=== PATIENT | female | born 1975 | race Caucasian/White ===

== ENCOUNTER 2020-02-18 08:11 | Outpatient (CLI) | payer BC, SELFPAY ==
--- NOTE | ~2020-02-18 | MM_ITS ---
EXAMINATION: MM screening anuja BI w everett HISTORY: Screening mammogram TECHNIQUE: Craniocaudal and mediolateral oblique 3-D tomosynthesis images were obtained and synthetic 2-D images were generated. CAD analysis was submitted and interpreted. COMPARISON: No prior mammogram is available for comparison at this institution. BREAST PARENCHYMAL COMPOSITION: The breasts are almost entirely fatty. FINDINGS: There is no evidence of suspicious mass, calcification, or architectural distortion to sugg est malignancy in either breast. There has been no suspicious interval change. IMPRESSION: 1. No mammographic evidence of malignancy. 2. Recommend routine screening mammography in one year. BI-RADS Category 1: Negative Reviewed, dictated and finalized at location A. [employer] TE[employer]ACH
== END 2020-02-18 08:12 | disposition home or self-care (01) ==
LOC: ANHIMG 08:24
PROVIDERS: PCP Physician Assistant; Visit Provider Physician Assistant
DX: Z12.31 Encounter for screening mammogram for malignant neoplasm of breast (principal)
CPT/HCPCS: 77063; 77067

== ENCOUNTER 2021-10-04 12:33 | Inpatient (IN) | payer BC, SELFPAY ==
[2021-10-04] VITALS (12 sets, daily range): BP systolic 113–137; BP diastolic 50–70; PULSE 81–108; RESP 13–20; TEMP 36.6–37.3; O2SAT 96–100; BMI 39.6
--- NOTE | ~2021-10-04 | XR_ITS ---
XR foot RT min 3V DATE: 10/04/2021 13:18 INDICATION: Diabetic ulcer on plantar aspect of fifth metatarsal bone TECHNIQUE: 4 views COMPARISON: 12/03/2017 right foot FINDINGS: Status post surgical resection of the fifth ray at the mid shaft of the fifth metatarsal aaron ne. There is soft tissue swelling of the forefoot. No periosteal reaction or bone destruction is noted. Prominent plantar and mild posterior calcaneal enthesopathy. No fracture or dislocation. IMPRESSION: Forefoot soft tissue swelling Status post amputation of fifth metatarsal at the midshaft No radiographic evidence of osteomyelitis is detected Calcaneal enthesopathy Reviewed, dictated and finalized at location A.
[2021-10-04 12:48] LABS: Glucose Point of Care 357 mg/dl (65-105)
[2021-10-04 13:01] LABS: Basophils Percent Auto 0.4 % (0.2-1.2); Eosinophils Absolute Auto 0.1 K/mm3 (0-0.3); Hematocrit 40.5 % (37.0-47.0); Immature Granulocyte Absolute 0.03 K/mm3 (0.00-0.031); Immature Granulocyte Percent A 0.3 % (0-0.5); Lymphocytes Percent Auto 18.8 % (18.3-44.2); Mean Corpuscular HGB Conc 34.6 g/dl (32-36); Mean Corpuscular Hemoglobin 28.4 pg (26-34); Mean Corpuscular Volume 82.2 fl (80-100); Mean Platelet Volume 10.2 fl (7.4-10.4); Monocytes Absolute Auto 0.7 K/mm3 (0.1-0.6); Monocytes Percent Auto 7.6 % (2.6-8.5); Neutrophils Absolute Auto 6.9 K/mm3 (1.3-6.7); Neutrophils Percent Auto 71.9 % (45.5-73.1); Platelet Count Result 231 k/mm3 (150-375); Red Blood Count 4.93 M/mm3 (4.2-5.4); Red Cell Distribution Width 12.6 % (11.5-14.5); White Blood Count 9.6 K/mm3 (4.5-10.0)
--- NOTE | 2021-10-04 13:05 | ED.GENADULT ---
HPI - General Adult General Chief complaint: Extremity Problem,Nontraumatic Stated complaint: RIGHT FOOT ULCER Time Seen by Provider: 10/04/21 12:54 Source: RN notes reviewed History of Present Illness HPI narrative: Patient presents emergency department from home for right foot pain. Patient states she noted an ulcer on her right foot yesterday. She states that the area has been painful and she has had associated nausea and vomiting. She states that she is a diabetic but stopped taking her medications approximately a year ago because they are making her sick. She denies any shortness of breath chest pain or abdominal pain. States she did have a low-grade fever yesterday Related Data Home Medications Medication Instructions Recorded Confirmed gabapentin 300 mg capsule 1 cap PO TID 10/04/21 10/04/21 glimepiride 2 mg tablet 2.5 mg PO DAILY 10/04/21 10/04/21 liraglutide 0.6 mg/0.1 mL (18 mg/3 3.5 mg subcut DAILY 10/04/21 10/04/21 mL) subcutaneous pen injector (SongFlame 2-Edgardo) metformin 1,000 mg tablet 1 tablet PO BID 10/04/21 10/04/21 omeprazole magnesium 20 mg 20 mg PO DAILY PRN Acid Reflux 10/04/21 10/04/21 tablet,delayed release (Prilosec OTC) Allergies Allergy/AdvReac Type Severity Reaction Status Date / Time aspirin Allergy Unknown Urticaria Verified 11/24/17 11:19 Review of Systems Review of Systems: Gen.: Denies fevers or chills ENT: Denies congestion Respiratory: Denies shortness of breath or cough CV: Denies chest pain or palpitations GI: Denies abdominal pain or diarrhea. 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 Perez Diabetes mellitus due to underlying condition with foot ulcer, without long-term current use of insulin (12/26/17) Diabetic ulcer of toe of right foot associated with type 2 diabetes mellitus Osteomyelitis of toe of right foot Family History Family History Other Diabetes mellitus Social History Social History Smoking packs per day: 2 Smoking cigarettes per day: 40.0 Years smoked: 37 Smoking pack-years: 74.00 Smoking status: Heavy tobacco smoker Tobacco type: cigarettes Second hand tobacco smoke exposure: Yes Alcohol intake: never Substance use: never Gender identity (if verbalized by the patient): Female Sexual Orientation (if Verbalized by the Patient): Straight or Heterosexual Spiritual care concerns: No Agree to blood products: No Exam Narrative: APPEARANCE: No acute distress, nontoxic, resting in bed EYES: EOMI HEENT: Normocephalic, atraumatic, OMM RESPIRATORY: No respiratory distress Clear to auscultation bilaterally with no rhonchi wheezing or rales. CARDIOVASCULAR: Regular rate and rhythm without murmurs rubs or gallops. ABDOMINAL: Soft, nontender, nondistended, no rebound or guarding MUSCULOSKELETAl: Moves all extremities. No clubbing, cyanosis the right foot has swelling and erythema over the lateral distal aspect at the base of the fifth metatarsal with mild fluctuance no drainage erythema extends up to the foot but does not seem to the ankle dorsalis pedis pulse 2+ neurovascular intact NEURO: Awake and alert. Following commands, speech normal, no focal deficits SKIN:: Warm, dry. No rashes lesions or abrasions PSYCHIATRIC: Normal affect/mood, Course Course Emergency Course: Discussed with Dr. Perez presentation work-up agrees with consult Discussed with TITO Lambert for Dr. Brower agrees with admission Discussed with patient and family results of workup and diagnosis. Discussed
[2021-10-04] MEDS: SODIUM CHLORIDE 0.9% IV 1,000 ML 999 ML IV CONT ×2 (13:13→13:56)
[2021-10-04] MEDS: ONDANSETRON INJ 4 MG/2 ML VIAL IV PUSH (13:13)
[2021-10-04 13:15] LABS: Anion Gap 7 mmol/L (8-16); Blood Urea Nitrogen 7 mg/dL (7-17); Calcium 8.7 mg/dL (8.4-10.2); Carbon Dioxide 26 mmol/L (22-30); Chloride 100 mmol/L (98-107); Estimated CRCL calculation 129 ml/min; Estimated Glomerular Filt Rate > 60; Glucose 354 mg/dL (65-110); Potassium 3.9 mmol/L (3.4-5.0); Sodium 133 mmol/L (137-145)
[2021-10-04 13:26] LABS: Prothrombin Time 12.7 Seconds (11.1-14.7)
[2021-10-04 13:29] LABS: Lactic Acid Reflex 2.6 mmol/L (0.7-2.0)
--- NOTE | 2021-10-04 14:05 | PM.IMHP ---
H&P: HPI History of Present Illness Date/Time: 10/04/21 14:05 Chief Complaint: R foot pain Narrative: 46 F with PMH of DM who presented to ED with c/o R foot pain that started yesterday. pain is 9/10 in severity. she also noticed redness and swelling. also reported fever 102 F yesterday. She is T2DM and quit taking her meds a year back. she previously had R 5th toe amputation by Ortho a few years back. no other complaints. Review of Systems Review of Systems: negative other than HPI [facility] Family History Family History (Updated 11/24/17 @ 11:21 by DOCTOR UNKNOWN) Other Diabetes mellitus Social History Social History Smoking status: Heavy tobacco smoker Alcohol intake: never Meds Home Medications and Allergies Allergies Allergy/AdvReac Type Severity Reaction Status Date / Time aspirin Allergy Unknown Urticaria Verified 11/24/17 11:19 Vital Signs Vital Signs - 24 hr 10/04/21 12:37 10/04/21 12:48 10/04/21 13:00 Temperature 97.9 F Pulse Rate 108 H 105 H 99 Respiratory Rate 20 13 18 Blood Pressure Pulse Oximetry 100 100 97 Oxygen Delivery Room Air 10/04/21 13:02 10/04/21 13:20 10/04/21 13:30 Temperature Pulse Rate 95 92 103 H Respiratory Rate 14 18 17 Blood Pressure Pulse Oximetry 97 96 100 Oxygen Delivery 10/04/21 13:32 10/04/21 13:45 Temperature Pulse Rate 99 96 Respiratory Rate 17 15 Blood Pressure 137/56 L Pulse Oximetry 99 100 Oxygen Delivery Exam Const: General: cooperative and comfortable Orientation/consciousness: patient oriented x3 HENMT: Head: normal to inspection Mouth: Yes Normal oral and palatal mucosa present Eyes: General: appearance normal, both eyes and all related structures Resp: Effort & Inspection: normal respiratory effort Auscultation: clear to auscultation bilaterally Cardio: Rate: regular rate Rhythm: regular rhythm Heart sounds: S1 normal heart sound present and S2 normal heart sound present GI: GI Palp: Yes Soft to palpation Auscultation: normal bowel sounds Skin: General skin exam: normal color and no rashes or lesions noted Neuro: General: patient oriented x3, no focal motor deficits and CN's II-XI intact bilaterally Speech: normal speech Extrem: General: full ROM Other: R 5th toe amputation. swelling, erythema lateral part of right foot. chronic ulcer R sole Psych: Appearance: grossly normal H&P: Results Labs Labs: Short CBC 10/04/21 Range/Units 12:54 WBC 9.6 (4.5-10.0) K/mm3 Hgb 14.0 (12.0-15.0) g/dL Hct 40.5 (37.0-47.0) % Plt Count 231 (150-375) k/mm3 [facility] 10/04/21 12:54 Sodium 133 L Potassium 3.9 Chloride 100 Carbon Dioxide 26 BUN 7 Creatinine 0.50 L Glucose 354 H Calcium 8.7 Assessment and Plan Assessment and plan (1) Non-pressure chronic ulcer of other part of right foot limited to breakdown of skin: Code(s): L97.511 - Non-pressure chronic ulcer of other part of right foot limited to breakdown of skin Status: Acute Assessment and Plan: Ortho has been consulted. XRAY doesnt show any OM. defer further imaging to Ortho. will keep NPO after midnight for possible surgery tomorrow. patient received vanco and imipenem in ED. will continue the same. blood cultures obtained. (2) DM type 2 (diabetes mellitus, type 2): Code(s): E11.9 - Type 2 diabetes mellitus without complications Status: Acute Assessment and Plan: non complaint. stopped taking her meds a year back. will start on lantus along with ISS and accuchecks AC&HS. A1c ordered. (3) Smoker unmotivated to quit: Code(s): F17.200 - Nicotine dependence, unspecified, uncomplicated Status: Acute Assessment and Plan: patient counseled on smoking cessation. no intent to quit.
[2021-10-04 14:17] LABS: SARS-CoV-2 RNA PCR Negative
[2021-10-04] MEDS: INSULIN ASPART (*BKC) 100 UNITS/ML SUB-Q ×2 (15:18→17:17)
--- NOTE | 2021-10-04 15:32 | ADMGEN ---
This patient, Danyell Perkins, was admitted to Medical Room 341-01. Patient/family oriented to hospital policies and general routines including ID bracelet, bed and alarms, visiting hours, pain management, procedures, bathroom and other care routines, personal items, smoking policy, room service/diet, and visiting hours. Information on how to activate the Rapid Response Team has been discussed. Patient/Family are encouraged to report perceived risks to care and to ask questions if they do not understand what they are told or what they should do.
[2021-10-04 15:55] LABS: Glucose Point of Care 305 mg/dl (65-105)
--- NOTE | 2021-10-04 16:06 | PM.CNOR ---
Assessment and Plan Assessment and plan (1) Non-pressure chronic ulcer of other part of right foot limited to breakdown of skin: Code(s): L97.511 - Non-pressure chronic ulcer of other part of right foot limited to breakdown of skin <Ninfa Nikunj Schafermark [employer] - Last Filed: 10/04/21 17:16> Status: Acute <Ninfa Graeme. [place]ark, [facility] - Last Filed: 10/04/21 17:16> Assessment and Plan: History, exam radiographs reviewed with the patient. Radiographs of the right foot reveal interval amputation of the 5th metatarsal at the midshaft as well as a forefoot soft tissue swelling. No obvious evidence of osteomyelitis noted. Large blister on the lateral aspect of the foot at what is the amputated 5th metatarsal midshaft noted. Two calluses noted on the plantar aspect of the 4th metatarsal. Recommended I&D of the right foot at the bedside. See procedure note for details. Concern for unhealthy tissue underlying blister. Culture obtained. Continue IV antibiotics at this time. We will await culture results. Wound painted with Betadine and covered dry. Recommend postop shoe. Elevate. Close blood glucose control. Diabetic diet. Weightbearing on the heel. Patient understands potential need to return to the operating room for further debridement. Wound consulted, will re-evaluate wound with wound nurses tomorrow to determine further conservative versus operative treatment needs. <Ninfa GraemeCitlali Ramon, [facility] - Last Filed: 10/04/21 17:16> (2) DM type 2 (diabetes mellitus, type 2): Code(s): E11.9 - Type 2 diabetes mellitus without complications <Ninfa GraemeCitlali Ramon, [facility] - Last Filed: 10/04/21 17:16> Status: Acute <Ninfa Nikunj Schaf[place]ark, [facility] - Last Filed: 10/04/21 17:16> Assessment and Plan: Patient will require close diabetic control. <Ninfa GraemeCitlali Ramon, [employer] - Last Filed: 10/04/21 17:16> (3) Smoker unmotivated to quit: Code(s): F17.200 - Nicotine dependence, unspecified, uncomplicated <Ninfa GraemeCitlali Ramon, [facility] - Last Filed: 10/04/21 17:16> Status: Acute <Ninfa M. Ruwe, [employer] - Last Filed: 10/04/21 17:16> Assessment and Plan: Reviewed radiographs, assessment and decision for bedside debridement with attending physician and consulted surgeon, Dr. Perez. Agrees with current plan of care. No further recommendations. <EMI Salomon - Last Filed: 10/04/21 17:16> Additional Plan 46yo woman known previously for rt 5th met osteo presents with rt foot abscess/ DFU. Cultures taken, IV abx started. Wound care. May need formal debridement <Codey Perez MD - Last Filed: 10/05/21 06:56> History of Present Illness HPI Consult date: 10/04/21 <EMI Salomon - Last Filed: 10/04/21 17:16> 10/05/21 <Codey Perez MD - Last Filed: 10/05/21 06:56> Chief complaint: Right foot cellulitis/diabetes mellitus/right foot <EMI Salomon - Last Filed: 10/04/21 17:16> Narrative: 46-year-old female known to the Orthopedic Service for a previous 5th ray amputation of the right foot [place] [address] Perez. Patient presented to the emergency room today with complaints of increased right foot swelling and erythema which began yesterday while on vacation. She also notes that she had calluses on the plantar aspect of the right foot for the last 2 months. She does not wear custom orthotics for depth shoes. She was barefoot while on vacation as well walking on hot concrete. She was admitted in the setting of cellulitis and for concerns of diabetic foot ulcer infection. <EMI Salomon - Last Filed: 10/04/21 17:16> Review of Systems Constitutional: Constitutional: Reports no additional constitutional complaints, Denies chills, Denies fatigue, Denies fever(s), Denies headache(s) and Denies weakness <EMI Salomon - Last Filed: 10/04/21 17:16> Eyes: Eyes: Denies change in vision <EMI Salomon - Last Filed: 07/11/22 17:16> ENT: Reports Normal hearing present and Den
[2021-10-04 16:14] LABS: Reflex Lactic Acid Yes or No Add Lactic
[2021-10-04 16:54] LABS: Hemoglobin A1C 11.3 % (<5.7)
[2021-10-04 16:56] LABS: Glucose Point of Care 375 mg/dl (65-105)
--- NOTE | 2021-10-04 17:16 | PM.OP ---
Procedure Note - Brief Procedure Note - Brief Date of procedure: 10/04/21 Pre-op diagnosis: Right foot cellulitis/diabetes mellitus/right foot Right diabetic foot ulcer Post-op diagnosis: Same Procedure performed: I&D right diabetic foot ulcer at the bedside Description of procedure: Consent obtained. Debridement of the skin, subcutaneous tissue debrided under sterile conditions with #15 blade knife. All devitalized tissue muscle removed. Procedure tolerated well. Moderate amount of serosanguineous fluid drained from the right lateral forefoot. No purulence. No malodor. Anesthesia: none Surgeon: EMI Salomon Truck Headlight Assembler: n/a Estimated blood loss (mL): 0 Tourniquet time (min): 0 IV fluids (mL): 0 Urine output (mL): 0 Drains: No Packing: No Pathology: Yes ( stat Gram stain, aerobic and anaerobic cultures.) Complications: No immediate complications Condition: Stable Disposition: Floor Findings: Underlying diabetic foot ulcer. No probing to bone. Questionable communication with plantar foot calluses At the base of the 4th metatarsal.
[2021-10-04] MEDS: NICOTINE (*PBKC) 14 MG PATCH 1 PATCH TRANSDERM (17:28)
[2021-10-04 17:40] LABS: Lactic Acid 2.6 mmol/L (0.7-2.0)
[2021-10-04 20:24] LABS: Glucose Point of Care 285 mg/dl (65-105)
[2021-10-04] MEDS: INSULIN GLARGINE (*BKC) 100 UNITS/ML 22 UNITS SUB-Q (20:53)
[2021-10-04] MEDS: HEPARIN SODIUM 5,000 UNITS/ML VIAL 5000 UNITS SUB-Q (20:56)
[2021-10-05 05:41] LABS: Basophils Percent Auto 0.5 % (0.2-1.2); Eosinophils Absolute Auto 0.1 K/mm3 (0-0.3); Eosinophils Percent Auto 1.5 % (0-4.4); Hematocrit 36.1 % (37.0-47.0); Hemoglobin 12.4 g/dL (12.0-15.0); Immature Granulocyte Absolute 0.02 K/mm3 (0.00-0.031); Immature Granulocyte Percent A 0.3 % (0-0.5); Lymphocytes Absolute Auto 1.76 K/mm3 (0.9-3.2); Lymphocytes Percent Auto 28.8 % (18.3-44.2); Mean Corpuscular HGB Conc 34.3 g/dl (32-36); Mean Corpuscular Hemoglobin 28.5 pg (26-34); Mean Platelet Volume 10.1 fl (7.4-10.4); Monocytes Absolute Auto 0.5 K/mm3 (0.1-0.6); Monocytes Percent Auto 8.3 % (2.6-8.5); Neutrophils Absolute Auto 3.7 K/mm3 (1.3-6.7); Neutrophils Percent Auto 60.6 % (45.5-73.1); Platelet Count Result 189 k/mm3 (150-375); Red Blood Count 4.35 M/mm3 (4.2-5.4); Red Cell Distribution Width 12.3 % (11.5-14.5); White Blood Count 6.1 K/mm3 (4.5-10.0)
[2021-10-05 05:47] LABS: Anion Gap 5 mmol/L (8-16); Blood Urea Nitrogen 7 mg/dL (7-17); Calcium 7.6 mg/dL (8.4-10.2); Carbon Dioxide 26 mmol/L (22-30); Chloride 104 mmol/L (98-107); Estimated CRCL calculation 100 ml/min; Estimated Glomerular Filt Rate > 60; Glucose 281 mg/dL (65-110); Potassium 3.9 mmol/L (3.4-5.0); Sodium 135 mmol/L (137-145)
[2021-10-05 05:53] VITALS: BP 118/58; PULSE 88; RESP 18; TEMP 37.1; O2SAT 95
[2021-10-05 07:44] LABS: Glucose Point of Care 265 mg/dl (65-105)
[2021-10-05] MEDS: GABAPENTIN 300 MG CAPSULE PO ×3 (08:29→17:00)
[2021-10-05] MEDS: INSULIN ASPART (*BKC) 100 UNITS/ML 10 UNITS SUB-Q ×3 (08:29→17:00)
[2021-10-05] MEDS: NICOTINE (*PBKC) 14 MG PATCH 1 PATCH TRANSDERM (08:29)
[2021-10-05] MEDS: HEPARIN SODIUM 5,000 UNITS/ML VIAL 5000 UNITS SUB-Q ×2 (08:29→20:55)
[2021-10-05] MEDS: ACETAMINOPHEN 325 MG TABLET 650 MG PO (08:38)
--- NOTE | 2021-10-05 08:56 | PM.PNORT ---
Progress Note: A&P Assessment and Plan (1) Non-pressure chronic ulcer of other part of right foot limited to breakdown of skin: Code(s): L97.511 - Non-pressure chronic ulcer of other part of right foot limited to breakdown of skin Status: Acute Assessment and Plan: Reevaluation of right foot today s/p bedside debridement. Ulcer underlying previous blister now reveals necrotic tissue, measuring 1.6x1.5x2.2cm with tunneling to the two calluses on the the plantar aspect of the midshaft of the 5th metatarsal. Cultures from yesterday unable to be utilized due to wrong tube per laboratory. New cultures obtained today. Purulent drainage noted. Recommend transition to Santyl daily, cover dry. Will await culture results. Continue IV antibiotics. PWB. WB on heel. Post op shoe. Change dressing daily. Will likely require return to OR for surgical debridement by Dr. Perez. Plan for surgical intervention on 10/07. (2) DM type 2 (diabetes mellitus, type 2): Code(s): E11.9 - Type 2 diabetes mellitus without complications Status: Acute Assessment and Plan: Close diabetic control. (3) Smoker unmotivated to quit: Code(s): F17.200 - Nicotine dependence, unspecified, uncomplicated Status: Acute Additional Plan Reviewed new assessment, dressing change recommendations and potential return to OR with attending MD, Dr. Perez. Agrees with current plan of care. No further recommendations. Subjective Subjective Date/Time Seen: 10/05/21 08:56 Post Op day: 1 Interval history: 1 day s/p bedside debridement. Patient reports improvement in pain of the foot s/p debridement. Complaints of being hungry. Otherwise, no new concerns. Review of Systems Review of Systems: All systems reviewed & are unremarkable except as noted in HPI and below Exam Const: General: comfortable and no acute distress HENMT: Mouth: Yes moist mucous membranes Eyes: General: appearance normal, both eyes and all related structures Neck: Neck: supple and no JVD Resp: Effort & Inspection: normal respiratory effort Cardio: Rate: regular rate Rhythm: regular rhythm GI: Inspection: non-distended GI Palp: Yes Soft to palpation and No Tenderness to palpation present (GI) Neuro: General: gait normal Cranial nerves: Yes Normal hearing present Cognition (Neuro): normal cognition Speech: normal speech Extrem: Right lower extremity: ankle ( positive ankle dorsiflexion/ plantar flexion, no erythema noted.) and foot ( Fifth ray amputation, neuropathy at baseline) Details: toes with normal ROM, warmth ( dorsum and lateral foot), edema ( entire foot), ecchymosis ( lateral foot) and motor-sensory exam Details: two point discrimination abnormal and light-touch abnormal Other: Underlying ulcer from previous blister now with necrotic cap covering. Measures 1.6x1.5x2.2cm. Callus on the plantar aspect of the right foot at the midshaft of the 5th metatarsal now with communication to the lateral foot. Purulent drainage cultured today. No malodor. Continued cellulitis. Psych: Mental Status: mental status grossly normal Affect: normal affect Objective Data Vital Signs Vital Signs: Vital Signs - 24 hr 10/04/21 12:37 10/04/21 12:48 10/04/21 13:00 Temperature 36.6 C Pulse Rate 108 H 105 H 99 Respiratory Rate 20 13 18 Blood Pressure Pulse Oximetry 100 100 97 Oxygen Delivery Room Air 10/04/21 13:02 10/04/21 13:20 10/04/21 13:30 Temperature Pulse Rate 95 92 103 H Respiratory Rate 14 18 17 Blood Pressure Pulse Oximetry 97 96 100 Oxygen Delivery 10/04/21 13:32 10/04/21 13:45 10/04/21 14:50 Temperature Pulse Rate 99 96 85 Respiratory Rate 17 15 20 Blood Pressure 137/56 L 130/70 Pulse Oximetry 99 100 97 Oxygen Delivery 10/04/21 16:11 10/04/21 14:49 10/04/21 20:00 Temperature 36.6 C Pulse Rate 81 Respiratory Rate 18 Blood Pressure 126/70 Pulse Oximetry 100 100 Oxygen Delivery Au
--- NOTE | 2021-10-05 10:25 | PM.IMPN ---
Progress Note: A&P Assessment and Plan (1) Non-pressure chronic ulcer of other part of right foot limited to breakdown of skin: Code(s): L97.511 - Non-pressure chronic ulcer of other part of right foot limited to breakdown of skin Status: Acute Assessment and Plan: Ortho has been consulted. XRAY doesnt show any OM. Patient underwent bedside I and D by Orthopedic surgery. Plan for surgical debridement in OR on 10/07. Continue IV vanco and imipenem. blood cultures obtained. Wound cultures pending (2) DM type 2 (diabetes mellitus, type 2): Code(s): E11.9 - Type 2 diabetes mellitus without complications Status: Acute Assessment and Plan: non compliant. stopped taking her meds a year back. A1c 11. Patient counseled on medication compliance. Blood sugar still high. Will increase Lantus to 30 units HS and add 10 units scheduled Humalog with meals. Continue ISS and accuchecks AC&HS. (3) Smoker unmotivated to quit: Code(s): F17.200 - Nicotine dependence, unspecified, uncomplicated Status: Acute Assessment and Plan: patient counseled on smoking cessation. no intent to quit. Subjective Date/time seen: 10/05/21 10:25 Interval history: 1 day s/p bedside debridement. Exam Const: General: cooperative and comfortable Orientation/consciousness: patient oriented x3 HENMT: Head: normal to inspection Mouth: Yes Normal oral and palatal mucosa present Eyes: General: appearance normal, both eyes and all related structures Resp: Effort & Inspection: normal respiratory effort Auscultation: clear to auscultation bilaterally Cardio: Rate: regular rate Rhythm: regular rhythm Heart sounds: S1 normal heart sound present and S2 normal heart sound present GI: Auscultation: normal bowel sounds Skin: General skin exam: normal color and no rashes or lesions noted Neuro: General: patient oriented x3, no focal motor deficits and CN's II-XI intact bilaterally Speech: normal speech Extrem: General: full ROM Other: R 5th toe amputation. swelling, erythema lateral part of right foot. chronic ulcer R sole Psych: Appearance: grossly normal Objective Data Vital Signs Vital Signs: Vital Signs - 24 hr 10/04/21 12:37 10/04/21 12:48 10/04/21 13:00 Temperature 97.9 F Pulse Rate 108 H 105 H 99 Respiratory Rate 20 13 18 Blood Pressure Pulse Oximetry 100 100 97 Oxygen Delivery Room Air 10/04/21 13:02 10/04/21 13:20 10/04/21 13:30 Temperature Pulse Rate 95 92 103 H Respiratory Rate 14 18 17 Blood Pressure Pulse Oximetry 97 96 100 Oxygen Delivery 10/04/21 13:32 10/04/21 13:45 10/04/21 14:50 Temperature Pulse Rate 99 96 85 Respiratory Rate 17 15 20 Blood Pressure 137/56 L 130/70 Pulse Oximetry 99 100 97 Oxygen Delivery 10/04/21 16:11 10/04/21 14:49 10/04/21 20:00 Temperature 98 F Pulse Rate 81 Respiratory Rate 18 Blood Pressure 126/70 Pulse Oximetry 100 100 Oxygen Delivery Autopap Room Air 10/04/21 22:00 10/05/21 05:53 Temperature 99.1 F 98.7 F Pulse Rate 88 88 Respiratory Rate 16 18 Blood Pressure 113/50 L 118/58 L Pulse Oximetry 98 95 Oxygen Delivery Intake/Output Intake/Output: Intake & Output 10/02/21 10/03/21 10/04/21 10/05/21 23:59 23:59 23:59 23:59 Intake Total 940 1180 Output Total 0 Balance 940 1180 Meds/Results Medications: Active Medications Generic Name Dose Route Start Last Admin Trade Name Narinder PRN Reason Stop Dose Admin Acetaminophen 650 mg 10/04/21 13:52 10/05/21 08:38 Acetaminophen 325 Mg Tablet PO 650 mg Q4H PRN Administration Mild Pain (1-3) or Fever Hydrocodone Bitart/Acetaminophen 1 tab 10/04/21 14:02 Hydrocodone/Acetaminophen (*Crx) 7.5-325 Mg Tablet PO Q6H PRN Pain Rated 7-10 Bisacodyl 5 mg 10/04/21 13:52 Bisacodyl 5 Mg Tablet Ec PO DAILY PRN Constipation Collagenase 1 applic 10/05/21 09:00 Collagenase Oi
--- NOTE | 2021-10-05 12:23 | PCNSR ---
On 10/05/21, the student, Rani Shirley, provided care and completed [facility] documentation on this patient. I have reviewed the student's documentation and agree with the findings.
[2021-10-05 12:38] LABS: Glucose Point of Care 329 mg/dl (65-105)
[2021-10-05] MEDS: COLLAGENASE OINT 30 GM TUBE 1 APPLIC TOPICAL (12:58)
[2021-10-05 14:00] VITALS: BP 116/59; PULSE 77; RESP 18; TEMP 36.7; O2SAT 97
[2021-10-05 15:23] VITALS: O2SAT 97
[2021-10-05 16:47] LABS: Glucose Point of Care 216 mg/dl (65-105)
[2021-10-05 19:37] VITALS: BP 139/63; PULSE 84; RESP 18; TEMP 36.8; O2SAT 96
[2021-10-05] MEDS: INSULIN GLARGINE (*BKC) 100 UNITS/ML 30 UNITS SUB-Q (20:55)
[2021-10-05 21:08] LABS: Glucose Point of Care 230 mg/dl (65-105)
[2021-10-06 01:53] LABS: Estimated CRCL calculation 117 ml/min; Estimated Glomerular Filt Rate > 60
[2021-10-06 01:59] LABS: Vancomycin Trough 13.2 ug/mL (10.0-20.0)
[2021-10-06 05:47] VITALS: BP 125/60; PULSE 77; RESP 18; TEMP 36.8; O2SAT 97
[2021-10-06 07:31] LABS: Glucose Point of Care 249 mg/dl (65-105)
--- NOTE | 2021-10-06 08:06 | PM.PNORT ---
Progress Note: A&P Assessment and Plan (1) Non-pressure chronic ulcer of other part of right foot limited to breakdown of skin: Code(s): L97.511 - Non-pressure chronic ulcer of other part of right foot limited to breakdown of skin Status: Acute Assessment and Plan: Ulcer underlying previous blister now reveals necrotic tissue, measuring 1.6x1.5x2.2cm with tunneling to the two calluses on the the plantar aspect of the midshaft of the 5th metatarsal. Purulent drainage noted. Awaiting culture results. Continue IV antibiotics. PWB. WB on heel. Post op shoe. Change dressing daily. Will require return to OR for surgical debridement. Plan for surgical intervention on 10/07. (2) DM type 2 (diabetes mellitus, type 2): Code(s): E11.9 - Type 2 diabetes mellitus without complications Status: Acute Assessment and Plan: Close diabetic control. (3) Smoker unmotivated to quit: Code(s): F17.200 - Nicotine dependence, unspecified, uncomplicated Status: Acute Additional Plan Discussed nonoperative and operative treatment options with the patient. Risks and benefits of each as well as alternatives were reviewed. All of the patient's questions were answered. The risks of surgery reviewed including but not limited to: Neurovascular damage, wound complication, infection, blood clot, pulmonary embolus, stroke, myocardial infarction, and anesthetic risks up to and including . Continued pain and possible dysfunction were explained. Specific risks of the procedure including later recurrence of deformity. No guarantees were offered. the patient understands the need for possible further treatment, possible further surgery. Patient verbalizes understanding and wishes to proceed. PLAN: excisional debridement right diabetic foot ulcer Subjective Subjective Date/Time Seen: 10/06/21 08:06 Interval history: 2 days s/p bedside debridement. Patient reports improvement in pain of the foot s/p debridement. no new concerns. Review of Systems Review of Systems: All systems reviewed & are unremarkable except as noted in HPI and below Constitutional: Constitutional: Reports no additional constitutional complaints, Denies chills, Denies fatigue, Denies fever(s), Denies headache(s) and Denies weakness Eyes: Eyes: Denies change in vision ENT: Reports Normal hearing present and Denies headache(s) Cardiovascular: Cardiovascular: Denies chest pain and Denies dyspnea Respiratory: Respiratory: Denies cough, Denies dyspnea and Denies wheezing Gastrointestinal: Gastrointestinal: Denies constipation, Denies diarrhea, Denies nausea and Denies vomiting Genitourinary: Genitourinary: Denies hematuria, Denies dysuria and Denies urinary urgency Musculoskeletal: Musculoskeletal: Reports as per HPI, Denies numbness and Denies tingling Integumentary/Breasts: Skin/Breast: Reports as per HPI Neurologic: Reports as per HPI, Reports Normal hearing present, Denies headache(s), Denies numbness, Denies tingling and Denies weakness Psychiatric: Psychiatric: Reports no additional psychiatric complaints Endocrine: Endocrine: Reports no additional endocrine complaints and Denies fatigue Hematologic/Lymphatic: Hematologic/Lymphatic: Reports no additional hematologic/lymphatic complaints Allergic/Immunologic: Allergic/Immunologic: Reports no additional allergic/immunologic complaints and Denies wheezing Exam Const: General: comfortable and no acute distress HENMT: Mouth: Yes moist mucous membranes Eyes: General: appearance normal, both eyes and all related structures Neck: Neck: supple Resp: Effort & Inspection: normal respiratory effort Cardio: Rate: regular rate Rhythm: regular rhythm GI: Inspection: non-distended Neuro: Cranial nerves: Yes Normal hearing present Cognition (Neuro): normal cognition Speech: normal speech Extrem: Right lower extremity: ankle ( positive ankle dorsiflexion/ plantar flexion
[2021-10-06] MEDS: HEPARIN SODIUM 5,000 UNITS/ML VIAL 5000 UNITS SUB-Q (08:33)
[2021-10-06] MEDS: COLLAGENASE OINT 30 GM TUBE 1 APPLIC TOPICAL (08:33)
[2021-10-06] MEDS: NICOTINE (*PBKC) 14 MG PATCH 1 PATCH TRANSDERM (08:33)
[2021-10-06] MEDS: INSULIN ASPART (*BKC) 100 UNITS/ML 10 UNITS SUB-Q (08:33)
[2021-10-06] MEDS: GABAPENTIN 300 MG CAPSULE PO ×3 (08:33→16:44)
[2021-10-06 11:36] LABS: Glucose Point of Care 231 mg/dl (65-105)
--- NOTE | 2021-10-06 11:42 | PM.IMPN ---
Progress Note: A&P Assessment and Plan (1) Non-pressure chronic ulcer of other part of right foot limited to breakdown of skin: Code(s): L97.511 - Non-pressure chronic ulcer of other part of right foot limited to breakdown of skin Status: Acute Assessment and Plan: Ortho has been consulted. XRAY doesnt show any OM. Continue IV vanc and imipenem. The OR tomorrow. (2) DM type 2 (diabetes mellitus, type 2): Code(s): E11.9 - Type 2 diabetes mellitus without complications Status: Acute Assessment and Plan: Monitor blood sugars. Noncompliant (3) Smoker unmotivated to quit: Code(s): F17.200 - Nicotine dependence, unspecified, uncomplicated Status: Acute Assessment and Plan: patient counseled on smoking cessation. no intent to quit. Subjective Date/time seen: 10/06/21 11:42 No complaints Exam Const: General: cooperative and comfortable Orientation/consciousness: patient oriented x3 HENMT: Head: normal to inspection Mouth: Yes Normal oral and palatal mucosa present Eyes: General: appearance normal, both eyes and all related structures Resp: Effort & Inspection: normal respiratory effort Auscultation: clear to auscultation bilaterally Cardio: Rate: regular rate Rhythm: regular rhythm Heart sounds: S1 normal heart sound present and S2 normal heart sound present GI: Auscultation: normal bowel sounds Skin: General skin exam: normal color and no rashes or lesions noted Neuro: General: patient oriented x3, no focal motor deficits and CN's II-XI intact bilaterally Speech: normal speech Extrem: General: full ROM Other: R 5th toe amputation. swelling, erythema lateral part of right foot. chronic ulcer R sole Psych: Appearance: grossly normal Objective Data Vital Signs Vital Signs: Vital Signs - 24 hr 10/05/21 14:00 10/05/21 15:23 10/05/21 19:37 Temperature 98.1 F 98.3 F Pulse Rate 77 84 Respiratory Rate 18 18 Blood Pressure 116/59 L 139/63 Pulse Oximetry 97 97 96 Oxygen Delivery Room Air 10/06/21 05:47 10/06/21 08:15 Temperature 98.2 F Pulse Rate 77 Respiratory Rate 18 Blood Pressure 125/60 Pulse Oximetry 97 Oxygen Delivery Room Air Intake/Output Intake/Output: Intake & Output 10/03/21 10/04/21 10/05/21 10/06/21 23:59 23:59 23:59 23:59 Intake Total 940 2480 940 Output Total 0 Balance 940 2480 940 Meds/Results Medications: Active Medications Generic Name Dose Route Start Last Admin Trade Name Freq PRN Reason Stop Dose Admin Acetaminophen 650 mg 10/04/21 13:52 10/05/21 08:38 Acetaminophen 325 Mg Tablet PO 650 mg Q4H PRN Administration Mild Pain (1-3) or Fever Hydrocodone Bitart/Acetaminophen 1 tab 10/04/21 14:02 Hydrocodone/Acetaminophen (*Crx) 7.5-325 Mg Tablet PO Q6H PRN Pain Rated 7-10 Bisacodyl 5 mg 10/04/21 13:52 Bisacodyl 5 Mg Tablet Ec PO DAILY PRN Constipation Collagenase 1 applic 10/05/21 09:00 10/06/21 08:33 Collagenase Oint 30 Gm Tube TOPICAL 1 applic QAM CHRISTOPHER Administration Dextrose 12.5 gm 10/04/21 13:52 Dextrose 50% 25 Gm/50 Ml Syringe IV PUSH PRN PRN Hypoglycemia Protocol Gabapentin 300 mg 10/05/21 09:00 10/06/21 08:33 Gabapentin 300 Mg Capsule PO 300 mg TID CHRISTOPHER Administration Glucagon 1 mg 10/04/21 13:52 Glucagon For Inj 1 Mg Vial IM PRN PRN Hypoglycemia Protocol Glucose 15 gm 10/04/21 13:52 Glucose Oral Gel 15 Gm Of Glucse In 37.5 Gm Tube PO PRN PRN Hypoglycemia Protocol Heparin Sodium (Porcine) 5,000 units 10/04/21 21:00 10/06/21 08:33 Heparin Sodium 5,000 Units/Ml Vial SUB-Q 5,000 units Q12HR CHRISTOPHER Administration Imipenem/Cilastatin Sodium 500 mg in 100 mls @ 300 mls/hr 10/04/21 19:00 10/06/21 05:50 Primaxin 500 Mg/Ns 100 Ml IVPB Infused Q6HR CHRISTOPHER Infusion Dextrose 1,000 mls @ 100 mls/hr 10/04/21 13:52 Dextrose 5% 1,000 Ml
[2021-10-06] MEDS: INSULIN ASPART (*BKC) 100 UNITS/ML 12 UNITS SUB-Q ×2 (12:11→16:44)
[2021-10-06 13:56] VITALS: BP 115/58; PULSE 68; RESP 16; TEMP 36.6; O2SAT 97
[2021-10-06 16:28] LABS: Glucose Point of Care 245 mg/dl (65-105)
[2021-10-06] MEDS: ACETAMINOPHEN 325 MG TABLET 650 MG PO (17:08)
[2021-10-06 19:25] VITALS: BP 139/64; PULSE 81; RESP 18; TEMP 36.6; O2SAT 98
[2021-10-06 20:00] VITALS: PULSE 81; RESP 18; O2SAT 98
[2021-10-06] MEDS: INSULIN GLARGINE (*BKC) 100 UNITS/ML 35 UNITS SUB-Q (20:38)
[2021-10-06 20:48] LABS: Glucose Point of Care 268 mg/dl (65-105)
[2021-10-07] VITALS (15 sets, daily range): BP systolic 96–146; BP diastolic 51–66; PULSE 64–87; RESP 14–20; TEMP 35.7–37.2; O2SAT 90–99
[2021-10-07 05:53] LABS: Basophils Percent Auto 0.4 % (0.2-1.2); Eosinophils Absolute Auto 0.1 K/mm3 (0-0.3); Eosinophils Percent Auto 1.8 % (0-4.4); Hematocrit 35.2 % (37.0-47.0); Hemoglobin 12.1 g/dL (12.0-15.0); Immature Granulocyte Absolute 0.03 K/mm3 (0.00-0.031); Immature Granulocyte Percent A 0.5 % (0-0.5); Lymphocytes Absolute Auto 1.66 K/mm3 (0.9-3.2); Lymphocytes Percent Auto 29.9 % (18.3-44.2); Mean Corpuscular HGB Conc 34.4 g/dl (32-36); Mean Corpuscular Hemoglobin 28.4 pg (26-34); Mean Corpuscular Volume 82.6 fl (80-100); Mean Platelet Volume 10.2 fl (7.4-10.4); Monocytes Absolute Auto 0.5 K/mm3 (0.1-0.6); Monocytes Percent Auto 8.1 % (2.6-8.5); Neutrophils Absolute Auto 3.3 K/mm3 (1.3-6.7); Neutrophils Percent Auto 59.3 % (45.5-73.1); Platelet Count Result 198 k/mm3 (150-375); Red Blood Count 4.26 M/mm3 (4.2-5.4); Red Cell Distribution Width 12.5 % (11.5-14.5); White Blood Count 5.6 K/mm3 (4.5-10.0)
[2021-10-07 06:02] LABS: Anion Gap 6 mmol/L (8-16); Blood Urea Nitrogen 9 mg/dL (7-17); Calcium 8.1 mg/dL (8.4-10.2); Carbon Dioxide 26 mmol/L (22-30); Chloride 103 mmol/L (98-107); Estimated CRCL calculation 117 ml/min; Estimated Glomerular Filt Rate > 60; Glucose 339 mg/dL (65-110); Potassium 3.6 mmol/L (3.4-5.0); Sodium 135 mmol/L (137-145)
--- NOTE | 2021-10-07 07:08 | WPDHPUPDATE1 ---
History and Physical Update Update Date/Time: 10/07/21 07:08 History and Physical has been reviewed, including an updated exam of the patient. There are NO changes in the patient's condition. Risks, benefits, and alternatives have been discussed and questions answered. Patient agrees to proceed with procedure.
[2021-10-07 07:46] LABS: Glucose Point of Care 301 mg/dl (65-105)
--- NOTE | 2021-10-07 10:06 | WPDANESEPPF ---
Anes - Initial Pre Proc Eval Procedure: Operation Date: 10/07/21 10:30 Proposed Procedures p Debridement of Right Diabetic Foot Ulcer to Bone - Codey Perez MD Date/Time: 10/07/21 10:06 Surgeon: Scott Browne MD Pre Op Diagnosis: Right foot cellulitis/diabetes mellitus/right foot Patient Data Age: 46 Gender: F Height: 1.52 m Weight: 92 kg Last Vital Signs Temp 36.8 C 10/07/21 05:08 Pulse 76 10/07/21 05:08 Resp 18 10/07/21 05:08 BP 126/56 L 10/07/21 05:08 Pulse Ox 98 10/07/21 05:08 O2 Del Method Room Air 10/07/21 08:17 Allergies Allergy/AdvReac Type Severity Reaction Status Date / Time aspirin Allergy Unknown Urticaria Verified 11/24/17 11:19 Home Medications Medication Instructions Recorded Confirmed Type gabapentin 300 mg capsule 1 cap PO TID 10/04/21 10/04/21 History glimepiride 2 mg tablet 2.5 mg PO DAILY 10/04/21 10/04/21 History liraglutide 0.6 mg/0.1 mL (18 mg/3 3.5 mg subcut DAILY 10/04/21 10/04/21 History mL) subcutaneous pen injector (Victoza 2-Edgardo) metformin 1,000 mg tablet 1 tablet PO BID 10/04/21 10/04/21 History omeprazole magnesium 20 mg 20 mg PO DAILY PRN Acid Reflux 10/04/21 10/04/21 History tablet,delayed release (Prilosec OTC) Laboratory Tests 10/06/21 10/06/21 10/06/21 11:33 16:25 20:35 WBC RBC Hgb Hct MCV MCH MCHC RDW Plt Count MPV Immature Gran % (Auto) Neut % (Auto) Lymph % (Auto) [place] % (Auto) Eos % (Auto) Baso % (Auto) Lymph # (Auto) [place] # (Auto) Eos # (Auto) Baso # (Auto) Abs Immat Gran (auto) Absolute Neuts (auto) Absolute Nucleated RBC Nucleated RBC % Sodium Potassium Chloride Carbon Dioxide Anion Gap BUN Creatinine Estim Creat Clear Calc Estimated GFR Glucose POC Capillary Glucose 231 mg/dl H mg/dl 245 mg/dl H mg/dl 268 mg/dl H mg/dl (65-105) (65-105) (65-105) Calcium 10/07/21 10/07/21 10/07/21 05:14 05:14 07:39 WBC 5.6 K/mm3 K/mm3 (4.5-10.0) RBC 4.26 M/mm3 M/mm3 (4.2-5.4) Hgb 12.1 g/dL g/dL (12.0-15.0) Hct 35.2 % L % (37.0-47.0) MCV 82.6 fl fl (80-100) MCH 28.4 pg pg (26-34) MCHC 34.4 g/dl g/dl (32-36) RDW 12.5 % % (11.5-14.5) Plt Count 198 k/mm3 k/mm3 (150-375) MPV 10.2 fl fl (7.4-10.4) Immature Gran % (Auto) 0.5 % % (0-0.5) Neut % (Auto) 59.3 % % (45.5-73.1) Lymph % (Auto) 29.9 % % (18.3-44.2) [place] % (Auto) 8.1 % % (2.6-8.5) Eos % (Auto) 1.8 % % (0-4.4) Baso % (Auto) 0.4 % % (0.2-1.2) Lymph # (Auto) 1.66 K/mm3 K/mm3 (0.9-3.2) [place] # (Auto) 0.5 K/mm3 K/mm3 (0.1-0.6) Eos # (Auto) 0.1 K/mm3 K/mm3 (0-0.3) Baso # (Auto) 0.0 K/mm3 K/mm3 (0.0-0.1) Abs Immat Gran (auto) 0.03 K/mm3 K/mm3 (0.00-0.031) Absolute Neuts (auto) 3.3 K/mm3 K/mm3 (1.3-6.7) Absolute Nucleated RBC 0.0 K/mm3 K/mm3 (0.0-0.012) Nucleated RBC % 0.0 % % (0.0-0.2) Sodium 135 mmol/L L mmol/L (137-145) Potassium 3.6 mmol/L mmol/L (3.4-5.0) Chloride 103 mmol/L mmol/L (98-107) Carbon Dioxide 26 mmol/L mmol/L (22-30) Anion Gap 6 mmol/L L mmol/L (8-16) BUN 9 mg/dL mg/dL (7-17) Creatinine 0.50 mg/dL L mg/dL (0.7-1.0) Estim Creat Clear Calc 117 ml/min ml/min Estimated GFR > 60 (59 - ) Glucose 339 mg/dL H mg/dL (65-110) P
[2021-10-07 10:10] LABS: Glucose Point of Care 289 mg/dl (65-105)
[2021-10-07] MEDS: LACTATED RINGERS 1,000 ML 30 ML IV CONT (10:41)
--- NOTE | 2021-10-07 11:09 | P.OP_ITS ---
Procedure Note - Detailed Date of Procedure 10/07/21 Pre-op Diagnosis Right foot cellulitis/diabetes mellitus/right foot Post-op Diagnosis Same Procedure Performed Excisional debridement right diabetic foot ulcer including bone Surgeon Codey Perez MD Repair Technician 1st phlebotomist lab assistant Anesthesia General Indications 46-year-old woman poorly controlled diabetes and peripheral neuropathy admitted for right diabetic foot ulcer with infection. Bedside debridement with purulent drainage noted. Communication with the 5th metatarsal bone noted. Presents now for operative treatment. Findings Plantar callus with central ulcer 8 mm which communicates with the lateral foot ulcer and 5th metatarsal bone. Description of Procedure Patient identified in the preoperative holding. Informed consent given. Operative extremity marked. Patient received intravenous antibiotics. Patient brought to the operating room where underwent general anesthetic by anesthesia team. Positioned supine on operating room table. Time-out performed confirming the patient, site of the surgery and the plan. Right foot prepped and draped usual sterile surgical fashion using a Betadine prep solution. Esmarch bandage used to exsanguinate the foot which was then secured at the ankle as a tourniquet. Fifteen blade knife used to debride the bottom callus on the plantar lateral aspect of the right foot. After unroofing the callus there was noted to be a central ulcer 8 mm in length which communicated with the lateral ulcer and 5th metatarsal bone. This was debrided with 15 blade knife and rongeur. The lateral foot ulcer which was quarter-sized was then sharply excised with a 15 blade knife including skin, subcutaneous tissue and underlying muscle. The fascia over the 5th metatarsal was then incised on the lateral aspect and communication with metatarsal to the plantar ulcer was noted. There was a plantar exostosis at the level of the ulceration. Osteotome used to resect the prominent portion of the 5th metatarsal. This was smoothed with rongeur. Wound then thoroughly irrigated with solution. The deep fascia was closed with 3-0 Monocryl interrupted suture. Skin approximated loosely with 0 Prolene interrupted suture. Sterile dressing applied. The patient was then woken from anesthesia, extubated and taken to the recovery room in stable condition. All sponge, needle, instrument counts were correct at the end of the case. Estimated Blood Loss -5.0 Tourniquet Time 30 Urine Output 275 Drains No Packing No Pathology None sent Complications None Condition Stable Disposition PACU
--- NOTE | 2021-10-07 11:26 | PM.IMPN ---
Progress Note: A&P Assessment and Plan (1) Non-pressure chronic ulcer of other part of right foot limited to breakdown of skin: Code(s): L97.511 - Non-pressure chronic ulcer of other part of right foot limited to breakdown of skin Status: Acute Assessment and Plan: Ortho has been consulted. XRAY doesnt show any OM. Continue IV vanc and imipenem. to OR today (2) DM type 2 (diabetes mellitus, type 2): Code(s): E11.9 - Type 2 diabetes mellitus without complications Status: Acute Assessment and Plan: Monitor blood sugars. Noncompliant (3) Smoker unmotivated to quit: Code(s): F17.200 - Nicotine dependence, unspecified, uncomplicated Status: Acute Assessment and Plan: patient counseled on smoking cessation. no intent to quit. Subjective Date/time seen: 10/07/21 11:26 No complaints Exam Const: General: cooperative and comfortable Orientation/consciousness: patient oriented x3 HENMT: Head: normal to inspection Mouth: Yes Normal oral and palatal mucosa present Eyes: General: appearance normal, both eyes and all related structures Resp: Effort & Inspection: normal respiratory effort Auscultation: clear to auscultation bilaterally Cardio: Rate: regular rate Rhythm: regular rhythm Heart sounds: S1 normal heart sound present and S2 normal heart sound present GI: Auscultation: normal bowel sounds Skin: General skin exam: normal color and no rashes or lesions noted Neuro: General: patient oriented x3, no focal motor deficits and CN's II-XI intact bilaterally Speech: normal speech Extrem: General: full ROM Other: R 5th toe amputation. swelling, erythema lateral part of right foot. chronic ulcer R sole Psych: Appearance: grossly normal Objective Data Vital Signs Vital Signs: Vital Signs - 24 hr 10/06/21 13:56 10/06/21 19:25 10/06/21 20:00 Temperature 97.8 F 97.9 F Pulse Rate 68 81 81 Respiratory Rate 16 18 18 Blood Pressure 115/58 L 139/64 Pulse Oximetry 97 98 98 Oxygen Delivery Room Air Oxygen Flow Rate 10/07/21 05:08 10/07/21 08:17 10/07/21 10:34 Temperature 98.2 F 97.8 F Pulse Rate 76 72 Respiratory Rate 18 14 Blood Pressure 126/56 L 121/64 Pulse Oximetry 98 99 Oxygen Delivery Room Air Room Air Oxygen Flow Rate 10/07/21 11:04 10/07/21 11:15 Temperature 98.9 F Pulse Rate 78 78 Respiratory Rate 16 18 Blood Pressure 97/57 L 96/60 L Pulse Oximetry 96 99 Oxygen Delivery Simple Face Mask Simple Face Mask Oxygen Flow Rate 8 8 Intake/Output Intake/Output: Intake & Output 10/04/21 10/05/21 10/06/21 10/07/21 23:59 23:59 23:59 23:59 Intake Total 940 2480 4600 200 Output Total 0 550 Balance 940 2480 4600 -350 Meds/Results Medications: Active Medications Generic Name Dose Route Start Last Admin Trade Name Freq PRN Reason Stop Dose Admin Acetaminophen 650 mg 10/04/21 13:52 10/06/21 17:08 Acetaminophen 325 Mg Tablet PO 650 mg Q4H PRN Administration Mild Pain (1-3) or Fever Hydrocodone Bitart/Acetaminophen 1 tab 10/04/21 14:02 Hydrocodone/Acetaminophen (*Crx) 7.5-325 Mg Tablet PO Q6H PRN Pain Rated 7-10 Bisacodyl 5 mg 10/04/21 13:52 Bisacodyl 5 Mg Tablet Ec PO DAILY PRN Constipation Collagenase 1 applic 10/05/21 09:00 10/06/21 08:33 Collagenase Oint 30 Gm Tube TOPICAL 1 applic QAM CHRISTOPHER Administration Dextrose 12.5 gm 10/04/21 13:52 Dextrose 50% 25 Gm/50 Ml Syringe IV PUSH PRN PRN Hypoglycemia Protocol Fentanyl Citrate 25 mcg 10/07/21 10:05 Fentanyl Citrate Inj (*Crx) 100 Mcg/2 Ml Vial IV PUSH Q2M PRN Pain Gabapentin 300 mg 10/05/21 09:00 10/06/21 16:44 Gabapentin 300 Mg Capsule PO 300 mg TID CHRISTOPHER Administration Glucagon 1 mg 10/04/21 13:52 Glucagon For Inj 1 Mg Vial IM PRN PRN Hypoglycemia Protocol Glucose 15 gm 10/04/21 13:52 Glucose Oral Gel 15 Gm Of Glucse In 3
[2021-10-07 11:39] LABS: Glucose Point of Care 250 mg/dl (65-105)
[2021-10-07] MEDS: GABAPENTIN 300 MG CAPSULE PO ×2 (13:50→18:22)
[2021-10-07] MEDS: PANTOPRAZOLE 40 MG TABLET PO (13:50)
[2021-10-07] MEDS: INSULIN ASPART (*BKC) 100 UNITS/ML 12 UNITS SUB-Q ×2 (13:50→18:22)
[2021-10-07] MEDS: NICOTINE (*PBKC) 14 MG PATCH 1 PATCH TRANSDERM (13:51)
[2021-10-07 14:06] LABS: Glucose Point of Care 242 mg/dl (65-105)
[2021-10-07 15:13] LABS: Vancomycin Trough 14.8 ug/mL (10.0-20.0)
--- NOTE | 2021-10-07 15:41 | PCCCNOTE ---
On 10/07/21, the student, Kezia Herrera, provided care and completed [facility] documentation on this patient. I have reviewed the student's documentation and agree with the findings.
[2021-10-07 16:34] LABS: Glucose Point of Care 268 mg/dl (65-105)
[2021-10-07] MEDS: INSULIN GLARGINE (*BKC) 100 UNITS/ML 35 UNITS SUB-Q (20:57)
[2021-10-07] MEDS: HEPARIN SODIUM 5,000 UNITS/ML VIAL 5000 UNITS SUB-Q (20:57)
[2021-10-07 21:26] LABS: Glucose Point of Care 210 mg/dl (65-105)
[2021-10-08 06:00] VITALS: BP 103/64; PULSE 106; RESP 18; TEMP 36.3; O2SAT 96
[2021-10-08 06:13] LABS: Estimated CRCL calculation 117 ml/min; Estimated Glomerular Filt Rate > 60
[2021-10-08 08:07] LABS: Glucose Point of Care 156 mg/dl (65-105)
[2021-10-08] MEDS: INSULIN ASPART (*BKC) 100 UNITS/ML 12 UNITS SUB-Q ×2 (08:36→12:24)
[2021-10-08] MEDS: GABAPENTIN 300 MG CAPSULE PO ×2 (08:37→12:30)
[2021-10-08] MEDS: HEPARIN SODIUM 5,000 UNITS/ML VIAL 5000 UNITS SUB-Q (08:37)
[2021-10-08] MEDS: NICOTINE (*PBKC) 14 MG PATCH 1 PATCH TRANSDERM (08:37)
[2021-10-08] MEDS: ACETAMINOPHEN 325 MG TABLET 650 MG PO (08:57)
--- NOTE | 2021-10-08 09:07 | PM.PNORT ---
Progress Note: A&P Assessment and Plan (1) Diabetic ulcer of toe of right foot associated with type 2 diabetes mellitus: Code(s): E11.621 - Type 2 diabetes mellitus with foot ulcer; L97.519 - Non-pressure chronic ulcer of other part of right foot with unspecified severity Status: Acute Assessment and Plan: POD #1 Continue daily dressing changes. Patient educated on dressing change needs at home. Cultures with GBS. Plan for transition to dual oral antibiotics x3 weeks. Post op shoe or Fracture boot needed prior to discharge. Nursing notified. Protected weight bearing on heel to prevent wound dehiscence. Patient will follow up in the outpatient orthopedic clinic. Appointment arranged. Plan: Home today when cleared by medicine team. (2) Cellulitis of foot, right: Code(s): L03.115 - Cellulitis of right lower limb Status: Acute Assessment and Plan: Significant improvement in erythema/cellulitis of dorsal midfoot s/p surgical debridement. (3) Smoker unmotivated to quit: Code(s): F17.200 - Nicotine dependence, unspecified, uncomplicated Status: Acute Assessment and Plan: Discussed importance of smoking cessastion at home in order to prevent wound complications. Patient verbalized understanding. Additional Plan Reviewed discharge plan and antibiotic coverage with attending MD and patient's surgeon, Dr. Perez. Agrees with current plan of care. Will follow as an outpatient. Subjective Subjective Date/Time Seen: 10/08/21 09:07 Post Op day: 1 (Excisional debridement right diabetic foot ulcer including bone) Interval history: POD #1:Excisional debridement right diabetic foot ulcer including bone Patient doing well. Pain well controlled. Eager for discharge home today. Review of Systems Review of Systems: All systems reviewed & are unremarkable except as noted in HPI and below Exam Const: General: comfortable and no acute distress Resp: Effort & Inspection: normal respiratory effort Cardio: Rate: regular rate Rhythm: regular rhythm GI: Inspection: non-distended GI Palp: Yes Soft to palpation, No Tenderness to palpation present (GI) and No Guarding due to palpation present (GI) Skin: Wounds: wounds noted (Right lateral foot ) Other: Incision right lateral foot loosely closed with sutures. Sutures intact. Scant sanguinous drainage. Surrounding tissue with marked improvement in cellulitis/erythema. No new ulcers. No necrosis. No purulence. No malodor. Neuro: General: gait normal Speech: normal speech Objective Data Vital Signs Vital Signs: Vital Signs - 24 hr 10/07/21 10:34 10/07/21 11:04 10/07/21 11:15 Temperature 36.6 C 37.2 C Pulse Rate 72 78 78 Respiratory Rate 14 16 18 Blood Pressure 121/64 97/57 L 96/60 L Pulse Oximetry 99 96 99 Oxygen Delivery Room Air Simple Face Mask Simple Face Mask Oxygen Flow Rate 8 8 10/07/21 11:30 10/07/21 11:45 10/07/21 11:55 Temperature Pulse Rate 68 67 67 Respiratory Rate 20 16 14 Blood Pressure 102/63 105/66 109/66 Pulse Oximetry 94 93 95 Oxygen Delivery Room Air Room Air Room Air Oxygen Flow Rate 10/07/21 12:30 10/07/21 12:45 10/07/21 14:15 Temperature 36.0 C L 35.7 C L 36.4 C Pulse Rate 64 80 74 Respiratory Rate 16 16 16 Blood Pressure 110/51 L 117/60 114/55 L Pulse Oximetry 90 95 96 Oxygen Delivery Oxygen Flow Rate 10/07/21 13:15 10/07/21 12:02 10/07/21 21:31 Temperature 36.2 C L 36.8 C Pulse Rate 73 87 Respiratory Rate 18 18 Blood Pressure 125/65 146/63 H Pulse Oximetry 99 99 96 Oxygen Delivery Room Air Oxygen Flow Rate 10/07/21 20:00 10/07/21 22:05 10/08/21 06:00 Temperature 36.3 C L Pulse Rate 87 106 H Respiratory Rate 18 18 Blood Pressure 103/64 Pulse Oximetry 96 96 96 Oxygen Delivery Room Air Room Air Oxygen Flow Rate Intake/Output Intake/Output: Intake & Output 10/05/21 10/06/21 10/07/21 10/08/21 23:59 23:59 23:59 23:59 I
[2021-10-08 11:32] LABS: Glucose Point of Care 195 mg/dl (65-105)
--- NOTE | 2021-10-08 11:59 | PM.DS ---
DS: Admitting Diagnosis Discharge Date October 08, 2021 Admitting Diagnosis Cellulitis DS: Discharge Diagnosis Discharge Diagnosis (1) Non-pressure chronic ulcer of other part of right foot limited to breakdown of skin: Code(s): L97.511 - Non-pressure chronic ulcer of other part of right foot limited to breakdown of skin Status: Acute Assessment and Plan: Follow-up with Orthopedics in 2 weeks Oral antibiotics on discharge Status post debridement (2) DM type 2 (diabetes mellitus, type 2): Code(s): E11.9 - Type 2 diabetes mellitus without complications Status: Acute Assessment and Plan: Monitor blood sugars. Noncompliant (3) Smoker unmotivated to quit: Code(s): F17.200 - Nicotine dependence, unspecified, uncomplicated Status: Acute Assessment and Plan: patient counseled on smoking cessation. no intent to quit. DS: Summary Hospital Course Hospital Course: See discharge plan diagnoses Time Spent with Patient Time attestation: Total time spent providing and/or coordinating discharge services: Exam Const: General: cooperative and comfortable Orientation/consciousness: patient oriented x3 HENMT: Head: normal to inspection Mouth: Yes Normal oral and palatal mucosa present Eyes: General: appearance normal, both eyes and all related structures Resp: Effort & Inspection: normal respiratory effort Auscultation: clear to auscultation bilaterally Cardio: Rate: regular rate Rhythm: regular rhythm Heart sounds: S1 normal heart sound present and S2 normal heart sound present GI: Auscultation: normal bowel sounds Skin: General skin exam: normal color and no rashes or lesions noted Neuro: General: patient oriented x3, no focal motor deficits and CN's II-XI intact bilaterally Speech: normal speech Extrem: General: full ROM Other: R 5th toe amputation. swelling, erythema lateral part of right foot. chronic ulcer R sole Psych: Appearance: grossly normal DS: Data Data Completed and Pending Labs on day of discharge: Labs from last 24 hours 10/08/21 10/08/21 10/08/21 11:30 08:00 05:42 Creatinine 0.50 L Estim Creat Clear Calc 117 Estimated GFR > 60 POC Capillary Glucose 195 H 156 H Vancomycin Trough 10/07/21 10/07/21 10/07/21 20:15 16:30 13:59 Creatinine Estim Creat Clear Calc Estimated GFR POC Capillary Glucose 210 H 268 H Vancomycin Trough 14.8 10/07/21 13:47 Creatinine Estim Creat Clear Calc Estimated GFR POC Capillary Glucose 242 H Vancomycin Trough Preliminary micro results at discharge 10/05/21 08:54 Anaerobic Culture - Preliminary Foot Right 10/04/21 13:11 Blood Culture - Preliminary Blood 10/04/21 13:10 Blood Culture - Preliminary Blood Discharge Plan Discharge Attending physician on discharge: Michael Brower Consulting providers: Codey ePrez Discharging Clinician: Michael Brower Patient Disposition: Home, Self-Care Activity: no shower and no driving Diet: diabetic Wound Care Instructions: follow printed instructions Discharge Instructions: Orthopedic Recommendations Dr. Codey Perez/Ninfa Ramon NP [facility] Wound Nurses [phone] Change dressing daily. Apply thin layer of silver gel to wound bed/incision. Cover with adaptic dressing (nursing to send home remaining with you) and cover with gauze. Wrap with Kerlex. Minimal weight bearing. Fracture boot or post op shoe for weight bearing on the HEEL only. Quit or limit smoking as much as possible due to potential failure of wound healing. Contact our office with questions/concerns. Take antibiotics to completion. Call if any complications with antibiotics. Follow up in the outpatient orthopedic clinic scheduled below for suture removal. Call if any concerns/difficulties in the interim for sooner appointment. Patient Instructions: Antibiotic Form, How to Stop Smoking (DC)
[2021-10-08 13:58] VITALS: BP 126/57; PULSE 82; RESP 18; TEMP 36.7; O2SAT 98
[2021-10-08 15:27] LABS: Vancomycin Trough 21.3 ug/mL (10.0-20.0)
== END 2021-10-08 17:45 | disposition home or self-care (01) | DRG 364 ==
LOC: ANHED 12:54 → ANH3MED 14:33
PROVIDERS: Hospitalist; Orthopaedic Surgery; Admitting Provider Chiropractor; Emergency Provider Emergency Medicine; Visit Provider Chiropractor
PROC: 0QBN0ZZ Excision of Right Metatarsal, Open Approach (ICD-10-PCS; principal; 2021-10-07 10:30)
DX: E11.621 Type 2 diabetes mellitus with foot ulcer (principal); L97.519 Non-pressure chronic ulcer of other part of right foot with unspecified severity; L03.115 Cellulitis of right lower limb; E11.42 Type 2 diabetes mellitus with diabetic polyneuropathy; F17.210 Nicotine dependence, cigarettes, uncomplicated; E66.9 Obesity, unspecified; Z68.39 Body mass index [BMI] 39.0-39.9, adult; Z91.19 Patient's noncompliance with other medical treatment and regimen
CPT/HCPCS: 36415; 73630; 80048; 80202; 82565; 82948; 83036; 83605; 85025; 85610; 87040; 87070; 87075; 87077; 87205; 96365; 96366; 96367; 96375; 99285; A9270; C9803; G0378; G0379; J0743; J1644; J1815; J2250; J2405; J3010; J3370; J7030; J7120; U0003; U0005

== ENCOUNTER 2022-07-15 11:10 | Emergency (ER) | payer BC, SELFPAY ==
--- NOTE | ~2022-07-15 | CT_ITS ---
EXAMINATION: CT abdomen pelvis w con DATE: 07/15/2022 15:18 INDICATION: Epigastric abdominal pain radiating to the back. Hemoptysis. TECHNIQUE: Computed tomography (CT) of the abdomen and pelvis was performed with 100 CC Omnipaque 350 intravenous contrast. Automated exposure control and iterative reconstruction technique were employe d. Exam dose: 1011.61 mGy-cm total exam DLP. COMPARISON: 11/13/2017 CT abdomen pelvis FINDINGS: Small right dependent pleural effusion with associated mild compressive dependent right low er lobe atelectasis. Minimal dependent left basilar lower lobe atelectasis. There is cardiomegaly. Trace pericardial effusion. No pleural effusion. There is diffuse hepatic steatosis. No hepatic space-occupying mass lesion or bile duct or pancreatic duct dilatation. No pancreatic mass lesion or calcification. Normal splenic size. There is edema of the gallbladder wall and/or pericholecystic fluid, raising concern for possible acu te cholecystitis. Gallbladder ultrasound examination is recommended. There is a small amount of fluid along the right anterior pararenal fascia and the pancreatic head. P ancreatitis is not excluded. There is small amount of fluid along the right paracolic gutter and minimal fluid in the posterior cu l-de-sac. Normal morphology of the adrenal glands. No renal mass lesion or urinary tract calculus or hydrourete ronephrosis. The uterus, adnexal areas and urinary bladder are unremarkable. No bowel obstruction, bowel wall thickening, pneumatosis or intraperitoneal free air is detected. There is atherosclerotic calcification but normal caliber of the abdominal aorta and iliac arteries a nd femoral arteries. No intraperitoneal or retroperitoneal or pelvic mass lesion or adenopathy. Degenerative changes apophyseal joints with associated minimal grade 1 anterolisthesis at L4-5. Mild spondylosis of the thoracic and lumbar spine. IMPRESSION: Pericholecystic fluid and/or gallbladder wall edema, suggesting acute cholecystitis; con marketing administrator gallbladder ultrasound correlation Mild fluid adjacent to the pancreatic head and along the anterior pararenal fascia; uncomplicated schultz creatitis is not excluded Small amount of fluid in the right paracolic gutter and posterior cul-de-sac. Hepatic steatosis Cardiomegaly, trace pericardial effusion Reviewed, dictated and finalized at [facility]. Reviewed, dictated and finalized at location [facility]. IMPRESSION: Pericholecystic fluid and/or gallbladder wall edema, suggesting ac ellei cholecystitis; consider gallbladder ultrasound correlation Mild fluid adjacent to the pancreatic head and along the anterior pararenal fas jordon; uncomplicated pancreatitis is not excluded Small amount of fluid in the right paracolic gutter and posterior cul-de-sac. Hepatic steatosis Cardiomegaly, trace pericardial effusion
--- NOTE | ~2022-07-15 | XR_ITS ---
XR chest 2V 07/15/2022 12:57 Indication: Chest pain and shortness of breath Procedure: PA and lateral views of the chest Comparison: 12/03/2017 Findings: Cardiomegaly. No pleural effusion or pneumothorax. There is right basilar atelectasis. No a cute osseous abnormality. Impression: 1: Right basilar atelectasis. 2: Cardiomegaly. Reviewed, dictated and finalized at location [facility]. Impression: 1: Right basilar atelectasis. 2: Cardiomegaly.
--- NOTE | ~2022-07-15 | US_ITS ---
Limited Abdominal Sonogram: Real-time sonographic imaging of the right upper quadrant was performed. Clinical History: Acute cholecystitis Findings: The liver appears echogenic, with no evidence of mass lesion or bile duct dilatation. Main portal vein demonstrates normal direction of flow. The gallbladder is well distended, and appears no rmal with no evidence of gallstone or wall thickening. The common bile duct measures 4 mm. The visua lized pancreas, aorta, and IVC are unremarkable. Impression: Diffuse fatty infiltration of the liver. Unremarkable gallbladder. Reviewed, dictated and finalized at location [facility]. Impression: Diffuse fatty infiltration of the liver. Unremarkable gallbladder.
--- NOTE | 2022-07-15 11:14 | ECG_ITS ---
Measurements Intervals [place] Rate: 99 P: 49 OH: 180 QRS: 1 QRSD: 90 T: -3 QT: 351 QTc: 451 Interpretive Statements SINUS RHYTHM POSSIBLE LEFT ATRIAL ENLARGEMENT [-0.1mV P WAVE IN V1/V2] PREVIOUS ANTERIOR INFARCTION ABNORMAL ECG NO PREVIOUS ECG AVAILABLE FOR COMPARISON Electronically Signed On 07-15-2022 15:38:38 CDT by Michael Rodríguez M.D.
[2022-07-15 11:29] VITALS: BP 117/74; PULSE 100; RESP 20; TEMP 36.1; O2SAT 100
[2022-07-15 12:02] LABS: Basophils Percent Auto 0.6 % (0.2-1.2); Eosinophils Absolute Auto 0.1 K/mm3 (0-0.3); Hematocrit 41.5 % (37.0-47.0); Hemoglobin 13.1 g/dL (12.0-15.0); Immature Granulocyte Absolute 0.02 K/mm3 (0.00-0.031); Immature Granulocyte Percent A 0.3 % (0-0.5); Lymphocytes Absolute Auto 1.77 K/mm3 (0.9-3.2); Lymphocytes Percent Auto 24.6 % (18.3-44.2); Mean Corpuscular HGB Conc 31.6 g/dl (32-36); Mean Corpuscular Hemoglobin 26.4 pg (26-34); Mean Corpuscular Volume 83.5 fl (80-100); Mean Platelet Volume 10.7 fl (7.4-10.4); Monocytes Absolute Auto 0.5 K/mm3 (0.1-0.6); Monocytes Percent Auto 6.5 % (2.6-8.5); Neutrophils Absolute Auto 4.8 K/mm3 (1.3-6.7); Platelet Count Result 202 k/mm3 (150-375); Red Blood Count 4.97 M/mm3 (4.2-5.4); Red Cell Distribution Width 13.2 % (11.5-14.5); White Blood Count 7.2 K/mm3 (4.5-10.0)
[2022-07-15 12:04] LABS: Alanine Aminotransferase 44 U/L (6-35); Alkaline Phosphatase 165 U/L (38-126); Anion Gap 7 mmol/L (8-16); Aspartate Amino Transferase 34 U/L (14-36); Bilirubin,Total 0.5 mg/dL (0.2-1.3); Blood Urea Nitrogen 14 mg/dL (7-17); Calcium 8.9 mg/dL (8.4-10.2); Carbon Dioxide 27 mmol/L (22-30); Chloride 98 mmol/L (98-107); Estimated CRCL calculation 92 ml/min; Estimated Glomerular Filt Rate > 60; Glucose 429 mg/dL (65-110); Lipase 139 U/L (23-300); Potassium 4.3 mmol/L (3.4-5.0); Sodium 132 mmol/L (137-145)
[2022-07-15 12:06] LABS: INR 1.1; Prothrombin Time 13.8 Seconds (11.1-14.7)
[2022-07-15 12:07] LABS: Partial Thromboplastin Time 25.8 SECONDS (22.3-36.8)
[2022-07-15 12:17] LABS: Troponin I 0.012 ng/mL (0.000-0.034)
--- NOTE | 2022-07-15 13:47 | ED.CHESTPAIN ---
HPI - Chest Pain General Chief Complaint: Chest Pain Stated Complaint: cp, sob Time Seen by Provider: 07/15/22 13:00 History of Present Illness HPI narrative: 47-year-old female presented to the emergency department for evaluation of epigastric pain. Patient states she did have some blood-tinged emesis this morning. Patient states she has been having worsening epigastric pain. Patient states that due to the nausea vomiting she has had decreased p.o. intake. Patient states he has been having intermittent pain for which she has been taking large amounts of Advil 3 times daily. Related Data Home Medications Medication Instructions Recorded Confirmed gabapentin 300 mg capsule 1 cap PO TID 10/04/21 10/04/21 glimepiride 2 mg tablet 2.5 mg PO DAILY 10/04/21 10/04/21 liraglutide 0.6 mg/0.1 mL (18 mg/3 3.5 mg subcut DAILY 10/04/21 10/04/21 mL) subcutaneous pen injector (Victoza 2-Edgardo) metformin 1,000 mg tablet 1 tablet PO BID 10/04/21 10/04/21 omeprazole magnesium 20 mg 20 mg PO DAILY PRN Acid Reflux 10/04/21 10/04/21 tablet,delayed release (Prilosec OTC) Allergies Allergy/AdvReac Type Severity Reaction Status Date / Time aspirin Allergy Unknown Urticaria Verified 10/26/21 10:14 Review of Systems Review of Systems: All systems reviewed & are unremarkable except as noted in HPI and below PMFSH Past Medical History Medical History (Updated 07/15/22 @ 17:21 by Norbert Carias MD) Aftercare following surgery Amputated toe of right foot Amputation toe s/p 5th ray amputation right [place] [address] Perez Blindness Body mass index (BMI) of 34.0-34.9 in adult (12/01/17) Claustrophobia Diabetes mellitus due to underlying condition with foot ulcer, without long-term current use of insulin (12/26/17) Diabetic ulcer of toe of right foot associated with type 2 diabetes mellitus Excessive hunger Osteomyelitis of toe of right foot Skin ulcer Ulcer of right foot due to type 2 diabetes mellitus Surgical History Surgical History (Updated 10/26/21 @ 11:19 by Keya Ruiz) History of section History of dental surgery Teeth removal 2013 History of incision and drainage Rt foot- Dr. Perez 10/07/2021 Family History Family History (Updated 10/26/21 @ 11:19 by Keya Ruiz) Other Diabetes mellitus Neuropathy Social History Social History Smoking packs per day: 2 Smoking cigarettes per day: 40.0 Years smoked: 37 Smoking pack-years: 74.00 Smoking status: Heavy tobacco smoker Tobacco type: cigarettes Second hand tobacco smoke exposure: Yes Alcohol intake: never Substance use: never Gender identity (if verbalized by the patient): Female Sexual Orientation (if Verbalized by the Patient): Straight or Heterosexual Spiritual care concerns: No Agree to blood products: No Exam Narrative: APPEARANCE: Well appearing, no pain, no distress, well-nourished. HEAD: normocephalic, atraumatic. EYES: PERRLA/EOMI, conjunctivae clear. NOSE: Normal no drainage NECK: Supple. No adenopathy, no masses. RESPIRATORY: Airway patent, respirations nonlabored. Clear to auscultation bilaterally, no rales, rhonchi, wheezing. CARDIOVASCULAR: Regular rate and rhythm without murmurs rubs or gallops. ABDOMINAL: Soft, epigastric tenderness greater than right upper quadrant tenderness. Rectal: Hemoccult negative MUSCULOSKELETAL: Moves all extremities. Strength/ROM intact, No edema, No calf tenderness. NEURO: Alert. Cranial nerves II through XII intact. Grossly intact SKIN: Warm, dry. Normal Color Course Course Emergency Course: 39-year-old female presented to the emergency department for evaluation of nausea vomiting epigastric pain. CT was concerning for acute cholecystitis. Ultrasound was ordered and showed a normal gallbladder. Patient is afebrile with no leukocytosis. Patient's lipase is not elevated. Patient's bilirubin is
[2022-07-15 14:00] VITALS: BP 112/80; PULSE 94; RESP 24; O2SAT 100
[2022-07-15] MEDS: PANTOPRAZOLE SODIUM IV 40 MG VIAL IV PUSH (14:04)
[2022-07-15 15:01] VITALS: BP 128/82; PULSE 97; RESP 18; O2SAT 99
[2022-07-15 16:13] VITALS: BP 106/63; PULSE 97; RESP 19; O2SAT 100
[2022-07-15 16:15] VITALS: BP 111/70; PULSE 96; RESP 19; O2SAT 98
[2022-07-15 16:21] LABS: Troponin I 0.015 ng/mL (0.000-0.034)
[2022-07-15] MEDS: SODIUM CHLORIDE 0.9% IV 1,000 ML 999 ML IV CONT (17:01)
[2022-07-15] MEDS: HYDROcodone/acetaminophen (*CRX) 5-325 MG TABLET 1 TAB PO (17:32)
[2022-07-15 17:33] VITALS: BP 109/71; PULSE 92; RESP 16; O2SAT 100
== END 2022-07-15 17:35 | disposition home or self-care (01) ==
PROVIDERS: Emergency Medicine; Emergency Provider Emergency Medicine
DX: K29.70 Gastritis, unspecified, without bleeding (principal); R10.13 Epigastric pain; R10.11 Right upper quadrant pain; R07.9 Chest pain, unspecified; E11.9 Type 2 diabetes mellitus without complications; F17.210 Nicotine dependence, cigarettes, uncomplicated; Z79.84 Long term (current) use of oral hypoglycemic drugs
CPT/HCPCS: 36415; 71046; 74177; 76705; 80053; 83690; 84484; 85025; 85610; 85730; 93005; 96361; 96374; 99284; A9270; C9113; J7030; Q9967

== ENCOUNTER 2023-04-16 20:18 | Inpatient (IN) | payer BC, SELFPAY ==
--- NOTE | ~2023-04-16 | MR_ITS ---
EXAMINATION: MR foot LT wo/w con DATE: 04/20/2023 16:49 INDICATION: Change of appearance of a left foot diabetic ulcer TECHNIQUE: Magnetic resonance imaging (MRI) of the left fore/mid foot was performed without and with 16 mL Multihance intravenous contrast. Sequences included axial, sagittal and coronal T1-weighted FSE , axial and coronal T2-weighted FS FSE, sagittal fluid sensitive FSE STIR, axial T1-weighted FS FSE a nd postcontrast axial, sagittal and coronal T1-weighted FS FSE. COMPARISON: Left foot CT dated 04/16/2023 FINDINGS: Bone alignment is normal. No fracture. There is prominent soft tissue swelling with increased T2 sign al interspersed with the T1 hyperintense fat and decreased enhancement involving the plantar fat pad at the plantar/lateral aspect of the distal phalanx of the great toe. There is marrow edema and enhan cement throughout the underlying distal phalanx as well as at the head of the proximal phalanx but wi thout geographic loss of T1 marrow fat signal. No discrete region of the cortical loss other on the c urrent study or the more sensitive prior CT. Bone marrow signal is otherwise normal throughout. Mild polyarticular osteoarthritis at multiple tarsal metatarsal, metatarsophalangeal and interphalangeal j oints. There are small joint effusions at the first and second metatarsophalangeal joints. There is e nhancement surrounding a somewhat heterogeneous T2 hyperintense nonenhancing fluid in the flexor gould ucis longus tendon sheath surrounding the normal-appearing tendon consistent with tenosynovitis. This extends proximally to the level of the base of the metatarsal. There appears to be a nonenhancing po tential draining sinus tract at the level of the first interphalangeal joint which extends from the s kin surface to the flexor hallucis longus tendon sheath. There is also a region of heterogeneous T2 s ignal without enhancement in the fat pad plantar to the flexor tendon and sesamoids plantar at the le roverto of the head of the first metatarsal. IMPRESSION: 1. Region of focal soft tissue swelling and likely phlegmonous change at the plantar fat pad at the d istal phalanx of the left great toe with marrow signal changes in the underlying distal phalanx and h ead of the proximal phalanx most likely related to reactive edema although differential would include early osteomyelitis. There is however no evident definitive loss of T1 marrow fat signal or osteolys is on the prior CT to more specifically suggest osteomyelitis. 2. Flexor hallucis longus tenosynovitis with enhancement surrounding a small amount of fluid extendin g proximally along the tendon sheath. There is suggestion of a sinus tract extending between the ulce ration great toe in the underlying flexor tendon sheath which raises the possibility of a septic teno synovitis. 3. Nonspecific small joint effusions at the first and second metatarsophalangeal joints. Reviewed, dictated and finalized at location [facility]. BENCH OPERATOR IMPRESSION: 1. Region of focal soft tissue swelling and likely phlegmonous change at the pl massiel fat pad at the distal phalanx of the left great toe with marrow signal ch anges in the underlying distal phalanx and head of the proximal phalanx most li karla related to reactive edema although differential would include early osteom yelitis. There is however no evident definitive loss of T1 marrow fat signal or osteolysis on the prior CT to more specifically suggest osteomyelitis. 2. Flexor hallucis longus tenosynovitis with enhancement surrounding a small am ount of fluid extending proximally along the tendon sheath. There is suggestion of a sinus tract extending between the ulceration great toe in the underlying flexor tendon sheath which raises the possibility of a septic tenosynovitis. 3. Nonspecific small joint ef
--- NOTE | ~2023-04-16 | CT_ITS ---
CT scan of the left foot CLINICAL HISTORY: Ulcer TECHNIQUE: Following intravenous administration of 100 cc of Omnipaque 350 contrast material, axial i maging of the left foot was performed. Sagittal and coronal reformatted images were constructed. Dose reduction technique was used on this scan by utilizing automated exposure control and iterative tiffani nstruction technique. The dose-length product (DLP) was 593.65 mGy-cm. Findings: There is no fracture or dislocation. Osseous alignment is anatomic. No CT evidence for oste omyelitis. Joint spaces are intact. There is probable mild soft tissue swelling/subcutaneous soft tissue edema along the plantar aspect o f the foot. Probable soft tissue ulcer at the great toe. No abscess identified. Intrinsic musculature is grossly unremarkable. IMPRESSION: No CT evidence for osteomyelitis or abscess. Probable soft tissue ulcer at the great toe. Correlate with physical exam. Reviewed, dictated and finalized at [facility]. D EXAMINER
--- NOTE | ~2023-04-16 | XR_ITS ---
EXAMINATION: XR chest 1V portable Exam Date/Time: 04/16/2023 20:40 HOSE OPERATOR HISTORY: cough Comparison: 07/15/2022. RESULT: Lines, tubes, and devices: Intact sternotomy wires. Mediastinal surgical clips. Lungs and pleura: Clear. Cardiomediastinal silhouette: Stable. Other: No acute osseous or upper abdominal finding. IMPRESSION: No acute cardiopulmonary process. Reviewed, dictated and finalized at location [facility]. OPERATOR
--- NOTE | ~2023-04-16 | XR_ITS ---
EXAM: XR foot LT min 3V DATE: 04/16/2023 20:54 HISTORY: foot ulcer . COMPARISON: None available. FINDINGS: Normal mineralization. No fracture or dislocation. No lytic or blastic lesion. Mild degene rative change at the first MTP and tibiotalar joints. Mild Achilles and moderate plantar enthesopathy . No erosion or periosteal change. Soft tissue defect on the plantar surface of the great toe. Vascul ar calcification. IMPRESSION: No acute osseous finding in the left foot. Reviewed, dictated and finalized at location [facility]. IER GENERAL
--- NOTE | ~2023-04-16 | US_ITS ---
EXAMINATION: US arterial ankle brachial ind DATE: 04/20/2023 17:18 INDICATION: Left great toe ulcer. TECHNIQUE: Segmental pressures and plethysmographic and Doppler waveforms of the brachial and lower e xtremity arteries were obtained. COMPARISON: None. FINDINGS: Right and left brachial artery pressures of 112 mm Hg and 121 mm Hg, respectively, are concordant (no rmal difference <= 30 mmHg). The right ankle-brachial index (SUZY) is 1.17 (normal >= 0.9-1.0). The right great toe-brachial index (TBI) is 0.76 (normal >= 0.65). Arterial Doppler waveforms are biphasic with brisk systolic upstrokes at both right posterior tibial and dorsalis pedis arteries. The left SUZY is 1.26. The left TBI is 0.99. Arterial Doppler waveforms are biphasic with brisk systol ic upstrokes at the left posterior tibial artery. Arterial waveform at the left dorsalis pedis artery is irregular and a clear repetitive systolic peak is unable be identified. IMPRESSION: 1. No significant arterial occlusive disease to either lower limb with normal bilateral ABIs and TBIs Reviewed, dictated and finalized at location A. RCYCLE DELIVERY DRIVER IMPRESSION: 1. No significant arterial occlusive disease to either lower limb with normal b ilateral ABIs and TBIs
[2023-04-16 20:20] VITALS: BP 108/69; PULSE 115; RESP 20; TEMP 37.2; O2SAT 100
--- NOTE | 2023-04-16 20:24 | ED.GENADULT ---
HPI - General Adult General Chief complaint: Unspecified Stated complaint: I think I'm going into septic shock, diabetic ulce Time Seen by Provider: 04/16/23 20:25 History of Present Illness HPI narrative: Patient is a 47-year-old female who presents emergency department with chief complaint of ulcer to left great toe. Patient reports that she has history of diabetes and has had amputations on her right foot done by Dr. Perez. Patient reports for several weeks she has had ulceration her left great toe that has been draining purulent material. The patient states she is concerned that she may have a in significant infection this developed her left foot. Related Data Home Medications Medication Instructions Recorded Confirmed gabapentin 300 mg capsule 1 cap PO TID 10/04/21 10/04/21 glimepiride 2 mg tablet 2.5 mg PO DAILY 10/04/21 10/04/21 liraglutide 0.6 mg/0.1 mL (18 mg/3 3.5 mg subcut DAILY 10/04/21 10/04/21 mL) subcutaneous pen injector (Victoza 2-Edgardo) metformin 1,000 mg tablet 1 tablet PO BID 10/04/21 10/04/21 omeprazole magnesium 20 mg 20 mg PO DAILY PRN Acid Reflux 10/04/21 10/04/21 tablet,delayed release (Prilosec OTC) Allergies Allergy/AdvReac Type Severity Reaction Status Date / Time aspirin Allergy Unknown Urticaria Verified 04/16/23 20:30 Review of Systems Review of Systems: A 10 system review of systems was completed on the patient and is negative except for what is stated in the HPI. Nursing and ancillary documentation was reviewed. [facility] Past Medical History Medical History Aftercare following surgery Amputated toe of right foot Amputation toe s/p 5th ray amputation right [place] [address] Perez Blindness Body mass index (BMI) of 34.0-34.9 in adult (12/01/17) Claustrophobia Diabetes mellitus due to underlying condition with foot ulcer, without long-term current use of insulin (12/26/17) Diabetic ulcer of toe of right foot associated with type 2 diabetes mellitus Excessive hunger Osteomyelitis of toe of right foot Skin ulcer Ulcer of right foot due to type 2 diabetes mellitus Surgical History Surgical History History of section History of dental surgery Teeth removal 2013 History of incision and drainage Rt foot- Dr. Perez 10/07/2021 Family History Family History Other Diabetes mellitus Neuropathy Social History Social History Smoking packs per day: 2 Smoking cigarettes per day: 40.0 Years smoked: 37 Smoking pack-years: 74.00 Smoking status: Heavy tobacco smoker Tobacco type: cigarettes Second hand tobacco smoke exposure: Yes Alcohol intake: never Substance use: never Gender identity (if verbalized by the patient): Female Sexual Orientation (if Verbalized by the Patient): Straight or Heterosexual Spiritual care concerns: No Agree to blood products: No Exam Narrative: GENERAL: Well-appearing, well-nourished, and in no acute distress. HEAD: Normocephalic, atraumatic. EYES: PERRLA and EOMI. ENT: Nares clear, no rhinorrhea or epistaxis. Mucous membranes moist. NECK: Supple. CHEST: Clear to auscultation. No respiratory distress. HEART: Regular rate and rhythm. No murmur heard. Normal peripheral pulses. ABDOMEN: Soft, nontender, nondistended, normal active bowel sounds. EXTREMITIES: Normal range of motion. No edema. SKIN: Warm, dry, no rash. There is a dime-sized ulceration on the left great toe with malodorous smell there is erythema of the left great toe NEURO: No focal deficits. Alert and oriented x3. PSYCH: Normal mood and affect. Course Vital Signs Vital signs: Vital Signs Temperature 37.2 C 04/16/23 20:20 Pulse Rate 115 H 04/16/23 20:20 Respiratory Rate
[2023-04-16] MEDS: SODIUM CHLORIDE 0.9% IV 1,000 ML 999 ML IV CONT (20:55)
[2023-04-16] MEDS: HYDROmorphone HCL INJ (*CRX) 1 MG/ML SYR 0.5 MG IV PUSH (21:00)
[2023-04-16 21:01] VITALS: BP 103/59; PULSE 90; RESP 19; O2SAT 98
[2023-04-16] MEDS: metroNIDAZOLE 500 MG/ISO 100ML 500 MG/100 ML BAG 100 MG IVPB (21:05)
[2023-04-16] MEDS: CEFEPIME 2 GM/NS 50 ML 2 GM/50 ML BAG IVPB (21:05)
[2023-04-16 21:14] LABS: Basophils Percent Auto 0.3 % (0.2-1.2); Eosinophils Percent Auto 0.1 % (0-4.4); Hematocrit 35.1 % (37.0-47.0); Hemoglobin 11.6 g/dL (12.0-15.0); Immature Granulocyte Absolute 0.06 K/mm3 (0.00-0.031); Immature Granulocyte Percent A 0.4 % (0-0.5); Lymphocytes Absolute Auto 1.15 K/mm3 (0.9-3.2); Lymphocytes Percent Auto 7.9 % (18.3-44.2); Mean Corpuscular Hemoglobin 27.8 pg (26-34); Mean Platelet Volume 10.5 fl (7.4-10.4); Monocytes Absolute Auto 1.2 K/mm3 (0.1-0.6); Monocytes Percent Auto 8.3 % (2.6-8.5); Neutrophils Absolute Auto 12.1 K/mm3 (1.3-6.7); Platelet Count Result 223 k/mm3 (150-375); Red Blood Count 4.18 M/mm3 (4.2-5.4); Red Cell Distribution Width 13.8 % (11.5-14.5); White Blood Count 14.5 K/mm3 (4.5-10.0)
[2023-04-16 21:28] LABS: INR 1.3; Prothrombin Time 17.3 Seconds (11.1-14.7)
[2023-04-16 21:29] LABS: Lactic Acid Reflex 2.8 mmol/L (0.7-2.0); Partial Thromboplastin Time 43.1 SECONDS (22.3-36.8)
[2023-04-16 21:31] VITALS: BP 102/62; PULSE 98; RESP 18; O2SAT 98
[2023-04-16 21:50] LABS: Influenza A QL RT-PCR Negative (Negative); Influenza B QL RT-PCR Negative (Negative); RSV RNA, RT-PCR Negative (Negative); SARS-CoV-2 RNA PCR Negative (Negative)
[2023-04-16 21:56] LABS: Alanine Aminotransferase 16 U/L (6-35); Alkaline Phosphatase 109 U/L (38-126); Anion Gap 10 mmol/L (8-16); Aspartate Amino Transferase 16 U/L (14-36); Bilirubin,Total 0.9 mg/dL (0.2-1.3); Blood Urea Nitrogen 20 mg/dL (7-17); Calcium 8.7 mg/dL (8.4-10.2); Carbon Dioxide 25 mmol/L (22-30); Chloride 94 mmol/L (98-107); Estimated CRCL calculation 65 ml/min; Estimated Glomerular Filt Rate > 60; Glucose 444 mg/dL (65-110); Magnesium 1.9 mg/dL (1.6-2.3); Potassium 4.3 mmol/L (3.4-5.0); Sodium 129 mmol/L (137-145)
[2023-04-16 21:57] VITALS: BP 116/72; PULSE 99; RESP 15; O2SAT 100
[2023-04-16 22:01] VITALS: BP 111/63; PULSE 94; RESP 19; O2SAT 97
[2023-04-16 22:09] LABS: Appearance Urine Clear (Clear); Bacteria Urine None Seen /hpf; Bilirubin Urine Negative (Negative); Blood Urine Trace (Negative); Color Urine Yellow (Yellow); Glucose Urine UA 3+ mg/dL (Negative); Ketones Urine Negative (Negative); Leukocyte Esterase Ur Negative LEU/UL (Negative); Nitrate Urine Negative (Negative); Protein Urine Trace mg/dL (Negative); RBC Urine 0-2 /hpf (0-2); Specific Grav Ur 1.023 (1.001-1.035); Squamous Epithelial Cell Urine None seen /hpf (Few); Urobilinogen Urine 0.2 mg/dL (<2.0); WBC Urine 0-5 /hpf; pH Urine 5.5 (5.0-9.0)
[2023-04-16 22:12] LABS: Add Urine Microscopic? YES
--- NOTE | 2023-04-16 22:12 | PC.NURSE ---
Pt to CT at this time.
[2023-04-16 22:18] LABS: Erythrocyte Sedimentation Rate 126 mm/hr (0-20)
[2023-04-16] MEDS: VANCOMYCIN 2,000 MG/NS 500 ML 2,000 MG/500 ML BAG 250 MG IVPB (22:28)
[2023-04-16 23:07] LABS: Procalcitonin 0.5 ng/mL
[2023-04-17] VITALS (11 sets, daily range): BP systolic 101–120; BP diastolic 50–64; PULSE 87–107; RESP 16–20; TEMP 36.5–37.8; O2SAT 94–100
[2023-04-17 00:12] LABS: Reflex Lactic Acid Yes or No Add Lactic
[2023-04-17 01:04] LABS: Lactic Acid 1.2 mmol/L (0.7-2.0)
[2023-04-17] MEDS: SODIUM CHLORIDE 0.9% IV 1,000 ML 125 ML IV CONT (02:01)
[2023-04-17] MEDS: HYDROmorphone HCL INJ (*CRX) 1 MG/ML SYR 0.5 MG IV PUSH ×3 (02:02→19:53)
[2023-04-17 02:48] LABS: Glucose Point of Care 304 mg/dl (65-105)
[2023-04-17] MEDS: INSULIN GLARGINE (*BKC) 100 UNITS/ML 20 UNITS SUB-Q (02:58)
[2023-04-17] MEDS: metroNIDAZOLE 500 MG/ISO 100ML 500 MG/100 ML BAG 100 MG IVPB ×3 (05:30→21:28)
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
[2023-04-17 07:29] LABS: Basophils Percent Auto 0.3 % (0.2-1.2); Eosinophils Percent Auto 0.2 % (0-4.4); Hemoglobin 10.5 g/dL (12.0-15.0); Immature Granulocyte Absolute 0.07 K/mm3 (0.00-0.031); Immature Granulocyte Percent A 0.6 % (0-0.5); Lymphocytes Absolute Auto 1.55 K/mm3 (0.9-3.2); Lymphocytes Percent Auto 12.3 % (18.3-44.2); Mean Corpuscular HGB Conc 32.8 g/dl (32-36); Mean Corpuscular Hemoglobin 28.2 pg (26-34); Mean Corpuscular Volume 85.8 fl (80-100); Mean Platelet Volume 10.3 fl (7.4-10.4); Monocytes Absolute Auto 1.2 K/mm3 (0.1-0.6); Monocytes Percent Auto 9.4 % (2.6-8.5); Neutrophils Absolute Auto 9.7 K/mm3 (1.3-6.7); Neutrophils Percent Auto 77.2 % (45.5-73.1); Platelet Count Result 192 k/mm3 (150-375); Red Blood Count 3.73 M/mm3 (4.2-5.4); Red Cell Distribution Width 13.7 % (11.5-14.5); White Blood Count 12.6 K/mm3 (4.5-10.0)
[2023-04-17 07:42] LABS: Anion Gap 7 mmol/L (8-16); Blood Urea Nitrogen 15 mg/dL (7-17); Calcium 8.1 mg/dL (8.4-10.2); Carbon Dioxide 24 mmol/L (22-30); Chloride 101 mmol/L (98-107); Estimated CRCL calculation 82 ml/min; Estimated Glomerular Filt Rate > 60; Glucose 236 mg/dL (65-110); Potassium 3.7 mmol/L (3.4-5.0); Sodium 132 mmol/L (137-145)
[2023-04-17 07:49] LABS: Hemoglobin A1C 11.5 % (<5.7)
[2023-04-17 07:59] LABS: Glucose Point of Care 221 mg/dl (65-105)
[2023-04-17] MEDS: CLOPIDOGREL BISULFATE 75 MG TABLET PO (08:19)
[2023-04-17] MEDS: INSULIN ASPART (*BKC) 100 UNITS/ML SUB-Q ×5 (08:19→21:27)
[2023-04-17] MEDS: APIXABAN 5 MG TABLET PO ×2 (08:19→19:54)
[2023-04-17] MEDS: SPIRONOLACTONE 50 MG TABLET PO (08:19)
[2023-04-17] MEDS: carvediloL 3.125 MG TABLET PO ×2 (08:20→19:54)
[2023-04-17] MEDS: CEFEPIME 2 GM/NS 50 ML 2 GM/50 ML BAG IVPB ×2 (08:21→19:54)
[2023-04-17] MEDS: TORSEMIDE 20 MG TABLET 40 MG PO (08:22)
[2023-04-17 11:28] LABS: Glucose Point of Care 285 mg/dl (65-105)
[2023-04-17] MEDS: COLLAGENASE OINT 30 GM TUBE 1 APPLIC TOPICAL (11:53)
--- NOTE | 2023-04-17 13:25 | PM.IMPN ---
Progress Note: A&P Assessment and Plan (1) Ulcer of left foot due to type 2 diabetes mellitus: Code(s): E11.621 - Type 2 diabetes mellitus with foot ulcer; L97.529 - Non-pressure chronic ulcer of other part of left foot with unspecified severity Status: Acute Assessment and Plan: Patient has diabetic foot ulcer to the left great toe that is acutely infected with associated sepsis (criteria including tachycardia, leukocytosis, lactic acidosis). XRay negativ eof acute changes. CT foot showing no evidence for osteomyelitis or abscess. Blood cultures are pending. ESR 126. WBC 14K. Wound Care consult has been placed. Started on Flagyl and cefepime and vancomycin per antibiotic stewardship guidelines. (2) Cellulitis of foot, left: Code(s): L03.116 - Cellulitis of left lower limb Status: Acute Assessment and Plan: As above (3) Type 2 diabetes mellitus with hyperglycemia, with long-term current use of insulin: Code(s): E11.65 - Type 2 diabetes mellitus with hyperglycemia; Z79.4 - assisted (current) use of insulin Status: Acute Assessment and Plan: A1c 11.5%. The patient's blood glucose was reviewed on 04/17 No insulin at home recently because 'to sick to be out of bed' Glucose remains poorly controlled but did not get her Lantus last night. Continue Lantus and add meal time insulin. Continue AccuCheks covering with sliding scale. Hypoglycemia protocol available as needed. Continue to monitor (4) CAD (coronary artery disease): Code(s): I25.10 - Atherosclerotic heart disease of [place] coronary artery without angina pectoris Status: Acute Assessment and Plan: Patient has a history of coronary disease status post CABG x5 vessel in 2022. Continue Coreg, Plavix and Eliquis. Also on diuretics the form of spironolactone and torsemide. These have been continued as well. Continue to monitor. (5) Schizophrenia: Code(s): F20.9 - Schizophrenia, unspecified Status: Acute Assessment and Plan: Mood stable. Not on treatment for schizophrenia. Monitor (6) Smoker unmotivated to quit: Code(s): F17.200 - Nicotine dependence, unspecified, uncomplicated Status: Acute Assessment and Plan: Patient was educated about the benefits of smoking cessation. Plan DVT prophylaxis -Eliquis Code status -full Subjective Date/time seen: 04/17/23 13:25 Interval history: 47yo female with CAD, DM, cirrhosis and schizophrenia here for left great toe ulcer and left foot edema. Left toe ulcer since July of 2022. She was working with wound care at [facility] in [place]. Wound would flare off and on. Left toe worsened past few days. No fevers. CAD with CABG x5v in August. Had COVID about 23 weeks ago. Exam Narrative: AF 98.6 103/50 103 20 94% ra Gen - NARD Chest - CTA bilaterally, nml RR CV - RRR S1/S2. well healed lateral midline chest wall scar Abd - Soft, NT/ND, Positive BS Ext - No pedal edema Psych - Nml mood and affect Skin - erythema to the dorsum of the left foot. dried black eschar planter surfact of left great toe. Objective Data Vital Signs Vital Signs: Vital Signs - 24 hr 04/16/23 20:20 04/16/23 21:01 04/16/23 21:31 Temperature 99 F Pulse Rate 115 H 90 98 Respiratory Rate 20 19 18 Blood Pressure 108/69 103/59 L 102/62 Pulse Oximetry 100 98 98 Oxygen Delivery Room Air 04/16/23 21:57 04/16/23 22:01 04/17/23 00:30 Temperature 99.5 F Pulse Rate 99 94 94 Respiratory Rate 15 19 16 Blood Pressure 116/72 111/63 103/64 Pulse Oximetry 100 97 99 Oxygen Delivery 04/17/23 02:45 04/17/23 00:32 04/17/23 06:00 Temperature 99.6 F 98.6 F Pulse Rate 99 Respiratory Rate 16 Blood Pressure 101/63 Pulse Oximetry 99 97 Oxygen Delivery Room Air 04/17/23 08:20 04/17/23 08:35 04/17/23 08:00 Temperature Pulse Rate 107 H 103 H Respiratory Rate 20 Blood Pressure 1
[2023-04-17 16:11] LABS: Glucose Point of Care 294 mg/dl (65-105)
[2023-04-17] MEDS: VANCOMYCIN 1,500 MG/NS 500 ML 1,500 MG/500 ML BAG 250 MG IVPB (17:04)
[2023-04-17] MEDS: METOCLOPRAMIDE HCL INJ 10 MG/2 ML VIAL IV PUSH (20:27)
[2023-04-17 20:47] LABS: Glucose Point of Care 209 mg/dl (65-105)
[2023-04-17] MEDS: INSULIN GLARGINE (*BKC) 100 UNITS/ML 18 UNITS SUB-Q (21:27)
[2023-04-18 06:00] VITALS: BP 104/61; PULSE 93; RESP 18; TEMP 38.1; O2SAT 98
[2023-04-18 06:03] LABS: Basophils Percent Auto 0.2 % (0.2-1.2); Eosinophils Absolute Auto 0.1 K/mm3 (0-0.3); Eosinophils Percent Auto 0.4 % (0-4.4); Hematocrit 30.8 % (37.0-47.0); Hemoglobin 10.4 g/dL (12.0-15.0); Immature Granulocyte Absolute 0.09 K/mm3 (0.00-0.031); Immature Granulocyte Percent A 0.7 % (0-0.5); Lymphocytes Absolute Auto 1.27 K/mm3 (0.9-3.2); Lymphocytes Percent Auto 10.2 % (18.3-44.2); Mean Corpuscular HGB Conc 33.8 g/dl (32-36); Mean Corpuscular Hemoglobin 28.1 pg (26-34); Mean Corpuscular Volume 83.2 fl (80-100); Monocytes Absolute Auto 0.9 K/mm3 (0.1-0.6); Monocytes Percent Auto 7.4 % (2.6-8.5); Neutrophils Absolute Auto 10.1 K/mm3 (1.3-6.7); Neutrophils Percent Auto 81.1 % (45.5-73.1); Platelet Count Result 196 k/mm3 (150-375); Red Cell Distribution Width 13.3 % (11.5-14.5); White Blood Count 12.5 K/mm3 (4.5-10.0)
[2023-04-18] MEDS: metroNIDAZOLE 500 MG/ISO 100ML 500 MG/100 ML BAG 100 MG IVPB ×3 (06:37→21:39)
[2023-04-18 06:48] LABS: Anion Gap 11 mmol/L (8-16); Blood Urea Nitrogen 14 mg/dL (7-17); CRP 25.3 mg/dL (<1.0); Calcium 8.4 mg/dL (8.4-10.2); Carbon Dioxide 22 mmol/L (22-30); Chloride 99 mmol/L (98-107); Estimated CRCL calculation 82 ml/min; Estimated Glomerular Filt Rate > 60; Glucose 186 mg/dL (65-110); Potassium 3.5 mmol/L (3.4-5.0); Sodium 132 mmol/L (137-145)
[2023-04-18 07:21] LABS: Glucose Point of Care 181 mg/dl (65-105)
[2023-04-18] MEDS: INSULIN ASPART (*BKC) 100 UNITS/ML SUB-Q ×5 (09:32→20:35)
[2023-04-18 09:33] VITALS: PULSE 93
[2023-04-18] MEDS: CLOPIDOGREL BISULFATE 75 MG TABLET PO (09:33)
[2023-04-18] MEDS: carvediloL 3.125 MG TABLET PO ×2 (09:33→20:31)
[2023-04-18] MEDS: SPIRONOLACTONE 50 MG TABLET PO (09:34)
[2023-04-18] MEDS: CEFEPIME 2 GM/NS 50 ML 2 GM/50 ML BAG IVPB ×2 (09:34→20:34)
[2023-04-18] MEDS: APIXABAN 5 MG TABLET PO ×2 (09:34→20:31)
[2023-04-18] MEDS: COLLAGENASE OINT 30 GM TUBE 1 APPLIC TOPICAL (09:34)
[2023-04-18] MEDS: TORSEMIDE 20 MG TABLET 40 MG PO (09:34)
[2023-04-18 10:25] VITALS: BP 103/56; PULSE 95; RESP 16; TEMP 36.8; O2SAT 100
[2023-04-18 11:24] LABS: Glucose Point of Care 211 mg/dl (65-105)
--- NOTE | 2023-04-18 11:36 | PM.IMPN ---
Progress Note: A&P Assessment and Plan (1) Ulcer of left foot due to type 2 diabetes mellitus: Code(s): E11.621 - Type 2 diabetes mellitus with foot ulcer; L97.529 - Non-pressure chronic ulcer of other part of left foot with unspecified severity Status: Acute Assessment and Plan: Patient has diabetic foot ulcer to the left great toe that is acutely infected with associated sepsis (criteria including tachycardia, leukocytosis, lactic acidosis). Left Foot XRay showing no acute changes. Left CT foot showing no evidence for osteomyelitis or abscess. Blood cultures are NGTD ESR 126. CRP 22. WBC 14K. Wound Care consult noted and appreciated. Started on Flagyl and cefepime and vancomycin per antibiotic stewardship guidelines. CRP 25 but WBC 12. Clinically feels better with less pain and improved ROM. (2) Cellulitis of foot, left: Code(s): L03.116 - Cellulitis of left lower limb Status: Acute Assessment and Plan: As above (3) Type 2 diabetes mellitus with hyperglycemia, with long-term current use of insulin: Code(s): E11.65 - Type 2 diabetes mellitus with hyperglycemia; Z79.4 - assisted (current) use of insulin Status: Acute Assessment and Plan: A1c 11.5%. The patient's blood glucose was reviewed on 04/18 No insulin at home recently because 'to sick to be out of bed' Glucose better but not at goal of <180 Continue Lantus and meal time insulin. Advance Lantus Continue AccuCheks covering with sliding scale. Hypoglycemia protocol available as needed. Continue to monitor (4) CAD (coronary artery disease): Code(s): I25.10 - Atherosclerotic heart disease of [place] coronary artery without angina pectoris Status: Acute Assessment and Plan: Patient has a history of coronary disease status post CABG x5 vessel in 2022. Continue Coreg, Plavix and Eliquis. Also on diuretics the form of spironolactone and torsemide. These have been continued as well. Add Lipitor Continue to monitor. (5) Schizophrenia: Code(s): F20.9 - Schizophrenia, unspecified Status: Acute Assessment and Plan: Mood stable. Not on treatment for schizophrenia. Monitor (6) Smoker unmotivated to quit: Code(s): F17.200 - Nicotine dependence, unspecified, uncomplicated Status: Acute Assessment and Plan: Patient was educated about the benefits of smoking cessation. Plan DVT prophylaxis -Eliquis Code status -full Subjective Date/time seen: 04/18/23 11:36 Interval history: 47yo female with CAD, DM, cirrhosis and schizophrenia here for left great toe ulcer and left foot edema. Patient with low-grade fever overnight and this morning. Patient states that great toe range of motion is much better. She did have nausea and vomiting last night but is unclear if it is associated with the fever (RN felt n/v related to narcotics). He also had headache last evening. No chest pain or shortness of breath. She able to walk to the bathroom with minimal pain the foot. She stated that the dorsal skin changes to the left foot are chronic and without change Exam Narrative: Tm 100.6 98.3 103/56 95 16 100% ra Gen - NARD Chest - CTA bilaterally, nml RR CV - RRR S1/S2 Abd - Soft, NT/ND, Positive BS Ext - No pedal edema Psych - Nml mood and affect Skin - erythema to the dorsum of the left foot (chronic per patient). Mild erythema along the left arch that is new. Left great toe dressing clean and dry Objective Data Vital Signs Vital Signs: Vital Signs - 24 hr 04/17/23 14:00 04/17/23 19:54 04/17/23 21:32 Temperature 97.7 F 100.0 F H Pulse Rate 94 87 96 Respiratory Rate 20 18 Blood Pressure 120/55 L 102/58 L Pulse Oximetry 98 100 Oxygen Delivery 04/17/23 20:00 04/17/23 22:20 04/18/23 06:00 Temperature 100.6 F H Pulse Rate 96 93 Respiratory Rate 18 18 Blood Pressure 104/61 Pulse Oximetry 100 98 98 Oxygen De
[2023-04-18] MEDS: ATORVASTATIN 40 MG TABLET PO (13:14)
[2023-04-18] MEDS: DOCUSATE SODIUM 100 MG CAPSULE PO ×2 (13:14→20:31)
[2023-04-18] MEDS: ACETAMINOPHEN 325 MG TABLET 650 MG PO ×2 (13:16→20:36)
[2023-04-18 13:36] LABS: Vancomycin Trough 7.5 ug/mL (10.0-20.0)
[2023-04-18 13:55] VITALS: BP 109/61; PULSE 102; RESP 18; TEMP 37.1; O2SAT 99
--- NOTE | 2023-04-18 14:08 | PC.NURSE ---
patient arrival at 1400, stable, at bedside.
[2023-04-18] MEDS: VANCOMYCIN 1,500 MG/NS 500 ML 1,500 MG/500 ML BAG 250 MG IVPB (15:44)
[2023-04-18 16:55] LABS: Glucose Point of Care 200 mg/dl (65-105)
[2023-04-18 20:11] LABS: Glucose Point of Care 266 mg/dl (65-105)
[2023-04-18 20:31] VITALS: PULSE 98
[2023-04-18] MEDS: INSULIN GLARGINE (*BKC) 100 UNITS/ML 22 UNITS SUB-Q (20:36)
[2023-04-18 21:08] VITALS: BP 98/50; PULSE 90; RESP 13; TEMP 36.7; O2SAT 98
[2023-04-19] MEDS: VANCOMYCIN 1,500 MG/NS 500 ML 1,500 MG/500 ML BAG 250 MG IVPB (03:29)
[2023-04-19 05:32] VITALS: BP 92/53; PULSE 68; RESP 12; TEMP 36.1; O2SAT 99
[2023-04-19] MEDS: metroNIDAZOLE 500 MG/ISO 100ML 500 MG/100 ML BAG 100 MG IVPB (06:04)
[2023-04-19 06:40] LABS: Anion Gap 5 mmol/L (8-16); Blood Urea Nitrogen 14 mg/dL (7-17); Carbon Dioxide 27 mmol/L (22-30); Chloride 102 mmol/L (98-107); Estimated CRCL calculation 82 ml/min; Estimated Glomerular Filt Rate > 60; Glucose 145 mg/dL (65-110); Potassium 2.9 mmol/L (3.4-5.0); Sodium 134 mmol/L (137-145)
[2023-04-19 06:55] LABS: Basophils Percent Auto 0.4 % (0.2-1.2); Eosinophils Absolute Auto 0.1 K/mm3 (0-0.3); Eosinophils Percent Auto 1.1 % (0-4.4); Hematocrit 30.7 % (37.0-47.0); Hemoglobin 10.3 g/dL (12.0-15.0); Immature Granulocyte Absolute 0.06 K/mm3 (0.00-0.031); Immature Granulocyte Percent A 0.7 % (0-0.5); Lymphocytes Percent Auto 15.3 % (18.3-44.2); Mean Corpuscular HGB Conc 33.6 g/dl (32-36); Mean Corpuscular Hemoglobin 28.1 pg (26-34); Mean Corpuscular Volume 83.9 fl (80-100); Monocytes Absolute Auto 0.9 K/mm3 (0.1-0.6); Neutrophils Absolute Auto 6.6 K/mm3 (1.3-6.7); Neutrophils Percent Auto 72.5 % (45.5-73.1); Platelet Count Result 210 k/mm3 (150-375); Red Blood Count 3.66 M/mm3 (4.2-5.4); Red Cell Distribution Width 13.2 % (11.5-14.5); White Blood Count 9.1 K/mm3 (4.5-10.0)
[2023-04-19 07:26] LABS: Glucose Point of Care 143 mg/dl (65-105)
[2023-04-19 08:10] VITALS: BP 98/54; PULSE 93; O2SAT 99
[2023-04-19] MEDS: INSULIN ASPART (*BKC) 100 UNITS/ML SUB-Q ×6 (08:10→20:56)
[2023-04-19] MEDS: CLOPIDOGREL BISULFATE 75 MG TABLET PO (08:11)
[2023-04-19] MEDS: SPIRONOLACTONE 50 MG TABLET PO (08:11)
[2023-04-19] MEDS: TORSEMIDE 20 MG TABLET 40 MG PO (08:11)
[2023-04-19] MEDS: ATORVASTATIN 40 MG TABLET PO (08:11)
[2023-04-19] MEDS: APIXABAN 5 MG TABLET PO ×2 (08:11→20:56)
[2023-04-19] MEDS: DOCUSATE SODIUM 100 MG CAPSULE PO ×2 (08:11→20:56)
[2023-04-19] MEDS: CEFEPIME 2 GM/NS 50 ML 2 GM/50 ML BAG IVPB (08:12)
[2023-04-19] MEDS: COLLAGENASE OINT 30 GM TUBE 1 APPLIC TOPICAL (08:14)
--- NOTE | 2023-04-19 08:43 | PM.IMPN ---
Progress Note: A&P Assessment and Plan (1) Ulcer of left foot due to type 2 diabetes mellitus: Code(s): E11.621 - Type 2 diabetes mellitus with foot ulcer; L97.529 - Non-pressure chronic ulcer of other part of left foot with unspecified severity Status: Acute Assessment and Plan: Patient has diabetic foot ulcer to the left great toe that is acutely infected with associated sepsis (criteria including tachycardia, leukocytosis, lactic acidosis). Left Foot xray showing no acute changes. Left CT foot showing no evidence for osteomyelitis or abscess. Blood cultures are NGTD CRP trending up, repeat ordered for 04/20 Wound Care consult noted and appreciated. Started on Flagyl and cefepime and vancomycin per antibiotic stewardship guidelines 04/17 04/19: Clinically feels better with less pain and improved ROM, recheck CRP tomorrow, if this is trending down, would d/c on oral abx to complete a 14 day course, will transition to oral flagyl + augmentin today, if symptoms/labs do not worsen tomorrow, would d/c on those (2) Cellulitis of foot, left: Code(s): L03.116 - Cellulitis of left lower limb Status: Acute Assessment and Plan: See above (3) Type 2 diabetes mellitus with hyperglycemia, with long-term current use of insulin: Code(s): E11.65 - Type 2 diabetes mellitus with hyperglycemia; Z79.4 - manager terminal (current) use of insulin Status: Acute Assessment and Plan: A1c 11.5%. The patient's blood glucose was reviewed on 04/19 No insulin at home recently because 'to sick to be out of bed' Glucose better but not at goal of <180 Continue Lantus and meal time insulin. Advance Lantus Continue AccuCheks covering with sliding scale. Hypoglycemia protocol available as needed. Continue to monitor (4) CAD (coronary artery disease): Code(s): I25.10 - Atherosclerotic heart disease of [place] coronary artery without angina pectoris Status: Acute Assessment and Plan: Patient has a history of coronary disease status post CABG x5 vessel in 2022. Continue Coreg, Plavix and Eliquis. Also on diuretics the form of spironolactone and torsemide. These have been continued as well. Add Lipitor Blood pressures reviewed 04/19, on the low side, monitor, Coreg held this morning (5) Schizophrenia: Code(s): F20.9 - Schizophrenia, unspecified Status: Acute Assessment and Plan: Mood stable. Not on treatment for schizophrenia. Monitor (6) Smoker unmotivated to quit: Code(s): F17.200 - Nicotine dependence, unspecified, uncomplicated Status: Acute Assessment and Plan: Patient was educated about the benefits of smoking cessation. Plan DVT prophylaxis -Leonor Code status -full Subjective Date/time seen: 04/19/23 08:43 Interval history: 47yo female with CAD, DM, cirrhosis and schizophrenia here for left great toe ulcer and left foot edema. 04/18: Patient with low-grade fever overnight and this morning. Patient states that great toe range of motion is much better. She did have nausea and vomiting last night but is unclear if it is associated with the fever (RN felt n/v related to narcotics). He also had headache last evening. No chest pain or shortness of breath. She able to walk to the bathroom with minimal pain the foot. She stated that the dorsal skin changes to the left foot are chronic and without change 04/19: No overnight events noted. No chest pain or shortness of breath. No nausea, vomiting or diarrhea. No fevers or chills. Eager to go home. Review of Systems Review of Systems: 12 point review of systems was assessed and was negative except as noted in the HPI Exam Narrative: General: No acute distress, alert and oriented per baseline HEENT: Atraumatic, normocephalic, mucous membranes moist CV: Regular rate and rhythm, S1, S2 Lungs: Clear to auscultation bilaterally, no rales or crackles noted, no
[2023-04-19] MEDS: ACETAMINOPHEN 325 MG TABLET 650 MG PO ×2 (09:35→20:58)
[2023-04-19] MEDS: POTASSIUM CHLORIDE 20 MEQ ER TABLET 40 MEQ PO (11:23)
[2023-04-19 11:44] LABS: Glucose Point of Care 256 mg/dl (65-105)
[2023-04-19] MEDS: AMOXICILLIN/CLAVULANATE K 875-125 MG TAB 1 TABLET PO ×2 (13:17→20:55)
[2023-04-19 14:00] VITALS: BP 102/61; PULSE 91; RESP 13; TEMP 36.8; O2SAT 100
[2023-04-19 14:47] LABS: Vancomycin Trough 14.9 ug/mL (10.0-20.0)
[2023-04-19 16:23] LABS: Glucose Point of Care 233 mg/dl (65-105)
[2023-04-19] MEDS: metroNIDAZOLE 500 MG TABLET PO (17:01)
[2023-04-19 20:32] LABS: Glucose Point of Care 272 mg/dl (65-105)
[2023-04-19] MEDS: INSULIN GLARGINE (*BKC) 100 UNITS/ML 22 UNITS SUB-Q (20:56)
[2023-04-19 21:40] VITALS: PULSE 76
[2023-04-19 22:00] VITALS: BP 101/64; PULSE 92; RESP 14; TEMP 36.8; O2SAT 98
[2023-04-20] MEDS: NICOTINE (*PBKC) 14 MG PATCH 1 PATCH TRANSDERM ×3 (00:29→22:30)
[2023-04-20] MEDS: metroNIDAZOLE 500 MG TABLET PO ×4 (00:29→17:26)
[2023-04-20 06:00] VITALS: BP 104/61; PULSE 84; RESP 14; TEMP 35.9; O2SAT 99
[2023-04-20 06:45] LABS: Basophils Absolute Auto 0.1 K/mm3 (0.0-0.1); Basophils Percent Auto 0.6 % (0.2-1.2); Eosinophils Absolute Auto 0.1 K/mm3 (0-0.3); Eosinophils Percent Auto 1.3 % (0-4.4); Hemoglobin 10.5 g/dL (12.0-15.0); Immature Granulocyte Absolute 0.05 K/mm3 (0.00-0.031); Immature Granulocyte Percent A 0.5 % (0-0.5); Lymphocytes Absolute Auto 1.31 K/mm3 (0.9-3.2); Lymphocytes Percent Auto 14.2 % (18.3-44.2); Mean Corpuscular HGB Conc 32.8 g/dl (32-36); Mean Corpuscular Hemoglobin 27.6 pg (26-34); Mean Platelet Volume 9.5 fl (7.4-10.4); Monocytes Percent Auto 10.4 % (2.6-8.5); Neutrophils Absolute Auto 6.8 K/mm3 (1.3-6.7); Platelet Count Result 251 k/mm3 (150-375); Red Blood Count 3.81 M/mm3 (4.2-5.4); Red Cell Distribution Width 13.3 % (11.5-14.5); White Blood Count 9.3 K/mm3 (4.5-10.0)
[2023-04-20 07:29] LABS: Alanine Aminotransferase 10 U/L (6-35); Albumin Level 3.4 g/dL (3.5-5.1); Alkaline Phosphatase 137 U/L (38-126); Anion Gap 8 mmol/L (8-16); Aspartate Amino Transferase 15 U/L (14-36); Bilirubin,Total 0.5 mg/dL (0.2-1.3); Blood Urea Nitrogen 13 mg/dL (7-17); CRP 18.9 mg/dL (<1.0); Calcium 8.4 mg/dL (8.4-10.2); Carbon Dioxide 29 mmol/L (22-30); Chloride 98 mmol/L (98-107); Estimated CRCL calculation 82 ml/min; Estimated Glomerular Filt Rate > 60; Glucose 222 mg/dL (65-110); Potassium 3.1 mmol/L (3.4-5.0); Sodium 135 mmol/L (137-145)
[2023-04-20 08:08] LABS: Glucose Point of Care 210 mg/dl (65-105)
[2023-04-20] MEDS: INSULIN ASPART (*BKC) 100 UNITS/ML SUB-Q ×7 (08:24→20:41)
[2023-04-20] MEDS: ACETAMINOPHEN 325 MG TABLET 650 MG PO ×3 (08:24→20:35)
[2023-04-20 08:25] VITALS: BP 99/65; PULSE 99; O2SAT 99
[2023-04-20] MEDS: SPIRONOLACTONE 50 MG TABLET PO (08:25)
[2023-04-20] MEDS: AMOXICILLIN/CLAVULANATE K 875-125 MG TAB 1 TABLET PO (08:25)
[2023-04-20] MEDS: TORSEMIDE 20 MG TABLET 40 MG PO (08:25)
[2023-04-20] MEDS: CLOPIDOGREL BISULFATE 75 MG TABLET PO (08:25)
[2023-04-20] MEDS: DOCUSATE SODIUM 100 MG CAPSULE PO ×2 (08:25→20:35)
[2023-04-20] MEDS: APIXABAN 5 MG TABLET PO ×2 (08:25→20:36)
[2023-04-20] MEDS: ATORVASTATIN 40 MG TABLET PO (08:26)
[2023-04-20] MEDS: COLLAGENASE OINT 30 GM TUBE 1 APPLIC TOPICAL (09:42)
[2023-04-20 11:23] LABS: Glucose Point of Care 233 mg/dl (65-105)
[2023-04-20 12:53] VITALS: BMI 37.4
[2023-04-20 14:00] VITALS: BP 110/60; PULSE 85; RESP 14; TEMP 36.8; O2SAT 99
--- NOTE | 2023-04-20 16:04 | PM.PNORT ---
Progress Note: A&P Assessment and Plan (1) Diabetic foot ulcer: Code(s): E11.621 - Type 2 diabetes mellitus with foot ulcer; L97.509 - Non-pressure chronic ulcer of other part of unspecified foot with unspecified severity Status: Acute Assessment and Plan: Patient has a left foot ulcer great toe area. It has not ever a pressure point. The rather on under the IP joint of the great toe. The vascularity of the toe looks suspect. It does sneha a little but not greatly so. CT scan do not show an abscess or osteomyelitis. Will get ankle arm indices and see with a show and begin dressing of the wound will also send her to the [facility]. I think that is a reasonable chance she will end up getting an amputation. However as long she is not septic and without an abscess we can wait at this time. Subjective Subjective Date/Time Seen: 04/20/23 16:04 Principal diagnosis: Left great toe ulceration. Review of Systems Review of Systems: 12 point review of systems was assessed and was negative except as noted in the HPI Exam Narrative: Left great toe shows an ulcer about 1.5 centimeters across under the IP joint of the great toe. Flexor tendons I believe her visible at the base of the wound. There is some dark and this the skin almost necrotic a laterally over the great toe. The toe does sneha a little. Objective Data Vital Signs Vital Signs: Vital Signs - 24 hr 04/19/23 21:40 04/19/23 22:00 04/20/23 06:00 Temperature 98.3 F 96.6 F L Pulse Rate 76 92 84 Respiratory Rate 14 14 Blood Pressure 101/64 104/61 Pulse Oximetry 98 99 Oxygen Delivery 04/20/23 08:25 04/20/23 08:25 04/20/23 14:00 Temperature 98.3 F Pulse Rate 99 85 Respiratory Rate 14 Blood Pressure 99/65 L 110/60 Pulse Oximetry 99 99 Oxygen Delivery Room Air Intake/Output Intake/Output: Intake & Output 04/17/23 04/18/23 04/19/23 04/20/23 23:59 23:59 23:59 23:59 Intake Total 1959 2570 3570 2200 Output Total 100 Balance 1859 2570 3570 2200 Meds/Results Medications: Active Medications Generic Name Dose Route Start Last Admin Trade Name Freq PRN Reason Stop Dose Admin Acetaminophen 650 mg 04/16/23 23:37 04/20/23 15:50 Acetaminophen 325 Mg Tablet PO 650 mg Q4H PRN Administration Mild Pain (1-3) or Fever Amoxicillin/Clavulanate Potassium 1 tablet 04/19/23 12:45 04/20/23 08:25 Amoxicillin/Clavulanate K 875-125 Mg Tab PO 1 tablet Q12HR CHRISTOPHER Administration Apixaban 5 mg 04/17/23 09:00 04/20/23 08:25 Apixaban 5 Mg Tablet PO 5 mg Q12HR CHRISTOPHER Administration Atorvastatin Calcium 40 mg 04/18/23 11:50 04/20/23 08:26 Atorvastatin 40 Mg Tablet PO 40 mg DAILY CHRISTOPHER Administration Carvedilol 3.125 mg 04/17/23 09:00 04/20/23 08:25 Carvedilol 3.125 Mg Tablet PO Not Given Q12HR [facility] Clopidogrel Bisulfate 75 mg 04/17/23 09:00 04/20/23 08:25 Clopidogrel Bisulfate 75 Mg Tablet PO 75 mg DAILY [facility] Administration Collagenase 1 applic 04/17/23 09:00 04/20/23 09:42 Collagenase Oint 30 Gm Tube TOPICAL 1 applic QAM CHRISTOPHER Administration Dextrose 12.5 gm 04/17/23 06:50 Dextrose 50% 25 Gm/50 Ml Syringe IV PUSH PRN PRN Hypoglycemia Protocol Docusate Sodium 100 mg 04/18/23 11:45 04/20/23 08:25 Docusate Sodium 100 Mg Capsule PO 100 mg Q12HR CHRISTOPHER Administration Glucagon 1 mg 04/17/23 06:50 Glucagon For Inj 1 Mg Vial IM PRN PRN Hypoglycemia Protocol Glucose 15 gm 04/17/23 06:50 Glucose Oral Gel 15 Gm Of Glucse In 37.5 Gm Tube PO PRN PRN Hypoglycemia Protocol Hydromorphone HCl 0.5 mg 04/16/23 23:37 04/17/23 19:53 Hydromorphone Hcl Inj (*Crx) 1 Mg/Ml Syr IV PUSH 0.5 mg Q4H PRN Administration Pain Rated 7-10 Dextrose 1,000 mls @ 100 mls/hr 04/17/23 06:50 Dextrose 5% 1,000 Ml IVPB PRN PRN Hypoglycemia Protocol Insulin Aspart 3 - 6 u
[2023-04-20 17:24] LABS: Glucose Point of Care 250 mg/dl (65-105)
--- NOTE | 2023-04-20 17:46 | PM.IMPN ---
Progress Note: A&P Assessment and Plan (1) Ulcer of left foot due to type 2 diabetes mellitus: Code(s): E11.621 - Type 2 diabetes mellitus with foot ulcer; L97.529 - Non-pressure chronic ulcer of other part of left foot with unspecified severity Status: Acute Assessment and Plan: Patient has diabetic foot ulcer to the left great toe that is acutely infected with associated sepsis (criteria including tachycardia, leukocytosis, lactic acidosis). Left Foot xray showing no acute changes. Left CT foot showing no evidence for osteomyelitis or abscess. Blood cultures are NGTD CRP trending up, repeat ordered for 04/20 Wound Care consult noted and appreciated. 04/19 antibiotics transitioned to oral 04/20 will transition back to ceftriaxone vancomycin and Flagyl. The wound certainly looks infected and we will dry wound culture. Blood cultures are pending. Otherwise sepsis has resolved. The concerning part is the tracking on the plantar surface and tenderness there. She also appears to have heel toe so ABIs were ordered but those are unremarkable. MRI demonstrates possible osteomyelitis but the CT scan argues against that. She does appear to have more likely tenosynovitis. Based on this the patient may need surgical intervention and most likely ID consultation for more aggressive antibiotic course. Orthopedic surgery consult placed as well. Continue to follow CRP is elevated. (2) Cellulitis of foot, left: Code(s): L03.116 - Cellulitis of left lower limb Status: Acute Assessment and Plan: See above (3) Type 2 diabetes mellitus with hyperglycemia, with long-term current use of insulin: Code(s): E11.65 - Type 2 diabetes mellitus with hyperglycemia; Z79.4 - alf (current) use of insulin Status: Acute Assessment and Plan: A1c 11.5%. Was not taking insulin at home up till February because insurance issues. Continue Lantus and mealtime insulin Continue AccuCheks covering with sliding scale. Hypoglycemia protocol available as needed. Continue to monitor (4) CAD (coronary artery disease): Code(s): I25.10 - Atherosclerotic heart disease of [place] coronary artery without angina pectoris Status: Acute Assessment and Plan: Patient has a history of coronary disease status post CABG x5 vessel in 2022. Continue Coreg, Plavix and Eliquis. Also on diuretics the form of spironolactone and torsemide. These have been continued as well. Atorvastatin added (5) Schizophrenia: Code(s): F20.9 - Schizophrenia, unspecified Status: Acute Assessment and Plan: Mood stable. Not on treatment for schizophrenia. Monitor (6) Smoker unmotivated to quit: Code(s): F17.200 - Nicotine dependence, unspecified, uncomplicated Status: Acute Assessment and Plan: Patient was educated about the benefits of smoking cessation. Plan 47-year-old female with history of insulin-dependent diabetes mellitus complicated by diabetic retinopathy and diabetic foot ulcers with a history of amputation of right toe, liver cirrhosis secondary to SCHREIBER, obesity, history of osteomyelitis, history of schizophrenia presented as she felt she was going into sepsis. Patient admitted on 04/17 for diabetic foot ulcer of the left great toe with sepsis. FEN: Saline lock IV GI prophylaxis: Not indicated DVT prophylaxis: Continue Eliquis Lines: Peripheral IV Code Status: Full code Dispo: Orthopedic consulted. Stable Subjective Date/time seen: 04/20/23 17:46 Interval history: No acute overnight events. Patient denies any pain at the ulcer site but exquisite pain on the bottom of her foot where the redness is tracking. Review of Systems Review of Systems: All systems reviewed & are unremarkable except as noted in HPI and below (Subjective) Exam Const: General: comfortable and no acute distress Eyes: Pupils: Equal, round and reactive pupils presen
[2023-04-20] MEDS: VANCOMYCIN 1,250 MG/NS 250 ML 1,250 MG/250 ML BAG 166.67 MG IVPB (18:47)
[2023-04-20 20:35] VITALS: PULSE 98
[2023-04-20] MEDS: carvediloL 3.125 MG TABLET PO (20:35)
[2023-04-20] MEDS: VANCOMYCIN 1,000 MG/NS 250 ML 1,000 MG/250 ML BAG 250 MG IVPB (20:37)
[2023-04-20] MEDS: INSULIN GLARGINE (*BKC) 100 UNITS/ML 22 UNITS SUB-Q (20:41)
[2023-04-20 21:36] LABS: Glucose Point of Care 336 mg/dl (65-105)
[2023-04-20 22:00] VITALS: BP 117/79; PULSE 95; RESP 16; TEMP 36.8; O2SAT 100
[2023-04-20] MEDS: CEFEPIME 2 GM/NS 50 ML 2 GM/50 ML BAG IVPB (22:00)
[2023-04-20] MEDS: metroNIDAZOLE 500 MG/ISO 100ML 500 MG/100 ML BAG 100 MG IVPB (22:31)
[2023-04-21] MEDS: CEFEPIME 2 GM/NS 50 ML 2 GM/50 ML BAG IVPB ×3 (05:59→22:53)
[2023-04-21 06:00] VITALS: BP 103/59; PULSE 77; RESP 16; TEMP 36.1; O2SAT 99
[2023-04-21] MEDS: metroNIDAZOLE 500 MG/ISO 100ML 500 MG/100 ML BAG 100 MG IVPB ×3 (06:00→23:48)
[2023-04-21 06:38] LABS: Basophils Percent Auto 0.5 % (0.2-1.2); Eosinophils Absolute Auto 0.1 K/mm3 (0-0.3); Eosinophils Percent Auto 1.2 % (0-4.4); Hemoglobin 11.2 g/dL (12.0-15.0); Immature Granulocyte Absolute 0.07 K/mm3 (0.00-0.031); Immature Granulocyte Percent A 0.8 % (0-0.5); Lymphocytes Absolute Auto 1.49 K/mm3 (0.9-3.2); Lymphocytes Percent Auto 17.5 % (18.3-44.2); Mean Corpuscular HGB Conc 32.9 g/dl (32-36); Mean Corpuscular Hemoglobin 28.1 pg (26-34); Mean Corpuscular Volume 85.4 fl (80-100); Mean Platelet Volume 9.6 fl (7.4-10.4); Monocytes Absolute Auto 0.8 K/mm3 (0.1-0.6); Monocytes Percent Auto 9.5 % (2.6-8.5); Neutrophils Percent Auto 70.5 % (45.5-73.1); Platelet Count Result 276 k/mm3 (150-375); Red Blood Count 3.98 M/mm3 (4.2-5.4); Red Cell Distribution Width 13.2 % (11.5-14.5); White Blood Count 8.5 K/mm3 (4.5-10.0)
[2023-04-21 06:56] LABS: Anion Gap 10 mmol/L (8-16); Blood Urea Nitrogen 16 mg/dL (7-17); Carbon Dioxide 28 mmol/L (22-30); Chloride 96 mmol/L (98-107); Sodium 134 mmol/L (137-145)
[2023-04-21 06:57] LABS: Alanine Aminotransferase 10 U/L (6-35); Albumin Level 3.2 g/dL (3.5-5.1); Alkaline Phosphatase 140 U/L (38-126); Aspartate Amino Transferase 17 U/L (14-36); Bilirubin,Total 0.4 mg/dL (0.2-1.3); Calcium 8.4 mg/dL (8.4-10.2); Estimated CRCL calculation 83 ml/min; Estimated Glomerular Filt Rate > 60; Glucose 263 mg/dL (65-110)
[2023-04-21 07:49] LABS: Glucose Point of Care 229 mg/dl (65-105)
[2023-04-21] MEDS: INSULIN ASPART (*BKC) 100 UNITS/ML SUB-Q ×7 (09:37→21:02)
[2023-04-21 09:38] VITALS: PULSE 72
[2023-04-21] MEDS: TORSEMIDE 20 MG TABLET 40 MG PO (09:38)
[2023-04-21] MEDS: DOCUSATE SODIUM 100 MG CAPSULE PO (09:38)
[2023-04-21] MEDS: CLOPIDOGREL BISULFATE 75 MG TABLET PO (09:38)
[2023-04-21] MEDS: APIXABAN 5 MG TABLET PO ×2 (09:38→21:01)
[2023-04-21] MEDS: SPIRONOLACTONE 50 MG TABLET PO (09:38)
[2023-04-21] MEDS: carvediloL 3.125 MG TABLET PO ×2 (09:38→21:01)
[2023-04-21] MEDS: ATORVASTATIN 40 MG TABLET PO (09:39)
[2023-04-21] MEDS: COLLAGENASE OINT 30 GM TUBE 1 APPLIC TOPICAL (09:39)
[2023-04-21] MEDS: VANCOMYCIN 1,500 MG/NS 500 ML 1,500 MG/500 ML BAG 250 MG IVPB ×2 (09:40→20:48)
[2023-04-21 11:54] LABS: Glucose Point of Care 263 mg/dl (65-105)
--- NOTE | 2023-04-21 13:18 | PM.PNORT ---
Progress Note: A&P Assessment and Plan (1) Diabetic foot ulcer: Code(s): E11.621 - Type 2 diabetes mellitus with foot ulcer; L97.509 - Non-pressure chronic ulcer of other part of unspecified foot with unspecified severity Status: Acute Assessment and Plan: Patient has a left foot ulcer great toe area. It has not ever a pressure point. The rather on under the IP joint of the great toe. The vascularity of the toe looks suspect. It does sneha a little but not greatly so. CT scan do not show an abscess or osteomyelitis. Will get ankle arm indices and see with a show and begin dressing of the wound will also send her to the Wound Clinic. I think that is a reasonable chance she will end up getting an amputation. However as long she is not septic and without an abscess we can wait at this time. Ankle Brachial Indices unremarkable. MRI shows possible early osteomyelitis. Will Try wound clinic. If symptoms don't improve she will nee amputation. Subjective Subjective Date/Time Seen: 04/21/23 13:18 Principal diagnosis: Diabetic Foot Ulcer Review of Systems Review of Systems: All systems reviewed & are unremarkable except as noted in HPI and below (Subjective) Exam Narrative: Left great toe shows an ulcer about 1.5 centimeters across under the IP joint of the great toe. Flexor tendons I believe her visible at the base of the wound. There is some dark and this the skin almost necrotic a laterally over the great toe. The toe does sneha a little. Objective Data Vital Signs Vital Signs: Vital Signs - 24 hr 04/20/23 14:00 04/20/23 20:35 04/20/23 20:00 Temperature 98.3 F Pulse Rate 85 98 Respiratory Rate 14 Blood Pressure 110/60 Pulse Oximetry 99 Oxygen Delivery Room Air 04/20/23 22:00 04/21/23 06:00 04/21/23 09:38 Temperature 98.2 F 97 F L Pulse Rate 95 77 72 Respiratory Rate 16 16 Blood Pressure 117/79 103/59 L Pulse Oximetry 100 99 Oxygen Delivery Intake/Output Intake/Output: Intake & Output 04/18/23 04/19/23 04/20/23 04/21/23 23:59 23:59 23:59 23:59 Intake Total 2570 3570 3850 825 Balance 2570 3570 3850 825 Meds/Results Medications: Active Medications Generic Name Dose Route Start Last Admin Trade Name Taranq PRN Reason Stop Dose Admin Acetaminophen 650 mg 04/16/23 23:37 04/21/23 09:39 Acetaminophen 325 Mg Tablet PO 650 mg Q4H PRN Administration Mild Pain (1-3) or Fever Apixaban 5 mg 04/17/23 09:00 04/21/23 09:38 Apixaban 5 Mg Tablet PO 5 mg Q12HR CHRISTOPHER Administration Atorvastatin Calcium 40 mg 04/18/23 11:50 04/21/23 09:39 Atorvastatin 40 Mg Tablet PO 40 mg DAILY CHRISTOPHER Administration Carvedilol 3.125 mg 04/17/23 09:00 04/21/23 09:38 Carvedilol 3.125 Mg Tablet PO 3.125 mg Q12HR CHRISTOPHER Administration Clopidogrel Bisulfate 75 mg 04/17/23 09:00 04/21/23 09:38 Clopidogrel Bisulfate 75 Mg Tablet PO 75 mg DAILY CHRISTOPHER Administration Collagenase 1 applic 04/17/23 09:00 04/21/23 09:39 Collagenase Oint 30 Gm Tube TOPICAL 1 applic QAM CHRISTOPHER Administration Dextrose 12.5 gm 04/17/23 06:50 Dextrose 50% 25 Gm/50 Ml Syringe IV PUSH PRN PRN Hypoglycemia Protocol Docusate Sodium 100 mg 04/18/23 11:45 04/21/23 09:38 Docusate Sodium 100 Mg Capsule PO 100 mg Q12HR CHRISTOPHER Administration Glucagon 1 mg 04/17/23 06:50 Glucagon For Inj 1 Mg Vial IM PRN PRN Hypoglycemia Protocol Glucose 15 gm 04/17/23 06:50 Glucose Oral Gel 15 Gm Of Glucse In 37.5 Gm Tube PO PRN PRN Hypoglycemia Protocol Hydromorphone HCl 0.5 mg 04/16/23 23:37 04/17/23 19:53 Hydromorphone Hcl Inj (*Crx) 1 Mg/Ml Syr IV PUSH 0.5 mg Q4H PRN Administration Pain Rated 7-10 Dextrose 1,000 mls @ 100 mls/hr 04/17/23 06:50 Dextrose 5% 1,000 Ml IVPB PRN PRN Hypoglycemia Protocol Cefepime HCl 2 gm in 50 mls @ 100 mls/hr 04/20/23 22:00
[2023-04-21 14:00] VITALS: BP 99/56; PULSE 77; RESP 14; TEMP 36.2; O2SAT 100
--- NOTE | 2023-04-21 14:00 | PC.NURSE ---
This RN was present during MD's rounds. The MD explained to the pt that the best option for the pt, at this time, is to get transferred to a facility with an infectious disease MD. The pt stated that she is not able to transfer to another facility due to family obligations at home. The MD said the next option he would recommend for this pt is to discharge home with IV antibiotics. The pt, again, said she could not go home with IV antibiotics due to the family obligations. The pt said I need to go home. I can take oral antibiotics, but I cannot do IV antibiotics. I have a mentally disabled son and I am his primary health care manager; he will rip out the IV.
--- NOTE | 2023-04-21 14:13 | PM.IMPN ---
Progress Note: A&P Assessment and Plan (1) Ulcer of left foot due to type 2 diabetes mellitus: Code(s): E11.621 - Type 2 diabetes mellitus with foot ulcer; L97.529 - Non-pressure chronic ulcer of other part of left foot with unspecified severity Status: Acute Assessment and Plan: Patient has diabetic foot ulcer to the left great toe that is acutely infected with associated sepsis (criteria including tachycardia, leukocytosis, lactic acidosis). Left Foot xray showing no acute changes. Left CT foot showing no evidence for osteomyelitis or abscess. Blood cultures are NGTD CRP trending up, repeat ordered for 04/20 Wound Care consult noted and appreciated. 04/19 antibiotics transitioned to oral 04/20 will transition back to ceftriaxone vancomycin and Flagyl. The wound certainly looks infected and we will dry wound culture. Blood cultures are pending. Otherwise sepsis has resolved. The concerning part is the tracking on the plantar surface and tenderness there. She also appears to have heel toe so ABIs were ordered but those are unremarkable. MRI demonstrates possible osteomyelitis but the CT scan argues against that. She does appear to have more likely tenosynovitis. Based on this the patient may need surgical intervention and most likely ID consultation for more aggressive antibiotic course. Orthopedic surgery consult placed as well. Continue to follow CRP is elevated. On 04/21 patient is apprehensive to go home. Discussion held with nurse Mandy davidson. The patient refuses to be transferred to another institution for ID consultation. She also refuses to go to a SNF for IV antibiotics. She is adamant she wants to go home tomorrow and will only go home on p.o. antibiotics. She has a son at home who is special needs and she reports he would pull out a PICC line. Educated on the risk of not pursuing more advanced therapies in addition to oral antibiotics. For now will continue vancomycin Flagyl and cefepime. Will discharge tomorrow on large spectrum p.o. antibiotics. Continue to appreciate Orthopedic recommendations (2) Cellulitis of foot, left: Code(s): L03.116 - Cellulitis of left lower limb Status: Acute Assessment and Plan: See above (3) Type 2 diabetes mellitus with hyperglycemia, with long-term current use of insulin: Code(s): E11.65 - Type 2 diabetes mellitus with hyperglycemia; Z79.4 - long-term (current) use of insulin Status: Acute Assessment and Plan: A1c 11.5%. Was not taking insulin at home up till February because insurance issues. Continue Lantus and mealtime insulin Continue AccuCheks covering with sliding scale. Hypoglycemia protocol available as needed. Continue to monitor (4) CAD (coronary artery disease): Code(s): I25.10 - Atherosclerotic heart disease of [place] coronary artery without angina pectoris Status: Acute Assessment and Plan: Patient has a history of coronary disease status post CABG x5 vessel in 2022. Continue Coreg, Plavix and Eliquis. Also on diuretics the form of spironolactone and torsemide. These have been continued as well. Atorvastatin added (5) Schizophrenia: Code(s): F20.9 - Schizophrenia, unspecified Status: Acute Assessment and Plan: Mood stable. Not on treatment for schizophrenia. Monitor (6) Smoker unmotivated to quit: Code(s): F17.200 - Nicotine dependence, unspecified, uncomplicated Status: Acute Assessment and Plan: Patient was educated about the benefits of smoking cessation. Plan 47-year-old female with history of insulin-dependent diabetes mellitus complicated by diabetic retinopathy and diabetic foot ulcers with a history of amputation of right toe, liver cirrhosis secondary to SCHREIBER, obesity, history of osteomyelitis, history of schizophrenia presented as she felt she was going into sepsis. Patient admitted on 04/17 for diabetic foot ulcer of the
[2023-04-21] MEDS: POTASSIUM CHLORIDE 20 MEQ ER TABLET 60 MEQ PO (15:29)
[2023-04-21 16:12] LABS: Glucose Point of Care 341 mg/dl (65-105)
[2023-04-21 20:00] VITALS: O2SAT 96
[2023-04-21 21:01] VITALS: PULSE 89
[2023-04-21] MEDS: NICOTINE (*PBKC) 14 MG PATCH 1 PATCH TRANSDERM (21:02)
[2023-04-21] MEDS: INSULIN GLARGINE (*BKC) 100 UNITS/ML 22 UNITS SUB-Q (21:02)
[2023-04-21 21:31] LABS: Glucose Point of Care 230 mg/dl (65-105)
[2023-04-21 21:33] VITALS: BP 103/54; PULSE 89; RESP 16; TEMP 36.9; O2SAT 96
[2023-04-22] MEDS: CEFEPIME 2 GM/NS 50 ML 2 GM/50 ML BAG IVPB (05:22)
[2023-04-22] MEDS: metroNIDAZOLE 500 MG/ISO 100ML 500 MG/100 ML BAG 100 MG IVPB (05:52)
[2023-04-22 05:58] VITALS: BP 107/56; PULSE 75; RESP 16; TEMP 36.2; O2SAT 98
[2023-04-22 07:12] LABS: Basophils Absolute Auto 0.1 K/mm3 (0.0-0.1); Basophils Percent Auto 0.6 % (0.2-1.2); Eosinophils Absolute Auto 0.2 K/mm3 (0-0.3); Eosinophils Percent Auto 2.1 % (0-4.4); Hematocrit 32.5 % (37.0-47.0); Hemoglobin 10.6 g/dL (12.0-15.0); Immature Granulocyte Absolute 0.07 K/mm3 (0.00-0.031); Immature Granulocyte Percent A 0.9 % (0-0.5); Lymphocytes Absolute Auto 1.27 K/mm3 (0.9-3.2); Lymphocytes Percent Auto 15.9 % (18.3-44.2); Mean Corpuscular HGB Conc 32.6 g/dl (32-36); Mean Corpuscular Hemoglobin 27.7 pg (26-34); Mean Corpuscular Volume 84.9 fl (80-100); Mean Platelet Volume 9.4 fl (7.4-10.4); Monocytes Absolute Auto 0.8 K/mm3 (0.1-0.6); Monocytes Percent Auto 9.9 % (2.6-8.5); Neutrophils Absolute Auto 5.6 K/mm3 (1.3-6.7); Neutrophils Percent Auto 70.6 % (45.5-73.1); Platelet Count Result 286 k/mm3 (150-375); Red Blood Count 3.83 M/mm3 (4.2-5.4); Red Cell Distribution Width 13.4 % (11.5-14.5)
[2023-04-22 07:24] LABS: Alanine Aminotransferase 11 U/L (6-35); Albumin Level 3.2 g/dL (3.5-5.1); Alkaline Phosphatase 153 U/L (38-126); Anion Gap 7 mmol/L (8-16); Aspartate Amino Transferase 19 U/L (14-36); Bilirubin,Total 0.3 mg/dL (0.2-1.3); Blood Urea Nitrogen 13 mg/dL (7-17); Calcium 8.5 mg/dL (8.4-10.2); Carbon Dioxide 31 mmol/L (22-30); Chloride 97 mmol/L (98-107); Estimated CRCL calculation 83 ml/min; Estimated Glomerular Filt Rate > 60; Glucose 308 mg/dL (65-110); Magnesium 1.7 mg/dL (1.6-2.3); Potassium 3.2 mmol/L (3.4-5.0); Sodium 135 mmol/L (137-145)
[2023-04-22 07:50] LABS: Glucose Point of Care 265 mg/dl (65-105)
[2023-04-22 08:11] LABS: Vancomycin Trough 18.5 ug/mL (10.0-20.0)
[2023-04-22] MEDS: INSULIN ASPART (*BKC) 100 UNITS/ML SUB-Q ×4 (10:00→12:55)
[2023-04-22 10:01] VITALS: PULSE 71
[2023-04-22] MEDS: APIXABAN 5 MG TABLET PO (10:01)
[2023-04-22] MEDS: carvediloL 3.125 MG TABLET PO (10:01)
[2023-04-22] MEDS: DOCUSATE SODIUM 100 MG CAPSULE PO (10:01)
[2023-04-22] MEDS: SPIRONOLACTONE 50 MG TABLET PO (10:01)
[2023-04-22] MEDS: ATORVASTATIN 40 MG TABLET PO (10:01)
[2023-04-22] MEDS: TORSEMIDE 20 MG TABLET 40 MG PO (10:01)
[2023-04-22] MEDS: COLLAGENASE OINT 30 GM TUBE 1 APPLIC TOPICAL (10:02)
[2023-04-22] MEDS: CLOPIDOGREL BISULFATE 75 MG TABLET PO (10:02)
[2023-04-22] MEDS: ACETAMINOPHEN 325 MG TABLET 650 MG PO (10:02)
[2023-04-22] MEDS: VANCOMYCIN 1,500 MG/NS 500 ML 1,500 MG/500 ML BAG 250 MG IVPB (10:05)
[2023-04-22 11:52] LABS: Glucose Point of Care 295 mg/dl (65-105)
--- NOTE | 2023-04-22 13:50 | PM.DS ---
DS: Admitting Diagnosis Discharge Date 04/22 Admitting Diagnosis diabetic ulcer DS: Discharge Diagnosis Discharge Diagnosis (1) Diabetic foot ulcer: Code(s): E11.621 - Type 2 diabetes mellitus with foot ulcer; L97.509 - Non-pressure chronic ulcer of other part of unspecified foot with unspecified severity Status: Acute (2) Cellulitis of foot, left: Code(s): L03.116 - Cellulitis of left lower limb Status: Acute (3) Tenosynovitis: Code(s): M65.9 - Synovitis and tenosynovitis, unspecified Status: Acute DS: Summary Hospital Course Hospital Course: 47-year-old female with history of insulin-dependent diabetes mellitus complicated by diabetic retinopathy and diabetic foot ulcers with a history of amputation of right toe, liver cirrhosis secondary to SCHREIBER, obesity, history of osteomyelitis, history of schizophrenia presented as she felt she was going into sepsis.? Patient admitted on 04/17 for diabetic foot ulcer of the left great toe with sepsis. The patient's sepsis resolved. However, she has severely uncontrolled diabetes mellitus. She has been receiving IV antibiotics. A left foot MRI reveals focal tissue swelling consistent with cellulitis and possible osteomyelitis and flexor hallucis longus tenosynovitis. Patient has been educated about the seriousness of her infection in the setting of diabetes. She has refused to be transferred to an outside institution for tertiary care management including Infectious Disease and surgery consultation. As well, she refuses to be placed in a SNF or to go home with IV antibiotics even while understanding this may be required to treat her infection adequately. She understands that there is risk of worsening infection, sepsis, and . She still wants to refuse these therapies and will only allow us to prescribe her oral antibiotics. On 04/22 the patient is in stable condition and will be discharged to home with Augmentin for total 14 days. In light of the discussion above, the patient is urged to follow-up with wound care doctor and Infectious Disease consultation as an outpatient. She understands the importance of this and will be following up. Blood cultures have been so far negative. ABIs unremarkable. HbA1c 11.5. She takes Coreg Plavix and Eliquis. Atorvastatin added for CAD. She is a current smoker and unmotivated to quit. Educated on the risk of smoking. The patient was full code during her admission. Time Spent with Patient Time attestation: Total time spent providing and/or coordinating discharge services: Exam Const: General: comfortable and no acute distress Eyes: Pupils: Equal, round and reactive pupils present Neck: Neck: supple Resp: Effort & Inspection: normal respiratory effort Auscultation: clear to auscultation bilaterally Cardio: Rate: regular rate Rhythm: regular rhythm GI: GI Palp: Yes Soft to palpation and No Tenderness to palpation present (GI) Extrem: General: no edema Other: Erythema plantar surface left foot. Nontender to palpation. Ulceration about 1.5 cm in diameter under the IP of the great toe DS: Data Data Completed and Pending Labs on day of discharge: Labs from last 24 hours 04/22/23 04/22/23 04/22/23 11:44 07:41 07:05 WBC 8.0 RBC 3.83 L Hgb 10.6 L Hct 32.5 L MCV 84.9 MCH 27.7 MCHC 32.6 RDW 13.4 Plt Count 286 MPV 9.4 Immature Gran % (Auto) 0.9 H Neut % (Auto) 70.6 Lymph % (Auto) 15.9 L [place] % (Auto) 9.9 H Eos % (Auto) 2.1 Baso % (Auto) 0.6 Lymph # (Auto) 1.27 [place] # (Auto) 0.8 H Eos # (Auto) 0.2 Baso # (Auto) 0.1 Abs Immat Gran (auto) 0.07 H Absolute Neuts (auto) 5.6 Absolute Nucleated RBC 0.0 Nucleated RBC % 0.0 Sodium 135 L Potassium 3.2 L Chloride 97 L Carbon Dioxide 31 H Anion Gap 7 L BUN 13 Creatinine 0.70 Estim Creat Clear Calc 83 Estimated GFR > 60 Glucose 308 H
== END 2023-04-22 14:35 | disposition home or self-care (01) | DRG 720 ==
LOC: ANHED 04-17 00:14 → ANH3MEDSUR 04-17 00:16
PROVIDERS: Internal Medicine; Student in an Organized Health Care Education/Training Program; Admitting Provider Internal Medicine; Emergency Provider Emergency Medicine; PCP Physician Assistant; Visit Provider General Practice
DX: A41.9 Sepsis, unspecified organism (principal); E11.621 Type 2 diabetes mellitus with foot ulcer; L97.529 Non-pressure chronic ulcer of other part of left foot with unspecified severity; L03.116 Cellulitis of left lower limb; I25.10 Atherosclerotic heart disease of native coronary artery without angina pectoris; E11.40 Type 2 diabetes mellitus with diabetic neuropathy, unspecified; E11.319 Type 2 diabetes mellitus with unspecified diabetic retinopathy without macular edema; E11.65 Type 2 diabetes mellitus with hyperglycemia; E87.1 Hypo-osmolality and hyponatremia; K75.81 Nonalcoholic steatohepatitis (NASH); K74.60 Unspecified cirrhosis of liver; M65.9 Synovitis and tenosynovitis, unspecified; H54.7 Unspecified visual loss; F20.9 Schizophrenia, unspecified; F17.210 Nicotine dependence, cigarettes, uncomplicated; F40.240 Claustrophobia; Z20.822 Contact with and (suspected) exposure to COVID-19; Z95.1 Presence of aortocoronary bypass graft; Z89.421 Acquired absence of other right toe(s); Z86.74 Personal history of sudden cardiac arrest; Z79.4 Long term (current) use of insulin; Z79.02 Long term (current) use of antithrombotics/antiplatelets; Z91.148 Patient's other noncompliance with medication regimen for other reason; Z79.01 Long term (current) use of anticoagulants
CPT/HCPCS: 36415; 71045; 73630; 73701; 73720; 80048; 80053; 80202; 81001; 82948; 83036; 83605; 83735; 84145; 85025; 85610; 85652; 85730; 86140; 87040; 87070; 87205; 87637; 93922; 94762; 96361; 96365; 96367; 96375; 99285; A9270; A9577; G0378; G0379; J0692; J1170; J1815; J1836; J2270; J2765; J3370; J7030; Q9967

== ENCOUNTER 2024-07-16 19:22 | Inpatient (IN) | payer BC, SELFPAY ==
--- NOTE | ~2024-07-16 | XR_ITS ---
XR chest PICC line Ordering provider: Briana Forrest APRN History: 49 years Female with . PICC line placement verification . Comparison: 07 16 2024 FINDINGS: MEDIASTINUM: The cardiac silhouette is moderately enlarged. Postoperative changes in the mediastinum. Right PICC line with the tip overlying the superior vena cava. Congestive riki. LUNGS: No effusions or pneumothorax. Minimal atelectatic changes in the left lung base medially versu s pneumonia. Bilateral interstitial thickening. OTHER: No free air under the diaphragm. IMPRESSION: Right PICC line with the tip overlying the superior vena cava. Left basilar atelectasis versus pneumonia. Cardiomegaly with congestive riki and interstitial thickening which may indicate pulmonary edema vers us pneumonitis versus fibrotic changes. Reviewed, dictated and finalized at location A. IMPRESSION: Right PICC line with the tip overlying the superior vena cava. Left basilar atelectasis versus pneumonia. Cardiomegaly with congestive riki and interstitial thickening which may indicat e pulmonary edema versus pneumonitis versus fibrotic changes.
--- NOTE | ~2024-07-16 | XR_ITS ---
HISTORY: diabetic wound COMPARISON: 10/26/2021 TECHNIQUE: 3 views of the right foot were performed FINDINGS: Redemonstration of forefoot soft tissue swelling. Periosteal reaction along the medial margin of the mid shaft of the fifth metatarsal, at the site of prior amputation. No acute fracture or dislocation is appreciated. The base of the fifth metatarsal is intact. Large calcaneal spur is noted. Ossification of the insertion of the Achilles tendon is present. IMPRESSION: Moderate periosteal reaction along the medial margin of the mid shaft of the fifth metat arsal at the site of prior amputation with significant soft tissue swelling of the right forefoot. Reviewed, dictated and finalized at location A. IMPRESSION: Moderate periosteal reaction along the medial margin of the mid sh aft of the fifth metatarsal at the site of prior amputation with significant so ft tissue swelling of the right forefoot.
--- NOTE | ~2024-07-16 | XR_ITS ---
CHEST RADIOGRAPH CLINICAL HISTORY: cough . COMPARISON: 04/16/2023 TECHNIQUE: Single portable view of the chest. FINDINGS Sternal wires and mediastinal clips are identified, the wires are midline and intact. The remainder of the cardiomediastinal silhouette is enlarged, but otherwise unremarkable. The lungs are clear. IMPRESSION: No focal infiltrate or effusion. Reviewed, dictated and finalized at location A.
--- NOTE | ~2024-07-16 | MR_ITS ---
EXAMINATION: MR foot RT wo/w con DATE: 07/22/2024 19:36 INDICATION: Infection, rule out osteomyelitis. TECHNIQUE: Magnetic resonance imaging (MRI) of the right foot was performed without and with intraven ous contrast. Sequences obtained included T1 FSE in axial sagittal and coronal planes; T2 FSE fat-sat axial plane; FSE STIR in the sagittal plane; and postcontrast T1 FSE fat-saturated images following the administration of 18 cc ProHance, and the axial sagittal and coronal planes. COMPARISON: CTA right lower extremity and x-ray foot 07/16/2024 FINDINGS: Bandage material overlying the medial aspect of the first MTP joint with a superficial soft tissue defect. Diffuse subcutaneous edema in the forefoot. Status post partial fifth metatarsal ampu tation. No T1 hypointensity to suggest osteomyelitis. Mild marrow T2 signal involving the first throu gh third toes and the fourth distal phalanx, probably secondary to failed fat suppression given the l ack of corresponding enhancement or T1 hypointensity. Large area of nonenhancing subcutaneous fat ove r the plantar surface of the ball of the foot and proximal toes, without evidence of a walled off flu id collection. Fluid signal and enhancement in the midportion of the longus/brevis plantar flexor ten dons. 6 mm fluid collection with peripheral enhancement involving the midportion of the plantar flexo r digitorum longus and brevis tendons of the second digit at the mid metatarsal level (coronal T2 FSE FS and postcontrast T1 images ). Punctate hypointensities in the lateral soft tissues overlying indication from prior surgery. Small first through third MCP joint effusions, with synovial enhancem ent. IMPRESSION: No definite MR evidence of osteomyelitis. Large area of nonenhancing subcutaneous fat over the plantar surface of the proximal toes and ball of the foot, may represent phlegmon or fat necrosis. Plantar flexor tenosynovitis and likely small tendon sheath abscess. Small first through fourth MTP joint effusions with synovitis. Septic arthritis is not excluded. Forefoot edema/cellulitis. Reviewed, dictated and finalized at location K. IMPRESSION: No definite MR evidence of osteomyelitis. Large area of nonenhancing subcutaneous fat over the plantar surface of the pro ximal toes and ball of the foot, may represent phlegmon or fat necrosis. Plantar flexor tenosynovitis and likely small tendon sheath abscess. Small first through fourth MTP joint effusions with synovitis. Septic arthritis is not excluded. Forefoot edema/cellulitis.
--- NOTE | ~2024-07-16 | CT_ITS ---
CT LE RT w con Ordering provider: Quang Huber MD History: 49 years Female with diabetic foot wound . Comparison: None. Technique: CT soft tissues of the right lower extremity was performed with contrast. . The dose-lengt h product was 555.42 mGy-cm. Findings: Significant soft tissue swelling is appreciated. No rim-enhancing fluid collection is identified. No acute fracture is present. IMPRESSION: Soft tissue swelling without abscess formation Reviewed, dictated and finalized at location A.
[2024-07-16 19:23] VITALS: BP 109/60; PULSE 106; RESP 15; TEMP 35.8; O2SAT 100
--- OUTSIDE RECORDS SUMMARY | 2024-07-16 19:24 | XMS_ITS ---
Author Organization Unknown Address [address] [place] [phone] Phone Care Team Providers Care Content Creation Manager Name Role Phone MADDI CADET Attending Unavailable Immunization Immunization Date Status Additional Notes Code Code System tetanus toxoid, unspecified formulation 11/21/2016 Completed 112 CVX Social History Type Status Start Date End Date Code Code Syst em Sex Female Hospital Discharge Instructions Should you have any questions prior to discharge, please contact a member of your healthcare team. If you have left the hospital and have any questions, please contact your primary care physician. Reason For Referral No Data Found Plan of Treatment US Echo With Color ([id number]) 08/09/2023 Encounters Encounter Diagnosis Start Date Code Code Sys tem Atherosclerosis of coronary artery bypass graft(s) without angina pectoris 06/19/2023 SNOMED-CT Personal Care Team Section Performer Name Performer Role Active Date Inactive Da te
--- OUTSIDE RECORDS SUMMARY | 2024-07-16 19:24 | XMS_ITS | Clinical Summary ---
Author Organization [facility] at the [facility] Office Center Address [address] [place] [address] Care Team Providers Care Funeral Home Location Manager Name Role Phone Jazmine Hdz Primary Care Provider + Allergies Active Allergy Reactions Criticality Noted Date Comments Aspirin Hives Medium 12/26/2022 Ondansetron Nausea & Vomiting Low 10/25/2023 Medications omeprazole (PriLOSEC) 20 mg capsule Take 1 capsule (20 mg total) by mouth daily Active carvediloL (COREG) 3.125 mg tablet Take 1 tablet (3.125 mg total) by mouth 2 (two) times a day with meals Active losartan (COZAAR) 25 mg tablet Take 0.5 tablets (12.5 mg total) by mouth daily Active Eliquis 5 mg tablet Take 1 tablet (5 mg total) by mouth 2 (two) times a day 3 Active clopidogreL (PLAVIX) 75 mg tablet Take 1 tablet (75 mg total) by mouth daily 3 Active atorvastatin (LIPITOR) 40 mg tablet Take 1 tablet (40 mg total) by mouth daily Active amiodarone (PACERONE) 200 mg tablet Take 1 tablet (200 mg total) by mouth daily 3 Active torsemide (DEMADEX) 20 mg tablet Take 1 tablet (20 mg total) by mouth daily 30 tablet 4 11/03/19 25 Active lidocaine (ASPERCREME) 4 % adhesive patch,medicated Place 1 patch on the skin daily 10 patch 4 Active Additional Information Patient not taking.Reported on 11/24/2023 insulin lispro (HumaLOG) 100 unit/mL pen for injection Inject 10 Units under the skin 3 (three) times a day with meals 15 mL 4 Active insulin glargine (LANTUS) 100 unit/mL (3 mL) pen for injection Inject 46 Units under the skin nightly 15 mL 4 Active pen needle, diabetic (Pen Needle) 32 gauge x 5/32 needle Use as directed once a day. 100 each 4 Active pen needle, diabetic 32 gauge x 5/32 needle Use as directed 3 times a day. 100 each 4 Active glucagon 1 mg kit Inject 1 mg into the muscle once as directed by provider for low blood sugar. 1 kit 4 Active alcohol swabs (Alcohol Wipes) pads, medicated Use as directed. 100 each 4 Active ferrous sulfate 325 mg (65 mg of elemental iron) tabletIndicatio ns:Iron Deficiency Anemia Take 1 tablet (325 mg total) by mouth every other day 30 tablet 4 Active blood glucose diagnostic strip 1 each by other route 4 (four) times a day 120 each 4 Active spironolactone (ALDACTONE) 50 mg tablet Take 1 tablet (50 mg total) by mouth daily 4 Active Active Problems Problem Noted Date Diagnosed Date Moderate malnutrition 10/25/2023 Diabetic foot infection 10/21/2023 Assessment & Plan (10/22/2023 3:42 AM CDT): - CTA with runoffs completed - multiple collections over L 1st toe MTP joint, findings are concerning for septic arthritis and Tenosynovitis. Can not rule out osteomyelitis and cellulitis - Continue broad spectrum antibiotics - Follow up blood cultures - OR tomorrow 10/21 for L great toe debridement, guillotine amputation, possible wound vac. Anticipate needing RTOR in the future for definitive level amp and closure pending wound culture and vascular studies - Please make NPO at midnight - PM labs include CBC, BMP, PTT, INR, type and screen - Hold Plavix and Eliquis Cirrhosis of liver 11/22/2022 Coronary atherosclerosis 11/22/2022 Heart failure 11/22/2022 Ischemic cardiomyopathy 10/25/2022 Ascites of liver 09/05/2022 Hepatomegaly 09/05/2022 Morbid obesity 09/05/2022 Tachycardia 09/05/2022 Cholecystitis 08/09/2022 Diabetic nephropathy with proteinuria 01/24/2020 Amputation of toe 01/23/2020 Diabetic neuropathy 01/23/2020 Retinal hemorrhage 01/23/2020 Smoker 01/23/2020 Type 2 diabetes mellitus 03/16/2017 Surgical History Surgery Date Site/Laterality Comments US GUIDED THORACENTESIS 12/12/2022 N/A US GUIDED THORACENTESIS 11/20/2022 N/A US GUIDED THORACENTESIS 10/03/2022 N/A US GUIDED THORACENTESIS 09/06/2022 N/A Medical History Medical History Date Comments CHF (congestive heart failure) (HCC) Diabetes mellitus (HCC) Social History Tobacco Use Types Packs/Day Years Used Date Smoking Tobacco: Every Day Cigarettes Smokeless Tobacco: Never Tobacco Cessation:Ready to Q uit: Not Asked; Counseling Given: Not Answered Comments:1 1/5 - 2 packs a day [employer] Utilities Answer Date Recorded In the past 12 months has [employer], gas, oil, or water [employer] threatened to shut off services in your home? No 11/03/2023 Social Connection and Isolation Panel [NHANES] A nswer Date Recorded In a typical week, how many times do you talk on the phone with family, friends, or neighbors? Patient declined 11/03/2023 How often do you get togethe r with friends or relatives? Patient declined 11/03/2023 How often do you attend anabaptism or tenriism serv ices? Patient declined 11/03/2023 Do you belong to any clubs o r organizations such as anabaptism groups, unions, fraternal or athletic groups, or school groups? Patient declined 11/03/2023 How often do you attend meet ings of the clubs or organizations you belong to? Patient declined 11/03/2023 Are you , , di vorced, , never , or living with a partner? 11/03/2023 AUDIT-C Answer Date Recorded Q1: How often do you have a drink containing alcohol? Never 12/08/2023 Q2: How many drinks containi ng alcohol do you have on a typical day when you are drinking? Patient does not drink Q3: How often do you have si x or more drinks on one occasion? Never 12/08/2023 Overall Financial Resource Strain (CARDIA) Answe r Date Recorded How hard is it for you to pa y for the very basics like food, housing, medical care, and heating? Somewhat hard 11/03/2023 Hunger Vital Sign Answer Date Recorded Within the past 12 months, y ou worried that your food would run out before you got the money to buy more. Sometimes true Within the past 12 months, t he food you bought just didn't last and you didn't have money to get more. Sometimes true PRAPARE - Transportation Answer Date Re corded In the past 12 months, has l ack of transportation kept you from medical appointments or from getting medications? No 11/2023 In the past 12 months, has l ack of transportation kept you from meetings, work, or from getting things needed for daily living? No 11/03/2023 Housing Stability Vital Sign Answer Serge e Recorded In the last 12 months, was t here a time when you were not able to pay the mortgage or rent on time? No 11/03/2023 In the past 12 months, how m any times have you moved where you were living? 0 11/03/2023 At any time in the past 12 m [facility], were you homeless or living in a chcf (including now)? No 11/03/2023 Personal Safety Answer Date Recorded Have you ever been in or are you currently in a harmful physical or emotional relationship or is someone making you feel afraid or unsafe? 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 Gender Identity Not on file Sexual Orientation Not on file Obstetrics History Last Filed Vital Signs Vital Sign Reading Time Taken Comments Blood Pressure 141/76 01/04/2024 10:00 AM CDT Pulse 93 01/04/2024 10:00 AM CDT Temperature 36 C (96.8 F) 01/04/2024 10:00 AM CDT Respiratory Rate 20 11/24/2023 9:06 AM CDT Oxygen Saturation 98% 01/04/2024 10:00 AM CDT Inhaled Oxygen Concentration - - Weight 88.5 kg (195 lb) 11/24/2023 9:06 AM CDT Height 152.4 cm (5') 11/24/2023 9:06 AM CDT Body Mass Index 38.08 11/24/2023 9:06 AM CDT Plan of Treatment Health Maintenance Due Date Last Done Comments Albumin Creatinine Ratio, Urine 1975 Cervical Cancer Screening 1974 Colon Cancer Screening-Colonoscopy 1974 Depression Screening 1975 Hepatitis C Screening 1974 Dilated Eye Exam 1974 Foot Exam 1974 DTaP/Tdap/Td Vaccine (1 - Tdap) 1985 Hepatitis B Screening 1992 Regular Well Visit/Exam 18-64 1992 Pneumococcal vaccine <65 (1 of 2 - PCV) 1993 Hemoglobin A1C 04/22/2024 10/21/2023, 10/21/2023 Zoster Vaccine (1 of 2) 2024 Breast Cancer Screening-Mammogram 09/04/2024 09/05/2023, 08/17/2023, 08/17/2023 Lipid Panel 10/20/2024 10/21/2023 eGFR 10/31/2024 11/01/2023, 08/08/2023, 10/30/2023, Additional history exists Influenza Vaccine (Season Ended) 2024 Procedures Procedure Name Priority Date/Time Associated Diagnosis Comments EGFR Routine 11/01/2023 8:17 PM CDT LIPID PANEL Routine 10/21/2023 10:27 PM CDT HEMOGLOBIN A1C STAT 10/21/2023 1:47 PM CDT from Last 3 Months or Most Recently Relevant to Health Maintenance Results * eGFR (11/01/2023 8:17 PM CDT) eGFR 74 >=60 mL/min/1. 73 m2 Comment: Interpretive Data Reference Interval Normal >/= 90 mL/min/1.73m2 Mildly decreased* 60 - 89 mL/min/1.73m2 Mildly to moderately decreased 45 - 59 mL/min/1.73m2 Moderately to severely decreased 30 - 44 mL/min/1.73m2 Severely decreased 15 - 29 mL/min/1.73m2 Kidney Failure < 15 mL/min/1.73m2 *Relative to young adult level Estimated glomerular filtration rate is determined by the 2020 CKD-EPI equation recommended by the National Kidney Foundation (A Unifying Approach to GFR Estimation: Recommendations of the NKF-ASK Task Force on Reassessing the Inclusion of Race in Diagnosing Kidney Disease, JASN 202). The CKD-EPI equation should not be used for patients with unstable renal function and has not been validated in children and those over 70. Current interpretive data was last reviewed 2021. Blood 11/01/2023 8:17 PM CDT 11/01/2023 8:28 PM CDT Edmond Arora MD LAB BLOOD ORDERABLES Nae phillip Result [facility] [place] [address] * (ABNORMAL) Lipid panel (10/21/2023 10:27 PM CDT) Cholesterol 86 30 - 199 mg/dL Comment: Interpretive Data Ages < or = 19 years Acceptable: <170 mg/dL Borderline high: 170-199 mg/dL High: >or= 200 mg/dL Ages > or = 20 years Desirable: <200 mg/dL Borderline high: 200-239 mg/dL High: >or= 240 mg/dL Literature References: 1. Expert Panel on Integrated Guidelines for Cardiovascular Health and Risk Reduction in Children and Adolescents. Pediatrics 2011;128:S213 2. NCEP Expert Panel. Circulation 2004;110:227 Current Interpretive Data was last revised on 2017. Triglycerides 118 <=149 mg/dL [facility] Comment: Interpretive Data Ages < or = 9 years Acceptable: <75 mg/dL Borderline high: 75-99 mg/dL High: >or= 100 mg/dL Ages 10 to 20 years Acceptable: <90 mg/dL Borderline high: 90-129 mg/dL High: >or= 130 mg/dL Ages > or = 20 years Desirable: <150 mg/dL Borderline high: 150-199 mg/dL High: 200-499 mg/dL Very high: >or= 499 mg/dL Literature References: 1. Expert Panel on Integrated Guidelines for Cardiovascular Health and Risk Reduction in Children and Adolescents. Pediatrics 2011;128:S213 2. NCEP Expert Panel. Circulation 2004;110:227 Current Interpretive Data was last revised on 2017. HDL 21(L) >=40 mg/dL [facility] Comment: Interpretive Data Ages < or = 19 years Acceptable: >45 mg/dL Borderline low: 40-45 mg/dL Low: <40 mg/dL Ages > or = 20 years Desirable: >or= 60 mg/dL Low: <40 mg/dL Literature References: 1. Expert Panel on Integrated Guidelines for Cardiovascular Health and Risk Reduction in Children and Adolescents. Pediatrics 2011;128:S213 2. NCEP Expert Panel. Circulation 2004;110:227 Current Interpretive Data was last revised on 2017. LDL, calculated 41 <=129 mg/dL [facility] Comment: Interpretive Data Ages < or = 19 years Acceptable: <110 mg/dL Borderline high: 110-129 mg/dL High: >or= 130 mg/dL Ages > or = 20 years Optimal: <100 mg/dL Near optimal: 100-129 mg/dL Borderline high: 130-159 mg/dL High: >160 mg/dL Literature References: 1. Expert Panel on Integrated Guidelines for Cardiovascular Health and Risk Reduction in Children and Adolescents. Pediatrics 2011;128:S213 2. NCEP Expert Panel. Circulation 2003;110:227 Current Interpretive Data was last revised on 2017. Non-HDL Cholesterol 65 mg/dL [facility] Comment: Interpretive Data Ages < or = 19 years Acceptable: <120 mg/dL Borderline high: 120-144 mg/dL High: >145 mg/dL Ages > or = 20 years When triglycerides are >200 mg/dL, Non-HDL cholesterol is a secondary target of therapy with treatment goals that are 30 mg/dL greater than the LDL cholesterol target. Literature References: 1. Expert Panel on Integrated Guidelines for Cardiovascular Health and Risk Reduction in Children and Adolescents. Pediatrics 2011;128:S213 2. NCEP Expert Panel. Circulation 2003;110:227 Current Interpretive Data was last revised on 2017. Chol/HDL ratio 4 [facility] Blood 10/21/2023 10:2 7 PM CDT 10/21/2023 10:46 PM CDT Elizabeth Eller MD LAB BLOOD ORDERABLES Fi nal Result Performing Organization Address [facility] [place] [address] * (ABNORMAL) Hemoglobin A1c (10/21/2023 1:47 PM CDT) Hgb A1C 13.2(H) 4.0 - 5.6 % Estimated Average Glucose 332 mg/dL [facility] Comment: The ADA recommends reporting an estimated Average Glucose (eAG) with all Hemoglobin A1c results using the equation derived from a study of 507 normal and diabetic adults. Minority populations were underrepresented and children were not included. (Diabetes Care 2020; 43(S1): S66-S76). The eAG is not equivalent to a fasting glucose. Blood 10/21/2023 1:47 PM CDT 10/21/2023 2:11 PM CDT Howard Sol MD LAB BLOOD ORDERABLES Final Result Performing Organization Address [facility] [place] [address] from Last 3 Months or Most Recently Relevant to Health Maintenance Insurance [facility] Advance Directives For more information, please contact: [phone] * Full Code (Latest Code Status on File) Date Activated Date Inactivated Comments 10/21/2023 6:38 PM 11/02/2023 7:13 PM * Full Code Date Activated Date Inactivated Comments 10/21/2023 3:23 PM 10/21/2023 6:38 PM Care Teams Funeral Home Location Manager Relationship Specialty Start Date End Date Jazmine Hdz PA PCP - General Physician Transmitter Supervisor 10/27/22
--- OUTSIDE RECORDS SUMMARY | 2024-07-16 19:24 | XMS_ITS ---
Author Organization Unknown Address [address] [place] [phone] Phone Care Team Providers Care Sheriff'S Officer Name Role Phone MADDI CADET Attending Unavailable Immunization Immunization Date Status Additional Notes Code Code System tetanus toxoid, unspecified formulation 11/21/2016 Completed 112 CVX Results US ECHO W/ COLOR - Completed : 02/20/2023 15:34 LOINC: See Scanned Image Attachment for Report Dictated By: Trans Initials: [facility] Trans Date: 02/23/23 12:15 <<REPDIST>> Social History Type Status Start Date End Date Code Code Syst em Sex Female Hospital Discharge Instructions Should you have any questions prior to discharge, please contact a member of your healthcare team. If you have left the hospital and have any questions, please contact your primary care physician. Reason For Referral No Data Found Plan of Treatment US Echo With Color (68919) 08/09/2023 Encounters Encounter Diagnosis Start Date Code Code Sys tem Atherosclerotic heart diseas e of [place] coronary artery without angina pectoris 02/20/2023 SNOMED-CT Personal Care Team Section Performer Name Performer Role Active Date Inactive Da te Imaging Narrative Notes [facility] 02/23/2023 12:[address] [address] RADIOLOGY REPORT Patient Number: [id number] Patient Name: CHRIS HOFFMAN Type: O/P MR Number: [id number] : 1975 Age: 47 Sex: F Room #: Admit Date: 02/20/23 Discharge Date 02/20/23 Ordering Physician: MADDI CADET Family Physician: Second Physician: X-Ray Number : [id number] US ECHO W/ COLOR [id number] COMPLETE:02/20/23 15:34 ASL [id number] (REASON-ECHO COMPLTE: CAD See Scanned Image Attachment for Report Dictated By: Jevon Initials: yeimi Escoto Date: 02/23/23 12:15 <<REPDIST>>
--- OUTSIDE RECORDS SUMMARY | 2024-07-16 19:24 | XMS_ITS | Encounter Summary ---
Author Organization [facility] Healthcare Address [address] [place] [address] Care Team Providers Care Local Hazmat Driver Name Role Phone Jazmine Hdz Primary Care Provider + Marlyn Watson CRTS Unavailable [phone] Encounter Details Date Type Department Care Team (Late st Contact Info) Description 11/06/2023 Telephone [facility] [address] [place] [id number] Georgette Correa, RN Social History Tobacco Use Types Packs/Day Years Used Date Smoking Tobacco: Every Day Cigarettes [facility] Utilities Answer Date Recorded In the past 12 months has th [employer] electric, gas, oil, or water company threatened to shut off services in your home? No 11/03/2023 Social Connection and Isolation Panel [NHANES] A nswer Date Recorded In a typical week, how many times do you talk on the phone with family, friends, or neighbors? Patient declined 11/03/2023 How often do you get togethe r with friends or relatives? Patient declined 11/03/2023 How often do you attend orthodoxy or gnosticism serv ices? Patient declined 11/03/2023 Do you belong to any clubs o r organizations such as orthodoxy groups, unions, fraternal or athletic groups, or school groups? Patient declined 11/03/2023 How often do you attend meet ings of the clubs or organizations you belong to? Patient declined 11/03/2023 Are you , , di vorced, , never , or living with a partner? 11/03/2023 AUDIT-C Answer Date Recorded Q1: How often do you have a drink containing alcohol? Never 10/30/2023 Q2: How many drinks containi ng alcohol do you have on a typical day when you are drinking? Patient does not drink Q3: How often do you have si x or more drinks on one occasion? Never 10/30/2023 Overall Financial Resource Strain (CARDIA) Answe r Date Recorded How hard is it for you to pa y for the very basics like food, housing, medical care, and heating? Somewhat hard 11/03/2023 Hunger Vital Sign Answer Date Recorded Within the past 12 months, y ou worried that your food would run out before you got the money to buy more. Never true 11/03/19 24 Within the past 12 months, t he food you bought just didn't last and you didn't have money to get more. Never true 11/03/2023 PRAPARE - Transportation Answer Date Re corded [...] any time in the past 12 m [facility], were you homeless or living in a long-term (including now)? No 11/03/2023 Personal Safety Answer Date Recorded Have you ever been in or are you currently in a harmful physical or emotional relationship or is someone making you feel afraid or unsafe? 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 Gender Identity Not on file Sexual Orientation Not on file documented as of this encounter Plan of Treatment Not on file documented as of this encounter Visit Diagnoses Not on filedocumented in this encounter Additional Health Concerns Infection Onset Date Last Indicated Resolved Time Ring Surveillance 10/22/2023 10/22/2023 11/09/2023 3:05 AM CDT documented as of this encounter Care Teams Local Hazmat Driver Relationship Specialty Start Date End Date Jazmine Hdz PA PCP - General Physician Turret Lathe Set Up Operator 10/27/22 Marlyn Watson, ROBERT [address] [facility] ([facility] Mailstop [phone] [place] [address] [facility]OP Outpatient Delivery Route Driver 11/03/23 11/29/23 documented as of this encounter
--- OUTSIDE RECORDS SUMMARY | 2024-07-16 19:24 | XMS_ITS | Referral Summary ---
Author Organization [facility] at the [facility] Office Center Address [address] [place] [address] Care Team Providers Care Digital Project Coordinator Name Role Phone Jazmine Hdz Primary Care [...] Smoker 01/23/2020 Type 2 diabetes mellitus 03/16/2017 Social History Tobacco Use Types Packs/Day Years Used Date Smoking Tobacco: Every Day Cigarettes Smokeless Tobacco: Never Tobacco Cessation:Ready to Q uit: Not Asked; Counseling Given: Not Answered Comments:1 1/5 - 2 packs a day [facility] Utilities Answer Date Recorded In the past 12 months has [email or web address] electric, gas, oil, or water company threatened [...] declined 11/03/2023 How often do you attend sikhism or holiness serv ices? Patient declined 11/03/2023 Do you belong to any clubs o r organizations such as sikhism groups, unions, fraternal or athletic groups, or [...] any time in the past 12 m [facility], were you homeless or living in a senior care (including now)? No 11/03/2023 Personal Safety Answer Date Recorded Have you ever been in or are you currently in a harmful physical or emotional relationship or is someone making you feel afraid or unsafe? 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 The CKD-EPI equation should not be used for patients with unstable renal function and has not been validated in children and those over 70. Current interpretive data was last reviewed 2021. Blood 11/01/2023 8:17 PM CDT 11/01/2023 8:28 PM CDT Edmond Arora MD LAB BLOOD ORDERABLES Nae l Result [facility] [place] [address] * (ABNORMAL) Lipid panel (10/21/2023 10:27 PM [...] on 2017. Triglycerides 118 <=149 mg/dL [facility] Comment: Interpretive Data Ages < or [...] revised on 2017. HDL 21(L) >=40 mg/dL [facility] Comment: Interpretive Data Ages < or [...] on 2017. LDL, calculated 41 <=129 mg/dL [facility] Comment: Interpretive Data Ages < or [...] on 2017. Non-HDL Cholesterol 65 mg/dL [facility] Comment: Interpretive Data Ages < or = [...] revised on 2017. Chol/HDL ratio 4 [facility] Blood 10/21/2023 10:2 7 PM CDT 10/21/2023 10:46 PM CDT us Elizabeth Eller MD LAB BLOOD ORDERABLES Fi nal Result Performing Organization Address City/[facility]/ZIP Co de Phone Number [facility] [place] [address] * (ABNORMAL) Hemoglobin A1c (10/21/2023 1:47 PM CDT) Hgb A1C 13.2(H) 4.0 - 5.6 % Estimated Average Glucose 332 mg/dL [facility] Comment: The ADA recommends reporting an estimated Average Glucose (eAG) with all Hemoglobin A1c results using the equation derived from a study of 507 normal and diabetic adults. Minority populations were underrepresented and children were not included. (Diabetes Care 2020; 43(S1): S66-S76). The eAG is not equivalent to a fasting glucose. Blood 10/21/2023 1:47 PM CDT 10/21/2023 2:11 PM CDT us Howard Sol MD LAB BLOOD ORDERABLES Final Result [facility] [place] [address] from Last 3 Months or Most Recently Relevant to Health Maintenance Insurance [id number] [place] [address] PLAN [facility] Advance Directives For more information, please contact: [phone] * Full Code (Latest Code Status on File) Date Activated Date Inactivated Comments 10/21/2023 6:38 PM 11/02/2023 7:13 PM * Full Code Date Activated Date Inactivated Comments 10/21/2023 3:23 PM 10/21/2023 6:38 PM Care Teams Digital Project Coordinator Relationship Specialty Start Date End Date Jazmine Hdz PA PCP - General Physician Interface Analyst 10/27/22
--- OUTSIDE RECORDS SUMMARY | 2024-07-16 19:24 | XMS_ITS | Clinical Summary ---
Author Organization 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 See primary for further refills. 30 tablet 3 Active apixaban (ELIQUIS) 5 MG tabletIndication s:Atrial Fibrillation Take 1 tablet (5 mg total) by mouth 2 (two) times daily. Indications: Atrial Fibrillation 60 tablet 3 Active clopidogrel (PLAVIX) 75 MG tabletIndication s:anticoagulant Take 1 tablet (75 mg total) by mouth daily. 30 tablet 3 Active furosemide (LASIX) 20 MG tablet Take 1 tablet (20 mg total) by mouth daily. 3 Active Active Problems Problem Noted Date Diagnosed Date Ascites 12/12/2022 Ischemic cardiomyopathy 10/25/2022 Ascites of liver 09/05/2022 Cholecystitis 08/09/2022 Family History Medical History Relation Comments Cirrhosis Father Diabetes Father Diabetes Mother Relation Status Comments Father Mother Social History Tobacco Use Types Packs/Day Years Used Date Smoking Tobacco: Every Day Cigarettes Smokeless Tobacco: Never Tobacco Cessation:Ready to Q uit: Not Asked; Counseling Given: Not Answered Alcohol Use Standard Drinks/Week Comments Not Currently 0 (1 standard drink = 0.6 oz pur e alcohol) years OASIS D0700: Social Isolation Answer Da te Recorded Frequency of experiencing loneliness or isolatio n Never 11/30/2022 OASIS A1250: Transportation Answer Date Recorded Lack of Transportation (Medical) No 11/30/2022 Lack of Transportation (Non-Medical) No 11/30/2022 Patient Unable or Declines to Respond No 11/30/2022 OASIS B1300: Health Literacy Answer Serge e Recorded Frequency of needing help to read materials from doctor or pharmacy Never 11/30/2022 Humiliation, Afraid, Rape, and Kick questionnair e Answer Date Recorded Within the last year, have y ou been afraid of your partner or ex-partner? No 12/12/2022 Within the last year, have y ou been humiliated or emotionally abused in other ways by your partner or ex-partner? No Within the last year, have y ou been kicked, hit, slapped, or otherwise physically hurt by your partner or ex-partner? No 12/12/2022 Within the last year, have y ou been raped or forced to have any kind of sexual activity by your partner or ex-partner? No 12/12/2022 Overall Financial Resource Strain (CARDIA) Answe r Date Recorded How hard is it for you to pa y for the very basics like food, housing, medical care, and heating? Not hard at all 12/12/2022 Hunger Vital Sign Answer Date Recorded Within the past 12 months, y ou worried that your food would run out before you got the money to buy more. Never true 12/13/19 23 Within the past 12 months, t he food you bought just didn't last and you didn't have money to get more. Never true 12/12/2022 PRAPARE - Transportation Answer Date Re corded In the past 12 months, has l ack of transportation kept you from medical appointments or from getting medications? Yes 11/25 In the past 12 months, has l ack of transportation kept you from meetings, work, or from getting things needed for daily living? Yes 12/12/2022 Housing Stability Vital Sign Answer Serge e Recorded In the last 12 months, was t here a time when you were not able to pay the mortgage or rent on time? No 12/12/2022 In the last 12 months, how many places have you lived? 1 12/12/2022 In the last 12 months, was t here a time when you did not have a steady place to sleep or slept in a usp (including now)? No 12/12/2022 Comments No Sex and Gender Information Value Date Recorded Sex Assigned at Not on file Legal Sex Female 4:13 PM CDT Gender Identity Not on file Sexual Orientation Not on file Last Filed Vital Signs Vital Sign Reading Time Taken Comments Blood Pressure 105/70 12/12/2022 1:47 PM CDT Pulse 87 12/12/2022 1:47 PM CDT Temperature 36.8 C (98.2 F) 12/12/2022 12:22 PM CDT Respiratory Rate 18 12/12/2022 1:47 PM CDT Oxygen Saturation 100% 12/12/2022 1:47 PM CDT Inhaled Oxygen Concentration - - Weight 95.6 kg (210 lb 12.2 oz) 12/12/2022 5:30 AM CDT Height 152.4 cm (5') 12/11/2022 7:08 PM CDT Body Mass Index 41.16 12/11/2022 7:08 PM CDT Plan of Treatment Health Maintenance Due Date Last Done Comments Cervical Cancer Screening Pa p Smear (Age 30 to 64) Every 3 Years 1974 Colorectal Cancer Screening Colonoscopy (10 Years) 1974 Annual Physical 1977 Hepatitis B Vaccines (1 of 3 - 19+ 3-dose series) 1993 Pneumococcal Vaccine: 50+ Years (1 of 2 - PCV) 1993 Cervical Cancer Screening Pa p with HPV Testing (Age 30 to 64) Every 5 Years 2004 Cervical Cancer Screening wi th HPV 2004 DTaP, Tdap and Td Vaccines ( 1 - Tdap) 11/22/2016 11/21/2016, 11/21/2016 COVID-19 Vaccine ( - 2023-2 5 season) 2023 Zoster Vaccines (1 of 2) 2024 Mammogram Screening 08/16/2025 08/17/2023 Hepatitis C Completed 09/07/2022, 09/06/2022 Meningococcal B Vaccine Aged Out No l onger eligible based on patient's age to complete this topic Meningococcal Vaccine Aged Out No rachelle kishan eligible based on patient's age to complete this topic RSV Immunizations Under 20 Months Aged Out No longer eligible b ased on patient's age to complete this topic Goals Goal Patient Goal Type Associated Problems Recent Progress Patient-Stated? Author Family - family caregiver with be involved in care transitions and discharge planning Lifestyle No Keshav Ross, RN Medical Devices Implanted Type Area Rehab Therapist Device Identifier Shelf Expiration Date Model / Serial / Lot Wire Sterum Suture Kit [employer] #7 03/28 Ccs-1 - [id number] Implanted:Qty: 1 on 09/16/2022 by Clint lAex MD at [facility] Wire N/A: Sternum A&E Divided 12/25/2026 [id number] / / [id number] Description:1 wires implante d Wire Sternotomy Suture Kit - [id number] Implanted:Qty: 1 on 09/16/2022 by Clint Alex MD at [facility] Wire N/A: Sternum [employer] 04/27/2027 [id number] / / [id number] Description:5 wires implante d Procedures Procedure Name Priority Date/Time Associated Diagnosis Comments MG SCREENING W AI RAY DIGI Routine 08/17/2023 9:33 AM CDT Visit for screening mammogram HC EIA QL HEPATITIS ABC B AG Routine 09/07/2022 7:17 AM CDT from Last 3 Months or Most Recently Relevant to Health Maintenance Results * MG SCREENING W AI RAY DIGI (08/17/2023 9:33 AM CDT) Anatomical Region Laterality Modality Breast Bilateral Mammography 09/05/2023 1:12 PM CDT Impressions 09/05/2023 1:12 PM CDT IMPRESSION: No mammographic features to suggest malignancy on new baseline study. In the absence of clinical symptoms, return for annual screening mammogram due in 1 year. RECOMMENDATION: Routine Screening, Bilateral Mammogram in 1 year ASSESSMENT: ACR BI-RADS 1 - NEGATIVE Ordered By: PIERCE VÁSQUEZ Interpreted By: Bob Todd MD, 09/05/2023 1:12 PM Narrative 09/05/2023 1:12 PM CDT EXAMINATION: BILATERAL SCREENING MAMMOGRAPHY Exam Date: 08/17/2023 8:52 AM CLINICAL INDICATION: 48 years of age female routine screening. COMPARISON: None TECHNIQUE: Digital CC & MLO views. Tomosynthesis imaging acquisition Study read with the assistance of a computer-aided detection system. TISSUE DENSITY: There are scattered areas of fibroglandular density. FINDINGS: No suspicious grouping of microcalcifications, architectural distortion, or any suspicious nodule 3 dimensionally demonstrated in either breast. us Pierce Vásquez PA-C MAMMO Final Resul t * HEPATITIS A,B,& C (09/07/2022 7:17 AM CDT) HEPATITIS B SURFACE AG NON-REACTI VE NON-REACTI VE 09/07/2022 10:[address] [facility] HEP B CORE TOTAL AB NON-REACTI VE NON-REACTI VE 09/07/2022 10:[address] [facility] HEP B SURFACE AB NON-REACTI VE 09/07/2022 10:[address] [facility] HAV IGM NON-REACTI VE NON-REACTI VE 09/07/2022 10:[address] [facility] HEPATITIS C AB NON-REACTI VE NON-REACTI VE 09/07/2022 10:[address] [facility] 09/07/2022 7:17 AM CDT us Patt Magdaleno [facility] Final Result [facility] [address] [place] [address], from Last 3 Months or Most Recently Relevant to Health Maintenance Insurance [employer] [facility] C/O [place]ER [place] [id number] Advance Directives * Full Code (Latest Code Status on File) Date Activated Date Inactivated Comments 12/12/2022 2:20 AM 12/12/2022 7:38 PM * Full Code Date Activated Date Inactivated Comments 10/11/2022 6:40 PM 12/11/2022 7:07 PM * Full Code Date Activated Date Inactivated Comments 09/16/2022 2:50 PM 10/08/2022 8:23 PM * Full Code Date Activated Date Inactivated Comments 09/08/2022 7:25 PM 09/16/2022 2:50 PM * Full Code Date Activated Date Inactivated Comments 09/08/2022 2:19 AM 09/08/2022 7:25 PM Care Teams Clicking Machine Operator Relationship Specialty Start Date End Date Pierce Vásquez PA-C [address] [place] [id number] PCP - General NURSE PRACTITIONER 08/08/22
--- OUTSIDE RECORDS SUMMARY | 2024-07-16 19:24 | XMS_ITS | CONTINUITY OF CARE DOCUMENT ---
Author Name bradleyallielester Address Unknown Organization 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
--- OUTSIDE RECORDS SUMMARY | 2024-07-16 19:25 | XMS_ITS | Data Portability ---
Author Organization [facility] Address [address] / [place] [address] Care Team Providers Care Ski Top Trimmer Name Role Phone PIERCE VÁSQUEZ Primary Care Provider [phone] Assessment Encounter Date Assessment Date Assessment LastModified by Organization Details LastModified Time 12/26/2022 12/26/2022 sent to ER due to 20 lb weight gain, sob, distended abdomen Not available 12/26/2022 15:29:37 05/08/2023 05/08/2023 unable to get blood ? Not available 05/10/2023 08:30:08 12/12/2023 12/12/2023 02/06/2024 exercise physiologist certified 01/04/24 [facility] last appointment Not available 12/28/2023 09:21:33 02/05/2024 02/05/2024 02/06/2024 exercise physiologist certified 01/04/24 [facility] last appointment Not available 02/05/2024 14:26:50 Plan of Treatment Reminders Order Date Submit Date Provider Last Modified By Organization Details Last Modified Time Details Appointments ANY 15 2024 02:45P M JOAQUIN TEJEDA Not available Not available Not available Lab CMP, serum or plasma 2023 024 [facility], [address], [address], [address], 02/05/2024 23:07:22 lipid panel, serum 2023 024 [facility], [address], [address], [place], [address], 02/05/2024 23:07:21 HbA1c (hemoglob in A1c), blood 2023 024 [facility], [address], [address], [place], [address], 02/06/2024 10:15:08 albumin/c reatinine , mass ratio, urine 2023 024 [facility], [address], [address], [place], [address], 02/06/2024 10:15:06 HbA1c (hemoglob in A1c), blood 2023 024 In-Office Order, Internal Use Only DO Not Attach Compendium DO Not Attach Compendium, Do Not Delete/merge, [id number] 12/12/2023 15:26:31 CMP, serum or plasma 2023 024 [facility], [address], [address], [place], [address], 08/10/2023 20:10:36 lipid panel, serum 2023 024 [facility], [address], [address], [place], [address], 08/10/2023 20:10:35 albumin/c reatinine , mass ratio, urine 2023 024 [facility], [address], [address], [place], [address], 08/11/2023 10:14:58 HbA1c (hemoglob in A1c), blood 2023 024 [facility], [address], [address], [place], [address], 08/11/2023 10:14:59 CBC w/ auto diff 2023 024 [facility], [address], [address], [place], [address], 08/10/2023 20:10:37 HIV 1 + 2, meaningfu l use set 2023 024 [facility], [address], [address], [place], [address], 08/11/2023 10:14:59 CBC w/ auto diff 2023 024 [facility], [address], [address], [place], [address], 07/17/2023 08:06:41 CMP, serum or plasma 2023 024 [email or web address] [facility], [address], [address], [place], [address], 07/17/2023 08:06:41 lipid panel, serum 2023 024 [email or web address] [facility], [address], [address], [place], [address], 07/17/2023 08:06:41 albumin/c reatinine , mass ratio, urine 2023 024 [email or web address] [facility], [address], [address], [place], [address], 07/17/2023 08:06:41 HbA1c (hemoglob in A1c), blood 2023 024 In-Office Order, Internal Use Only DO Not Attach Compendium DO Not Attach Compendium, Do Not Delete/merge, [id number] 05/10/2023 08:21:18 Referral diabetic ophthalmo logy referral 2023 024 [email or web address] [facility], [address] [facility] [address], [address], 02/20/2024 08:31:07 gastroent erologist referral 2023 024 [email or web address] [facility] [place], [address], [place], [address], 02/20/2024 08:31:06 podiatris t referral - lives near 2023 024 [email or web address] Sauceda DPM, [address] [place], [address], 12/12/2023 15:35:04 wound care referral 2023 024 [email or web address] Yumi Brito [facility], [address], [place], [address], 12/26/2023 08:08:29 gastroent erologist referral 2023 024 [email or web address] Roly martins MD, [facility] , [place], [address], 08/23/2023 16:54:38 wound care referral 2023 024 [email or web address] [facility], [address], [place], [address], 08/23/2023 16:54:39 podiatris t referral 2023 024 chris Laura DPM, [address] [facility] [address], [place], [address], 08/17/2023 14:11:07 gastroent erologist referral 2023 024 [email or web address] Roly martins MD, [facility] , [place], [address], 08/23/2023 16:54:38 wound care referral 2023 024 [facility], [address], [place], [address], 05/26/2023 09:55:13 podiatris t referral - diabetic foot ulcers 2023 024 [email or web address] Jose Carlos Vasquez DPM, [address] [place], [address], 05/22/2023 12:40:07 gastroent erologist referral [address], [address] [facility], [place], [address], 01/16/2023 12:45:36 Procedures colonosco py screening (PROC) [address], [facility] [address], [place], [address], 03/05/2024 08:04:29 Surgeries None recorded. Imaging US, liver 2023 024 [email or web address] [facility] ([facility]), [address] [place], [address], 03/06/2024 08:07:46 MAMMO, screening , bilateral 2023 024 [facility] (Radiology), [place], [address], 09/05/2023 14:19:17 XR, foot, 3 or more view [address] (Radiology), [place], [address], 09/06/2023 08:02:06 XR, foot, 3 or more view - attn to first toe 2023 024 [facility] (Radiology), [place], [address], 07/03/2023 12:02:02 XR, toe(s), 2 or more view - first toe 2023 024 [facility] (Radiology), [address], [place], [address], 07/03/2023 12:02:03 Medication Orders Lantus Solostar U-100 Insulin 100 unit/mL (3 mL) subcutane ous pen 2023 024 [id number], [address], [place], [place], [id number], 02/05/2024 14:25:28 insulin lispro (U-100) 100 unit/mL subcutane ous pen 2023 024 [id number], [address], [place], [place], [id number], 02/05/2024 14:25:28 OneTouch Verio test strips 2023 024 [id number], [address], [place], [place], [id number], 02/05/2024 14:25:26 Lantus Solostar U-100 Insulin 100 unit/mL (3 mL) subcutane ous pen 2023 024 [facility] [place], [address], [place], [place], [phone], 12/12/2023 15:32:39 insulin lispro (U-100) 100 unit/mL subcutane ous pen 2023 024 [place]888, [address], [place], [place], [id number], 12/12/2023 15:33:32 Eliquis 5 mg tablet 2023 024 [facility], [address], [place], [place], [phone], 08/09/2023 16:08:19 torsemide 20 mg tablet [address] [id number], [address] [facility], [place], [place], [id number], 08/09/2023 16:08:19 Eliquis 5 mg tablet 2023 024 [facility], [address] , [place], [place], [phone], 05/10/2023 08:15:17 Trulicity 0.75 mg/0.5 mL subcutane ous pen injector [address] [facility]396, [address] , [place], [place], [phone], 08/09/2023 15:58:13 Lantus Solostar U-100 Insulin 100 unit/mL (3 mL) subcutane ous pen 2023 024 [facility], [address], [place], [place], [phone], 05/08/2023 16:30:42 Lantus Solostar U-100 Insulin 100 unit/mL (3 mL) subcutane ous pen 2022 023 [id number], [address] [facility], [place], [place], [phone], 12/26/2022 15:18:57 Patient TargetsNo targets recorded. Patient Instructions Encounter Date Encounter Id Patient Instructions Last Modified By Organization Details Last Modified Time 08/09/2023 [id number] Quitting Tobacco : Care Instructions Not available 08/09/2023 16:08:19 A healthy lifestyle: care instructions Not available 08/10/2023 16:41:31 Reason for Referral Licensing Specialist Referral for Cirrhosis of liver Referring Physician: General Taryn Tejeda, Encounter Date: 12/26/2022 Referring Physician: General Taryn Downs, Encounter Date: 05/08/2023 Laundry Tub Maker Referral for Woun d of skin diabetic foot ulcers Referring Physician: General Taryn Tejeda, Encounter Date: 05/08/2023 Licensing Specialist Referral for Cirrhosis of liver Referring Physician: General Taryn Tejeda, Encounter Date: 08/09/2023 Licensing Specialist Referral for Screening for malignant neoplasm of colon Referring Physician: General Taryn Tejeda, Encounter Date: 08/09/2023 Referring Physician: General Taryn Downs, Encounter Date: 08/09/2023 Laundry Tub Maker Referral for Woun d of skin Referring Physician: General Taryn Tejeda, Encounter Date: 08/09/2023 Laundry Tub Maker Referral for Diab etic foot ulcer lives near Referring Physician: General Taryn Tejeda, Encounter Date: 12/12/2023 Referring Physician: General Taryn Downs, Encounter Date: 12/12/2023 Licensing Specialist Referral for Cirrhosis of liver Referring Physician: General Taryn Tejeda, Encounter Date: 02/05/2024 Diabetic Ophthalmology Refer ral for Uncontrolled type 2 diabetes mellitus Referring Physician: General Taryn Tejeda, Encounter Date: 02/05/2024 Results Created Date Observation Date Name Description Value Unit Range Abnormal Flag Note LastModifiedBy Organization Detail LastModifiedTime 05/10/19 24 05/10/2023 HbA1c (hemo globi n A1c), blood HbA1c 11.8 Not Available In-Office Order Internal Use Only DO Not Attach Compendium DO Not Attach Compendium, Do Not Delete/merge, [id number] 05/10/2023 08:19:48 08/09/1908/10/2023 LIPID PANEL cholesterol, total 164 mg/dL 100-19 9 Not Available [facility] [address] [place] [address], [address], 08/10/2023 20:10:35 08/09/19 24 08/10/2023 LIPID PANEL triglyceride s 343 mg/dL 0-149 above high normal Not Available [facility] [address] [place] [address], [address], 08/10/2023 20:10:35 08/09/19 24 08/10/2023 LIPID PANEL HDL cholesterol 33 mg/dL 40-999 below low normal Not Available [facility] [address] [place] [address], [address], 08/10/2023 20:10:35 08/09/19 24 08/10/2023 LIPID PANEL VLDL cholesterol sarwat 69 mg/dL 5-40 above high normal Not Available [facility] [address] [place] [address], [address], 08/10/2023 20:10:35 08/09/19 24 08/10/2023 LIPID PANEL LDL chol calc (nih) 116 mg/dL 0-99 above high normal Not Available [facility] [address] [place], [address], 08/10/2023 20:10:35 08/09/19 24 08/10/2023 COMP. METAB OLIC PANEL (14) glucose 416 mg/dL 70-99 panic high RESUL TS VERIF IED AND SALAZAR D TO JOAQUIN Deal BY Leon Lopez MLT AT 1808 ON 08/09. Not Available [facility] [address] [place], [address], 08/10/2023 20:10:36 08/09/19 24 08/10/2023 COMP. METAB OLIC PANEL (14) BUN 20 mg/dL 6-24 Not Available [facility] [address] [place] [address], [address], 08/10/2023 20:10:36 08/09/19 24 08/10/2023 COMP. METAB OLIC PANEL (14) creatinine 0.98 mg/dL 0.76-1 .27 Not Available [facility] [address] [place], [address], 08/10/2023 20:10:36 08/09/19 24 08/10/2023 COMP. METAB OLIC PANEL (14) eGFR 71 >=60 Units for eGFR value s are mL/mi n/1.7 3 The eGFR Calcu latio n has not been valid ated for patie nts under the age of 18. If test resul ts are displ ayed for a patie nt under the age of 18, disre hugo that value . Not Available [facility] [address] [place] [address], [address], 08/10/2023 20:10:36 08/09/19 24 08/10/2023 COMP. METAB OLIC PANEL (14) BUN/creatini ne ratio 20 9-23 Not Available [facility] [address] [place], [address], 08/10/2023 20:10:36 08/09/19 24 08/10/2023 COMP. METAB OLIC PANEL (14) sodium 134 mmol/ L 134-14 4 Not Available [facility] [address] [place], [address], 08/10/2023 20:10:36 08/09/19 24 08/10/2023 COMP. METAB OLIC PANEL (14) potassium 4.5 mmol/ L 3.5-5. 2 Not Available [facility] [address] [place], [address], 08/10/2023 20:10:36 08/09/19 24 08/10/2023 COMP. METAB OLIC PANEL (14) chloride 92 mmol/ L 96-106 below low normal Not Available [facility] [address] [place] [address], [address], 08/10/2023 20:10:36 08/09/19 24 08/10/2023 COMP. METAB OLIC PANEL (14) carbon dioxide, total 24 mmol/ L 20- Not Available [facility] [address] [place], [address], 08/10/2023 20:10:36 08/09/19 24 08/10/2023 COMP. METAB OLIC PANEL (14) calcium 9.9 mg/dL 8.7-10 .2 Not Available [facility] [address] [place], [address], 08/10/2023 20:10:36 08/09/19 24 08/10/2023 COMP. METAB OLIC PANEL (14) protein, total 8.1 g/dL 6.0-8. 5 Not Available [facility] [address] [place], [address], 08/10/2023 20:10:36 08/09/19 24 08/10/2023 COMP. METAB OLIC PANEL (14) albumin 4.4 g/dL 3.9-4. 9 Not Available [facility] [address] [place], [address], 08/10/2023 20:10:36 08/09/19 24 08/10/2023 COMP. METAB OLIC PANEL (14) globulin, total 3.7 g/dL 1.5-4. 5 Not Available [facility] [address] [place], [address], 08/10/2023 20:10:36 08/09/19 24 08/10/2023 COMP. METAB OLIC PANEL (14) A/G ratio 1.0 1.2-2. 2 below low normal Not Available [facility] [address] [place], [address], 08/10/2023 20:10:36 08/09/19 24 08/10/2023 COMP. METAB OLIC PANEL (14) bilirubin, total 0.3 mg/dL 0.0-1. 2 Not Available [facility] [address] [place], [address], 08/10/2023 20:10:36 08/09/19 24 08/10/2023 COMP. METAB OLIC PANEL (14) alkaline phosphatase 138 IU/L 44-121 above high normal Not Available [facility] [address] [place], [address], 08/10/2023 20:10:36 08/09/19 24 08/10/2023 COMP. METAB OLIC PANEL (14) AST (SGOT) 17 IU/L 0-40 Not Available [facility] [address] [place], [address], 08/10/2023 20:10:36 08/09/19 24 08/10/2023 COMP. METAB OLIC PANEL (14) ALT (SGPT) 16 IU/L 0-32 Not Available [facility] [address] [place], [address], 08/10/2023 20:10:36 08/09/19 24 08/10/2023 CBC WITH DIFFE RENTI AL/PL ATELE T WBC 8.7 x10e3 /uL 3.4-10 .8 Not Available [facility] [address] [place], [address], 08/10/2023 20:10:37 08/09/19 24 08/10/2023 CBC WITH DIFFE RENTI AL/PL ATELE T RBC 4.80 x10e6 /uL 3.77-5 .28 Not Available [facility] [address] [place], [address], 08/10/2023 20:10:37 08/09/19 24 08/10/2023 CBC WITH DIFFE RENTI AL/PL ATELE T hemoglobin 13.4 g/dL 11.1-1 5.9 Not Available [facility] [address] [place], [address], 08/10/2023 20:10:37 08/09/19 24 08/10/2023 CBC WITH DIFFE RENTI AL/PL ATELE T hematocrit 42.6 % 34.0-4 6.6 Not Available [facility] [address] [place], [address], 08/10/2023 20:10:37 08/09/19 24 08/10/2023 CBC WITH DIFFE RENTI AL/PL ATELE T MCV 89 fL 79-97 Not Available [facility] [address] [place], [address], 08/10/2023 20:10:37 08/09/19 24 08/10/2023 CBC WITH DIFFE RENTI AL/PL ATELE T MCH 27.9 pg 26.6-3 3.0 Not Available [facility] [address] [place], [address], 08/10/2023 20:10:37 08/09/19 24 08/10/2023 CBC WITH DIFFE RENTI AL/PL ATELE T MCHC 31.5 g/dL 31.5-3 5.7 Not Available [facility] [address] [place], [address], 08/10/2023 20:10:37 08/09/19 24 08/10/2023 CBC WITH DIFFE RENTI AL/PL ATELE T RDW 13.4 % 11.5-1 4.5 Not Available [facility] [address] [place], [address], 08/10/2023 20:10:37 08/09/19 24 08/10/2023 CBC WITH DIFFE RENTI AL/PL ATELE T platelets 276 x10e3 /uL 150-45 0 Not Available [facility] [address] [place], [address], 08/10/2023 20:10:37 08/09/19 24 08/10/2023 CBC WITH DIFFE RENTI AL/PL ATELE T neutrophils 69 % notest b. Not Available [facility] [address] [place], [address], 08/10/2023 20:10:37 08/09/19 24 08/10/2023 CBC WITH DIFFE RENTI AL/PL ATELE T lymphs 24 % notest b. Not Available [facility] [address] [place], [address], 08/10/2023 20:10:37 08/09/19 24 08/10/2023 CBC WITH DIFFE RENTI AL/PL ATELE T monocytes 5 % notest b. Not Available [facility] [address] [place], [address], 08/10/2023 20:10:37 08/09/19 24 08/10/2023 CBC WITH DIFFE RENTI AL/PL ATELE T eos 1 % notest b. Not Available [facility] [address] [place], [address], 08/10/2023 20:10:37 08/09/19 24 08/10/2023 CBC WITH DIFFE RENTI AL/PL ATELE T basos 1 % notest b. Not Available [facility] [address] [place], [address], 08/10/2023 20:10:37 08/09/19 24 08/10/2023 CBC WITH DIFFE RENTI AL/PL ATELE T neutrophils (absolute) 6.1 x10e3 /uL 1.4-7. 0 Not Available [facility] [address] [place], [address], 08/10/2023 20:10:37 08/09/19 24 08/10/2023 CBC WITH DIFFE RENTI AL/PL ATELE T lymphs (absolute) 2.1 x10e3 /uL 0.7-3. 1 Not Available [facility] [address] [place], [address], 08/10/2023 20:10:37 08/09/19 24 08/10/2023 CBC WITH DIFFE RENTI AL/PL ATELE T monocytes(ab solute) 0.4 x10e3 /uL 0.1-0. 9 Not Available [facility] [address] [place], [address], 08/10/2023 20:10:37 08/09/19 24 08/10/2023 CBC WITH DIFFE RENTI AL/PL ATELE T eos (absolute) 0.1 x10e3 /uL 0.0-0. 4 Not Available [facility] [address] [place], [address], 08/10/2023 20:10:37 08/09/19 24 08/10/2023 CBC WITH DIFFE RENTI AL/PL ATELE T baso (absolute) 0.1 x10e3 /uL 0.0-0. 2 Not Available [facility] [address] [place] [address], [address], 08/10/2023 20:10:37 08/09/19 24 08/10/2023 CBC WITH DIFFE RENTI AL/PL ATELE T immature granulocytes 0.2 % notest b. Not Available [facility] [address] [place], [address], 08/10/2023 20:10:37 08/09/19 24 08/10/2023 CBC WITH DIFFE RENTI AL/PL ATELE T immature grans (abs) 0.0 x10e3 /uL 0.0-0. 1 Not Available [facility] [address] [place], [address], 08/10/2023 20:10:37 08/09/19 24 08/10/2023 CBC WITH DIFFE RENTI AL/PL ATELE T NRBC 0 % 0-0 Not Available [facility] [address], [place], [address], 08/10/2023 20:10:37 08/09/19 24 08/11/2023 ALBUM IN/CR EATIN INE RATIO ,URIN E creatinine, urine 31.9 mg/dL notest ab. Not Available [facility] ([facility]) [address] [place], [address], 08/11/2023 10:14:57 08/09/19 24 08/11/2023 ALBUM IN/CR EATIN INE RATIO ,URIN E albumin, urine 14.6 ug/mL notest ab. Not Available [facility] ([facility]) [address] [facility], [place], [address], 08/11/2023 10:14:57 08/09/19 24 08/11/2023 ALBUM IN/CR EATIN INE RATIO ,URIN E alb/creat ratio 46 mg/g_ creat 0-29 above high normal Fatimah l: 0 - 29 Moder ately incre ased: 30 - 300 Sever michelle incre ased: >300 Not Available [facility] ([facility]) [address] [place], [address], 08/11/2023 10:14:57 08/09/19 24 08/11/2023 HEMOG LOBIN A1C hemoglobin A1C 13.6 % 4.8-5. 6 above high normal Predi abete s: 5.7 - 6.4 Diabe zach: >6.4 Glyce marce contr ol for adult s with diabe zach: <7.0 Not Available [facility] ([facility]) [address] [place], [address], 08/11/2023 10:14:58 08/09/19 24 08/11/2023 HIV AB/P2 4 AG WITH REFLE X HIV Ab/P24 Ag screen NON REACTI VE nonrea ctive HIV Negat sergio HIV-1 /HIV- 2 antib odies and HIV-1 p24 antig en were NOT detec shaji. There is no labor atory evide nce of HIV infec tion. Not Available [facility] ([facility]) [address] [facility], [place], [address], 08/11/2023 10:14:59 12/12/19 24 12/12/2023 HbA1c (hemo globi n A1c), blood HbA1c 8.5 Not Available In-Office Order Internal Use Only DO Not Attach Compendium DO Not Attach Compendium, Do Not Delete/merge, [id number] 12/12/2023 15:11:09 02/05/20 24 02/05/2024 LIPID PANEL cholesterol, total 107 mg/dL 100-19 9 Not Available [facility] [address] [place] [address], [address], 02/05/2024 23:07:20 02/05/20 24 02/05/2024 LIPID PANEL triglyceride s 114 mg/dL 0-149 Not Available [facility] [address] [place] [address], [address], 02/05/2024 23:07:20 02/05/20 24 02/05/2024 LIPID PANEL HDL cholesterol 31 mg/dL 40-999 below low normal Not Available [facility] [address] [place], [address], 02/05/2024 23:07:20 02/05/20 24 02/05/2024 LIPID PANEL VLDL cholesterol sarwat 23 mg/dL 5-40 Not Available [facility] [address] [place] [address], [address], 02/05/2024 23:07:20 02/05/20 24 02/05/2024 LIPID PANEL LDL chol calc ([facility]) 68 mg/dL 0-99 Not Available [facility] [address] [place], [address], 02/05/2024 23:07:20 02/05/20 24 02/05/2024 COMP. METAB OLIC PANEL (14) glucose 61 mg/dL 70-99 below low normal Not Available [facility] [address] [place] [address], [address], 02/05/2024 23:07:22 02/05/20 24 02/05/2024 COMP. METAB OLIC PANEL (14) BUN 13 mg/dL 6-24 Not Available [facility] [address] [place], [address], 02/05/2024 23:07:22 02/05/20 24 02/05/2024 COMP. METAB OLIC PANEL (14) creatinine 0.83 mg/dL 0.76-1 .27 Not Available [facility] [address] [place] [address], [address], 02/05/2024 23:07:22 02/05/20 24 02/05/2024 COMP. METAB OLIC PANEL (14) eGFR 86 >=60 Units for eGFR value s are mL/mi n/1.7 3 The eGFR Calcu latio n has not been valid ated for patie nts under the age of 18. If test resul ts are displ ayed for a patie nt under the age of 18, disre hugo that value . Not Available [facility] [address] [place] [address], [address], 02/05/2024 23:07:22 02/05/20 24 02/05/2024 COMP. METAB OLIC PANEL (14) BUN/creatini ne ratio 15 9-23 Not Available [facility] [address] [place], [address], 02/05/2024 23:07:22 02/05/20 24 02/05/2024 COMP. METAB OLIC PANEL (14) sodium 141 mmol/ L 134-14 4 Not Available [facility] [address] [place], [address], 02/05/2024 23:07:22 02/05/20 24 02/05/2024 COMP. METAB OLIC PANEL (14) potassium 4.4 mmol/ L 3.5-5. 2 Not Available [facility] [address] [place], [address], 02/05/2024 23:07:22 02/05/20 24 02/05/2024 COMP. METAB OLIC PANEL (14) chloride 104 mmol/ L 96-106 Not Available [facility] [address] [place], [address], 02/05/2024 23:07:22 02/05/20 24 02/05/2024 COMP. METAB OLIC PANEL (14) carbon dioxide, total 23 mmol/ L 20-29 Not Available [facility] [address] [place], [address], 02/05/2024 23:07:22 02/05/20 24 02/05/2024 COMP. METAB OLIC PANEL (14) calcium 9.4 mg/dL 8.7-10 .2 Not Available [facility] [address] [place], [address], 02/05/2024 23:07:22 02/05/20 24 02/05/2024 COMP. METAB OLIC PANEL (14) protein, total 7.9 g/dL 6.0-8. 5 Not Available [facility] [address] [place], [address], 02/05/2024 23:07:22 02/05/20 24 02/05/2024 COMP. METAB OLIC PANEL (14) albumin 4.3 g/dL 3.9-4. 9 Not Available [facility] [address] [place], [address], 02/05/2024 23:07:22 02/05/20 24 02/05/2024 COMP. METAB OLIC PANEL (14) globulin, total 3.6 g/dL 1.5-4. 5 Not Available [facility] [address] [place], [address], 02/05/2024 23:07:22 02/05/20 24 02/05/2024 COMP. METAB OLIC PANEL (14) A/G ratio 1.2 1.2-2. 2 Not Available [facility] [address] [place], [address], 02/05/2024 23:07:22 02/05/20 24 02/05/2024 COMP. METAB OLIC PANEL (14) bilirubin, total 0.2 mg/dL 0.0-1. 2 Not Available [facility] [address] [place], [address], 02/05/2024 23:07:22 02/05/20 24 02/05/2024 COMP. METAB OLIC PANEL (14) alkaline phosphatase 138 IU/L 44-121 above high normal Not Available [facility] Department [address] [place] [address], [address], 02/05/2024 23:07:22 02/05/20 24 02/05/2024 COMP. METAB OLIC PANEL (14) AST (SGOT) 9 IU/L 0-40 Not Available [facility] Department [address] [place], [address], 02/05/2024 23:07:22 02/05/20 24 02/05/2024 COMP. METAB OLIC PANEL (14) ALT (SGPT) 8 IU/L 0-32 Not Available [facility] Department [address] [place] [address], [address], 02/05/2024 23:07:22 02/05/20 24 02/06/2024 ALBUM IN/CR EATIN INE RATIO ,URIN E creatinine, urine 38.7 mg/dL notest ab. Not Available [facility] ([facility]) [address] [facility] [address], [place], [address], 02/06/2024 10:15:06 02/05/20 24 02/06/2024 ALBUM IN/CR EATIN INE RATIO ,URIN E albumin, urine 42.2 ug/mL notest ab. Not Available [facility] ([facility]) [address] [facility] [address], [place], [address], 02/06/2024 10:15:06 02/05/20 24 02/06/2024 ALBUM IN/CR EATIN INE RATIO ,URIN E alb/creat ratio 109 mg/g_ creat 0-29 above high normal Fatimah l: 0 - 29 Moder ately incre ased: 30 - 300 Sever michelle incre ased: >300 Not Available [facility] ([facility]) [address] [facility] [address], [place], [address], 02/06/2024 10:15:06 02/05/20 24 02/06/2024 HEMOG LOBIN A1C hemoglobin A1C 8.3 % 4.8-5. 6 above high normal Predi abete s: 5.7 - 6.4 Diabe zach: >6.4 Glyce marce contr ol for adult s with diabe zach: <7.0 Not Available [facility] ([facility]) [address] [facility] [address], [place], [address], 02/06/2024 10:15:08 04/20/19 24 04/20/2023 MRI, foot, w/o contr ast No observ ation record ed. [address] [facility] [address], [place], [address], 04/25/2023 10:03:49 04/20/19 24 04/20/2023 ankle brach ial index No observ ation record ed. [address] [facility] [address], [place], [address], 04/25/2023 10:03:13 09/05/19 24 08/17/2023 MAMMO , scree karsten, bilat eral No observ ation record ed. [facility] (Radiology) [address], [place], [address], 09/05/2023 18:19:04 Result Notes None recorded. Problems Name Problem SNOMED Code Status Onset Date Resolution Date Notes Provider Name and Address Organization Details Recorded Time Diabetes mellitus 95545564 Active 2016 JOAQUIN TEJEDA Attn: Iveth goff,[address], [place], [place], [address] [place] [address], [place] [facility] 0 11:23:18 Neuropathy due to diabetes mellitus 607824874 Active 2019 JOAQUIN TEJEDA Attn: [employer] goff,[address], [place], [address] [place] [address], [place] [facility] 0 13:53:54 Amputated toe 062190739 Active 2019 JOAQUIN TEJEDA Attn: Iveth goff,[address], [place], [address] [place] [address], [place] [facility] 0 13:54:48 Smoker 28964863 Active 2019 JOAQUIN TEJEDA Attn: Ivteh goff,[address], [place], [address] [place] [address], [place] [facility] 0 13:55:59 Retinal hemorrhage 28982017 Active 2019 JOAQUIN TEJEDA Attn: Iveth goff,[address], [place], [address] [place] [address], [place] [facility] 0 13:56:03 Type 2 diabetes mellitus 64534858 Active 2019 JOAQUIN TEJEDA Attn: Accountfantasma g,[address], [place], [address] [place] [address], [place] [facility] 0 16:41:50 Proteinuric nephropathy due to diabetes mellitus 379434092 Active 2019 JOAQUIN TEJEDA Attn: Account[employer] g,[address], [place], [address] [place] [address], [place] [facility] 0 16:46:09 Uncontrolled type 2 diabetes mellitus 079651169 Active 2022 JOAQUIN TEJEDA Attn: Accountin g,[address], [place], [address], [place] [facility] 3 14:37:57 Hepatomegaly 04860925 Active 2022 JOAQUIN TEJEDA Attn: Iveth g,[address], [place], [address], [place] [facility] 3 15:26:24 Morbid obesity 039201451 Active 2022 JOAQUIN TEJEDA Attn: Accountfantasma g,[address], [place], [address], [place] [facility] 3 15:26:27 Ascites 435106270 Active 2022 JOAQUIN TEJEDA Attn: Accountfantasma g,[address] [facility], [place], [address], [place] [facility] 3 15:34:46 Tachycardia 9924342 Active 2022 JOAQUIN TEJEDA Attn: Accountfant[employer] g,[address] [facility], [place], [address], [place] [facility] 3 15:34:49 Coronary atherosclerosi s 641460990 Active 2022 JOAQUIN TEJEDA Attn: Accountfant[employer] g,[address] [facility], [place], [address], [place] [facility] 3 14:09:10 Heart failure 07608109 Active 2022 JOAQUIN TEJEDA Attn: Accountin g,[address] , [place], [address], [place] [facility] 3 14:09:26 Cirrhosis of liver 54416031 Active 2022 JOAQUIN TEJEDA Attn: Accountin g,[address] [facility], [place], [address], [place] [facility] 3 14:10:14 Microalbuminur ic diabetic nephropathy 614591095 Active 2023 JOAQUIN TEJEDA Attn: Accountin g,[address] , [place], [address], [facility] 4 11:01:31 Problem Notes None recorded. Procedures Surgical History Date Name Laterality Status Provider Name and Address Organization Details Recorded Time 0 Date of Last Mammogram completed Rebecca Perry MA [facility] 07/01/2020 15:05:29 Caesarean Section completed Theo Horta [facility] 12/15/2016 12:13:15 Dilation and Curettage completed Theo Horta [facility] 12/15/2016 12:13:20 Tubal Ligation completed Rebecca Perry [facility] 01/23/2020 10:52:18 Amputation of toe completed Rebecca Perry [facility] 01/23/2020 10:52:35 Amputation of toe completed Angy Rose [facility] 12/12/2023 14:46:51 Imaging Results Imaging Date Name Status LastModified by Organiz ation Details LastModified Time 04/20/2023 MRI, foot, w/o contrast completed [address], [address], 04/25/2023 10:03:49 04/20/2023 ankle brachial index completed [address], [address], 04/25/2023 10:03:13 08/17/2023 MAMMO, screening, bilateral completed [facility] (Radiology) [address], [place], [address], 09/05/2023 18:19:04 Procedure Notes None recorded. Medical Equipment None Reported. Allergies Allergen ID Allergen Name Allergen Category Reaction Reaction Severity Criticality Documentation Date Start Date Code Code System Note Provider Name and Address Organization Details Recorded Time 36989 strawberr y allergeni c extract food hives Not available Not available 12/15/2016 77621 4 RxNorm Not Available Not Available Not Available 01009 aspirin medicatio n rash Not available Not available 12/15/2016 1191 RxNorm Not Available Not Available Not Available Medications Name Sig Start Date Stop Date Status Note LastModified by Organization Details LastModified Time atorvastati n 40 mg tablet TAKE 1 TABLET BY MOUTH DAILY 2024 active Not Available Not Available Not Avai lable metformin 500 mg tablet Take 1 tablet twice a day by oral route as directed for 30 days. 03/22 completed Not Available Not Available Not Available BD Alcohol Swabs USE DIRECTED active Not Available Not Available No t Available torsemide 20 mg tablet TAKE 2 TABLETS BY MOUTH EVERY DAY active Not Available Not Available No t Available bumetanide 2 mg tablet active Not Available Not Available Not Available clindamycin HCl 300 mg capsule Take 1 capsule every 6 hours by oral route as directed for 10 days. 06/01 completed Not Available Not Available Not Available ginseng 500 mg tablet Take by oral route. active Not Available Not Available No t Available amiodarone 200 mg tablet TAKE 1 TABLET BY MOUTH EVERY DAY 05/10 completed Not Available Not Available Not Available sulfamethox azole 400 mg-trimetho prim 80 mg tablet TAKE 1 TABLET BY MOUTH TWICE DAILY FOR 3 WEEKS 09/05 completed Not Available Not Available Not Available valacyclovi r 1 gram tablet active Not Available Not Available Not Available ondansetron HCl 4 mg tablet TAKE 1 TABLET BY MOUTH TWICE DAILY NEEDED active Not Available Not Available No t Available Lantus U-100 Insulin 100 unit/mL subcutaneou s solution Inject 18 units every day by subcutane ous route. 05/10 completed Not Available Not Available Not Available erythromyci n 250 mg tablet,davina yed release TAKE 1 TABLET BY MOUTH THREE TIMES DAILY BEFORE MEAL(S) FOR 10 DAYS 11/21 completed Not Available Not Available Not Available clopidogrel 75 mg tablet TAKE 1 TABLET BY MOUTH EVERY DAY 2024 active Not Available Not Available Not Avai lable ciprofloxac in 500 mg tablet TAKE 1 TABLET BY MOUTH EVERY 12 HOURS FOR 3 WEEKS 09/05 completed Not Available Not Available Not Available tramadol 50 mg tablet 11/21 completed Not Available Not Available Not Available spironolact one 25 mg tablet active Not Available Not Available Not Available simvastatin 40 mg tablet TAKE 1 TABLET BY MOUTH EVERY DAY 09/05 completed Not Available Not Available Not Available glimepiride 2 mg tablet TAKE 1 TABLET BY MOUTH TWICE DAILY WITH MEALS 07/21 completed Not Available Not Available Not Available carvedilol 3.125 mg tablet TAKE 1 TABLET BY MOUTH TWICE DAILY WITH MEALS active Not Available Not Available No t Available potassium chloride ER 20 mEq tablet,exte nded release(par t/cryst) 08/08 completed Not Available Not Available Not Available hydrocodone 7.5 mg-acetamin ophen 325 mg tablet TAKE 1 TABLET BY MOUTH EVERY 12 HOURS NEEDED FOR PAIN 11/21 completed Not Available Not Available Not Available pantoprazol e 40 mg tablet,davina yed release active Not Available Not Available Not Available simvastatin 20 mg tablet TAKE 1 TABLET BY MOUTH EVERY DAY AT BEDTIME 07/21 completed Not Available Not Available Not Available metformin 1,000 mg tablet TAKE 1 TABLET BY MOUTH TWICE DAILY DIRECTED 09/05 completed Not Available Not Available Not Available lisinopril 10 mg tablet TAKE 1 TABLET BY MOUTH EVERY DAY 09/05 completed Not Available Not Available Not Available glimepiride 4 mg tablet TAKE 1 TABLET BY MOUTH TWICE DAILY 09/05 completed Not Available Not Available Not Available losartan 25 mg tablet TAKE 1/2 TABLET BY MOUTH DAILY active Not Available Not Available No t Available gabapentin 300 mg capsule TAKE 1 CAPSULE BY MOUTH EVERY 8 HOURS DIRECTED 09/05 completed Not Available Not Available Not Available omeprazole 20 mg capsule,del ayed release TAKE ONE CAPSULE BY MOUTH EVERY DAY active Not Available Not Available No t Available bisacodyl 5 mg tablet,davina yed release TAKE 2 TABLET BY MOUTH DAILY NEEDED 08/08 completed Not Available Not Available Not Available mupirocin 2 % topical ointment 03/17 completed Not Available Not Available Not Available furosemide 20 mg tablet TAKE 1 TABLET BY MOUTH EVERY DAY 12/26 completed Not Available Not Available Not Available Temple 5 mg-325 mg tablet Take 1 tablet every 6-8 hours by oral route as directed for 7 days. 06/01 completed Not Available Not Available Not Available spironolact one 50 mg tablet TAKE 1 TABLET BY MOUTH EVERY DAY active Not Available Not Available No t Available amoxicillin 875 mg-potassiu m clavulanate 125 mg tablet TAKE 1 TABLET BY MOUTH EVERY 12 HOURS FOR 14 DAYS 12/11 completed Not Available Not Available Not Available Humalog U-100 Insulin 100 unit/mL subcutaneou s cartridge Inject 5 units as needed by subcutane ous route as directed for 1 day. 03/22 completed Not Available Not Available Not Available insulin lispro (U-100) 100 unit/mL subcutaneou s pen INJECT 10 UNITS UNDER THE SKIN THREE TIMES DAILY WITH MEALS active Not Available Not Available No t Available cholestyram ine (with sugar) 4 gram powder for susp in a packet 08/08 completed Not Available Not Available Not Available acetaminoph en active Not Available Not Available Not Available Januvia 100 mg tablet TK 1 T PO QD 03/05 completed Not Available Not Available Not Available FeroSul 325 mg (65 mg iron) tablet TAKE 1 TABLET BY MOUTH EVERY OTHER DAY active Not Available Not Available No t Available Lantus Solostar U-100 Insulin 100 unit/mL (3 mL) subcutaneou s pen ADMINISTE R 48 UNITS UNDER THE SKIN EVERY DAY AT BEDTIME active Not Available Not Available No t Available OneTouch Verio test strips USE TWICE DAILY DIRECTED active Not Available Not Available No t Available Vicodin 5 mg-300 mg tablet Take 1 tablet twice a day by oral route as needed for 10 days. 03/22 completed Not Available Not Available Not Available Victoza 2-Edgardo 0.6 mg/0.1 mL (18 mg/3 mL) subcutaneou s pen injector INJECT 1.2 MG UNDER THE SKIN DAILY DIRECTED 09/05 completed Not Available Not Available Not Available Eliquis 5 mg tablet TAKE 1 TABLET BY MOUTH TWICE DAILY active Not Available Not Available No t Available Stimulant Laxative Plus 8.6 mg-50 mg tablet TAKE 1 TABLET BY MOUTH TWICE DAILY active Not Available Not Available No t Available Trulicity 1.5 mg/0.5 mL subcutaneou s pen injector ADMINISTE R 1.5 MG UNDER THE SKIN EVERY WEEK 12/11 completed Not Available Not Available Not Available Trulicity 0.75 mg/0.5 mL subcutaneou s pen injector ADMINISTE R 0.75 MG UNDER THE SKIN EVERY WEEK 08/08 completed Not Available Not Available Not Available TRUEplus Pen Needle 31 gauge x 1/4 USE TO INJECT ONCE DAILY active Not Available Not Available No t Available TRUEplus Pen Needle 32 gauge x 32 USE DIRECTED ONCE DAILY active Not Available Not Available No t Available OneTouch Ultra Blue Test Strip USE TWICE DAILY DIRECTED active Not Available Not Available No t Available OneTouch Ultra2 Meter TEST TWICE DAILY active Not Available Not Available No t Available OneTouch Delica Plus Lancet 33 gauge USE TWICE DAILY active Not Available Not Available No t Available Vitals Date Recorded Body height Body mass index (BMI) Body weight Heart rate Oxygen saturation Oxygen saturation in Arterial blood by Pulse oximetry Systolic blood pressure Diastolic blood pressure Provider Name and Address Organization Details Last Updated DateTime 3 154.94 cm 40.6 kg/m2 48113.3 6 g 79 /min 97 % 97 % 108 mm[Hg] 70 mm[Hg] Angy Rose MA [facility] 3 15:02:16 Date Recorded Body height Body mass index (BMI) Body weight Heart rate Oxygen saturation Oxygen saturation in Arterial blood by Pulse oximetry Systolic blood pressure Diastolic blood pressure Provider Name and Address Organization Details Last Updated DateTime 4 154.94 cm 35 kg/m2 86173.5 9 g 105 /min 99 % 99 % 110 mm[Hg] 75 mm[Hg] STAN Agee [facility] 4 15:04:33 Date Recorded Body height Body mass index (BMI) Body weight Heart rate Oxygen saturation Oxygen saturation in Arterial blood by Pulse oximetry Systolic blood pressure Diastolic blood pressure Provider Name and Address Organization Details Last Updated DateTime 4 154.94 cm 37.3 kg/m2 60986.1 g 99 /min 100 % 100 % 118 mm[Hg] 77 mm[Hg] Angy Rose MA [facility] 4 15:45:47 Date Recorded Body height Body mass index (BMI) Body weight Heart rate Oxygen saturation Oxygen saturation in Arterial blood by Pulse oximetry Systolic blood pressure Diastolic blood pressure Provider Name and Address Organization Details Last Updated DateTime 4 154.94 cm 38 kg/m2 78187.0 7 g 96 /min 99 % 99 % 100 mm[Hg] 67 mm[Hg] Angy Rose MA [facility] 4 14:47:15 Date Recorded Body height Body mass index (BMI) Body weight Heart rate Oxygen saturation Oxygen saturation in Arterial blood by Pulse oximetry Systolic blood pressure Diastolic blood pressure Provider Name and Address Organization Details Last Updated DateTime 4 154.94 cm 39.5 kg/m2 74673.8 1 g 94 /min 98 % 98 % 129 mm[Hg] 79 mm[Hg] Angy Rose MA [facility] 4 13:59:46 Social History Question Answer Notes LastModified by Organizat ion Details LastModified Time Tobacco Smoking Status Current Every Day Smoker cigarettes Theo Horta MA null, [facility] 12/15/2016 12:19:13 Do You Have An Advance Directive? No Information not available 07/01/2020 What Is Your Level Of Alcohol Consumption? None Information not available 12/15/2016 What Is Your Level Of Caffeine Consumption? Heavy Information not available 01/23/2020 How Much Tobacco Do You Chew? None Information not available 01/23/2020 In The 14 Days Before Symptom Onset, Have You Had Close Contact With A Laboratory-confi rmed COVID-19 While That Case Was Ill? No Information not available 07/21/2020 In The 14 Days Before Symptom Onset, Have You Had Close Contact With A Person Who Is Under Investigation For COVID-19 While That Person Was Ill? No Information not available 07/21/2020 Have You Been To An Area Known To Be High Risk For COVID-19? No Information not available 07/01/2020 Do You Or Have You Ever Used E-cigarettes Or Vape? Never Used Electronic Cigarettes Information not available 01/23/2020 What Was The Date Of Your Most Recent Tobacco Screening? 02/05/2024 Information not available 02/05/2024 What Is Your Relationship Status? Unknown Information not available 07/01/2020 Do You Have Smoke And Carbon Monoxide Detectors In Your Home? Yes Information not available 07/01/2020 At What Age Did You Start Smoking Tobacco? 9 Information not available 01/23/2020 Are You Passively Exposed To Smoke? Yes Information not available 07/01/2020 Do You Or Have You Ever Used Smokeless Tobacco? Never Used Smokeless Tobacco Information not available 01/23/2020 How Much Tobacco Do You Smoke? 2 PPD Information not available 01/23/2020 General Stress Level High Information not available 03/05/2020 Do You Use Any Illicit Or Recreational Drugs? No Information not available 07/01/2020 Has Tobacco Cessation Counseling Been Provided? Yes Information not available 08/09/2023 On What Date Was Tobacco Cessation Counseling Provided? 02/05/2024 Information not available 02/05/2024 How Many Years Have You Smoked Tobacco? 36 Information not available 07/01/2020 Do You Or Have You Ever Used Any Other Forms Of Tobacco Or Nicotine? No Information not available 07/01/2020 Sex: Unknown Functional Status None recorded. Mental Status None recorded. Family History Relationship Description Onset Age of this Age Resolved Age Notes LastModified by Organization Details LastModified Time Sister Asthma Not available 12/15/2016 12:13:50 Sister Blood coagulation disorder [email or web address] Not available 12/15 12:13:59 Father Diabetes mellitus [email or web address] Not available 12/15 12:14:13 Father Non-Hodgkin' s lymphoma (clinical) 65 [email or web address] Not available 12/26 10:51:37 Father Cirrhosis of liver [email or web address] Not available 12/15 12:18:52 Mother Diabetes mellitus [email or web address] Not available 12/15 12:14:13 Notes:Lupus (Sister) Medical History Condition Response Coronary Artery Disease N Other N Atrial Fibrillation N High Blood Pressure N Depression Y COPD N Blood Clots N Anxiety Disorder Y Muscle, Joint, or Bone Problems N Acid Reflux (GERD) Y Cancer N Stroke N High Cholesterol N Liver Disease N Headaches Y Kidney or Bladder Problems N Thyroid Problems N GI Problems N Skin Problems N Anemia N Heart Attack (IA) N Diabetes N Seizures/Epilepsy N Asthma N Allergies Y Hepatitis N Heart Failure N Osteoporosis N Gynecological History Statement/Question Response Date of Last Mammogram 02/18/2020 Flow Heavy Date of LMP 06/21/2020 Frequency of Cycle (Q days) 28 Menses Monthly Y Duration of Flow (days) 5 Age at Menarche 8 Current Control Method Tubal Ligat ion Age at First Child 27 LMP Definite Obstetrics History GPAL:G 3 P 1 1 1 2 Type Value Multiple Births 0 Full Term 1 Induced 0 Spontaneous 1 Premature 1 Living 2 Ectopics 0 Total 3 Immunizations Vaccine Type Date Status Note Provider Nam e and Address Organization Details Recorded Time Pneumococcal conjugate PCV20, polysaccharide WLD792 conjugate, adjuvant, PF 4 completed JOAQUIN TEJEDA Attn: Accounting,[address] [facility], [place], [address], [place] [facility] 02/06/2024 19:41:34 tetanus toxoid, unspecified formulation 7 completed Not Available [facility] 02/08/2023 22:53:27 Past Encounters Encounter ID Performer Location Encounter Start Date Encounter Closed Date Diagnosis/Indication Diagnosis SNOMED-CT Code Diagnosis ICD10 Code Diagnosis Note [id number] Adarsh Cormier MD [facility] (Adult Med) [address] [place] [phone] 12/15/2016 11:25:07 12/19/2016 13:51:31 Family history of diabetes mellitus type 2 423998324 Z83.3 [id number] Adarsh Cormier MD [facility] (Adult Med) [address] [place] [phone] 01/19/2017 11:57:53 01/19/2017 14:08:40 Type 2 diabetes mellitus 56114993 E11.49 Diabetic p eripheral neuropathy 060674758 E11.40 [id number] Adarsh Cormier MD [facility] (Adult Med) [address] [place] [phone] 03/17/2017 10:37:53 03/17/2017 11:57:57 Local infection of wound 47380227 T14.90XA Painful.razia torres . [id number] MD [facility] (Adult Med) [address] [place] [address] 03/22/2017 14:38:04 03/22/2017 16:33:37 Local infection of wound 20922790 T14.90XA Painful.razia torres . [id number] Yumi Munguia MA [facility] (Adult Med) [address] [place] [address] 06/01/2017 15:36:43 06/01/2017 16:51:02 Type 2 diabetes mellitus 89956010 E11.49 Chronic ulcer of toe 430 354597 L97.509 Under the care of her podiatry Diabetic p eripheral neuropathy 410299583 E11.40 [id number] JOAQUIN TEJEDA [facility] [address] [place] [address] 01/23/2020 10:48:03 01/24/2020 08:56:27 Smoker 17598343 F17.200 Smoking 2ppd. Has not thought about quitting. We discussed options and she will f/u in one month. goal is to cut down to at least 1.5 ppd. Patient agrees. Retinal hemorrhage 69688 008 H35.63 patient has history of retinal bleeding. need notes. Sending to opthalmolo gy and may need retinal specialist Type 2 pamela betes mellitus 41446563 E11.21 Danyell is a type II diabetic with retinal hemorrhage and neuropathy presenting for medication . Was taking metformin and gabapentin but has lost f/u. She is not checking glucose at home, non-compli ant with f/u visits, medication s, and diet. drinks two 16 oz of soda per day. eats sweets and boxed meals. Checking labs to assess kidneys and will start medication tomorrow. Patient going to [facility] today.- check sugars daily; goal fasting <130 and 1-2 hours after meal <180. call office if sugars falling under 70. - discussed diet: avoid sugars, pasta, tortillas, bread, rice, potatoes - Excercise 30 min 5x week - diabetic eye exam - foot exam at next visit Screening mammography 24 994622 Z12.31 [id number] JOAQUIN TEJEDA [facility] [address] [place] [address] 03/05/2020 09:36:01 03/06/2020 16:41:37 Type 2 diabetes mellitus 26497366 E11.49 Danyell had reaction to januvia and she prefers to start glimepirid e as she was previosuly controlled on these medication s. - check sugars daily; goal fasting <130 and 1-2 hours after meal <180. call office if sugars falling under 70. - discussed diet: avoid sugars, pasta, tortillas, bread, rice, potatoes- Excercise 30 min 5x week- diabetic eye exam- foot exam at next visit [id number] JOAQUIN TEJEDA [facility] [address] [place] [address] 07/01/2020 08:03:28 07/02/2020 15:12:08 Type 2 diabetes mellitus 16942221 E11.49 Patient doing better on glimepirid e. She is encouraged to make in person visit to have feet check, BP and physical. She is higher risk as she has already had amputation , had uncontroll ed diabetes at last lab check, and continues having ROWAN and increased urination. Will put in labs and she will have done at [facility]. - check sugars daily; goal fasting <130 and 1-2 hours after meal <180. call office if sugars falling under 70. - discussed diet: avoid sugars, pasta, tortillas, bread, rice, potatoes- exercise 30 min 5x week- diabetic eye exam- foot exam at next visit - needs IO visit to check BP and foot exam - repeating labs - needs yearly eye exam Diabetic p eripheral neuropathy 583741726 E11.40 need refill [id number] JOAQUIN TEJEDA [facility] [address] [place] [address] 07/21/2020 15:23:52 07/24/2020 10:36:37 Type 2 diabetes mellitus 18290747 E11.49 A1C 10.5 ON current medication s. States she does forget medication s at times. adding victoza. denies thyroid cancer hx in self or family. take .6 for first week and then increase to 1.2. f/u one month. medication regiment: glimepirid e 4mg bid, simvastati n increased to 40 mg, metformin 1000mg bid and adding victoza 1.2 mg daily - check sugars daily; goal fasting <130 and 1-2 hours after meal <180. call office if sugars falling under 70. 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 loss of vibratory sensation. left foot onychomico sis. 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 loss of vibratory sensation. denies falling or tripping recently but she did struggle with this in the past. She does try to walk daily. - nueurology Smoker 34816588 F17.200 Smoking 2ppd. Has not thought about quitting. We discussed options and she will f/u in one month. goal is to cut down to at least 1.5 ppd. Patient agrees. [id number] JOAQUIN TEJEDA [facility] [address] [place] [address] 09/05/2022 14:12:53 09/05/2022 14:54:18 Uncontrolled type 2 diabetes mellitus 770168215 E11.65 A1C >13 (07/2022 per hospital records) 10.5 (2020).thomas ahn sent to hospital medication regiment: taking insulin from hospital Hepatomegaly 15362287 R1 6.[address] 07/2022 showing hepatomega ly with ascitisPEX : patient has serve distension of her abdomen. on chart review she has gained about 30 lb since hospital visit 07/2022 Morbid obesity 285685666 E66.01 Ascites 184667442 R18.8 30 lb weight gain since released form hospitalpa sunday has severe ascitis and 2+ pitting edema Tachycardia 6445090 R00. 0 HR 066 [id number] JOAQUIN TEJEDA [facility] [address] [place] [address] 11/21/2022 13:49:27 11/24/2022 13:07:51 Diabetes mellitus 78808511 E13.42 .A1C 7.7% 10/2022 medication s: lantus 18 units (increasin g from 15 units) Foot exam: next visitEye Exam: will go to quantumAlb /Cr: abnormalSt atin: complaintp neumonia vaccine: Cirrhosis of liver 007 K74.60 cirrhosis with ascitishas 2.8 L removed at ER today 11/21/22adv ised following weight checksneed s to establish with GI EDWIN Coronary atherosclerosis 955859654 I25.10 CABG X 5 [facility] 08/2022fo owing Dr Deng rt cath 09/08/22 revealed 99% LAD and RCA occlusion . she had LVEDP of 24 AND WEDGE pressure 27. she had CABG X5 09/16/22. She then developed cardiogeni c shock, afib with RVR and started on amiodarone . Heart failure 19938844 I 50.9 echo showed EF 10% w/ multiple valve abnormalit ies. [id number] JOAQUIN TEJEDA [facility] [address] [place] [address] 12/26/2022 14:52:53 12/26/2022 15:10:51 Diabetes mellitus 96062684 E13.42 .A1C 7.7% 10/2022need s refillsmed ications: lantus 18 units (increasin g from 15 units) Foot exam: next visitEye Exam: will go to quantumAlb /Cr: abnormalSt atin: complaintp neumonia vaccine: Cirrhosis of liver 007 K74.60 cirrhosis with ascitishas distended abdomen with 20+ weight gain since last visitadvis ed ER [facility] f/u with her outpatient advised following weight checksneed s to establish with GI EDWIN Coronary atherosclerosis 339416197 I25.10 CABG X 5 [facility] 08/2022foll owing Dr Yoseph Yañez, seen one week agoheart cath 09/08/22 revealed 99% LAD and RCA occlusion . she had LVEDP of 24 AND WEDGE pressure 27. she had CABG X5 09/16/22. She then developed cardiogeni c shock, afib with RVR and started on amiodarone . Heart failure 06649555 I 50.9 echo showed EF 10% w/ multiple valve abnormalit ies.follow ing Dr Yoseph Yañez, seen one week ago [id number] [facility] [address] [place] [address] 05/08/2023 14:44:03 05/11/2023 12:08:49 Wound of skin 094971033 T14.8XXA first toe with with wounds to base and medial aspect pressure points. MRI reviewed 04/20/22. advised patient to return to ER. I will not go back to ER, I know when I need to go. medial wound is drainingdr essing applied todayon augmentin until 05/12/23xra y, she says she may not get this done# Type 2 pamela betes mellitus 31210650 E11.49 increase lantus and add on [id number] 11.8% (04/2023) 7.7% (10/2022)me dication regiment: increase lantus to 22 Foot exam: next visitEye Exam: will go to quantumAlb /Cr: abnormalSt atin: complaintp neumonia vaccine: Diabetes mellitus 748290 09 E13.42 11.8 A1C 7.7% 10/2022need s refillsmed ications: lantus 18 units (increasin g from 15 units) Foot exam: next visitEye Exam: will go to quantumAlb /Cr: abnormalSt atin: complaintp neumonia vaccine: Myocardial infarction 22 428662 I21.9 refill [id number] JOAQUIN TEJEDA [facility] [address] [place] [address] 08/09/2023 15:30:42 08/09/2023 16:19:58 HIV screening 033735209 Z11.4 screen Wound of skin 265383065 T14.8XXA first toe with with wounds to base and medial aspect pressure points. MRI reviewed 04/20/22. adviseddre ssing applied todayneeds to see exercise physiologist certified xray, she says she may not get this done# [phone] Myocardial infarction 22 515386 I21.9 refill Uncontroll ed type 2 diabetes mellitus 710623193 E11.65 A1C 11.8% (04/2023) 7.7% (10/2022), >13 (07/2022 per hospital records) 10.5 (2020).med ication regiment: increase lantus to 22 and glp1 Foot exam: decreased sensation, sending to exercise physiologist certified Eye Exam: will go to quantumAlb /Cr: abnormalSt atin: complaintp neumonia vaccine: Heart failure 07849387 I 50.9 echo showed EF 10% w/ multiple valve abnormalit ies.follow ing Dr Yoseph Yañez Type 2 pamela betes mellitus 61176657 E11.49 injecting 22 units at nightBG post yogurt 185 having dizziness and nausea and vomiting with trulicity. will try 2 more nbksfJ3A 11.8% (04/2023) 7.7% (10/2022)me dication regiment: increase lantus to 22 Foot exam: next visitEye Exam: will go to quantumAlb /Cr: abnormalSt atin: complaintp neumonia vaccine: Nausea 651378767 R11.0 with GLPstates she does not need zofran Cirrhosis of liver 97457 007 K74.60 cirrhosis with ascitisnee ds to see GI ASAPadvise d following weight checksneed s to establish with GI EDWIN Screening mammography 24 052266 Z12.31 needs tos schedulegi carrillo order Screening for malignant neoplasm of colon 432007068 Z12.11 given order Smoker 91269978 F17.200 Smoking 1-1.5 . Has not thought about quitting. We discussed options and she will f/u in one month. goal is to cut down to at least 1.5 ppd. Patient agrees. Obesity 903811877 E66.9 [id number] JOAQUIN TEJEDA [facility] [address] [place] [address] 12/12/2023 14:39:56 12/28/2023 09:57:15 Diabetic foot ulcer 431616091 E13.621 called around and found her wound careappoin tment made for xdtyonj8602/2024 exercise physiologist certified 01/04/24 [facility] last appointmen t Uncontroll ed type 2 diabetes mellitus 812556249 E11.65 A1C 8.5% (12/2023) 11.8% (04/2023) 7.7% (10/2022), >13 (07/2022 per hospital records) 10.5 (2020).med ication regiment: increase lantus to 22 and glp1 Foot exam: decreased sensation, sending to exercise physiologist certified Eye Exam: will go to quantumAlb /Cr: abnormalSt atin: complaintp neumonia vaccine: [id number] JOAQUIN TEJEDA [facility] [address] [place] [address] 02/05/2024 13:41:45 02/07/2024 15:06:08 Diabetic foot ulcer 734842967 E13.621 fully healed, dry skin noted. missing first toeappoint ment made for omhhieb4802/2024 exercise physiologist certified 01/04/24 [facility] last appointmen t Uncontroll ed type 2 diabetes mellitus 417942781 E11.65 increase 2 units LA BG fastin-180 , sometimes 250through day before meals 130-160, occasional ly qsdaqeqH8Y 8.3 (01/2024) 8.5% (12/2023) 11.8% (04/2023) 7.7% (10/2022), >13 (07/2022 per hospital records) 10.5 (2020).med ication regiment: increase lantus to 22 and glp1 Foot exam: decreased sensation, sending to exercise physiologist certified Eye Exam: will go to quantumAlb /Cr: abnormalSt atin: complaintp neumonia vaccine: 01/2024 Administra tion of pneumococcal vaccine 55652921 Z23 Screening for malignant neoplasm of colon 649186437 Z12.11 given order Cirrhosis of liver 29022 007 K74.60 hx of cirrhosisn eeds to see GI ASAPadvise d following weight checksneed s to establish with GI EDWIN Heart failure 73124782 I 50.9 echo showed EF 10% w/ multiple valve abnormalit ies.follow ing Dr Yoseph Minor [facility] Health Concerns Section Related Observation LastModified by Organization Detai ls LastModified Time None Recorded Concern Status LastModified by Organization Details LastModified Time None Recorded Advance Directives Directive N: Payers Encounter Date Sequence Insurance Name Policy Number Policy Zheng Covered Member ID Zheng Member ID Guarantor Name 12/26/2022 1 [facility] (MEDICAID REPLACEMENT - HMO) [id number] Danyell Gregorio [id number] Danyell Osceola 05/08/2023 1 [facility] (MEDICAID REPLACEMENT - HMO) [id number] Danyell Osceola [id number] Danyell Osceola 08/09/2023 1 [facility] (MEDICAID REPLACEMENT - HMO) [id number] Danyell Osceola [id number] Danyell Osceola 12/12/2023 1 [facility] (MEDICAID REPLACEMENT - HMO) [id number] Danyell Gregorio [id number] Danyell Osceola 02/05/2024 1 [facility] (MEDICAID REPLACEMENT - HMO) [id number] Danyell Gregorio [id number] Danyell Gregorio Notes Date Note Type Note Provider Name and Address Organization Details Recorded Time 12/26/2022 text/html pt presents for ER f/u saw cardiology Monday, one week ago. Has her on activity restrictions. added torsemide 20 mg and stopped furosemide. She also went to [facility] again last week for paracentesis. [facility] cannot get hold of Dr Grimaldo office. She has sob breath today with a few steps. needs lantus pen and not vial. [facility] has not checked glucose in one month and has not injected insulin. at the hospital my sugar is always low 100's. JOAQUIN TEJEDA Attn: Accounting,[address] [place], [address], [place] [facility] 12/26/2022 15:31:57 05/08/2023 text/html Danyell is a 48 YO F pmhxz cirrosis, uncontrolled DM, hyperlipidemia, obesity, CAD Last visit: 12/2022, non complaint Patient states she missed last visit due to losing insurance. She ran out of Plored. on chart review it was sent to pharmacy and she has not picked up. She has not followed up with GI or cardiology. She is not checking her BG numbers. She was hospitalized for a diabetic ulcer on her first toe. I went in with the ulcer and they cut into my toe and caused another one. MRI does show infection but no osteomyelitis. She was released on augmentin x 14 days. last day is 05/12/23. She says she is treating it fine on her own. She changes dressing daily. She states she drinks 32 oz soda per week. She has been eating fast food everyday. she has cardiology appointment in 2 weeks. denies cp. sob . JOAQUIN TEJEDA Attn: Accounting, [address] [facility], [place], [address], [place] [facility] 05/10/2023 08:38:25 08/09/2023 text/html Danyell is a 48 YO F pmhxz cirrosis, uncontrolled DM, hyperlipidemia, obesity, CAD, pressure foot ulcer Last visit: 04/2023, missed her last visit She needs refills today. since last visit states she did see her washer assembler but did not have xray of foot, see wound clinic or f/u with GI. Has not completed mammogram. She was hospitalized for a diabetic ulcer early this year on her first toe. I've been taking care of it on my own. MRI at that time showed infection but no osteomyelitis. She was released on augmentin x 14 days (finished 05/12/23). She changes dressing daily. She states she stopped soda. She has been eating fast food everyday. She is taking medications as prescribed. GLP gives her nasuea since increase 2 weeks ago. She feels she can continue taking it. .washer assembler dr yoseph bajwa saw him april and goes back next month JOAQUIN TEJEDA Attn: Accounting, [address] [facility], [place], [address], [place] [facility] 08/10/2023 16:43:24 12/12/2023 text/html Danyell is a 48 YO F pmhxz cirrosis, uncontrolled DM, hyperlipidemia, obesity, CAD, pressure foot ulcer here for foot amputation f/u Last visit: 07/2023 and no showed for other appointments At last visit patient was advised ER adn wound care for foot ulcer. She opted to care for her wound. Wound worsened and went to hospital where she had osteomyelitis. She is following with wound care at [facility] and saw them 12/08/23. Per notes: today she denies fever, chills. JOAQUIN TEJEDA Attn: Accounting, [address] [facility], [place], [address], [facility] 12/28/2023 09:21:59 02/05/2024 text/html Danyell is a 48 YO F pmhxz cirrosis, uncontrolled DM, hyperlipidemia, obesity, CAD, pressure foot ulcer here for foot amputation f/u She went to her last visit with Vinny 12/2023 and has f/u tomorrow with new provider She has been checking BG and states during the day they run under 160 but in the morning they run >200. She admits to eating fast food every day. She missed her cardiology appointment this month. Has not followed up with GI for cirrhosis. denies swelling in her belly or confusion. Agrees to colon screening. agreed to prevnar 20. Will schedule pap here, I haven't had sex in 8 years. JOAQUIN TEJEDA Attn: Accounting[address] [place], [address], [facility] 02/06/2024 19:54:03 OBGyn Episode No OBEpisode recorded.
--- OUTSIDE RECORDS SUMMARY | 2024-07-16 19:25 | XMS_ITS ---
Author Organization Unknown Address [address] [place] [phone] Phone Care Team Providers Care Tamale Machine Feeder Name Role Phone MADDI CADET Attending Unavailable [...] Plan of Treatment US Echo With Color (05842) 08/09/2023 Encounters Encounter Diagnosis Start Date Code Code Sys tem Atherosclerosis of coronary artery bypass graft(s) without angina pectoris 01/16/2023 SNOMED-CT Personal Care Team Section Performer Name Performer Role Active Date Inactive Da te
--- OUTSIDE RECORDS SUMMARY | 2024-07-16 19:25 | XMS_ITS | Clinical Summary ---
Author Organization [facility] Address [address] [place] [address] Care Team Providers Care Ribbon Blockmaker Name Role Phone Adarsh Cormier MD Primary Care Provider [phone] Source Comments [facility] [employer],non-owned Affiliates and Associated Physician Practices is amultiple site organization consisting of ambulatory clinics and hospital sitesin [place], [place], [place] and [place]. This disclosure is being madepursuant to the Care Everywhere program and may not contain all information available regarding this patient. 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 Gender Identity Not on file Sexual Orientation Not on file Plan of Treatment Health Maintenance Due Date Last Done Comments COLOGUARD (AGES 45-75) - COL ON CA SCREENING 1974 COLON MONITORING 1974 COLONOSCOPY - COLON CA SCREENING 1974 CT COLONOGRAPHY - COLON CA SCREENING 1975 Colorectal Cancer Screening 1974 FIT - COLON CA SCREENING 1974 FLEX SIG - COLON CA SCREENING 1974 LIPID TESTING 1974 MAMMOGRAM 1974 PAP SMEAR 1974 HIV SCREENING 1989 HEPATITIS C SCREENING 04/30/1992 DTAP/TDAP/TD VACCINES (1 - Tdap) 1993 HEPATITIS B VACCINE (1 of 3 - 19+ 3-dose series) 1993 COVID-19 VACCINE ( - 2023-2 5 season) 2023 DEPRESSION SCREENING 03/27/2024 PNEUMOCOCCAL VACCINE 50+ (1 of 1 - PCV) 2024 ZOSTER VACCINE (1 of 2) 2024 INFLUENZA VACCINE (Season Ended) 2024 HIB VACCINE Aged Out No longer eligi ble based on patient's age to complete this topic HPV VACCINE Aged Out No longer eligi ble based on patient's age to complete this topic MENINGOCOCCAL (Group B) VACC INE SHARED DECISION-MAKING Aged Out No longer eligibl e based on patient's age to complete this topic MENINGOCOCCAL GROUPS A/C/Y/W VACCINE Aged Out No longer eligible b ased on patient's age to complete this topic Insurance [facility] Care Teams Ribbon Blockmaker Relationship Specialty Start Date End Date Adarsh Cormier MD [address] [place] [phone] PCP - General 11/17/17
--- NOTE | 2024-07-16 19:44 | ECG_ITS ---
Test Date: 2024-07-16 19:57:46 Measurements Intervals [place] Rate: 92 P: 30 ME: 158 QRS: 28 QRSD: 95 T: 97 QT: 355 QTc: 441 Interpretive Statements SINUS RHYTHM ANTERIOR INFARCT, AGE INDETERMINATE PROBABLE INFERIOR MYOCARDIAL INFARCTION , PROBABLY OLD BORDERLINE ST-T WAVE ABNORMALITY- HIGH LATERAL LEADS BASELINE WANDER- V4, V6 ABNORMAL ECG No previous ECG available for comparison Electronically Signed On 07-17-2024 06:32:44 CDT by Nate Rivera D.O.
--- OUTSIDE RECORDS SUMMARY | 2024-07-16 19:57 | XMS_ITS | Clinical Summary ---
Author Organization [facility] Address [address] [place] [address] Care Team Providers Care Butcher'S Assistant Name Role Phone Pierce Vásquez PA-C Primary Care Provider [phone] Allergies Active Allergy Reactions Criticality Noted Date [...] place to sleep or slept in a chcf (including now)? No 12/12/2022 Comments No Sex [...] Ross, RN Medical Devices Implanted Type Area Drafter Detail Device Identifier Shelf Expiration Date Model / Serial / Lot Wire Sterum Suture Kit [employer] #7 03/28 Ccs-1 - [id number] Implanted:Qty: 1 on 09/16/2022 by Clint Alex MD at [facility] Wire N/A: Sternum [employer] 12/25/2026 [id number] / / [id number] Description:1 wires implante d Wire Sternotomy Suture Kit - [id number] Implanted:Qty: 1 on 09/16/2022 by Clint Alex MD at [facility] Wire N/A: Sternum [employer] 04/27/2027 [id number] / / [id number] Description:5 wires implante d Procedures Procedure Name [...] VE NON-REACTI VE 09/07/2022 10:08 AM CDT [facility] HEP B CORE TOTAL AB NON-REACTI VE NON-REACTI VE 09/07/2022 10:08 AM CDT [facility] HEP B SURFACE AB NON-REACTI VE 09/07/2022 10:08 AM CDT [facility] HAV IGM NON-REACTI VE NON-REACTI VE 09/07/2022 10:08 AM CDT [facility] HEPATITIS C AB NON-REACTI VE NON-REACTI VE 09/07/2022 10:08 AM CDT [facility] 09/07/2022 7:17 AM CDT us Patt Magdaleno [facility] Final Result [facility] [address] [place] [address], from Last 3 Months or Most Recently Relevant to Health Maintenance Insurance BLUE CROSS BLUE [facility] C/O PROVIDER SERVICES JOAQUIN YE [id number] Advance Directives * Full Code (Latest Code [...] 2:19 AM 09/08/2022 7:25 PM Care Teams Butcher'S Assistant Relationship Specialty Start Date End Date Pierce Vásquez PA-C [address] [place] [id number] PCP - General NURSE PRACTITIONER 08/08/22
--- OUTSIDE RECORDS SUMMARY | 2024-07-16 19:57 | XMS_ITS ---
Author Organization Unknown Address [address] [place] [phone] Phone Care Team Providers Care Parts Manager Name Role Phone MADDI CADET Attending [...] Plan of Treatment US Echo With Color (58961) 08/09/2023 Encounters Encounter Diagnosis Start Date Code Code Sys tem Atherosclerosis of coronary artery bypass graft(s) without angina pectoris 06/19/2023 SNOMED-CT Personal Care Team Section Performer Name Performer Role Active Date Inactive Da te
--- OUTSIDE RECORDS SUMMARY | 2024-07-16 19:57 | XMS_ITS | CONTINUITY OF CARE DOCUMENT ---
Author Name bradleyallielester Address Unknown Organization [facility] Address [address] [facility] [address] [place] [address] Phone [phone] Care Team Providers Care Industrial Hygienist Name Role Phone Kristine MARIA, Norris Unavailable [phone] PIERCE VÁSQUEZ PA-C Unavailable [phone] PIERCE VÁSQUEZ PA-C Unavailable INSURANCE PROVIDERS Payer name Policy type / Coverage type [place] red alliance party ID [employer]ETNA [facility] (MEDICAID)[id number] [id number]
--- OUTSIDE RECORDS SUMMARY | 2024-07-16 19:57 | XMS_ITS ---
Author Organization Unknown Address [address] [place] [phone] Phone Care Team Providers Care Special Effects Person Name Role Phone MADDI CADET Attending Unavailable Immunization Immunization Date Status Additional Notes Code Code System tetanus toxoid, unspecified formulation 11/21/2016 Completed 112 CVX Results US ECHO W/ COLOR - Completed : 02/20/2023 15:34 LOINC: See Scanned Image Attachment for Report Dictated By: Trans Initials: [facility] Trans Date: 02/23/23 12:15 <<REPDIST>> Social [...] Plan of Treatment US Echo With Color (68820) 08/09/2023 Encounters Encounter Diagnosis Start Date Code Code Sys tem Atherosclerotic heart diseas e of [place] coronary artery without angina pectoris 02/20/2023 SNOMED-CT Personal Care Team Section Performer Name Performer Role Active Date Inactive Da te Imaging Narrative Notes [facility] 02/23/2023 12:[address] [address] RADIOLOGY REPORT Patient Number: [id number] Patient Name: CHRIS HOFFMAN Type: O/P MR Number: [id number] : 1975 Age: 47 Sex: F Room #: Admit Date: 02/20/23 Discharge Date 02/20/23 Ordering Physician: MADDI CADET Family Physician: Second Physician: X-Ray Number : [id number] US ECHO W/ COLOR [id number] COMPLETE:02/20/23 15:34 ASL [id number] (REASON-ECHO COMPLTE: CAD See Scanned Image Attachment for Report Dictated By: Jevon Initials: yeimi Escoto Date: 02/23/23 12:15 <<REPDIST>>
--- OUTSIDE RECORDS SUMMARY | 2024-07-16 19:57 | XMS_ITS | Clinical Summary ---
Author Organization [facility] at the [facility] Office Center Address [address] [place] [address] Care Team Providers Care Data Center Architect Name Role Phone Jazmine Hdz Primary Care [...] Comments:1 1/5 - 2 packs a day [employer] Utilities Answer Date Recorded In the past 12 months has [employer], gas, oil, or water [employer] threatened to shut off services in your home? No 11/03/2023 Social Connection and Isolation Panel [NHANES] A nswer Date Recorded In a typical week, how many times do you talk on the phone with family, friends, or neighbors? Patient declined 11/03/2023 How often do you get togethe r with friends or relatives? Patient declined 11/03/2023 How often do you attend latter day or hoahaoism serv ices? Patient declined 11/03/2023 Do you belong to any clubs o r organizations such as latter day groups, unions, fraternal or athletic groups, or [...] any time in the past 12 m [facility], were you homeless or living in a [place] facility (including now)? No 11/03/2023 Personal Safety Answer Date Recorded Have you ever been in or are you currently in a harmful physical or emotional relationship or is someone making you feel afraid or unsafe? 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 HDL 21(L) >=40 mg/dL [facility] Comment: Interpretive Data Ages < or [...] on 2017. LDL, calculated 41 <=129 mg/dL [facility] Comment: Interpretive Data Ages < or [...] revised on 2017. Non-HDL Cholesterol 65 mg/dL [facility] Comment: Interpretive Data Ages < or [...] last revised on 2017. Chol/HDL ratio 4 [facility] Blood 10/21/2023 10:2 7 PM CDT 10/21/2023 10:46 PM CDT Elizabeth Eller MD LAB BLOOD ORDERABLES Fi nal Result Performing Organization Address [facility] [place] [address] * (ABNORMAL) Hemoglobin A1c (10/21/2023 1:47 PM CDT) Hgb A1C 13.2(H) 4.0 - 5.6 % Estimated Average Glucose 332 mg/dL [facility] Comment: The ADA recommends reporting an [...] BLOOD ORDERABLES Final Result Performing Organization Address [facility] [place] [address] from Last 3 Months or Most Recently Relevant to Health Maintenance Insurance [facility] PLAN [facility] Advance Directives For more information, please contact: [phone] * Full Code (Latest Code Status on File) Date Activated Date Inactivated Comments 10/21/2023 6:38 PM 11/02/2023 7:13 PM * Full Code Date Activated Date Inactivated Comments 10/21/2023 3:23 PM 10/21/2023 6:38 PM Care Teams Data Center Architect Relationship Specialty Start Date End Date Jazmine Hdz PA PCP - General Physician Home Care Music Therapist 10/27/22
--- OUTSIDE RECORDS SUMMARY | 2024-07-16 19:57 | XMS_ITS | Referral Summary ---
Author Organization [facility] at the [facility] Office Center Address [address] [place] [address] Care Team Providers Care Taffy Candy Maker Name Role Phone Jazmine Hdz Primary Care [...] Comments:1 1/5 - 2 packs a day [facility] Utilities Answer Date Recorded In the past 12 months has [employer] electric, gas, oil, or water company threatened [...] declined 11/03/2023 How often do you attend amish or quaker serv ices? Patient declined 11/03/2023 Do you belong to any clubs o r organizations such as amish groups, unions, fraternal or athletic groups, or [...] any time in the past 12 m [facility], were you homeless or living in a group home (including now)? No 11/03/2023 Personal Safety Answer Date Recorded Have you ever been in or are you currently in a harmful physical or emotional relationship or is someone making you feel afraid or unsafe? 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 Triglycerides 118 <=149 mg/dL [facility] Comment: Interpretive Data Ages < or = [...] on 2017. HDL 21(L) >=40 mg/dL [facility] Comment: Interpretive Data Ages < or = [...] 2017. LDL, calculated 41 <=129 mg/dL [facility] Comment: Interpretive Data Ages < or = [...] revised on 2017. Non-HDL Cholesterol 65 mg/dL [facility] Comment: Interpretive Data Ages < or [...] last revised on 2017. Chol/HDL ratio 4 [facility] Blood 10/21/2023 10:2 7 PM CDT 10/21/2023 10:46 PM CDT us Elizabeth Eller MD LAB BLOOD ORDERABLES Fi nal Result Performing Organization Address City/[facility]/ZIP Co de Phone Number [facility] Department [place] [address] * (ABNORMAL) Hemoglobin A1c (10/21/2023 1:47 PM CDT) Hgb A1C 13.2(H) 4.0 - 5.6 % Estimated Average Glucose 332 mg/dL [facility] Comment: The ADA recommends reporting an [...] Sol MD LAB BLOOD ORDERABLES Final Result [facility] Department [place] [address] from Last 3 Months or Most Recently Relevant to Health Maintenance Insurance [id number] [place] [address] PLAN [facility] PL[facility] Advance Directives For more information, please contact: [phone] * Full Code (Latest Code Status on File) Date Activated Date Inactivated Comments 10/21/2023 6:38 PM 11/02/2023 7:13 PM * Full Code Date Activated Date Inactivated Comments 10/21/2023 3:23 PM 10/21/2023 6:38 PM Care Teams Taffy Candy Maker Relationship Specialty Start Date End Date Jazmine Hdz PA PCP - General Physician Pbx Inspector 10/27/22
--- OUTSIDE RECORDS SUMMARY | 2024-07-16 19:57 | XMS_ITS | Encounter Summary ---
Author Organization [facility] Healthcare Address [address] [place] [address] Care Team Providers Care Python Architect Name Role Phone Jazmine Hdz Primary Care Provider + Marlyn Watson DEPUTY COMMISSIONER Unavailable [phone] Encounter Details Date Type Department Care Team (Late st Contact Info) Description 11/06/2023 Telephone [facility] [address] [place] [id number] Georgette Correa, RN Social History Tobacco Use Types Packs/Day Years Used Date Smoking Tobacco: Every Day Cigarettes [facility] Utilities Answer Date Recorded In the past 12 months has th [employer] electric, gas, oil, or water company threatened [...] declined 11/03/2023 How often do you attend methodist or adventism serv ices? Patient declined 11/03/2023 Do you belong to any clubs o r organizations such as methodist groups, unions, fraternal or athletic groups, or [...] time in the past 12 m [facility], were you homeless or living in a [facility] (including now)? No 11/03/2023 Personal Safety Answer Date Recorded Have you ever been in or are you currently in a harmful physical or emotional relationship or is someone making you feel afraid or unsafe? 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 Gender Identity Not on file Sexual Orientation Not on file documented as of this encounter Plan of Treatment Not on file documented as of this encounter Visit Diagnoses Not on filedocumented in this encounter Additional Health Concerns Infection Onset Date Last Indicated Resolved Time Ring Surveillance 10/22/2023 10/22/2023 11/09/2023 3:05 AM CDT documented as of this encounter Care Teams Python Architect Relationship Specialty Start Date End Date Jazmine Hdz PA PCP - General Physician Tai Chi Instructor 10/27/22 Marlyn Watson, ROBERT [address] [facility] ([facility]) Mailstop [phone] [place] [address] SHOP Outpatient Wall Taper Helper 11/03/23 11/29/23 documented as of this encounter
--- OUTSIDE RECORDS SUMMARY | 2024-07-16 19:58 | XMS_ITS | Clinical Summary ---
Author Organization [facility] Address [address] [place] [address] Care Team Providers Care Doper Name Role Phone Adarsh Cormier MD Primary Care Provider [phone] Source Comments [facility],non-owned Affiliates and Associated Physician Practices is amultiple site organization consisting of ambulatory clinics and hospital sitesin [place], [place], [place] and [place]. This disclosure is being madepursuant to the Care Everywhere program and may not contain all information available regarding this patient. 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
--- OUTSIDE RECORDS SUMMARY | 2024-07-16 19:58 | XMS_ITS ---
Author Organization Unknown Address [address] [place] [phone] Phone Care Team Providers Care Superintendent Storage Area Name Role Phone MADDI CADET Attending Unavailable [...] Plan of Treatment US Echo With Color (27344) 08/09/2023 Encounters Encounter Diagnosis Start Date Code Code Sys tem Atherosclerosis of coronary artery bypass graft(s) without angina pectoris 01/16/2023 SNOMED-CT Personal Care Team Section Performer Name Performer Role Active Date Inactive Da te
[2024-07-16 20:06] LABS: Basophils Percent Auto 0.3 % (0.2-1.2); Eosinophils Absolute Auto 0.1 K/mm3 (0-0.3); Eosinophils Percent Auto 0.5 % (0-4.4); Hematocrit 33.9 % (37.0-47.0); Hemoglobin 10.8 g/dL (12.0-15.0); Immature Granulocyte Absolute 0.06 K/mm3 (0.00-0.031); Immature Granulocyte Percent A 0.4 % (0-0.5); Lymphocytes Absolute Auto 1.05 K/mm3 (0.9-3.2); Lymphocytes Percent Auto 6.8 % (18.3-44.2); Mean Corpuscular HGB Conc 31.9 g/dl (32-36); Mean Corpuscular Hemoglobin 26.3 pg (26-34); Mean Corpuscular Volume 82.5 fl (80-100); Mean Platelet Volume 10.1 fl (7.4-10.4); Monocytes Percent Auto 6.2 % (2.6-8.5); Neutrophils Absolute Auto 13.3 K/mm3 (1.3-6.7); Neutrophils Percent Auto 85.8 % (45.5-73.1); Platelet Count Result 257 k/mm3 (150-375); Red Blood Count 4.11 M/mm3 (4.2-5.4); Red Cell Distribution Width 15.9 % (11.5-14.5); White Blood Count 15.5 K/mm3 (4.5-10.0)
--- NOTE | 2024-07-16 20:11 | PC.NURSE ---
x-ray at bedside
--- NOTE | 2024-07-16 20:14 | ED.GENADULT ---
HPI - General Adult General Chief complaint: Extremity Problem,Nontraumatic Stated complaint: diabetic ulcer on right foot Time Seen by Provider: 07/16/24 19:38 History of Present Illness HPI narrative: patient is a 49-year-old female who presents emergency department with chief complaint of right great toe redness and infection. The patient reports she has history of diabetic foot ulcers reports for the last couple of days she noticed there was some redness and reports that got worse today patient reports no fever does report that she had chills a couple time reports she has pain with ambulation the patient reports no purulent drainage patient reports her blood sugars have been running in the 100s to at most 200 reports her last hemoglobin A1c was 7 Related Data Home Medications ?Medication ?Instructions ?Recorded ?Confirmed ?Last Taken ?Type apixaban 5 mg tablet (Eliquis) 5 mg PO BID 04/17/23 04/17/23 04/17/23 01:09 History carvedilol 3.125 mg tablet 3.125 mg PO BID 04/17/23 04/17/23 04/17/23 01:07 History clopidogrel 75 mg tablet 75 mg PO DAILY 04/17/23 04/17/23 04/16/23 08:00 History insulin glargine 100 unit/mL 18 unit subcut HS 04/17/23 04/17/23 04/14/23 21:00 History subcutaneous solution (Lantus U-100 Insulin) spironolactone 50 mg tablet 50 mg PO DAILY 04/17/23 04/17/23 04/16/23 08:00 History torsemide 20 mg tablet 40 mg PO DAILY 04/17/23 04/17/23 04/16/23 08:00 History Allergies Allergy/AdvReac Type Severity Reaction Status Date / Time aspirin Allergy Unknown Urticaria Verified 07/16/24 19:22 morphine AdvReac Nausea and Verified 07/16/24 19:22 Vomiting Review of Systems Review of Systems: A 10 system review of systems was completed on the patient and is negative except for what is stated in the HPI. Nursing and ancillary documentation was reviewed. 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 Patient denies any significant findings. This was also performed at [facility] History of five vessel coronary artery bypass (~08/2022) Complicated by 3 episodes of cardiac arrest 1 intraoperatively and 2 additional episodes weeks following surgery. She reports she was hospitalized for 1 month. She was hospitalized at [facility] History of dental surgery Teeth removal 2013 History of incision and drainage Rt foot- Dr. Perez 10/07/2021 History of section Amputation toe s/p 5th ray amputation right [place] [address] Perez Family History Family History Father Diabetes mellitus Neuropathy Non-Hodgkin lymphoma Mother Diabetes mellitus Neuropathy Social History Social History Social History: Patient reports that she lives with her of 7 years and her 2 biological children and 6 step children. Her children ranged between ages of 13 in 28. She has been on disability for her over life due to schizophrenia. She denies any significant alcohol or drug use. She has smoked as many as 2 packs of cigarettes per day since she was a teenager. But she cut back to 1 pack of cigarettes per day proximally 2018. Code status: Full code Surrogate decision maker: Smoking packs per day: 2 Smoking cigarettes per day: 40.0 Years smoked: 37 Smoking pack-years: 74.00 Smoking status: Heavy tobacco smoker Second hand tobacco smoke exposure: Yes Alcohol intake: never Substance use: never Substance use type: does not use Do You Feel Safe in your Home?: Yes Lack of Transportation: No Lack of Food: Never True Current Housing: I Have Housing Concerned About Future Housing: No Difficulty Paying Gas/Electric Bills: No Difficulty Paying for Meds: No Currently Unemployed: No Education: Grade School Difficulty w/ Childcare or Family Care: No Gender identity (if verbalized by the patient): Female Sexual Orientation (if Verbalized by the Patient): Straight or Heterosexual Spiritual care concerns: No Agree to blood products: No Exam Narrative: GENERAL: Well-appearing, well-nourished, and in no acute distress. HEAD: Normocephalic, atraumatic. EYES: PERRLA and EOMI. ENT: Nares clear, no rhinorrhea or epistaxis. Mucous membranes moist. NECK: Supple. CHEST: Clear to auscultation. No respiratory distress. HEART: Regular rate and rhythm. No murmur heard. Normal peripheral pulses. ABDOMEN: Soft, nontender, nondistended, normal active bowel sounds. EXTREMITIES: Normal range of motion. No edema. Right great toe is erythematous there is redness streaking up the right leg there is area a there is no purulent drainage there is a developing ulcer at the base of the right great toe SKIN: Warm, dry, no rash. NEURO: No focal deficits. Alert and oriented x3. PSYCH: Normal mood and affect. Course Vital Signs Vital signs: Vital Signs Temperature 35.8 C L 07/16/24 19:23 Pulse Rate 106 H 07/16/24 19:23 Respiratory Rate 15 07/16/24 19:23 Blood Pressure 109/60 07/16/24 19:23 Pulse Oximetry 100 07/16/24 19:23 Oxygen Delivery Room Air 07/16/24 19:23 Temperature 35.8 C L 07/16/24 19:23 Pulse Rate 94 07/16/24 22:20 Respiratory Rate 16 07/16/24 22:20 Blood Pressure 120/67 07/16/24 22:20 Pulse Oximetry 96 07/16/24 22:20 Oxygen Delivery Room Air 07/16/24 19:[address] [facility] Narrative Medical decision making narrative: differential diagnosis includes cellulitis, diabetic foot ulcer, that necrotizing fasciitis, the scan of the foot showed no evidence of soft tissue gas laboratory studies showed a white count of 15.5 CRP and sed rate were elevated lactate was normal at 1.5 the the patient was started on cefepime Flagyl and vancomycin blood cultures were obtained case was discussed with the hospitalist the patient received further care in the inpatient setting Vital Signs Vital Signs: Vital Signs Temperature 35.8 C L 07/16/24 19:23 Pulse Rate 106 H 07/16/24 19:23 Respiratory Rate 15 07/16/24 19:23 Blood Pressure 109/60 07/16/24 19:23 Pulse Oximetry 100 07/16/24 19:23 Oxygen Delivery Room Air 07/16/24 19:23 Temperature 35.8 C L 07/16/24 19:23 Pulse Rate 94 07/16/24 22:20 Respiratory Rate 16 07/16/24 22:20 Blood Pressure 120/67 07/16/24 22:20 Pulse Oximetry 96 07/16/24 22:20 Oxygen Delivery Room Air 07/16/24 19:23 Lab Data 07/16/24 20:00 07/16/24 20:00 Labs: Lab Results 07/16/24 07/16/24 07/16/24 Range/Units 19:59 20:00 20:27 WBC 15.5 H (4.5-10.0) K/mm3 RBC 4.11 L (4.2-5.4) M/mm3 Hgb 10.8 L (12.0-15.0) g/dL Hct 33.9 L (37.0-47.0) % MCV 82.5 (80-100) fl MCH 26.3 (26-34) pg MCHC 31.9 L (32-36) g/dl RDW 15.9 H (11.5-14.5) % Plt Count 257 (150-375) k/mm3 MPV 10.1 (7.4-10.4) fl Immature Gran % (Auto) 0.4 (0-0.5) % Neut % (Auto) 85.8 H (45.5-73.1) % Lymph % (Auto) 6.8 L (18.3-44.2) % Don[place]han % (Auto) 6.2 (2.6-8.5) % Eos % (Auto) 0.5 (0-4.4) % Baso % (Auto) 0.3 (0.2-1.2) % Lymph # (Auto) 1.05 (0.9-3.2) K/mm3 [place]han # (Auto) 1.0 H (0.1-0.6) K/mm3 Eos # (Auto) 0.1 (0-0.3) K/mm3 Baso # (Auto) 0.0 (0.0-0.1) K/mm3 Abs Immat Gran (auto) 0.06 H (0.00-0.031) K/mm3 Absolute Neuts (auto) 13.3 H (1.3-6.7) K/mm3 Absolute Nucleated RBC 0.000 (0.0-0.012) K/mm3 Nucleated RBC % 0.0 (0.0-0.2) % ESR 124 H (0-20) mm/hr PT 15.8 H (11.1-14.7) Seconds INR 1.2 APTT 31.7 (22.3-36.8) Seconds Sodium 138 (137-145) mmol/L Potassium 3.4 (3.4-5.0) mmol/L Chloride 104 (98-107) mmol/L Carbon Dioxide 23 (22-30) mmol/L Anion Gap 11 (4-12) mmol/L BUN 15 (7-17) mg/dL Creatinine 1.16 H (0.7-1.0) mg/dL Estim Creat Clear Calc 54 ml/min Estimated GFR 49 L (59 - ) Glucose 116 H (65-110) mg/dL POC Capillary Glucose (65-105) mg/dl Lactic Acid 1.5 (0.7-2.0) mmol/L Calcium 8.8 (8.4-10.2) mg/dL Magnesium 1.8 (1.6-2.3) mg/dL Total Bilirubin 0.5 (0.2-1.3) mg/dL AST 16 (14-36) U/L ALT 15 (6-35) U/L Alkaline Phosphatase 116 (38-126) U/L C-Reactive Protein 22.5 H (<1.0) mg/dL Total Protein 8.0 (6.3-8.2) g/dL Albumin 4.0 (3.5-5.1) g/dL Procalcitonin 0.1 ng/mL Urine Color Dark yellow (Yellow) Urine Appearance Turbid H (Clear) Urine pH 5.0 (5.0-9.0) Ur Specific Dille 1.035 (1.001-1.035) Urine Protein 3+ H (Negative) mg/dL Urine Glucose (UA) Trace H (Negative) mg/dL Urine Ketones 1+ H (Negative) mg/dL Ur Blood (Man) Non-hemolyzed trace H (Negative) Urine Nitrate Negative (Negative) Urine Bilirubin 2+ H (Negative) Urine Urobilinogen 1.0 (<2.0) mg/dL Add Ur Microanalysis Reviewed Leukocyte Esterase Rfl Trace H (Negative) RAMONE/UL Urine RBC 6-10 H (0-2) /hpf Urine WBC 0-5 (0-3) /hpf Ur Squamous Epith Cells Many H (Few) /hpf Urine Bacteria 2+ H /hpf Urine Casts >20 Hyaline Casts Present (None) /lpf Granular Casts 1-2 H (None) /lpf Urine Mucus Present /lpf POC Urine HCG, Qual (Negative) 07/16/24 07/16/24 Range/Units 20:30 22:48 WBC (4.5-10.0) K/mm3 RBC (4.2-5.4) M/mm3 Hgb (12.0-15.0) g/dL Hct (37.0-47.0) % MCV (80-100) fl MCH (26-34) pg MCHC (32-36) g/dl RDW (11.5-14.5) % Plt Count (150-375) k/mm3 MPV (7.4-10.4) fl Immature Gran % (Auto) (0-0.5) % Neut % (Auto) (45.5-73.1) % Lymph % (Auto) (18.3-44.2) % Don[place]han % (Auto) (2.6-8.5) % Eos % (Auto) (0-4.4) % Baso % (Auto) (0.2-1.2) % Lymph # (Auto) (0.9-3.2) K/mm3 [place]han # (Auto) (0.1-0.6) K/mm3 Eos # (Auto) (0-0.3) K/mm3 Baso # (Auto) (0.0-0.1) K/mm3 Abs Immat Gran (auto) (0.00-0.031) K/mm3 Absolute Neuts (auto) (1.3-6.7) K/mm3 Absolute Nucleated RBC (0.0-0.012) K/mm3 Nucleated RBC % (0.0-0.2) % ESR (0-20) mm/hr PT (11.1-14.7) Seconds INR APTT (22.3-36.8) Seconds Sodium (137-145) mmol/L Potassium (3.4-5.0) mmol/L Chloride (98-107) mmol/L Carbon Dioxide (22-30) mmol/L Anion Gap (4-12) mmol/L BUN (7-17) mg/dL Creatinine (0.7-1.0) mg/dL Estim Creat Clear Calc ml/min Estimated GFR (59 - ) Glucose (65-110) mg/dL POC Capillary Glucose 61 L (65-105) mg/dl Lactic Acid (0.7-2.0) mmol/L Calcium (8.4-10.2) mg/dL Magnesium (1.6-2.3) mg/dL Total Bilirubin (0.2-1.3) mg/dL AST (14-36) U/L ALT (6-35) U/L Alkaline Phosphatase (38-126) U/L C-Reactive Protein (<1.0) mg/dL Total Protein (6.3-8.2) g/dL Albumin (3.5-5.1) g/dL Procalcitonin ng/mL Urine Color (Yellow) Urine Appearance (Clear) Urine pH (5.0-9.0) Ur Specific Dille (1.001-1.035) Urine Protein (Negative) mg/dL Urine Glucose (UA) (Negative) mg/dL Urine Ketones (Negative) mg/dL Ur Blood (Man) (Negative) Urine Nitrate (Negative) Urine Bilirubin (Negative) Urine Urobilinogen (<2.0) mg/dL Add Ur Microanalysis Leukocyte Esterase Rfl (Negative) RAMONE/UL Urine RBC (0-2) /hpf Urine WBC (0-3) /hpf Ur Squamous Epith Cells (Few) /hpf Urine Bacteria /hpf Urine Casts Hyaline Casts (None) /lpf Granular Casts (None) /lpf Urine Mucus /lpf POC Urine HCG, Qual Negative (Negative) Discharge Plan Discharge Clinical Impression: Ulcer of right foot due to type 2 diabetes mellitus, Cellulitis of foot, right Patient Disposition: Still a Patient Condition: Stable Patient Language: [place] Islander Prescriptions: No Action insulin glargine [Lantus U-100 Insulin] 100 unit/mL solution 18 unit SUBCUT HS torsemide 20 mg tablet 40 mg PO DAILY clopidogrel 75 mg tablet 75 mg PO DAILY carvedilol 3.125 mg tablet 3.125 mg PO BID spironolactone 50 mg tablet 50 mg PO DAILY Eliquis 5 mg tablet 5 mg PO BID atorvastatin 40 mg Tablet 40 mg PO DAILY Qty: 90 1RF amoxicillin-pot clavulanate 875-125 mg tablet 1 tablet PO Q12H 14 Days Qty: 28 0RF Follow-up/Referrals: Wilder,JOAQUIN Jacinto [Primary Care Provider] - Time of Disposition: 22:54
[2024-07-16 20:17] LABS: Lactic Acid Reflex 1.5 mmol/L (0.7-2.0)
[2024-07-16 20:18] LABS: INR 1.2; Partial Thromboplastin Time 31.7 Seconds (22.3-36.8); Prothrombin Time 15.8 Seconds (11.1-14.7)
[2024-07-16 20:25] LABS: Alanine Aminotransferase 15 U/L (6-35); Alkaline Phosphatase 116 U/L (38-126); Anion Gap 11 mmol/L (4-12); Aspartate Amino Transferase 16 U/L (14-36); Bilirubin,Total 0.5 mg/dL (0.2-1.3); Blood Urea Nitrogen 15 mg/dL (7-17); Calcium 8.8 mg/dL (8.4-10.2); Carbon Dioxide 23 mmol/L (22-30); Chloride 104 mmol/L (98-107); Estimated CRCL calculation 54 ml/min; Estimated Glomerular Filt Rate 49; Glucose 116 mg/dL (65-110); Magnesium 1.8 mg/dL (1.6-2.3); Potassium 3.4 mmol/L (3.4-5.0); Sodium 138 mmol/L (137-145)
[2024-07-16] MEDS: SODIUM CHLORIDE 0.9% IV 1,000 ML 999 ML IV CONT (20:35)
[2024-07-16] MEDS: HYDROmorphone HCL INJ (*CRX) 2 MG/ML VIAL 0.5 MG IV PUSH (20:36)
[2024-07-16] MEDS: CEFEPIME 2 GM/NS 50 ML 2 GM/50 ML BAG IVPB (20:36)
[2024-07-16 20:39] LABS: CRP 22.5 mg/dL (<1.0); Procalcitonin 0.1 ng/mL
--- NOTE | 2024-07-16 20:41 | PC.NURSE ---
Patient states malika makes her vomit.
[2024-07-16 20:46] LABS: Add Urine Microscopic? YES; Appearance Urine Turbid (Clear); Bacteria Urine 2+ /hpf; Bilirubin Urine 2+ (Negative); Blood Urine Non-Hemolyzed Trace (Negative); Color Urine Dark Yellow (Yellow); Glucose Urine UA Trace mg/dL (Negative); Hyaline Casts Urine Present /lpf; Ketones Urine 1+ mg/dL (Negative); Leukocyte Esterase Ur Trace LEU/UL (Negative); Mucus Urine Present /lpf; Need Manual Microscopic Reviewed; Nitrate Urine Negative (Negative); Non Pathogenic Casts >20; Protein Urine 3+ mg/dL (Negative); Specific Grav Ur 1.035 (1.001-1.035); Squamous Epithelial Cell Urine Many /hpf (Few); WBC Urine 0-5 /hpf (0-3)
[2024-07-16 20:52] LABS: Erythrocyte Sedimentation Rate 124 mm/hr (0-20)
[2024-07-16 21:03] LABS: BEDSIDEPREGUCG Negative (Negative)
[2024-07-16 21:07] VITALS: BP 116/58; PULSE 91; RESP 16; O2SAT 94
[2024-07-16] MEDS: metroNIDAZOLE 500 MG/ISO 100ML 500 MG/100 ML BAG 100 MG IVPB (21:21)
[2024-07-16 21:44] VITALS: BP 117/72; PULSE 92; RESP 16; O2SAT 95
[2024-07-16] MEDS: VANCOMYCIN 1,250 MG/NS 250 ML 1,250 MG/250 ML BAG 166.67 MG IVPB (22:19)
[2024-07-16 22:20] VITALS: BP 120/67; PULSE 94; RESP 16; O2SAT 96
--- NOTE | 2024-07-16 22:40 | P.HP_ITS ---
H&P: HPI History of Present Illness Date/Time: 07/16/24 22:40 Chief Complaint: Foot ulcer Narrative: 49-year-old female with history of insulin-dependent diabetes mellitus and history of toe amputation presents with wound on her right foot. Denies pain or purulent discharge but redness streaking up of of the wound. 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 Patient denies any significant findings. This was also performed at [place] History of five vessel coronary artery bypass (~08/2022) Complicated by 3 episodes of cardiac arrest 1 intraoperatively and 2 additional episodes weeks following surgery. She reports she was hospitalized for 1 month. She was hospitalized at [facility] History of dental surgery Teeth removal 2013 History of incision and drainage Rt foot- Dr. Perez 10/07/2021 History of section Amputation toe s/p 5th ray amputation right [place] [address] Perez Family History Family History Father Diabetes mellitus Neuropathy Non-Hodgkin lymphoma Mother Diabetes mellitus Neuropathy Social History Social History Social History: Patient reports that she lives with her of 7 years and her 2 biological children and 6 step children. Her children ranged between ages of 13 in 28. She has been on disability for her over life due to schizophrenia. She denies any significant alcohol or drug use. She has smoked as many as 2 packs of cigarettes per day since she was a teenager. But she cut back to 1 pack of cigarettes per day proximally 2018. Code status: Full code Surrogate decision maker: Smoking packs per day: 2 Smoking cigarettes per day: 40.0 Years smoked: 37 Smoking pack-years: 74.00 Smoking status: Heavy tobacco smoker Second hand tobacco smoke exposure: Yes Alcohol intake: never Substance use: never Substance use type: does not use Do You Feel Safe in your Home?: Yes Lack of Transportation: No Lack of Food: Never True Current Housing: I Have Housing Concerned About Future Housing: No Difficulty Paying Gas/Electric Bills: No Difficulty Paying for Meds: No Currently Unemployed: No Education: Grade School Difficulty w/ Childcare or Family Care: No Gender identity (if verbalized by the patient): Female Sexual Orientation (if Verbalized by the Patient): Straight or Heterosexual Spiritual care concerns: No Agree to blood products: No Meds Home Medications and Allergies Home Medications ?Medication ?Instructions ?Recorded ?Confirmed ?Type apixaban 5 mg tablet (Eliquis) 5 mg PO BID 04/17/23 04/17/23 History carvedilol 3.125 mg tablet 3.125 mg PO BID 04/17/23 04/17/23 History clopidogrel 75 mg tablet 75 mg PO DAILY 04/17/23 04/17/23 History insulin glargine 100 unit/mL 18 unit subcut HS 04/17/23 04/17/23 History subcutaneous solution (Lantus U-100 Insulin) spironolactone 50 mg tablet 50 mg PO DAILY 04/17/23 04/17/23 History torsemide 20 mg tablet 40 mg PO DAILY 04/17/23 04/17/23 History amoxicillin 875 mg-potassium 1 tablet PO Q12H 14 days #28 tabs 04/22/23 Rx clavulanate 125 mg tablet atorvastatin 40 mg tablet 40 mg PO DAILY #90 tabs 04/22/23 Rx Allergies Allergy/AdvReac Type Severity Reaction Status Date / Time aspirin Allergy Unknown Urticaria Verified 07/16/24 19:22 morphine AdvReac Nausea and Verified 07/16/24 19:22 Vomiting Vital Signs Vital Signs - 24 hr 07/16/24 19:23 07/16/24 21:07 07/16/24 21:44 Temperature 96.4 F L Pulse Rate 106 H 91 92 Respiratory Rate 15 16 16 Blood Pressure 109/60 116/58 L 117/72 Pulse Oximetry 100 94 95 Oxygen Delivery Room Air 07/16/24 22:20 Temperature Pulse Rate 94 Respiratory Rate 16 Blood Pressure 120/67 Pulse Oximetry 96 Oxygen Delivery Exam Const: General: comfortable and no acute distress Eyes: Pupils: Equal, round and reactive pupils present Neck: Neck: supple Resp: Effort & Inspection: normal respiratory effort Auscultation: clear to auscultation bilaterally Cardio: Rate: regular rate Rhythm: regular rhythm GI: GI Palp: Yes Soft to palpation and No Tenderness to palpation present (GI) : General: Yes bladder normal to palpation Neuro: Motor exam (neuro): 5/5 motor strength present throughout Extrem: Other: Right great toe erythematous extending superior. Ulcer on base of right great toe with callus formation but no purulent drainage. No tenderness to palpation. H&P: Results Labs Labs: Short CBC 07/16/24 Range/Units 20:00 WBC 15.5 H (4.5-10.0) K/mm3 Hgb 10.8 L (12.0-15.0) g/dL Hct 33.9 L (37.0-47.0) % Plt Count 257 (150-375) k/mm3 BMP 07/16/24 20:00 Sodium 138 Potassium 3.4 Chloride 104 Carbon Dioxide 23 BUN 15 Creatinine 1.16 H Glucose 116 H Calcium 8.8 Liver Function 07/16/24 Range/Units 20:00 Total Bilirubin 0.5 (0.2-1.3) mg/dL AST 16 (14-36) U/L ALT 15 (6-35) U/L Alkaline Phosphatase 116 (38-126) U/L Albumin 4.0 (3.5-5.1) g/dL Urine 07/16/24 Range/Units 20:27 Urine Color Dark yellow (Yellow) Urine Appearance Turbid H (Clear) Urine pH 5.0 (5.0-9.0) Ur Specific [place] 1.035 (1.001-1.035) Urine Protein 3+ H (Negative) mg/dL Urine Glucose (UA) Trace H (Negative) mg/dL Assessment and Plan Assessment and plan (1) DM type 2 (diabetes mellitus, type 2): Code(s): E11.9 - Type 2 diabetes mellitus without complications Status: Acute (2) Diabetic ulcer of toe of right foot associated with type 2 diabetes mellitus: Code(s): E11.621 - Type 2 diabetes mellitus with foot ulcer; L97.519 - Non-pressure chronic ulcer of other part of right foot with unspecified severity Status: Acute Plan 49-year-old female with history of insulin-dependent diabetes mellitus and history of toe amputation presents with wound on her right foot. Denies pain or purulent discharge but redness streaking up of of the wound. ----- Infected diabetic foot ulcer. Continue cefepime vancomycin and metronidazole. Trend leukocytosis. Abnormal UA however contaminated with many squamous cells. Follow-up urine culture. No symptomatology to indicate UTI at this time per the patient. Patient reports last HbA1c 7.5%. Last recorded value in March 2023 at 11%. Will do a recheck. Diabetic diet. NPO midnight. Accu-Cheks q.6 hours. ----- Full code. Wound consult. Hospitalist MIPS Advance Care Plan I have confirmed that the patient's Advanced Care Plan is present, code status is documented, or surrogate decision maker is listed in patient medical record.: Yes Medication Reconciliation I have utilized all available resources to obtain, update and review the patients current medications (includes all prescriptions, OTC, herbals, cannabis, and nutritional supplements).: Yes
--- NOTE | 2024-07-16 22:42 | PC.NURSE ---
Lab called to add on urine culture.
[2024-07-16 22:51] LABS: Glucose Point of Care 61 mg/dl (65-105)
--- NOTE | 2024-07-16 23:07 | PC.NURSE ---
Pt. given 2x juice and norma crackers with PB d/t B.S. of 61. Pt. is alert at this time, A&Ox4. VSS.
[2024-07-16 23:08] VITALS: BP 101/60; PULSE 102; RESP 16; O2SAT 100
[2024-07-16 23:14] LABS: Basophils Percent Auto 0.2 % (0.2-1.2); Eosinophils Absolute Auto 0.1 K/mm3 (0-0.3); Eosinophils Percent Auto 0.4 % (0-4.4); Hematocrit 29.2 % (37.0-47.0); Hemoglobin 9.1 g/dL (12.0-15.0); Immature Granulocyte Absolute 0.08 K/mm3 (0.00-0.031); Immature Granulocyte Percent A 0.5 % (0-0.5); Lymphocytes Absolute Auto 1.77 K/mm3 (0.9-3.2); Lymphocytes Percent Auto 10.9 % (18.3-44.2); Mean Corpuscular HGB Conc 31.2 g/dl (32-36); Mean Corpuscular Hemoglobin 26.2 pg (26-34); Mean Corpuscular Volume 84.1 fl (80-100); Mean Platelet Volume 10.8 fl (7.4-10.4); Monocytes Absolute Auto 1.4 K/mm3 (0.1-0.6); Monocytes Percent Auto 8.8 % (2.6-8.5); Neutrophils Absolute Auto 12.9 K/mm3 (1.3-6.7); Neutrophils Percent Auto 79.2 % (45.5-73.1); Platelet Count Result 227 k/mm3 (150-375); Red Blood Count 3.47 M/mm3 (4.2-5.4); White Blood Count 16.3 K/mm3 (4.5-10.0)
--- NOTE | 2024-07-16 23:20 | PC.NURSE ---
Pt. asked to change into a hospital gown. Pt. states yeah, that aint gonna happen.
[2024-07-16 23:21] LABS: Band Neutrophils Percent 0 % (0-6); Ovalocytes 1+; Platelet Estimate Adequate (Adequate); Schistocytes None Seen
[2024-07-16 23:23] LABS: Anion Gap 10 mmol/L (4-12); Blood Urea Nitrogen 14 mg/dL (7-17); Calcium 7.8 mg/dL (8.4-10.2); Carbon Dioxide 19 mmol/L (22-30); Chloride 107 mmol/L (98-107); Estimated CRCL calculation 67 ml/min; Estimated Glomerular Filt Rate > 60; Glucose 64 mg/dL (65-110); Magnesium 1.8 mg/dL (1.6-2.3); Potassium 3.6 mmol/L (3.4-5.0); Sodium 136 mmol/L (137-145)
--- NOTE | 2024-07-16 23:25 | PC.NURSE ---
When calling report to [address] [place] [address], Ivan VARELA aware of pt. recent B.S. of 61 and that B.S. will need to be rechecked.
--- NOTE | 2024-07-16 23:55 | ADMGEN ---
This patient, Danyell Perkins, was admitted to Medical Room 258-. Patient/family oriented to hospital policies and general routines including ID bracelet, bed and alarms, visiting hours, pain management, procedures, bathroom and other care routines, personal items, smoking policy, room service/diet, and visiting hours. Information on how to activate the Rapid Response Team has been discussed. Patient/Family are encouraged to report perceived risks to care and to ask questions if they do not understand what they are told or what they should do.
[2024-07-17 00:03] VITALS: BP 122/58; PULSE 100; RESP 14; TEMP 36.4; O2SAT 100; BMI 38.9
[2024-07-17 01:11] LABS: Glucose Point of Care 95 mg/dl (65-105)
[2024-07-17] MEDS: metroNIDAZOLE 500 MG/ISO 100ML 500 MG/100 ML BAG 100 MG IVPB ×3 (05:35→21:10)
[2024-07-17 05:59] LABS: Estimated CRCL calculation 64 ml/min; Estimated Glomerular Filt Rate > 60
[2024-07-17 06:25] VITALS: BP 108/50; PULSE 100; RESP 16; TEMP 36.6; O2SAT 98
[2024-07-17 06:30] LABS: INR 1.2; Prothrombin Time 15.3 Seconds (11.1-14.7)
[2024-07-17 07:33] LABS: Glucose Point of Care 123 mg/dl (65-105)
[2024-07-17] MEDS: CEFEPIME 2 GM/NS 50 ML 2 GM/50 ML BAG IVPB ×2 (09:25→20:26)
[2024-07-17] MEDS: VANCOMYCIN 1,500 MG/NS 500 ML 1,500 MG/500 ML BAG 250 MG IVPB (10:02)
--- NOTE | 2024-07-17 10:17 | P.CONGS_ITS ---
Assessment and Plan Assessment and plan (1) Diabetic foot ulcer: Code(s): E11.621 - Type 2 diabetes mellitus with foot ulcer; L97.509 - Non-pressure chronic ulcer of other part of unspecified foot with unspecified severity Status: Acute Assessment and Plan: The patient has right diabetic foot infection with a large blister on the right foot over the 1st MTP joint and a small callus on the plantar foot over the 1st MTP joint. There is no purulent fluid coming from the center of the callus, but there does appear to be cloudy fluid within this dark red blister. Plain films and lower extremity CT scan showed no evidence of osteomyelitis near her wound. There were some periosteal changes of the fifth metatarsal at the site of the previous amputation, but that area of the foot on exam is without any redness or signs of infection. I would recommend proceeding with bedside excisional debridement of the right foot wound to unroof the blister and further evaluate the tissue beneath. I will also plan to obtain wound cultures. Description of the procedure, risks, benefits, alternatives, and need for wound care following the procedure were discussed with the patient. She agrees to proceed. Will have nursing gather supplies and likely do this later today. Continue IV antibiotics. (2) Cellulitis of foot, right: Code(s): L03.115 - Cellulitis of right lower limb Status: Acute Assessment and Plan: Continue IV antibiotics, elevate right lower extremity while at rest, see plan above regarding wound (3) DM type 2 (diabetes mellitus, type 2): Code(s): E11.9 - Type 2 diabetes mellitus without complications Status: Acute Assessment and Plan: We again discussed the importance of controlling her diabetes and how this affects her diabetic foot wounds that are recurrent and have subsequently ended up in multiple toe amputations. Management per hospitalist. Hemoglobin A1c pending. (4) CAD (coronary artery disease): Code(s): I25.10 - Atherosclerotic heart disease of [place] coronary artery without angina pectoris Status: Acute (5) Anticoagulated by anticoagulation treatment: Code(s): Z79.01 - detention (current) use of anticoagulants Status: Acute Assessment and Plan: On Plavix and Eliquis (6) Schizophrenia: Code(s): F20.9 - Schizophrenia, unspecified Status: Acute (7) Smoker unmotivated to quit: Code(s): F17.200 - Nicotine dependence, unspecified, uncomplicated Status: Acute Plan I have discussed the patient's case and plan of care with Dr. Chapin. History of Present Illness Consult details Consult date: 07/17/24 Reason for consult: other (Right diabetic foot ulcer) Requesting physician: Quang Huber MD Narrative: This is a 49-year-old woman with PMH of insulin-dependent type 2 diabetes mellitus, multiple toe amputations, peripheral neuropathy, coronary artery disease status post CABG in 2022 on Plavix and Eliquis, and multiple other medical problems, who we were asked to see for a right diabetic foot ulcer. She presented to the ED last night with complaints of right great toe redness and swelling. She reports first noticing redness on the dorsal foot over the past few days and developed a blister yesterday over the first MTP joint. Labs showed white blood cell count 53939, lactic acid normal, glucose 116, CRP 22.5. She also had a chest x-ray due to reports of a cough, which she does not mention to me. Chest x-ray negative. Right foot x-rays showed moderate periosteal reaction along the medial margin of the mid shaft of the fifth metatarsal at the site of prior amputation with significant soft tissue swelling of the right forefoot. Right lower extremity CT scan with IV contrast shows soft tissue swelling without abscess formation or mention of osteomyelitis. She was admitted to the hospitalist service and started on broad-spectrum IV antibiotics. Wound care also consulted. Patient is seen on the medical floor. She admits to be purchasing a vibration plate about 4-5 weeks ago and has been using this at home for about 40 minutes twice daily. With using the vibration plate, she had noticed a callus on the plantar surface over the first MTP joint. She typically only wear socks or house slippers in the house. Denies any trauma to her foot. She has had multiple previous diabetic foot infections and has had a right 5th ray amputation in 2017 and another surgery in 2021 involving debridement of a portion fo the 5th metatarsal. Both were done by Dr. Wheatley. She has also had a left great toe infection in 2023 and eventually had a left great toe amputation at [facility]. She also had 5-vessel CABG in 2022 with multiple episodes of cardiac arrest both intraoperatively requiring a prolonged hospitalization. Review of Systems 2 Review of Systems: All systems reviewed & are unremarkable except as noted in HPI and below PMFSH Past Medical History Medical History Schizophrenia Liver cirrhosis secondary to SCHREIBER Obesity (BMI 30-39.9) Diabetic retinopathy Skin ulcer Excessive hunger Blindness Claustrophobia Ulcer of right foot due to type 2 diabetes mellitus Diabetic ulcer of toe of right foot associated with type 2 diabetes mellitus Diabetes mellitus due to underlying condition with foot ulcer, without long-term current use of insulin (12/26/17) Osteomyelitis of toe of right foot Surgical History Surgical History History of esophagogastroduodenoscopy (EGD) (~08/2022) Performed due to hematemesis. Patient denies any significant findings. This was also performed at [facility] History of five vessel coronary artery bypass (~08/2022) Complicated by 3 episodes of cardiac arrest 1 intraoperatively and 2 additional episodes weeks following surgery. She reports she was hospitalized for 1 month. She was hospitalized at [facility] History of dental surgery Teeth removal 2013 History of incision and drainage Rt foot- Dr. Perez 10/07/2021 History of section Amputation toe s/p 5th ray amputation right [place] [address] Perez Family History Family History Father Diabetes mellitus Neuropathy Non-Hodgkin lymphoma Mother Diabetes mellitus Neuropathy Social History Social History Social History: Patient reports that she lives with her of 7 years and her 2 biological children and 6 step children. Her children ranged between ages of 13 in 28. She has been on disability for her over life due to schizophrenia. She denies any significant alcohol or drug use. She has smoked as many as 2 packs of cigarettes per day since she was a teenager. But she cut back to 1 pack of cigarettes per day proximally 2018. Code status: Full code Surrogate decision maker: Smoking packs per day: 1 Smoking cigarettes per day: 20.0 Years smoked: 37 Smoking pack-years: 37.00 Smoking status: Current every day smoker Tobacco type: cigarettes Second hand tobacco smoke exposure: Yes Alcohol intake: never Substance use: never Substance use type: does not use Do You Feel Safe in your Home?: Yes Lack of Transportation: YES Lack of Food: Never True Current Housing: I Have Housing Concerned About Future Housing: No Difficulty Paying Gas/Electric Bills: No Difficulty Paying for Meds: No Currently Unemployed: No Education: Grade School Difficulty w/ Childcare or Family Care: No Gender identity (if verbalized by the patient): Female Sexual Orientation (if Verbalized by the Patient): Straight or Heterosexual Spiritual care concerns: No Agree to blood products: No Meds Home Medications and Allergies Home Medications ?Medication ?Instructions ?Recorded ?Confirmed ?Type apixaban 5 mg tablet (Eliquis) 5 mg PO BID 04/17/23 07/17/24 History carvedilol 3.125 mg tablet 3.125 mg PO BID 04/17/23 07/17/24 History clopidogrel 75 mg tablet 75 mg PO DAILY 04/17/23 07/17/24 History insulin glargine 100 unit/mL 48 unit subcut HS 04/17/23 07/17/24 History subcutaneous solution (Lantus U-100 Insulin) spironolactone 50 mg tablet 50 mg PO DAILY 04/17/23 07/17/24 History atorvastatin 40 mg tablet 40 mg PO DAILY #90 tabs 04/22/23 07/17/24 Rx insulin lispro 100 unit/mL 10 unit subcut .with meals 07/17/24 07/17/24 History subcutaneous pen (Humalog KwikPen (U-100) Insulin) Allergies Allergy/AdvReac Type Severity Reaction Status Date / Time aspirin Allergy Unknown Urticaria Verified 07/16/24 19:22 morphine AdvReac Nausea and Verified 07/16/24 19:22 Vomiting Vital Signs Vital Signs - 24 hr 07/16/24 19:23 07/16/24 21:07 07/16/24 21:44 Temperature 96.4 F L Pulse Rate 106 H 91 92 Respiratory Rate 15 16 16 Blood Pressure 109/60 116/58 L 117/72 Pulse Oximetry 100 94 95 Oxygen Delivery Room Air 07/16/24 22:20 07/16/24 23:08 07/17/24 00:03 Temperature 97.6 F Pulse Rate 94 102 H 100 Respiratory Rate 16 16 14 Blood Pressure 120/67 101/60 122/58 L Pulse Oximetry 96 100 100 Oxygen Delivery 07/17/24 06:25 Temperature 97.8 F Pulse Rate 100 Respiratory Rate 16 Blood Pressure 108/50 L Pulse Oximetry 98 Oxygen Delivery Exam 2 Const: General: comfortable and no acute distress Nutritional Appearance: o verweight Orientation/consciousness: patient oriented x3 HENMT: Head: normocephalic and atraumatic Ears: hearing grossly normal bilaterally Mouth: Yes moist mucous membranes Eyes: General: appearance normal, both eyes and all related structures P upils: Equal, round and reactive pupils present Neck: Neck: normal visual inspection and full ROM Chest: Chest palpation & inspection: other (Sternal scar from CABG) Resp: Effort & Inspection: no respiratory distress Auscultation: clear to auscultation bilaterally Cardio: Rate: regular rate Rhythm: regular rhythm Peripheral pulses: P eripheral pulses 2+ throughout GI: Inspection: non-distended GI Palp: Yes Soft to palpation, No Tenderness to palpation present (GI), No Guarding due to palpation present (GI) and No Rebound tenderness present Auscultation: normal bowel sounds Skin: General skin exam: normal color Neuro: General: moves all extremities and no focal motor deficits Speech: n ormal speech Motor exam (neuro): 5/5 motor strength present throughout Extrem: Other: Right fifth toe amputation with scarring along the lateral aspect of the foot Left great toe amputation with scarring over the dorsal aspect of the foot There was a large 5 x 5 cm dark red/purple blister over the first MTP joint on the dorsum of the foot and extending medially towards the plantar foot. There appears to be some cloudy, possible purulence drainage within the blister, overlying skin is completely dry and intact. There is mild erythema extending around the blister of the forefoot on both the plantar and dorsal aspect of the foot. Her first through fourth toes appear normal in color with diffuse swelling of the forefoot. She does have some tenderness over the area of the blister and around blister. There is also a 1.5 x 1 x 0.3 cm callus on the plantar aspect over the first MTP joint. The center of the callus is soft, but no obvious tunneling or purulent drainage coming from the opening. Pedal and posterior tibial pulses strong and palpable bilaterally. Good capillary refill. Slightly diminished sensation consistent with neuropathy. Able to wiggle toes bilaterally. Psych: Mental Status: mental status grossly normal Attitude: cooperative Insight: Good insight present (Psych) Judgement: Good judgement present (Psych) Results Labs 07/16/24 23:07 07/17/24 05:16 Labs: Abnormal lab results 07/16/24 07/16/24 07/16/24 Range/Units 20:00 20:27 22:48 WBC 15.5 H (4.5-10.0) K/mm3 RBC 4.11 L (4.2-5.4) M/mm3 Hgb 10.8 L (12.0-15.0) g/dL Hct 33.9 L (37.0-47.0) % MCHC 31.9 L (32-36) g/dl RDW 15.9 H (11.5-14.5) % MPV (7.4-10.4) fl Neut % (Auto) 85.8 H (45.5-73.1) % Lymph % (Auto) 6.8 L (18.3-44.2) % [place] % (Auto) (2.6-8.5) % [place] # (Auto) 1.0 H (0.1-0.6) K/mm3 Abs Immat Gran (auto) 0.06 H (0.00-0.031) K/mm3 Absolute Neuts (auto) 13.3 H (1.3-6.7) K/mm3 ESR 124 H (0-20) mm/hr PT 15.8 H (11.1-14.7) Seconds Sodium (137-145) mmol/L Carbon Dioxide (22-30) mmol/L Creatinine 1.16 H (0.7-1.0) mg/dL Estimated GFR 49 L (59 - ) Glucose 116 H (65-110) mg/dL POC Capillary Glucose 61 L (65-105) mg/dl Calcium (8.4-10.2) mg/dL C-Reactive Protein 22.5 H (<1.0) mg/dL Urine Appearance Turbid H (Clear) Urine Protein 3+ H (Negative) mg/dL Urine Glucose (UA) Trace H (Negative) mg/dL Urine Ketones 1+ H (Negative) mg/dL Ur Blood (Man) Non-hemolyzed trace H (Negative) Urine Bilirubin 2+ H (Negative) Leukocyte Esterase Rfl Trace H (Negative) RAMONE/UL Urine RBC 6-10 H (0-2) /hpf Ur Squamous Epith Cells Many H (Few) /hpf Urine Bacteria 2+ H /hpf Granular Casts 1-2 H (None) /lpf 07/16/24 07/17/24 07/17/24 Range/Units 23:07 05:16 06:31 WBC 16.3 H (4.5-10.0) K/mm3 RBC 3.47 L (4.2-5.4) M/mm3 Hgb 9.1 L (12.0-15.0) g/dL Hct 29.2 L (37.0-47.0) % MCHC 31.2 L (32-36) g/dl RDW 16.0 H (11.5-14.5) % MPV 10.8 H (7.4-10.4) fl Neut % (Auto) 79.2 H (45.5-73.1) % Lymph % (Auto) 10.9 L (18.3-44.2) % [place] % (Auto) 8.8 H (2.6-8.5) % [place] # (Auto) 1.4 H (0.1-0.6) K/mm3 Abs Immat Gran (auto) 0.08 H (0.00-0.031) K/mm3 Absolute Neuts (auto) 12.9 H (1.3-6.7) K/mm3 ESR (0-20) mm/hr PT 15.3 H (11.1-14.7) Seconds Sodium 136 L (137-145) mmol/L Carbon Dioxide 19 L (22-30) mmol/L Creatinine (0.7-1.0) mg/dL Estimated GFR (59 - ) Glucose 64 L (65-110) mg/dL POC Capillary Glucose 123 H (65-105) mg/dl Calcium 7.8 L (8.4-10.2) mg/dL C-Reactive Protein (<1.0) mg/dL Urine Appearance (Clear) Urine Protein (Negative) mg/dL Urine Glucose (UA) (Negative) mg/dL Urine Ketones (Negative) mg/dL Ur Blood (Man) (Negative) Urine Bilirubin (Negative) Leukocyte Esterase Rfl (Negative) RAMONE/UL Urine RBC (0-2) /hpf Ur Squamous Epith Cells (Few) /hpf Urine Bacteria /hpf Granular Casts (None) /lpf Diabetes panel 07/16/24 07/16/24 07/17/24 Range/Units 20:00 23:07 05:16 Sodium 138 136 L (137-145) mmol/L Potassium 3.4 3.6 (3.4-5.0) mmol/L Chloride 104 107 (98-107) mmol/L Carbon Dioxide 23 19 L (22-30) mmol/L BUN 15 14 (7-17) mg/dL Creatinine 1.16 H 0.93 0.92 (0.7-1.0) mg/dL Glucose 116 H 64 L (65-110) mg/dL Calcium 8.8 7.8 L (8.4-10.2) mg/dL AST 16 (14-36) U/L ALT 15 (6-35) U/L Alkaline Phosphatase 116 (38-126) U/L Total Protein 8.0 (6.3-8.2) g/dL Albumin 4.0 (3.5-5.1) g/dL Calcium panel 07/16/24 07/16/24 Range/Units 20:00 23:07 Calcium 8.8 7.8 L (8.4-10.2) mg/dL Albumin 4.0 (3.5-5.1) g/dL Pituitary panel 07/16/24 07/16/24 07/17/24 Range/Units 20:00 23:07 05:16 Sodium 138 136 L (137-145) mmol/L Potassium 3.4 3.6 (3.4-5.0) mmol/L Chloride 104 107 (98-107) mmol/L Carbon Dioxide 23 19 L (22-30) mmol/L BUN 15 14 (7-17) mg/dL Creatinine 1.16 H 0.93 0.92 (0.7-1.0) mg/dL Glucose 116 H 64 L (65-110) mg/dL Calcium 8.8 7.8 L (8.4-10.2) mg/dL Adrenal panel 07/16/24 07/16/24 07/17/24 Range/Units 20:00 23:07 05:16 Sodium 138 136 L (137-145) mmol/L Potassium 3.4 3.6 (3.4-5.0) mmol/L Chloride 104 107 (98-107) mmol/L Carbon Dioxide 23 19 L (22-30) mmol/L BUN 15 14 (7-17) mg/dL Creatinine 1.16 H 0.93 0.92 (0.7-1.0) mg/dL Glucose 116 H 64 L (65-110) mg/dL Calcium 8.8 7.8 L (8.4-10.2) mg/dL Total Bilirubin 0.5 (0.2-1.3) mg/dL AST 16 (14-36) U/L ALT 15 (6-35) U/L Alkaline Phosphatase 116 (38-126) U/L Total Protein 8.0 (6.3-8.2) g/dL Albumin 4.0 (3.5-5.1) g/dL All other labs normal. Imaging Additional studies: ITS Impressions Chest X-Ray 07/16/24 20:31 IMPRESSION: No focal infiltrate or effusion. Foot X-Ray 07/16/24 20:31 IMPRESSION: Moderate periosteal reaction along the medial margin of the mid shaft of the fifth metatarsal at the site of prior amputation with significant soft tissue swelling of the right forefoot. Lower Extremity CT 07/16/24 21:10 IMPRESSION: Soft tissue swelling without abscess formation
[2024-07-17 11:41] LABS: Glucose Point of Care 135 mg/dl (65-105)
[2024-07-17] MEDS: traMADol HCL (*CRX) 25 MG TABLET PO (12:16)
[2024-07-17] MEDS: NICOTINE (*PBKC) 7 MG PATCH 1 PATCH TRANSDERM (12:17)
--- NOTE | 2024-07-17 12:50 | P.PNIM_ITS ---
Progress Note: A&P Assessment and Plan (1) DM type 2 (diabetes mellitus, type 2): Code(s): E11.9 - Type 2 diabetes mellitus without complications Status: Acute Assessment and Plan: * Accuchecks, SSI, and hypoglycemic protocol. * HgbA1C 6.4%. 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 * Surgery consulted, appreciate recommendations. * Surgery to do a bedside excisional debridement of the right foot wound to unroof the blister and further evaluate the tissue beneath and collect wound cultures. * Pain control. * Monitor site. (3) Cellulitis of foot, right: Code(s): L03.115 - Cellulitis of right lower limb Status: Acute Assessment and Plan: * Receiving Cefepime, Metronidazole, and Vancomycin. * Elevate RLE while at rest. * WBC 16.3. (4) CAD (coronary artery disease): Code(s): I25.10 - Atherosclerotic heart disease of [place] coronary artery without angina pectoris Status: Acute Assessment and Plan: * On Plavix and Eliquis, currently on hold for debridement. 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 Plan 49-year-old female with history of insulin-dependent diabetes mellitus and history of toe amputation presents with wound on her right foot. Denies pain or purulent discharge but redness streaking up of of the wound. ----- Infected diabetic foot ulcer. Continue cefepime vancomycin and metronidazole. Trend leukocytosis. Abnormal UA however contaminated with many squamous cells. Follow-up urine culture. No symptomatology to indicate UTI at this time per the patient. Diabetic diet. Accu-Cheks q.6 hours. ----- Full code. Wound consult. Subjective Date/time seen: 07/17/24 12:50 Interval history: Patient reports pain in right foot is a 10 or higher, constant, sharp, aching, and pressure. Patient reports that she noticed blister starting yesterday and that she looks at her feet daily. Patient denies chest pain, palpitations, headache, dizziness, nausea, or vomiting. Review of Systems Review of Systems: All systems reviewed & are unremarkable except as noted in HPI and below Exam Const: General: no acute distress and uncomfortable Resp: Effort & Inspection: normal respiratory effort Auscultation: clear to auscultation bilaterally Cardio: Rate: regular rate Rhythm: regular rhythm GI: GI Palp: Yes Soft to palpation Auscultation: normal bowel sounds Neuro: Speech: normal speech Extrem: General: no pedal edema Other: Right great toe erythematous with large blister extending superior. Ulcer on base of right great toe with callus formation but no purulent drainage. No tenderness to palpation. Psych: Mental Status: mental status grossly normal Affect: normal affect Objective Data Vital Signs Vital Signs: Vital Signs - 24 hr 07/16/24 19:23 07/16/24 21:07 07/16/24 21:44 Temperature 96.4 F L Pulse Rate 106 H 91 92 Respiratory Rate 15 16 16 Blood Pressure 109/60 116/58 L 117/72 Pulse Oximetry 100 94 95 Oxygen Delivery Room Air 07/16/24 22:20 07/16/24 23:08 07/17/24 00:03 Temperature 97.6 F Pulse Rate 94 102 H 100 Respiratory Rate 16 16 14 Blood Pressure 120/67 101/60 122/58 L Pulse Oximetry 96 100 100 Oxygen Delivery 07/17/24 06:25 07/17/24 08:00 Temperature 97.8 F Pulse Rate 100 Respiratory Rate 16 Blood Pressure 108/50 L Pulse Oximetry 98 Oxygen Delivery Room Air Intake/Output Intake/Output: Intake & Output 07/14/24 07/15/24 07/16/24 07/17/24 23:59 23:59 23:59 23:59 Intake Total 1150 350 Balance 1150 350 Meds/Results Medications: Active Medications Generic Name Dose Route Start Last Admin Trade Name Freq PRN Reason Stop Dose Admin Acetaminophen 650 mg 07/16/24 22:55 Acetaminophen 325 Mg Tablet PO Q4H PRN Mild Pain (1-3) or Fever Dextrose 12.5 gm 07/16/24 22:36 Dextrose 50% 25 Gm/50 Ml Syringe IV PUSH PRN PRN Hypoglycemia Protocol Glucose 15 gm 07/16/24 22:36 Glucose Oral Gel 15 Gm Of Glucse In 37.5 Gm Tube PO PRN PRN Hypoglycemia Protocol Metronidazole 500 mg in 100 mls @ 100 mls/hr 07/17/24 06:00 07/17/24 05:35 Flagyl 500 Mg/Iso Soln 100 Ml IVPB 100 mls/hr Q8HR CHRISTOPHER Administration Dextrose 1,000 mls @ 100 mls/hr 07/16/24 22:36 Dextrose 5% 1,000 Ml IVPB PRN PRN Hypoglycemia Protocol Vancomycin HCl 1,500 mg in 500 mls @ 250 mls/hr 07/17/24 10:00 07/17/24 10:02 Vancomycin 1,500 Mg/Ns 500 Ml IVPB 250 mls/hr Q18H CHRISTOPHER Administration Cefepime HCl 2 gm in 50 mls @ 100 mls/hr 07/17/24 09:00 07/17/24 09:25 Maxipime 2 Gm/Ns 50 Ml IVPB 100 mls/hr Q12HR CHRISTOPHER Administration Insulin Aspart 2 - 5 units 07/17/24 08:00 07/17/24 11:57 Insulin Aspart (*Bkc) 100 Units/Ml SUB-Q Not Given [facility] Protocol Insulin Aspart 1 - 2 units 07/17/24 21:00 Insulin Aspart (*Bkc) 100 Units/Ml SUB-Q HS CHRISTOPHER Protocol Nicotine 1 patch 07/17/24 12:00 07/17/24 12:17 Nicotine (*Pbkc) 7 Mg Patch TRANSDERM 1 patch DAILY CHRISTOPHER Administration Ondansetron HCl 4 mg 07/16/24 22:55 Ondansetron Inj 4 Mg/2 Ml Vial IV PUSH Q4H PRN Nausea Tramadol HCl 25 mg 07/17/24 12:02 07/17/24 12:16 Tramadol Hcl (*Crx) 25 Mg Tablet PO 25 mg Q4H PRN Administration Pain Rated 4-6 Radiology Results: ITS Impressions Chest X-Ray 07/16/24 20:31 IMPRESSION: No focal infiltrate or effusion. Foot X-Ray 07/16/24 20:31 IMPRESSION: Moderate periosteal reaction along the medial margin of the mid shaft of the fifth metatarsal at the site of prior amputation with significant soft tissue swelling of the right forefoot. Lower Extremity CT 07/16/24 21:10 IMPRESSION: Soft tissue swelling without abscess formation Labs Labs: Laboratory Results - last 24 hr 07/16/24 07/16/24 07/16/24 19:59 20:00 20:27 WBC 15.5 H RBC 4.11 L Hgb 10.8 L Hct 33.9 L MCV 82.5 MCH 26.3 MCHC 31.9 L RDW 15.9 H Plt Count 257 MPV 10.1 Immature Gran % (Auto) 0.4 Neut % (Auto) 85.8 H Lymph % (Auto) 6.8 L [place] % (Auto) 6.2 Eos % (Auto) 0.5 Baso % (Auto) 0.3 Lymph # (Auto) 1.05 [place] # (Auto) 1.0 H Eos # (Auto) 0.1 Baso # (Auto) 0.0 Abs Immat Gran (auto) 0.06 H Absolute Neuts (auto) 13.3 H Absolute Nucleated RBC 0.000 Band Neutrophils % Nucleated RBC % 0.0 Platelet Estimate % Immature Plt Fraction Ovalocytes Schistocytes ESR 124 H PT 15.8 H INR 1.2 APTT 31.7 Sodium 138 Potassium 3.4 Chloride 104 Carbon Dioxide 23 Anion Gap 11 BUN 15 Creatinine 1.16 H Estim Creat Clear Calc 54 Estimated GFR 49 L Glucose 116 H POC Capillary Glucose Lactic Acid 1.5 Calcium 8.8 Magnesium 1.8 Total Bilirubin 0.5 AST 16 ALT 15 Alkaline Phosphatase 116 C-Reactive Protein 22.5 H Total Protein 8.0 Albumin 4.0 Procalcitonin 0.1 Urine Color Dark yellow Urine Appearance Turbid H Urine pH 5.0 Ur Specific [place] 1.035 Urine Protein 3+ H Urine Glucose (UA) Trace H Urine Ketones 1+ H Ur Blood (Man) Non-hemolyzed trace H Urine Nitrate Negative Urine Bilirubin 2+ H Urine Urobilinogen 1.0 Add Ur Microanalysis Reviewed Leukocyte Esterase Rfl Trace H Urine RBC 6-10 H Urine WBC 0-5 Ur Squamous Epith Cells Many H Urine Bacteria 2+ H Urine Casts >20 Hyaline Casts Present Granular Casts 1-2 H Urine Mucus Present POC Urine HCG, Qual 07/16/24 07/16/24 07/16/24 20:30 22:48 23:07 WBC 16.3 H RBC 3.47 L Hgb 9.1 L Hct 29.2 L MCV 84.1 MCH 26.2 MCHC 31.2 L RDW 16.0 H Plt Count 227 MPV 10.8 H Immature Gran % (Auto) 0.5 Neut % (Auto) 79.2 H Lymph % (Auto) 10.9 L [place] % (Auto) 8.8 H Eos % (Auto) 0.4 Baso % (Auto) 0.2 Lymph # (Auto) 1.77 [place] # (Auto) 1.4 H Eos # (Auto) 0.1 Baso # (Auto) 0.0 Abs Immat Gran (auto) 0.08 H Absolute Neuts (auto) 12.9 H Absolute Nucleated RBC 0.000 Band Neutrophils % 0 Nucleated RBC % 0.0 Platelet Estimate Adequate % Immature Plt Fraction 4.0 Ovalocytes 1+ Schistocytes None seen ESR PT INR APTT Sodium 136 L Potassium 3.6 Chloride 107 Carbon Dioxide 19 L Anion Gap 10 BUN 14 Creatinine 0.93 Estim Creat Clear Calc 67 Estimated GFR > 60 Glucose 64 L POC Capillary Glucose 61 L Lactic Acid Calcium 7.8 L Magnesium 1.8 Total Bilirubin AST ALT Alkaline Phosphatase C-Reactive Protein Total Protein Albumin Procalcitonin Urine Color Urine Appearance Urine pH Ur Specific [place] Urine Protein Urine Glucose (UA) Urine Ketones Ur Blood (Man) Urine Nitrate Urine Bilirubin Urine Urobilinogen Add Ur Microanalysis Leukocyte Esterase Rfl Urine RBC Urine WBC Ur Squamous Epith Cells Urine Bacteria Urine Casts Hyaline Casts Granular Casts Urine Mucus POC Urine HCG, Qual Negative 07/16/24 07/17/24 07/17/24 23:51 05:16 06:31 WBC RBC Hgb Hct MCV MCH MCHC RDW Plt Count MPV Immature Gran % (Auto) Neut % (Auto) Lymph % (Auto) [place] % (Auto) Eos % (Auto) Baso % (Auto) Lymph # (Auto) [place] # (Auto) Eos # (Auto) Baso # (Auto) Abs Immat Gran (auto) Absolute Neuts (auto) Absolute Nucleated RBC Band Neutrophils % Nucleated RBC % Platelet Estimate % Immature Plt Fraction Ovalocytes Schistocytes ESR PT 15.3 H INR 1.2 APTT Sodium Potassium Chloride Carbon Dioxide Anion Gap BUN Creatinine 0.92 Estim Creat Clear Calc 64 Estimated GFR > 60 Glucose POC Capillary Glucose 95 123 H Lactic Acid Calcium Magnesium Total Bilirubin AST ALT Alkaline Phosphatase C-Reactive Protein Total Protein Albumin Procalcitonin Urine Color Urine Appearance Urine pH Ur Specific [place] Urine Protein Urine Glucose (UA) Urine Ketones Ur Blood (Man) Urine Nitrate Urine Bilirubin Urine Urobilinogen Add Ur Microanalysis Leukocyte Esterase Rfl Urine RBC Urine WBC Ur Squamous Epith Cells Urine Bacteria Urine Casts Hyaline Casts Granular Casts Urine Mucus POC Urine HCG, Qual 07/17/24 11:37 WBC RBC Hgb Hct MCV MCH MCHC RDW Plt Count MPV Immature Gran % (Auto) Neut % (Auto) Lymph % (Auto) [place] % (Auto) Eos % (Auto) Baso % (Auto) Lymph # (Auto) [place] # (Auto) Eos # (Auto) Baso # (Auto) Abs Immat Gran (auto) Absolute Neuts (auto) Absolute Nucleated RBC Band Neutrophils % Nucleated RBC % Platelet Estimate % Immature Plt Fraction Ovalocytes Schistocytes ESR PT INR APTT Sodium Potassium Chloride Carbon Dioxide Anion Gap BUN Creatinine Estim Creat Clear Calc Estimated GFR Glucose POC Capillary Glucose 135 H Lactic Acid Calcium Magnesium Total Bilirubin AST ALT Alkaline Phosphatase C-Reactive Protein Total Protein Albumin Procalcitonin Urine Color Urine Appearance Urine pH Ur Specific [place] Urine Protein Urine Glucose (UA) Urine Ketones Ur Blood (Man) Urine Nitrate Urine Bilirubin Urine Urobilinogen Add Ur Microanalysis Leukocyte Esterase Rfl Urine RBC Urine WBC Ur Squamous Epith Cells Urine Bacteria Urine Casts Hyaline Casts Granular Casts Urine Mucus POC Urine HCG, Qual Quality VTE Prophylaxis VTE prophylaxis: mechanical ordered
[2024-07-17 14:00] VITALS: BP 112/52; PULSE 92; RESP 14; TEMP 36.7; O2SAT 99
[2024-07-17] MEDS: SPIRONOLACTONE 50 MG TABLET PO (15:22)
[2024-07-17] MEDS: oxyCODONE HCL (*CRX) 5 MG TAB IR PO ×2 (15:58→20:27)
[2024-07-17 16:45] LABS: Glucose Point of Care 162 mg/dl (65-105)
[2024-07-17 17:30] VITALS: PULSE 98
[2024-07-17] MEDS: carvediloL 3.125 MG TABLET PO (17:30)
[2024-07-17 19:46] LABS: Hemoglobin A1C 6.4 % (<5.7)
[2024-07-17] MEDS: INSULIN ASPART (*BKC) 100 UNITS/ML SUB-Q (20:34)
[2024-07-17 20:39] LABS: Glucose Point of Care 208 mg/dl (65-105)
[2024-07-17 20:48] VITALS: O2SAT 98
[2024-07-17 21:30] VITALS: BP 108/59; PULSE 95; RESP 16; TEMP 36.9; O2SAT 98
[2024-07-18] VITALS (7 sets, daily range): BP systolic 107–117; BP diastolic 58–73; PULSE 84–100; RESP 14–18; TEMP 36.4–37.8; O2SAT 96–100; BMI 38.9
[2024-07-18 02:56] LABS: Basophils Absolute Auto 0.1 K/mm3 (0.0-0.1); Basophils Percent Auto 0.4 % (0.2-1.2); Eosinophils Absolute Auto 0.1 K/mm3 (0-0.3); Eosinophils Percent Auto 0.9 % (0-4.4); Hemoglobin 8.7 g/dL (12.0-15.0); Immature Granulocyte Absolute 0.06 K/mm3 (0.00-0.031); Immature Granulocyte Percent A 0.5 % (0-0.5); Lymphocytes Absolute Auto 1.21 K/mm3 (0.9-3.2); Lymphocytes Percent Auto 10.3 % (18.3-44.2); Mean Corpuscular HGB Conc 31.1 g/dl (32-36); Mean Corpuscular Hemoglobin 26.1 pg (26-34); Mean Corpuscular Volume 84.1 fl (80-100); Mean Platelet Volume 9.9 fl (7.4-10.4); Monocytes Absolute Auto 0.9 K/mm3 (0.1-0.6); Monocytes Percent Auto 7.3 % (2.6-8.5); Neutrophils Absolute Auto 9.4 K/mm3 (1.3-6.7); Neutrophils Percent Auto 80.6 % (45.5-73.1); Platelet Count Result 202 k/mm3 (150-375); Red Blood Count 3.33 M/mm3 (4.2-5.4); Red Cell Distribution Width 15.9 % (11.5-14.5); White Blood Count 11.7 K/mm3 (4.5-10.0)
[2024-07-18 03:09] LABS: Alanine Aminotransferase 11 U/L (6-35); Albumin Level 3.1 g/dL (3.5-5.1); Alkaline Phosphatase 105 U/L (38-126); Anion Gap 9 mmol/L (4-12); Aspartate Amino Transferase 12 U/L (14-36); Bilirubin,Total 0.3 mg/dL (0.2-1.3); Blood Urea Nitrogen 12 mg/dL (7-17); Calcium 7.9 mg/dL (8.4-10.2); Carbon Dioxide 20 mmol/L (22-30); Chloride 105 mmol/L (98-107); Estimated CRCL calculation 73 ml/min; Estimated Glomerular Filt Rate > 60; Glucose 180 mg/dL (65-110); Magnesium 1.8 mg/dL (1.6-2.3); Potassium 3.7 mmol/L (3.4-5.0); Sodium 134 mmol/L (137-145)
[2024-07-18 03:12] LABS: Vancomycin Trough 7.3 ug/mL (10.0-20.0)
[2024-07-18] MEDS: VANCOMYCIN 2,000 MG/NS 500 ML 2,000 MG/500 ML BAG 250 MG IVPB ×2 (03:46→16:06)
[2024-07-18] MEDS: metroNIDAZOLE 500 MG/ISO 100ML 500 MG/100 ML BAG 100 MG IVPB ×3 (06:08→21:30)
[2024-07-18 07:56] LABS: Glucose Point of Care 167 mg/dl (65-105)
[2024-07-18] MEDS: CLOPIDOGREL BISULFATE 75 MG TABLET PO (08:56)
[2024-07-18] MEDS: ATORVASTATIN 40 MG TABLET PO (08:56)
[2024-07-18] MEDS: APIXABAN 5 MG TABLET PO ×2 (08:56→20:14)
[2024-07-18] MEDS: SPIRONOLACTONE 50 MG TABLET PO (08:56)
[2024-07-18] MEDS: NICOTINE (*PBKC) 7 MG PATCH 1 PATCH TRANSDERM (08:57)
[2024-07-18] MEDS: oxyCODONE HCL (*CRX) 5 MG TAB IR PO ×2 (08:57→20:20)
[2024-07-18] MEDS: CEFEPIME 2 GM/NS 50 ML 2 GM/50 ML BAG IVPB ×2 (09:02→20:15)
[2024-07-18] MEDS: carvediloL 3.125 MG TABLET PO ×2 (10:03→16:46)
--- NOTE | 2024-07-18 10:09 | P.PNIM_ITS ---
Progress Note: A&P Assessment and Plan (1) DM type 2 (diabetes mellitus, type 2): Code(s): E11.9 - Type 2 diabetes mellitus without complications Status: Acute Assessment and Plan: * Accuchecks, SSI, and hypoglycemic protocol. * HgbA1C 6.4%. 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 * Surgery consulted, appreciate recommendations. * Surgery did a bedside excisional debridement of the right foot wound to unroof the blister and further evaluate the tissue beneath and collected wound cultures this morning. Dressing C/D/I. * Pain control. * Monitor site. (3) Cellulitis of foot, right: Code(s): L03.115 - Cellulitis of right lower limb Status: Acute Assessment and Plan: * Receiving Cefepime, Metronidazole, and Vancomycin. * Elevate RLE while at rest. * WBC 11.7, improving. (4) CAD (coronary artery disease): Code(s): I25.10 - Atherosclerotic heart disease of [place] coronary artery without angina pectoris Status: Acute Assessment and Plan: * On Plavix and Eliquis. 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 Plan 49-year-old female with history of insulin-dependent diabetes mellitus and history of toe amputation presents with wound on her right foot. Denies pain or purulent discharge but redness streaking up of of the wound. ----- Infected diabetic foot ulcer. Continue cefepime vancomycin and metronidazole. Trend leukocytosis. Abnormal UA however contaminated with many squamous cells. Follow-up urine culture. No symptomatology to indicate UTI at this time per the patient. Diabetic diet. Accu-Cheks q.6 hours. ----- Full code. Wound consult. Subjective Date/time seen: 07/18/24 10:09 Interval history: Patient reports pain in her left shoulder and back that is an 8.5 , frequent, and aching. Patient reports that her foot feels better since drained this m orning. Patient denies chest pain, palpitations, headache, dizziness, nausea, or vomiting. Review of Systems Review of Systems: All systems reviewed & are unremarkable except as noted in HPI and below Exam Const: General: no acute distress and uncomfortable Resp: Effort & Inspection: normal respiratory effort Auscultation: clear to auscultation bilaterally Cardio: Rate: regular rate Rhythm: regular rhythm GI: GI Palp: Yes Soft to palpation Auscultation: normal bowel sounds Skin: Other: Right foot dressing C/D/I. Neuro: Speech: normal speech Extrem: General: no pedal edema Psych: Mental Status: mental status grossly normal Affect: normal affect Objective Data Vital Signs Vital Signs: Vital Signs - 24 hr 07/17/24 14:00 07/17/24 17:30 07/17/24 20:00 Temperature 98.1 F Pulse Rate 92 98 Respiratory Rate 14 Blood Pressure 112/52 L Pulse Oximetry 99 Oxygen Delivery Room Air 07/17/24 20:48 07/17/24 21:30 07/18/24 06:33 Temperature 98.5 F 98.9 F Pulse Rate 95 89 Respiratory Rate 16 16 Blood Pressure 108/59 L 107/64 Pulse Oximetry 98 98 96 Oxygen Delivery Room Air 07/18/24 08:54 07/18/24 10:03 Temperature 97.5 F L Pulse Rate 89 84 Respiratory Rate 18 Blood Pressure 111/58 L Pulse Oximetry 99 Oxygen Delivery Intake/Output Intake/Output: Intake & Output 07/15/24 07/16/24 07/17/24 07/18/24 23:59 23:59 23:59 23:59 Intake Total 1150 1540 940 Balance 1150 1540 940 Meds/Results Medications: Active Medications Generic Name Dose Route Start Last Admin Trade Name Freq PRN Reason Stop Dose Admin Acetaminophen 650 mg 07/16/24 22:55 Acetaminophen 325 Mg Tablet PO Q4H PRN Mild Pain (1-3) or Fever Apixaban 5 mg 07/18/24 09:00 07/18/24 08:56 Apixaban 5 Mg Tablet PO 5 mg Q12HR CHRISTOPHER Administration Atorvastatin Calcium 40 mg 04/24/25 09:00 07/18/24 08:56 Atorvastatin 40 Mg Tablet PO 40 mg DAILY CHRISTOPHER Administration Carvedilol 3.125 mg 07/17/24 17:00 07/18/24 10:03 Carvedilol 3.125 Mg Tablet PO 3.125 mg BID CHRISTOPHER Administration Clopidogrel Bisulfate 75 mg 07/18/24 09:00 07/18/24 08:56 Clopidogrel Bisulfate 75 Mg Tablet PO 75 mg DAILY CHRISTOPHER Administration Dextrose 12.5 gm 07/16/24 22:36 Dextrose 50% 25 Gm/50 Ml Syringe IV PUSH PRN PRN Hypoglycemia Protocol Glucose 15 gm 07/16/24 22:36 Glucose Oral Gel 15 Gm Of Glucse In 37.5 Gm Tube PO PRN PRN Hypoglycemia Protocol Metronidazole 500 mg in 100 mls @ 100 mls/hr 07/17/24 06:00 07/18/24 06:08 Flagyl 500 Mg/Iso Soln 100 Ml IVPB 100 mls/hr Q8HR CHRISTOPHER Administration Dextrose 1,000 mls @ 100 mls/hr 07/16/24 22:36 Dextrose 5% 1,000 Ml IVPB PRN PRN Hypoglycemia Protocol Cefepime HCl 2 gm in 50 mls @ 100 mls/hr 07/17/24 09:00 07/18/24 09:02 Maxipime 2 Gm/Ns 50 Ml IVPB 100 mls/hr Q12HR CHRISTOPHER Administration Vancomycin HCl 2,000 mg in 500 mls @ 250 mls/hr 07/18/24 04:00 07/18/24 05:46 Vancomycin 2,000 Mg/Ns 500 Ml IVPB Infused Q12H CHRISTOPHER Infusion Insulin Aspart 2 - 5 units 07/17/24 08:00 07/18/24 08:57 Insulin Aspart (*Bkc) 100 Units/Ml SUB-Q Not Given TIDWM [facility] Protocol Insulin Aspart 1 - 2 units 07/17/24 21:00 07/17/24 20:34 Insulin Aspart (*Bkc) 100 Units/Ml SUB-Q 1 units HS CHRISTOPHER Administration Protocol Nicotine 1 patch 07/17/24 12:00 07/18/24 08:57 Nicotine (*Pbkc) 7 Mg Patch TRANSDERM 1 patch DAILY CHRISTOPHER Administration Ondansetron HCl 4 mg 07/16/24 22:55 Ondansetron Inj 4 Mg/2 Ml Vial IV PUSH Q4H PRN Nausea Oxycodone HCl 5 mg 07/17/24 15:49 07/18/24 08:57 Oxycodone Hcl (*Crx) 5 Mg Tab Ir PO 5 mg Q4H PRN Administration Pain Rated 7-10 Spironolactone 50 mg 07/17/24 15:00 07/18/24 08:56 Spironolactone 50 Mg Tablet PO 50 mg DAILY CHRISTOPHER Administration Tramadol HCl 25 mg 07/17/24 12:02 07/17/24 12:16 Tramadol Hcl (*Crx) 25 Mg Tablet PO 25 mg Q4H PRN Administration Pain Rated 4-6 Radiology Results: ITS Impressions Chest X-Ray 07/16/24 20:31 IMPRESSION: No focal infiltrate or effusion. Foot X-Ray 07/16/24 20:31 IMPRESSION: Moderate periosteal reaction along the medial margin of the mid shaft of the fifth metatarsal at the site of prior amputation with significant soft tissue swelling of the right forefoot. Lower Extremity CT 07/16/24 21:10 IMPRESSION: Soft tissue swelling without abscess formation Labs Labs: Laboratory Results - last 24 hr 07/17/24 07/17/24 07/17/24 05:16 11:37 16:43 WBC RBC Hgb Hct MCV MCH MCHC RDW Plt Count MPV Immature Gran % (Auto) Neut % (Auto) Lymph % (Auto) [place] % (Auto) Eos % (Auto) Baso % (Auto) Lymph # (Auto) [place] # (Auto) Eos # (Auto) Baso # (Auto) Abs Immat Gran (auto) Absolute Neuts (auto) Absolute Nucleated RBC Nucleated RBC % Sodium Potassium Chloride Carbon Dioxide Anion Gap BUN Creatinine Estim Creat Clear Calc Estimated GFR Glucose POC Capillary Glucose 135 H 162 H Hemoglobin A1c 6.4 H Calcium Magnesium Total Bilirubin AST ALT Alkaline Phosphatase Total Protein Albumin Vancomycin Trough 07/17/24 07/18/24 07/18/24 20:33 02:50 07:54 WBC 11.7 H RBC 3.33 L Hgb 8.7 L Hct 28.0 L MCV 84.1 MCH 26.1 MCHC 31.1 L RDW 15.9 H Plt Count 202 MPV 9.9 Immature Gran % (Auto) 0.5 Neut % (Auto) 80.6 H Lymph % (Auto) 10.3 L [place] % (Auto) 7.3 Eos % (Auto) 0.9 Baso % (Auto) 0.4 Lymph # (Auto) 1.21 [place] # (Auto) 0.9 H Eos # (Auto) 0.1 Baso # (Auto) 0.1 Abs Immat Gran (auto) 0.06 H Absolute Neuts (auto) 9.4 H Absolute Nucleated RBC 0.000 Nucleated RBC % 0.0 Sodium 134 L Potassium 3.7 Chloride 105 Carbon Dioxide 20 L Anion Gap 9 BUN 12 Creatinine 0.81 Estim Creat Clear Calc 73 Estimated GFR > 60 Glucose 180 H POC Capillary Glucose 208 H 167 H Hemoglobin A1c Calcium 7.9 L Magnesium 1.8 Total Bilirubin 0.3 AST 12 L ALT 11 Alkaline Phosphatase 105 Total Protein 7.0 Albumin 3.1 L Vancomycin Trough 7.3 L Quality VTE Prophylaxis VTE prophylaxis: mechanical ordered and pharmacologic ordered
--- NOTE | 2024-07-18 10:35 | W.PM.PROC2 ---
Procedure Note - Detailed Date of Procedure 07/18/24 Pre-op Diagnosis Diabetic right foot ulcer Post-op Diagnosis Same Procedure Performed Excisional debridement of necrotic diabetic right foot ulcer including skin and subcutaneous tissue, measuring 4 cm x 4 cm Surgeon EMI [place]la Anesthesia None Indications This is a 49-year-old woman who is diabetic that presented with an infected right diabetic foot wound. She was started on IV antibiotics and is now seen for bedside excisional debridement. Overnight last night, the patient reports her blister ?popped? and she has had some drainage seeping through the dressing. She reports feeling some relief after the blister had ruptured. Findings Necrotic right diabetic foot ulcer extending to subcutaneous tissue overlying the first MTP joint with purulence drainage also coming from the callus on the plantar aspect of the foot with no obvious connection of the 2 wounds. Description of Procedure The patient was placed in the right lateral position in the bed. Following this, sterile prep was carried out over the right foot with chlorhexidine swab. I then used a scissors and pickups to initially unroof the already drained blister. Once the dermal layer was excised, there was an area of soft necrotic tissue on the medial aspect overlying the first MTP joint. I began to debride the overlying soft necrotic tissue and immediately found purulent drainage. A culture swab was obtained at that time. I then debrided down to subcutaneous tissue until I reached an area of bleeding tissue. The entire area of debridement measured 4 cm x 4 cm x 0.5 cm. I then moved to the callus on the plantar aspect of the foot over the first MTP joint. I used a 15 blade scalpel to remove the edges of the callus and also debrided a small black eschar over the center of the callus. There was an odor in this location with purulent drainage. I attempted to try to debride some of the necrotic tissue I could see at the surface of the center of the callus, but had some slight oozing. I then decided to stop debriding in this area since she is anticoagulated with Eliquis and also on Plavix. The callused area there is now an open wound that measures 1 cm x 1 cm x 0.5 cm. I tried probing the plantar wound and did not find an obvious connection to the medial wound. I applied silver gel and covered with 4 x 4 gauze, rolled gauze, and Medipore tape. She tolerated the procedure well. Estimated Blood Loss 0 Drains No Packing No Pathology Other (Wound culture sent) Complications None Condition Stable Disposition No change [facility] Billing Surgery - Charge Forward: Surgery Billing
[2024-07-18] MEDS: polyethylene glycoL 3350 17 GM POWD.PACK PO (11:15)
[2024-07-18 11:23] LABS: Glucose Point of Care 222 mg/dl (65-105)
[2024-07-18] MEDS: INSULIN ASPART (*BKC) 100 UNITS/ML SUB-Q (12:01)
[2024-07-18] MEDS: INSULIN ASPART (*BKC) 100 UNITS/ML 10 UNITS SUB-Q ×2 (12:03→16:47)
[2024-07-18 16:38] LABS: Glucose Point of Care 180 mg/dl (65-105)
[2024-07-18] MEDS: INSULIN GLARGINE (*BKC) 100 UNITS/ML 48 UNITS SUB-Q (21:30)
[2024-07-19 01:12] LABS: Glucose Point of Care 196 mg/dl (65-105)
[2024-07-19 02:43] LABS: Basophils Percent Auto 0.3 % (0.2-1.2); Eosinophils Absolute Auto 0.1 K/mm3 (0-0.3); Eosinophils Percent Auto 1.1 % (0-4.4); Hematocrit 27.1 % (37.0-47.0); Hemoglobin 8.6 g/dL (12.0-15.0); Immature Granulocyte Absolute 0.06 K/mm3 (0.00-0.031); Immature Granulocyte Percent A 0.5 % (0-0.5); Lymphocytes Absolute Auto 1.59 K/mm3 (0.9-3.2); Lymphocytes Percent Auto 13.8 % (18.3-44.2); Mean Corpuscular HGB Conc 31.7 g/dl (32-36); Mean Corpuscular Hemoglobin 26.3 pg (26-34); Mean Corpuscular Volume 82.9 fl (80-100); Mean Platelet Volume 10.2 fl (7.4-10.4); Monocytes Absolute Auto 0.9 K/mm3 (0.1-0.6); Monocytes Percent Auto 7.7 % (2.6-8.5); Neutrophils Absolute Auto 8.9 K/mm3 (1.3-6.7); Neutrophils Percent Auto 76.6 % (45.5-73.1); Platelet Count Result 199 k/mm3 (150-375); Red Blood Count 3.27 M/mm3 (4.2-5.4); Red Cell Distribution Width 15.8 % (11.5-14.5); White Blood Count 11.6 K/mm3 (4.5-10.0)
[2024-07-19 02:57] LABS: Alanine Aminotransferase 12 U/L (6-35); Albumin Level 3.1 g/dL (3.5-5.1); Alkaline Phosphatase 142 U/L (38-126); Anion Gap 10 mmol/L (4-12); Aspartate Amino Transferase 14 U/L (14-36); Bilirubin,Total 0.2 mg/dL (0.2-1.3); Blood Urea Nitrogen 12 mg/dL (7-17); Carbon Dioxide 21 mmol/L (22-30); Chloride 102 mmol/L (98-107); Estimated CRCL calculation 70 ml/min; Estimated Glomerular Filt Rate > 60; Glucose 171 mg/dL (65-110); Magnesium 1.8 mg/dL (1.6-2.3); Potassium 3.5 mmol/L (3.4-5.0); Sodium 133 mmol/L (137-145)
[2024-07-19 03:08] LABS: Vancomycin Trough 15.9 ug/mL (10.0-20.0)
[2024-07-19] MEDS: VANCOMYCIN 2,000 MG/NS 500 ML 2,000 MG/500 ML BAG 200 MG IVPB (04:13)
[2024-07-19 04:21] VITALS: BP 98/54; PULSE 77; RESP 16; TEMP 36.6; O2SAT 97
[2024-07-19] MEDS: metroNIDAZOLE 500 MG/ISO 100ML 500 MG/100 ML BAG 100 MG IVPB ×2 (07:05→23:14)
[2024-07-19 08:04] LABS: Glucose Point of Care 115 mg/dl (65-105)
[2024-07-19] MEDS: polyethylene glycoL 3350 17 GM POWD.PACK PO (08:41)
[2024-07-19] MEDS: CEFEPIME 2 GM/NS 50 ML 2 GM/50 ML BAG IVPB ×2 (08:41→20:30)
[2024-07-19 08:42] VITALS: PULSE 83
[2024-07-19] MEDS: APIXABAN 5 MG TABLET PO ×2 (08:42→21:06)
[2024-07-19] MEDS: SPIRONOLACTONE 50 MG TABLET PO (08:42)
[2024-07-19] MEDS: ATORVASTATIN 40 MG TABLET PO (08:42)
[2024-07-19] MEDS: carvediloL 3.125 MG TABLET PO ×2 (08:42→17:26)
[2024-07-19] MEDS: NICOTINE (*PBKC) 7 MG PATCH 1 PATCH TRANSDERM (08:42)
[2024-07-19] MEDS: CLOPIDOGREL BISULFATE 75 MG TABLET PO (08:43)
[2024-07-19] MEDS: oxyCODONE HCL (*CRX) 5 MG TAB IR PO ×2 (08:48→20:38)
[2024-07-19] MEDS: INSULIN ASPART (*BKC) 100 UNITS/ML 10 UNITS SUB-Q ×2 (08:49→12:48)
--- NOTE | 2024-07-19 10:41 | P.PNIM_ITS ---
Progress Note: A&P Assessment and Plan (1) DM type 2 (diabetes mellitus, type 2): Code(s): E11.9 - Type 2 diabetes mellitus without complications Status: Acute Assessment and Plan: * Accuchecks, SSI, and hypoglycemic protocol. * HgbA1C 6.4%. 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 * Surgery consulted, appreciate recommendations. * Surgery did a bedside excisional debridement of the right foot wound to unroof the blister and further evaluate the tissue beneath and collected wound cultures this morning. Dressing C/D/I. * Pain control. * Monitor site. (3) Cellulitis of foot, right: Code(s): L03.115 - Cellulitis of right lower limb Status: Acute Assessment and Plan: * Receiving Cefepime, Metronidazole, and Vancomycin. * Elevate RLE while at rest. * WBC 11.6, improving. (4) CAD (coronary artery disease): Code(s): I25.10 - Atherosclerotic heart disease of [place] coronary artery without angina pectoris Status: Acute Assessment and Plan: * On Plavix and Eliquis. (5) Chronic anticoagulation: Code(s): Z79.01 - detention (current) use of anticoagulants Status: Acute Assessment and Plan: * On Plavix and Eliquis. Plan 49-year-old female with history of insulin-dependent diabetes mellitus and history of toe amputation presents with wound on her right foot. Denies pain or purulent discharge but redness streaking up of of the wound. ----- Infected diabetic foot ulcer. Continue cefepime vancomycin and metronidazole. Trend leukocytosis. Abnormal UA however contaminated with many squamous cells. Follow-up urine culture. No symptomatology to indicate UTI at this time per the patient. Diabetic diet. Accu-Cheks q.6 hours. ----- Full code. Wound consult. Subjective Date/time seen: 07/19/24 10:41 Interval history: Patient reports pain in back is a 5 , constant, and aching. Patient denies chest pain, palpitations, headache, dizziness, nausea, or vomiting. Review of Systems Review of Systems: All systems reviewed & are unremarkable except as noted in HPI and below Exam Const: General: no acute distress and uncomfortable Resp: Effort & Inspection: normal respiratory effort Auscultation: clear to auscultation bilaterally Cardio: Rate: regular rate Rhythm: regular rhythm GI: GI Palp: Yes Soft to palpation Auscultation: normal bowel sounds Skin: Other: Right foot dressing C/D/I with scant dry pale yellow drainage. Neuro: Speech: normal speech Extrem: General: no pedal edema Psych: Mental Status: mental status grossly normal Affect: normal affect Objective Data Vital Signs Vital Signs: Vital Signs - 24 hr 07/18/24 14:00 07/18/24 16:46 07/18/24 20:00 Temperature 97.6 F Pulse Rate 99 94 Respiratory Rate 14 Blood Pressure 114/73 Pulse Oximetry 100 Oxygen Delivery Room Air 07/18/24 21:54 07/19/24 04:21 07/19/24 08:42 Temperature 100.1 F H 97.8 F Pulse Rate 100 77 83 Respiratory Rate 16 16 Blood Pressure 117/70 98/54 L Pulse Oximetry 98 97 Oxygen Delivery 07/19/24 09:00 Temperature Pulse Rate Respiratory Rate Blood Pressure Pulse Oximetry Oxygen Delivery Room Air Intake/Output Intake/Output: Intake & Output 07/16/24 07/17/24 07/18/24 07/19/24 23:59 23:59 23:59 23:59 Intake Total 1150 1540 3180 860 Balance 1150 1540 3180 860 Meds/Results Medications: Active Medications Generic Name Dose Route Start Last Admin Trade Name Freq PRN Reason Stop Dose Admin Acetaminophen 650 mg 07/16/24 22:55 Acetaminophen 325 Mg Tablet PO Q4H PRN Mild Pain (1-3) or Fever Apixaban 5 mg 07/18/24 09:00 07/19/24 08:42 Apixaban 5 Mg Tablet PO 5 mg Q12HR CHRISTOPHER Administration Atorvastatin Calcium 40 mg 07/18/24 09:00 07/19/24 08:42 Atorvastatin 40 Mg Tablet PO 40 mg DAILY CHRISTOPHER Administration Carvedilol 3.125 mg 07/17/24 17:00 07/19/24 08:42 Carvedilol 3.125 Mg Tablet PO 3.125 mg BID CHRISTOPHER Administration Clopidogrel Bisulfate 75 mg 07/18/24 09:00 07/19/24 08:43 Clopidogrel Bisulfate 75 Mg Tablet PO 75 mg DAILY CHRISTOPHER Administration Dextrose 12.5 gm 07/16/24 22:36 Dextrose 50% 25 Gm/50 Ml Syringe IV PUSH PRN PRN Hypoglycemia Protocol Docusate Sodium 100 mg 07/18/24 10:17 Docusate Sodium 100 Mg Capsule PO Q12H PRN Constipation Glucose 15 gm 07/16/24 22:36 Glucose Oral Gel 15 Gm Of Glucse In 37.5 Gm Tube PO PRN PRN Hypoglycemia Protocol Metronidazole 500 mg in 100 mls @ 100 mls/hr 07/17/24 06:00 07/19/24 07:05 Flagyl 500 Mg/Iso Soln 100 Ml IVPB 100 mls/hr Q8HR CHRISTOPHER Administration Dextrose 1,000 mls @ 100 mls/hr 07/16/24 22:36 Dextrose 5% 1,000 Ml IVPB PRN PRN Hypoglycemia Protocol Cefepime HCl 2 gm in 50 mls @ 100 mls/hr 07/17/24 09:00 07/19/24 08:41 Maxipime 2 Gm/Ns 50 Ml IVPB 100 mls/hr Q12HR CHRISTOPHER Administration Vancomycin HCl 2,000 mg in 500 mls @ 250 mls/hr 07/18/24 04:00 07/19/24 04:13 Vancomycin 2,000 Mg/Ns 500 Ml IVPB 200 mls/hr Q12H CHRISTOPHER Administration Insulin Aspart 2 - 5 units 07/17/24 08:00 07/19/24 08:38 Insulin Aspart (*Bkc) 100 Units/Ml SUB-Q Not Given TIDWM [facility] Protocol Insulin Aspart 1 - 2 units 07/17/24 21:00 07/18/24 21:35 Insulin Aspart (*Bkc) 100 Units/Ml SUB-Q Not Given HS CH[facility]STOPHER Protocol Insulin Aspart 10 units 07/18/24 11:30 07/19/24 08:49 Insulin Aspart (*Bkc) 100 Units/Ml SUB-Q 5 units TIDWM CHRISTOPHER Administration Insulin Glargine 48 units 07/18/24 21:00 07/18/24 21:30 Insulin Glargine (*Bkc) 100 Units/Ml SUB-Q 48 units HS CHRISTOPHER Administration Nicotine 1 patch 07/17/24 12:00 07/19/24 08:42 Nicotine (*Pbkc) 7 Mg Patch TRANSDERM 1 patch DAILY CHRISTOPHER Administration Ondansetron HCl 4 mg 07/16/24 22:55 Ondansetron Inj 4 Mg/2 Ml Vial IV PUSH Q4H PRN Nausea Oxycodone HCl 5 mg 07/17/24 15:49 07/19/24 08:48 Oxycodone Hcl (*Crx) 5 Mg Tab Ir PO 5 mg Q4H PRN Administration Pain Rated 7-10 Polyethylene Glycol 17 gm 07/18/24 10:20 07/19/24 08:41 Polyethylene Glycol 3350 17 Gm Powd.Pack PO 17 gm QAM CHRISTOPHER Administration Spironolactone 50 mg 07/17/24 15:00 07/19/24 08:42 Spironolactone 50 Mg Tablet PO 50 mg DAILY CHRISTOPHER Administration Tramadol HCl 25 mg 07/17/24 12:02 07/17/24 12:16 Tramadol Hcl (*Crx) 25 Mg Tablet PO 25 mg Q4H PRN Administration Pain Rated 4-6 Radiology Results: ITS Impressions Chest X-Ray 07/16/24 20:31 IMPRESSION: No focal infiltrate or effusion. Foot X-Ray 07/16/24 20:31 IMPRESSION: Moderate periosteal reaction along the medial margin of the mid shaft of the fifth metatarsal at the site of prior amputation with significant soft tissue swelling of the right forefoot. Lower Extremity CT 07/16/24 21:10 IMPRESSION: Soft tissue swelling without abscess formation Labs Labs: Laboratory Results - last 24 hr 07/18/24 07/18/24 07/18/24 11:18 16:35 21:22 WBC RBC Hgb Hct MCV MCH MCHC RDW Plt Count MPV Immature Gran % (Auto) Neut % (Auto) Lymph % (Auto) [place] % (Auto) Eos % (Auto) Baso % (Auto) Lymph # (Auto) [place] # (Auto) Eos # (Auto) Baso # (Auto) Abs Immat Gran (auto) Absolute Neuts (auto) Absolute Nucleated RBC Nucleated RBC % Sodium Potassium Chloride Carbon Dioxide Anion Gap BUN Creatinine Estim Creat Clear Calc Estimated GFR Glucose POC Capillary Glucose 222 H 180 H 196 H Calcium Magnesium Total Bilirubin AST ALT Alkaline Phosphatase Total Protein Albumin Vancomycin Trough 07/19/24 07/19/24 02:35 07:59 WBC 11.6 H RBC 3.27 L Hgb 8.6 L Hct 27.1 L MCV 82.9 MCH 26.3 MCHC 31.7 L RDW 15.8 H Plt Count 199 MPV 10.2 Immature Gran % (Auto) 0.5 Neut % (Auto) 76.6 H Lymph % (Auto) 13.8 L [place] % (Auto) 7.7 Eos % (Auto) 1.1 Baso % (Auto) 0.3 Lymph # (Auto) 1.59 [place] # (Auto) 0.9 H Eos # (Auto) 0.1 Baso # (Auto) 0.0 Abs Immat Gran (auto) 0.06 H Absolute Neuts (auto) 8.9 H Absolute Nucleated RBC 0.000 Nucleated RBC % 0.0 Sodium 133 L Potassium 3.5 Chloride 102 Carbon Dioxide 21 L Anion Gap 10 BUN 12 Creatinine 0.84 Estim Creat Clear Calc 70 Estimated GFR > 60 Glucose 171 H POC Capillary Glucose 115 H Calcium 8.0 L Magnesium 1.8 Total Bilirubin 0.2 AST 14 ALT 12 Alkaline Phosphatase 142 H Total Protein 6.0 L Albumin 3.1 L Vancomycin Trough 15.9 Quality VTE Prophylaxis VTE prophylaxis: mechanical ordered and pharmacologic ordered
[2024-07-19 11:52] LABS: Glucose Point of Care 186 mg/dl (65-105)
[2024-07-19 13:10] VITALS: BMI 38.9
[2024-07-19 14:00] VITALS: BP 116/58; PULSE 89; RESP 18; TEMP 36.4; O2SAT 100
[2024-07-19 17:24] LABS: Glucose Point of Care 153 mg/dl (65-105)
[2024-07-19 17:26] VITALS: PULSE 99
[2024-07-19] MEDS: INSULIN ASPART (*BKC) 100 UNITS/ML 8 UNITS SUB-Q (17:31)
[2024-07-19 20:45] VITALS: BP 104/58; PULSE 93; RESP 20; TEMP 37.4; O2SAT 95
[2024-07-19] MEDS: VANCOMYCIN 2,000 MG/NS 500 ML 2,000 MG/500 ML BAG 250 MG IVPB (21:06)
[2024-07-19 21:12] LABS: Glucose Point of Care 176 mg/dl (65-105)
[2024-07-19] MEDS: INSULIN GLARGINE (*BKC) 100 UNITS/ML 38 UNITS SUB-Q (21:22)
[2024-07-20 04:41] VITALS: BP 109/61; PULSE 86; RESP 20; TEMP 36.5; O2SAT 99
[2024-07-20] MEDS: metroNIDAZOLE 500 MG/ISO 100ML 500 MG/100 ML BAG 100 MG IVPB ×3 (05:33→21:11)
[2024-07-20 05:46] LABS: Basophils Percent Auto 0.3 % (0.2-1.2); Eosinophils Absolute Auto 0.2 K/mm3 (0-0.3); Eosinophils Percent Auto 1.2 % (0-4.4); Hematocrit 26.2 % (37.0-47.0); Hemoglobin 8.2 g/dL (12.0-15.0); Immature Granulocyte Absolute 0.13 K/mm3 (0.00-0.031); Immature Granulocyte Percent A 1.1 % (0-0.5); Lymphocytes Absolute Auto 1.68 K/mm3 (0.9-3.2); Mean Corpuscular HGB Conc 31.3 g/dl (32-36); Mean Corpuscular Hemoglobin 26.2 pg (26-34); Mean Corpuscular Volume 83.7 fl (80-100); Mean Platelet Volume 9.9 fl (7.4-10.4); Monocytes Absolute Auto 1.1 K/mm3 (0.1-0.6); Monocytes Percent Auto 8.7 % (2.6-8.5); Neutrophils Percent Auto 74.7 % (45.5-73.1); Platelet Count Result 219 k/mm3 (150-375); Red Blood Count 3.13 M/mm3 (4.2-5.4); Red Cell Distribution Width 15.9 % (11.5-14.5)
[2024-07-20 05:58] LABS: Alanine Aminotransferase 11 U/L (6-35); Albumin Level 2.8 g/dL (3.5-5.1); Alkaline Phosphatase 151 U/L (38-126); Anion Gap 6 mmol/L (4-12); Aspartate Amino Transferase 15 U/L (14-36); Bilirubin,Total < 0.1 mg/dL (0.2-1.3); Blood Urea Nitrogen 11 mg/dL (7-17); Calcium 8.2 mg/dL (8.4-10.2); Carbon Dioxide 26 mmol/L (22-30); Chloride 103 mmol/L (98-107); Estimated CRCL calculation 69 ml/min; Estimated Glomerular Filt Rate > 60; Glucose 140 mg/dL (65-110); Magnesium 1.7 mg/dL (1.6-2.3); Potassium 3.6 mmol/L (3.4-5.0); Sodium 135 mmol/L (137-145)
[2024-07-20 08:11] LABS: Glucose Point of Care 121 mg/dl (65-105)
[2024-07-20] MEDS: INSULIN ASPART (*BKC) 100 UNITS/ML 8 UNITS SUB-Q ×3 (09:20→18:05)
[2024-07-20 09:22] VITALS: PULSE 86
[2024-07-20] MEDS: APIXABAN 5 MG TABLET PO ×2 (09:22→20:28)
[2024-07-20] MEDS: oxyCODONE HCL (*CRX) 5 MG TAB IR PO ×3 (09:22→20:28)
[2024-07-20] MEDS: carvediloL 3.125 MG TABLET PO ×2 (09:22→18:06)
[2024-07-20] MEDS: SPIRONOLACTONE 50 MG TABLET PO (09:23)
[2024-07-20] MEDS: CLOPIDOGREL BISULFATE 75 MG TABLET PO (09:23)
[2024-07-20] MEDS: NICOTINE (*PBKC) 7 MG PATCH 1 PATCH TRANSDERM (09:23)
[2024-07-20] MEDS: ATORVASTATIN 40 MG TABLET PO (09:23)
[2024-07-20] MEDS: DOCUSATE SODIUM 100 MG CAPSULE PO (09:23)
[2024-07-20] MEDS: CEFEPIME 2 GM/NS 50 ML 2 GM/50 ML BAG IVPB ×2 (09:24→20:28)
[2024-07-20] MEDS: VANCOMYCIN 2,000 MG/NS 500 ML 2,000 MG/500 ML BAG 250 MG IVPB (09:24)
--- NOTE | 2024-07-20 10:53 | P.PNIM_ITS ---
Progress Note: A&P Assessment and Plan (1) DM type 2 (diabetes mellitus, type 2): Code(s): E11.9 - Type 2 diabetes mellitus without complications Status: Acute Assessment and Plan: * Accuchecks, SSI, and hypoglycemic protocol. * HgbA1C 6.4%. * Seen by community educator on 07/19/24. * 07/19 Lantus decreased to 38 units subq HS ad Novolog decreased to 8 units with meals. * Blood sugars running 121-189 today. 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 * Surgery consulted, appreciate recommendations. * 07/18/24: Surgery did a bedside excisional debridement of the right foot wound to unroof the blister and further evaluate the tissue beneath and collected wound cultures this morning. Right foot dressing with small amount of pale yellow drainage. * Pain control. * Monitor site. (3) Cellulitis of foot, right: Code(s): L03.115 - Cellulitis of right lower limb Status: Acute Assessment and Plan: * Receiving Cefepime, Metronidazole, and Vancomycin. PICC line placed on 07/19/24 due to patient having difficulty keeping IV access and need for IV abx's. * Elevate RLE while at rest. * WBC 12.0. * Preliminary right foot culture results Group B Streptococcus isolated. (4) CAD (coronary artery disease): Code(s): I25.10 - Atherosclerotic heart disease of [place] coronary artery without angina pectoris Status: Acute Assessment and Plan: * On Plavix and Eliquis. (5) Chronic anticoagulation: Code(s): Z79.01 - rodent exterminator (current) use of anticoagulants Status: Acute Assessment and Plan: * On Plavix and Eliquis. (6) Constipation: Code(s): K59.00 - Constipation, unspecified Status: Acute Assessment and Plan: * Miralax 17 gram oral daily and Docusate 100 mg PO q 12 PRN. * Add Senna 8.6 mg PO q 12. Subjective Date/time seen: 07/20/24 10:53 Interval history: Patient reports pain in back is a 5 , constant, and aching. Patient denies chest pain, palpitations, headache, dizziness, nausea, or vomiting. Review of Systems Review of Systems: All systems reviewed & are unremarkable except as noted in HPI and below Exam Const: General: no acute distress and uncomfortable Resp: Effort & Inspection: normal respiratory effort Auscultation: clear to auscultation bilaterally Cardio: Rate: regular rate Rhythm: regular rhythm GI: GI Palp: Yes Soft to palpation Auscultation: normal bowel sounds Skin: Other: Right foot dressing with small amount of pale yellow drainage. Neuro: Speech: normal speech Extrem: General: pedal edema on the right (trace edema) Psych: Mental Status: mental status grossly normal Affect: normal affect Objective Data Vital Signs Vital Signs: Vital Signs - 24 hr 07/19/24 14:00 07/19/24 17:26 07/19/24 20:00 Temperature 97.6 F Pulse Rate 89 99 Respiratory Rate 18 Blood Pressure 116/58 L Pulse Oximetry 100 Oxygen Delivery Room Air 07/19/24 20:45 07/20/24 04:41 07/20/24 08:15 Temperature 99.4 F 97.7 F Pulse Rate 93 86 Respiratory Rate 20 20 Blood Pressure 104/58 L 109/61 Pulse Oximetry 95 99 Oxygen Delivery Room Air 07/20/24 09:22 Temperature Pulse Rate 86 Respiratory Rate Blood Pressure Pulse Oximetry Oxygen Delivery Intake/Output Intake/Output: Intake & Output 07/17/24 07/18/24 07/19/24 07/20/24 23:59 23:59 23:59 23:59 Intake Total 1540 3180 2560 830 Balance 1540 3180 2560 830 Meds/Results Medications: Active Medications Generic Name Dose Route Start Last Admin Trade Name Freq PRN Reason Stop Dose Admin Acetaminophen 650 mg 07/16/24 22:55 Acetaminophen 325 Mg Tablet PO Q4H PRN Mild Pain (1-3) or Fever Apixaban 5 mg 07/18/24 09:00 07/20/24 09:22 Apixaban 5 Mg Tablet PO 5 mg Q12HR CHRISTOPHER Administration Atorvastatin Calcium 40 mg 07/18/24 09:00 07/20/24 09:23 Atorvastatin 40 Mg Tablet PO 40 mg DAILY CHRISTOPHER Administration Carvedilol 3.125 mg 07/17/24 17:00 07/20/24 09:22 Carvedilol 3.125 Mg Tablet PO 3.125 mg BID CHRISTOPHER Administration Clopidogrel Bisulfate 75 mg 07/18/24 09:00 07/20/24 09:23 Clopidogrel Bisulfate 75 Mg Tablet PO 75 mg DAILY CHRISTOPHER Administration Dextrose 12.5 gm 07/16/24 22:36 Dextrose 50% 25 Gm/50 Ml Syringe IV PUSH PRN PRN Hypoglycemia Protocol Docusate Sodium 100 mg 07/18/24 10:17 07/20/24 09:23 Docusate Sodium 100 Mg Capsule PO 100 mg Q12H PRN Administration Constipation Glucose 15 gm 07/16/24 22:36 Glucose Oral Gel 15 Gm Of Glucse In 37.5 Gm Tube PO PRN PRN Hypoglycemia Protocol Metronidazole 500 mg in 100 mls @ 100 mls/hr 07/17/24 06:00 07/20/24 05:33 Flagyl 500 Mg/Iso Soln 100 Ml IVPB 100 mls/hr Q8HR CHRISTOPHER Administration Dextrose 1,000 mls @ 100 mls/hr 07/16/24 22:36 Dextrose 5% 1,000 Ml IVPB PRN PRN Hypoglycemia Protocol Cefepime HCl 2 gm in 50 mls @ 100 mls/hr 07/17/24 09:00 07/20/24 09:24 Maxipime 2 Gm/Ns 50 Ml IVPB 100 mls/hr Q12HR CHRISTOPHER Administration Vancomycin HCl 2,000 mg in 500 mls @ 250 mls/hr 07/19/24 21:00 07/20/24 09:24 Vancomycin 2,000 Mg/Ns 500 Ml IVPB 250 mls/hr Q12H CHRISTOPHER Administration Insulin Aspart 2 - 5 units 07/17/24 08:00 07/20/24 09:23 Insulin Aspart (*Bkc) 100 Units/Ml SUB-Q Not Given TIDWM [facility] Protocol Insulin Aspart 1 - 2 units 07/17/24 21:00 07/19/24 21:22 Insulin Aspart (*Bkc) 100 Units/Ml SUB-Q Not Given HS [facility] Protocol Insulin Aspart 8 units 07/19/24 17:00 07/20/24 09:20 Insulin Aspart (*Bkc) 100 Units/Ml SUB-Q 8 units TIDWM CHRISTOPHER Administration Insulin Glargine 38 units 07/19/24 21:00 07/19/24 21:22 Insulin Glargine (*Bkc) 100 Units/Ml SUB-Q 38 units HS CHRISTOPHER Administration Nicotine 1 patch 07/17/24 12:00 07/20/24 09:23 Nicotine (*Pbkc) 7 Mg Patch TRANSDERM 1 patch DAILY CHRISTOPHER Administration Ondansetron HCl 4 mg 07/16/24 22:55 Ondansetron Inj 4 Mg/2 Ml Vial IV PUSH Q4H PRN Nausea Oxycodone HCl 5 mg 07/17/24 15:49 07/20/24 09:22 Oxycodone Hcl (*Crx) 5 Mg Tab Ir PO 5 mg Q4H PRN Administration Pain Rated 7-10 Polyethylene Glycol 17 gm 07/18/24 10:20 07/20/24 09:24 Polyethylene Glycol 3350 17 Gm Powd.Pack PO Not Given QAM CHRISTOPHER Sodium Chloride 10 ml 07/20/24 14:00 Central Line Flush IV PUSH Q8HR CHRISTOPHER Sodium Chloride 10 ml 07/20/24 07:07 Central Line Flush IV PUSH PRN PRN with TPN bag changes Sodium Chloride 20 ml 07/20/24 07:07 Central Line Flush IV PUSH PRN PRN after blood draws Spironolactone 50 mg 07/17/24 15:00 07/20/24 09:23 Spironolactone 50 Mg Tablet PO 50 mg DAILY CHRISTOPHER Administration Tramadol HCl 25 mg 07/17/24 12:02 07/17/24 12:16 Tramadol Hcl (*Crx) 25 Mg Tablet PO 25 mg Q4H PRN Administration Pain Rated 4-6 Radiology Results: ITS Impressions Foot X-Ray 07/16/24 20:31 IMPRESSION: Moderate periosteal reaction along the medial margin of the mid shaft of the fifth metatarsal at the site of prior amputation with significant soft tissue swelling of the right forefoot. Lower Extremity CT 07/16/24 21:10 IMPRESSION: Soft tissue swelling without abscess formation Chest X-Ray 07/19/24 20:07 IMPRESSION: Right PICC line with the tip overlying the superior vena cava. Left basilar atelectasis versus pneumonia. Cardiomegaly with congestive riki and interstitial thickening which may indicate pulmonary edema versus pneumonitis versus fibrotic changes. Labs Labs: Laboratory Results - last 24 hr 07/19/24 07/19/24 07/19/24 11:44 17:11 20:49 WBC RBC Hgb Hct MCV MCH MCHC RDW Plt Count MPV Immature Gran % (Auto) Neut % (Auto) Lymph % (Auto) [place] % (Auto) Eos % (Auto) Baso % (Auto) Lymph # (Auto) [place] # (Auto) Eos # (Auto) Baso # (Auto) Abs Immat Gran (auto) Absolute Neuts (auto) Absolute Nucleated RBC Nucleated RBC % Sodium Potassium Chloride Carbon Dioxide Anion Gap BUN Creatinine Estim Creat Clear Calc Estimated GFR Glucose POC Capillary Glucose 186 H 153 H 176 H Calcium Magnesium Total Bilirubin AST ALT Alkaline Phosphatase Total Protein Albumin 07/20/24 07/20/24 05:41 08:03 WBC 12.0 H RBC 3.13 L Hgb 8.2 L Hct 26.2 L MCV 83.7 MCH 26.2 MCHC 31.3 L RDW 15.9 H Plt Count 219 MPV 9.9 Immature Gran % (Auto) 1.1 H Neut % (Auto) 74.7 H Lymph % (Auto) 14.0 L [place] % (Auto) 8.7 H Eos % (Auto) 1.2 Baso % (Auto) 0.3 Lymph # (Auto) 1.68 [place] # (Auto) 1.1 H Eos # (Auto) 0.2 Baso # (Auto) 0.0 Abs Immat Gran (auto) 0.13 H Absolute Neuts (auto) 9.0 H Absolute Nucleated RBC 0.000 Nucleated RBC % 0.0 Sodium 135 L Potassium 3.6 Chloride 103 Carbon Dioxide 26 Anion Gap 6 BUN 11 Creatinine 0.85 Estim Creat Clear Calc 69 Estimated GFR > 60 Glucose 140 H POC Capillary Glucose 121 H Calcium 8.2 L Magnesium 1.7 Total Bilirubin < 0.1 L AST 15 ALT 11 Alkaline Phosphatase 151 H Total Protein 6.0 L Albumin 2.8 L Quality VTE Prophylaxis VTE prophylaxis: mechanical ordered and pharmacologic ordered
[2024-07-20 11:52] LABS: Glucose Point of Care 189 mg/dl (65-105)
[2024-07-20] MEDS: SENNOSIDES 8.6 MG TABLET PO ×2 (12:27→20:28)
[2024-07-20 14:00] VITALS: BP 109/61; PULSE 77; RESP 16; TEMP 36.6; O2SAT 98
[2024-07-20] MEDS: CENTRAL LINE FLUSH 10 ML IV PUSH ×2 (14:25→22:32)
[2024-07-20 17:13] LABS: Glucose Point of Care 116 mg/dl (65-105)
[2024-07-20 18:06] VITALS: PULSE 80
[2024-07-20 20:35] VITALS: PULSE 92; O2SAT 98
[2024-07-20 20:49] VITALS: BP 102/44; PULSE 82; RESP 20; TEMP 36.4; O2SAT 99
[2024-07-20] MEDS: INSULIN GLARGINE (*BKC) 100 UNITS/ML 38 UNITS SUB-Q (20:59)
[2024-07-20 21:45] LABS: Glucose Point of Care 157 mg/dl (65-105)
[2024-07-20] MEDS: VANCOMYCIN 1,750 MG/NS 500 ML 1,750 MG/500 ML BAG 250 MG IVPB (22:36)
[2024-07-21 05:50] VITALS: BP 93/52; PULSE 77; RESP 12; TEMP 36.8; O2SAT 97
[2024-07-21] MEDS: metroNIDAZOLE 500 MG/ISO 100ML 500 MG/100 ML BAG 100 MG IVPB ×3 (05:56→21:07)
[2024-07-21 06:03] LABS: Basophils Percent Auto 0.3 % (0.2-1.2); Eosinophils Absolute Auto 0.2 K/mm3 (0-0.3); Eosinophils Percent Auto 1.6 % (0-4.4); Hematocrit 24.5 % (37.0-47.0); Hemoglobin 7.6 g/dL (12.0-15.0); Immature Granulocyte Absolute 0.11 K/mm3 (0.00-0.031); Immature Granulocyte Percent A 0.9 % (0-0.5); Lymphocytes Absolute Auto 1.45 K/mm3 (0.9-3.2); Lymphocytes Percent Auto 11.7 % (18.3-44.2); Mean Corpuscular Volume 83.9 fl (80-100); Mean Platelet Volume 9.8 fl (7.4-10.4); Monocytes Absolute Auto 0.9 K/mm3 (0.1-0.6); Monocytes Percent Auto 7.1 % (2.6-8.5); Neutrophils Absolute Auto 9.8 K/mm3 (1.3-6.7); Neutrophils Percent Auto 78.4 % (45.5-73.1); Platelet Count Result 229 k/mm3 (150-375); Red Blood Count 2.92 M/mm3 (4.2-5.4); Red Cell Distribution Width 16.2 % (11.5-14.5); White Blood Count 12.4 K/mm3 (4.5-10.0)
[2024-07-21 06:24] LABS: Alanine Aminotransferase 9 U/L (6-35); Albumin Level 2.6 g/dL (3.5-5.1); Alkaline Phosphatase 159 U/L (38-126); Anion Gap 4 mmol/L (4-12); Aspartate Amino Transferase 13 U/L (14-36); Bilirubin,Total 0.2 mg/dL (0.2-1.3); Blood Urea Nitrogen 10 mg/dL (7-17); Carbon Dioxide 27 mmol/L (22-30); Chloride 103 mmol/L (98-107); Estimated CRCL calculation 71 ml/min; Estimated Glomerular Filt Rate > 60; Glucose 118 mg/dL (65-110); Magnesium 1.6 mg/dL (1.6-2.3); Potassium 3.7 mmol/L (3.4-5.0); Sodium 134 mmol/L (137-145)
[2024-07-21] MEDS: oxyCODONE HCL (*CRX) 5 MG TAB IR PO ×2 (07:41→17:39)
[2024-07-21 08:06] LABS: Glucose Point of Care 129 mg/dl (65-105)
[2024-07-21] MEDS: INSULIN ASPART (*BKC) 100 UNITS/ML 8 UNITS SUB-Q ×3 (09:21→17:40)
[2024-07-21 09:27] VITALS: PULSE 76
[2024-07-21] MEDS: ATORVASTATIN 40 MG TABLET PO (09:27)
[2024-07-21] MEDS: CLOPIDOGREL BISULFATE 75 MG TABLET PO (09:27)
[2024-07-21] MEDS: NICOTINE (*PBKC) 7 MG PATCH 1 PATCH TRANSDERM (09:27)
[2024-07-21] MEDS: SENNOSIDES 8.6 MG TABLET PO (09:27)
[2024-07-21] MEDS: APIXABAN 5 MG TABLET PO ×2 (09:27→21:06)
[2024-07-21] MEDS: carvediloL 3.125 MG TABLET PO ×2 (09:27→17:39)
[2024-07-21] MEDS: SPIRONOLACTONE 50 MG TABLET PO (09:28)
[2024-07-21] MEDS: CEFEPIME 2 GM/NS 50 ML 2 GM/50 ML BAG IVPB ×2 (09:29→21:08)
[2024-07-21] MEDS: CENTRAL LINE FLUSH 10 ML IV PUSH ×3 (09:31→21:07)
--- NOTE | 2024-07-21 10:13 | P.PNIM_ITS ---
Progress Note: A&P Assessment and Plan (1) DM type 2 (diabetes mellitus, type 2): Code(s): E11.9 - Type 2 diabetes mellitus without complications Status: Acute Assessment and Plan: * Accuchecks, SSI, and hypoglycemic protocol. * HgbA1C 6.4%. * Seen by groover and striper operator on 07/19/24. * 07/19 Lantus decreased to 38 units subq HS ad Novolog decreased to 8 units with meals. * Blood sugars running 129-146 today. 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 * Surgery consulted, appreciate recommendations. * 07/18/24: Surgery did a bedside excisional debridement of the right foot wound to unroof the blister and further evaluate the tissue beneath and collected wound cultures this morning. Right foot dressing with small amount of pale yellow drainage. * Pain control. * Monitor site. (3) Cellulitis of foot, right: Code(s): L03.115 - Cellulitis of right lower limb Status: Acute Assessment and Plan: * Receiving Cefepime, Metronidazole, and Vancomycin. PICC line placed on 07/19/24 due to patient having difficulty keeping IV access and need for IV abx's. * Elevate RLE while at rest. * WBC 12.4. * Preliminary right foot culture results Group B Streptococcus isolated. (4) CAD (coronary artery disease): Code(s): I25.10 - Atherosclerotic heart disease of [place] coronary artery without angina pectoris Status: Acute Assessment and Plan: * On Plavix and Eliquis. (5) Chronic anticoagulation: Code(s): Z79.01 - superintendent terminal (current) use of anticoagulants Status: Acute Assessment and Plan: * On Plavix and Eliquis. (6) Constipation: Code(s): K59.00 - Constipation, unspecified Status: Acute Assessment and Plan: * Miralax 17 gram oral daily, Docusate 100 mg PO q 12 PRN, and Senna 8.6 mg PO q 12. (7) Headache: Code(s): R51.9 - Headache, unspecified Status: Acute Assessment and Plan: * Acetaminophen 650 PO q 4 PRN and Oxycodone IR 5 mg PO q 4 PRN. Subjective Date/time seen: 07/21/24 10:13 Interval history: Patient reports a headache that is a 9 , constant, and aching. Patient denies chest pain, palpitations, dizziness, nausea, or vomiting. Review of Systems Review of Systems: All systems reviewed & are unremarkable except as noted in HPI and below Exam Const: General: no acute distress and uncomfortable Resp: Effort & Inspection: normal respiratory effort Auscultation: clear to auscultation bilaterally Cardio: Rate: regular rate Rhythm: regular rhythm GI: GI Palp: Yes Soft to palpation Auscultation: normal bowel sounds Skin: Other: Right foot dressing with scant amount of pale yellow drainage. Neuro: Speech: normal speech Extrem: General: pedal edema on the right (Trace edema. ) Psych: Mental Status: mental status grossly normal Affect: normal affect Objective Data Vital Signs Vital Signs: Vital Signs - 24 hr 07/20/24 14:00 07/20/24 18:06 07/20/24 20:00 Temperature 97.8 F Pulse Rate 77 80 Respiratory Rate 16 Blood Pressure 109/61 Pulse Oximetry 98 Oxygen Delivery Room Air 07/20/24 20:35 07/20/24 20:49 07/21/24 05:50 Temperature 97.6 F 98.2 F Pulse Rate 92 82 77 Respiratory Rate 20 12 Blood Pressure 102/44 L 93/52 L Pulse Oximetry 98 99 97 Oxygen Delivery Room Air 07/21/24 07:43 07/21/24 09:27 Temperature Pulse Rate 76 Respiratory Rate Blood Pressure Pulse Oximetry Oxygen Delivery Room Air Intake/Output Intake/Output: Intake & Output 07/18/24 07/19/24 07/20/24 07/21/24 23:59 23:59 23:59 23:59 Intake Total 3180 2560 2660 690 Output Total 700 Balance 3180 2560 2660 -10 Meds/Results Medications: Active Medications Generic Name Dose Route Start Last Admin Trade Name Freq PRN Reason Stop Dose Admin Acetaminophen 650 mg 07/16/24 22:55 Acetaminophen 325 Mg Tablet PO Q4H PRN Mild Pain (1-3) or Fever Apixaban 5 mg 07/18/24 09:00 07/21/24 09:27 Apixaban 5 Mg Tablet PO 5 mg Q12HR CHRISTOPHER Administration Atorvastatin Calcium 40 mg 07/18/24 09:00 07/21/24 09:27 Atorvastatin 40 Mg Tablet PO 40 mg DAILY CHRISTOPHER Administration Carvedilol 3.125 mg 07/17/24 17:00 07/21/24 09:27 Carvedilol 3.125 Mg Tablet PO 3.125 mg BID CHRISTOPHER Administration Clopidogrel Bisulfate 75 mg 07/18/24 09:00 07/21/24 09:27 Clopidogrel Bisulfate 75 Mg Tablet PO 75 mg DAILY CHRISTOPHER Administration Dextrose 12.5 gm 07/16/24 22:36 Dextrose 50% 25 Gm/50 Ml Syringe IV PUSH PRN PRN Hypoglycemia Protocol Docusate Sodium 100 mg 07/18/24 10:17 07/20/24 09:23 Docusate Sodium 100 Mg Capsule PO 100 mg Q12H PRN Administration Constipation Glucose 15 gm 07/16/24 22:36 Glucose Oral Gel 15 Gm Of Glucse In 37.5 Gm Tube PO PRN PRN Hypoglycemia Protocol Metronidazole 500 mg in 100 mls @ 100 mls/hr 07/17/24 06:00 07/21/24 07:00 Flagyl 500 Mg/Iso Soln 100 Ml IVPB Infused Q8HR CHRISTOPHER Infusion Dextrose 1,000 mls @ 100 mls/hr 07/16/24 22:36 Dextrose 5% 1,000 Ml IVPB PRN PRN Hypoglycemia Protocol Cefepime HCl 2 gm in 50 mls @ 100 mls/hr 07/17/24 09:00 07/21/24 09:29 Maxipime 2 Gm/Ns 50 Ml IVPB 100 mls/hr Q12HR CHRISTOPHER Administration Vancomycin HCl 1,750 mg in 500 mls @ 250 mls/hr 07/20/24 23:00 07/20/24 22:36 Vancomycin 1,750 Mg/Ns 500 Ml IVPB 250 mls/hr Q12H CHRISTOPHER Administration Insulin Aspart 2 - 5 units 07/17/24 08:00 07/21/24 09:31 Insulin Aspart (*Bkc) 100 Units/Ml SUB-Q Not Given TIDWM [facility] Protocol Insulin Aspart 1 - 2 units 07/17/24 21:00 07/20/24 22:36 Insulin Aspart (*Bkc) 100 Units/Ml SUB-Q Not Given HS [facility] Protocol Insulin Aspart 8 units 07/19/24 17:00 07/21/24 09:21 Insulin Aspart (*Bkc) 100 Units/Ml SUB-Q 8 units TIDWM CHRISTOPHER Administration Insulin Glargine 38 units 07/19/24 21:00 07/20/24 20:59 Insulin Glargine (*Bkc) 100 Units/Ml SUB-Q 38 units HS CHRISTOPHER Administration Nicotine 1 patch 07/17/24 12:00 07/21/24 09:27 Nicotine (*Pbkc) 7 Mg Patch TRANSDERM 1 patch DAILY CHRISTOPHER Administration Ondansetron HCl 4 mg 07/16/24 22:55 Ondansetron Inj 4 Mg/2 Ml Vial IV PUSH Q4H PRN Nausea Oxycodone HCl 5 mg 07/17/24 15:49 07/21/24 07:41 Oxycodone Hcl (*Crx) 5 Mg Tab Ir PO 5 mg Q4H PRN Administration Pain Rated 7-10 Polyethylene Glycol 17 gm 07/18/24 10:20 07/21/24 09:31 Polyethylene Glycol 3350 17 Gm Powd.Pack PO Not Given QAM CHRISTOPHER Senna 8.6 mg 07/20/24 11:05 07/21/24 09:27 Sennosides 8.6 Mg Tablet PO 8.6 mg Q12HR CHRISTOPHER Administration Sodium Chloride 10 ml 07/20/24 14:00 07/21/24 09:31 Central Line Flush IV PUSH 10 ml Q8HR CHRISTOPHER Administration Sodium Chloride 10 ml 07/20/24 07:07 Central Line Flush IV PUSH PRN PRN with TPN bag changes Sodium Chloride 20 ml 07/20/24 07:07 Central Line Flush IV PUSH PRN PRN after blood draws Spironolactone 50 mg 07/17/24 15:00 07/21/24 09:28 Spironolactone 50 Mg Tablet PO 50 mg DAILY CHRISTOPHER Administration Tramadol HCl 25 mg 07/17/24 12:02 07/17/24 12:16 Tramadol Hcl (*Crx) 25 Mg Tablet PO 25 mg Q4H PRN Administration Pain Rated 4-6 Radiology Results: ITS Impressions Foot X-Ray 07/16/24 20:31 IMPRESSION: Moderate periosteal reaction along the medial margin of the mid shaft of the fifth metatarsal at the site of prior amputation with significant soft tissue swelling of the right forefoot. Lower Extremity CT 07/16/24 21:10 IMPRESSION: Soft tissue swelling without abscess formation Chest X-Ray 07/19/24 20:07 IMPRESSION: Right PICC line with the tip overlying the superior vena cava. Left basilar atelectasis versus pneumonia. Cardiomegaly with congestive riki and interstitial thickening which may indicate pulmonary edema versus pneumonitis versus fibrotic changes. Labs Labs: Laboratory Results - last 24 hr 07/20/24 07/20/24 07/20/24 11:49 17:03 20:47 WBC RBC Hgb Hct MCV MCH MCHC RDW Plt Count MPV Immature Gran % (Auto) Neut % (Auto) Lymph % (Auto) [place] % (Auto) Eos % (Auto) Baso % (Auto) Lymph # (Auto) [place] # (Auto) Eos # (Auto) Baso # (Auto) Abs Immat Gran (auto) Absolute Neuts (auto) Absolute Nucleated RBC Nucleated RBC % Sodium Potassium Chloride Carbon Dioxide Anion Gap BUN Creatinine Estim Creat Clear Calc Estimated GFR Glucose POC Capillary Glucose 189 H 116 H 157 H Calcium Magnesium Total Bilirubin AST ALT Alkaline Phosphatase Total Protein Albumin Vancomycin Trough 07/20/24 07/21/24 07/21/24 21:08 05:55 08:01 WBC 12.4 H RBC 2.92 L Hgb 7.6 L Hct 24.5 L MCV 83.9 MCH 26.0 MCHC 31.0 L RDW 16.2 H Plt Count 229 MPV 9.8 Immature Gran % (Auto) 0.9 H Neut % (Auto) 78.4 H Lymph % (Auto) 11.7 L [place] % (Auto) 7.1 Eos % (Auto) 1.6 Baso % (Auto) 0.3 Lymph # (Auto) 1.45 [place] # (Auto) 0.9 H Eos # (Auto) 0.2 Baso # (Auto) 0.0 Abs Immat Gran (auto) 0.11 H Absolute Neuts (auto) 9.8 H Absolute Nucleated RBC 0.000 Nucleated RBC % 0.0 Sodium 134 L Potassium 3.7 Chloride 103 Carbon Dioxide 27 Anion Gap 4 BUN 10 Creatinine 0.83 Estim Creat Clear Calc 71 Estimated GFR > 60 Glucose 118 H POC Capillary Glucose 129 H Calcium 8.0 L Magnesium 1.6 Total Bilirubin 0.2 AST 13 L ALT 9 Alkaline Phosphatase 159 H Total Protein 6.0 L Albumin 2.6 L Vancomycin Trough 18.0 Quality VTE Prophylaxis VTE prophylaxis: mechanical ordered and pharmacologic ordered
[2024-07-21] MEDS: VANCOMYCIN 1,750 MG/NS 500 ML 1,750 MG/500 ML BAG 250 MG IVPB ×2 (11:39→22:47)
[2024-07-21 11:50] LABS: Glucose Point of Care 146 mg/dl (65-105)
[2024-07-21 14:00] VITALS: BP 129/62; PULSE 81; RESP 16; TEMP 36.6; O2SAT 100
[2024-07-21 16:57] LABS: Glucose Point of Care 133 mg/dl (65-105)
[2024-07-21 17:39] VITALS: PULSE 84
[2024-07-21 21:18] LABS: Glucose Point of Care 106 mg/dl (65-105)
[2024-07-21 21:22] VITALS: BP 116/58; PULSE 77; RESP 14; TEMP 36.5; O2SAT 99
[2024-07-21 21:58] LABS: Vancomycin Trough 15.9 ug/mL (10.0-20.0)
[2024-07-21] MEDS: CENTRAL LINE FLUSH 20 ML IV PUSH (22:47)
[2024-07-22] MEDS: metroNIDAZOLE 500 MG/ISO 100ML 500 MG/100 ML BAG 100 MG IVPB ×3 (05:35→21:20)
[2024-07-22 05:39] VITALS: BP 113/61; PULSE 78; RESP 16; TEMP 36.6; O2SAT 98
[2024-07-22] MEDS: CENTRAL LINE FLUSH 10 ML IV PUSH ×3 (05:39→21:23)
[2024-07-22] MEDS: CENTRAL LINE FLUSH 20 ML IV PUSH (05:39)
[2024-07-22 05:49] LABS: Basophils Percent Auto 0.3 % (0.2-1.2); Eosinophils Absolute Auto 0.2 K/mm3 (0-0.3); Eosinophils Percent Auto 1.6 % (0-4.4); Hematocrit 24.2 % (37.0-47.0); Hemoglobin 7.6 g/dL (12.0-15.0); Immature Granulocyte Absolute 0.11 K/mm3 (0.00-0.031); Lymphocytes Absolute Auto 1.44 K/mm3 (0.9-3.2); Lymphocytes Percent Auto 12.4 % (18.3-44.2); Mean Corpuscular HGB Conc 31.4 g/dl (32-36); Mean Corpuscular Hemoglobin 26.1 pg (26-34); Mean Corpuscular Volume 83.2 fl (80-100); Mean Platelet Volume 10.2 fl (7.4-10.4); Monocytes Absolute Auto 0.8 K/mm3 (0.1-0.6); Monocytes Percent Auto 6.9 % (2.6-8.5); Neutrophils Percent Auto 77.8 % (45.5-73.1); Platelet Count Result 236 k/mm3 (150-375); Red Blood Count 2.91 M/mm3 (4.2-5.4); Red Cell Distribution Width 16.4 % (11.5-14.5); White Blood Count 11.6 K/mm3 (4.5-10.0)
[2024-07-22 06:04] LABS: Alanine Aminotransferase 10 U/L (6-35); Albumin Level 2.6 g/dL (3.5-5.1); Alkaline Phosphatase 157 U/L (38-126); Anion Gap 5 mmol/L (4-12); Aspartate Amino Transferase 20 U/L (14-36); Bilirubin,Total 0.1 mg/dL (0.2-1.3); Blood Urea Nitrogen 9 mg/dL (7-17); Calcium 8.2 mg/dL (8.4-10.2); Carbon Dioxide 29 mmol/L (22-30); Chloride 102 mmol/L (98-107); Estimated CRCL calculation 75 ml/min; Estimated Glomerular Filt Rate > 60; Glucose 146 mg/dL (65-110); Magnesium 1.6 mg/dL (1.6-2.3); Potassium 3.8 mmol/L (3.4-5.0); Sodium 136 mmol/L (137-145)
[2024-07-22 07:41] LABS: Glucose Point of Care 125 mg/dl (65-105)
[2024-07-22] MEDS: INSULIN ASPART (*BKC) 100 UNITS/ML 8 UNITS SUB-Q ×3 (08:48→17:14)
[2024-07-22] MEDS: APIXABAN 5 MG TABLET PO ×2 (08:53→21:20)
[2024-07-22] MEDS: oxyCODONE HCL (*CRX) 5 MG TAB IR PO (08:53)
[2024-07-22 08:54] VITALS: PULSE 74
[2024-07-22] MEDS: carvediloL 3.125 MG TABLET PO ×2 (08:54→17:14)
[2024-07-22] MEDS: NICOTINE (*PBKC) 7 MG PATCH 1 PATCH TRANSDERM (08:54)
[2024-07-22] MEDS: SENNOSIDES 8.6 MG TABLET PO (08:54)
[2024-07-22] MEDS: CLOPIDOGREL BISULFATE 75 MG TABLET PO (08:54)
[2024-07-22] MEDS: ATORVASTATIN 40 MG TABLET PO (08:54)
[2024-07-22] MEDS: SPIRONOLACTONE 50 MG TABLET PO (08:54)
[2024-07-22] MEDS: CEFEPIME 2 GM/NS 50 ML 2 GM/50 ML BAG IVPB ×2 (08:55→21:20)
--- NOTE | 2024-07-22 10:43 | P.PNIM_ITS ---
Progress Note: A&P Assessment and Plan (1) DM type 2 (diabetes mellitus, type 2): Code(s): E11.9 - Type 2 diabetes mellitus without complications Status: Acute Assessment and Plan: * Accuchecks, SSI, and hypoglycemic protocol. * HgbA1C 6.4%. * Seen by family educator on 07/19/24. * 07/19 Lantus decreased to 38 units subq HS ad Novolog decreased to 8 units with meals. * Blood sugars running 125-143 today. 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 * Surgery consulted, appreciate recommendations. * 07/18/24: Surgery did a bedside excisional debridement of the right foot wound to unroof the blister and further evaluate the tissue beneath and collected wound cultures this morning. * Right foot with erythema and warm to touch, with moderate amount of light yellow to serous drainage. * Discussed with Zaira in Surgery. * MRI of right foot with contrast ordered and continue same antibiotics. * Pain control. * Monitor site. (3) Cellulitis of foot, right: Code(s): L03.115 - Cellulitis of right lower limb Status: Acute Assessment and Plan: * Receiving Cefepime, Metronidazole, and Vancomycin. PICC line placed on 07/19/24 due to patient having difficulty keeping IV access and need for IV abx's. * Right foot with erythema and warm to touch, with moderate amount of light yellow to serous drainage. * Discussed with Zaira in Surgery. * MRI of right foot with contrast ordered and continue same antibiotics. * Elevate RLE while at rest. * WBC 11.6. * Preliminary right foot culture results Group B Streptococcus isolated. (4) CAD (coronary artery disease): Code(s): I25.10 - Atherosclerotic heart disease of [place] coronary artery without angina pectoris Status: Acute Assessment and Plan: * On Plavix and Eliquis. (5) Chronic anticoagulation: Code(s): Z79.01 - half-way (current) use of anticoagulants Status: Acute Assessment and Plan: * On Plavix and Eliquis. (6) Constipation: Code(s): K59.00 - Constipation, unspecified Status: Acute Assessment and Plan: * Miralax 17 gram oral daily, Docusate 100 mg PO q 12 PRN, and Senna 8.6 mg PO q 12. (7) Headache: Code(s): R51.9 - Headache, unspecified Status: Acute Assessment and Plan: * Acetaminophen 650 PO q 4 PRN and Oxycodone IR 5 mg PO q 4 PRN. Subjective Date/time seen: 07/22/24 10:43 Interval history: Patient lying in bed. Nurse reports patient having increased drainage from right foot. Patient denies pain in right foot, headache, dizziness, shortness of breath, nausea, or vomiting. Review of Systems Review of Systems: All systems reviewed & are unremarkable except as noted in HPI and below Exam Const: General: comfortable and no acute distress Resp: Effort & Inspection: normal respiratory effort Auscultation: clear to auscultation bilaterally Cardio: Rate: regular rate Rhythm: regular rhythm GI: GI Palp: Yes Soft to palpation Auscultation: normal bowel sounds Skin: Other: Right foot with erythema and warm to touch, with moderate amount of light yellow to serous drainage. Neuro: Speech: normal speech Extrem: General: pedal edema on the right (trace) Psych: Mental Status: mental status grossly normal Affect: normal affect Objective Data Vital Signs Vital Signs: Vital Signs - 24 hr 07/21/24 14:00 07/21/24 17:39 07/21/24 20:00 Temperature 97.9 F Pulse Rate 81 84 Respiratory Rate 16 Blood Pressure 129/62 Pulse Oximetry 100 Oxygen Delivery Room Air 07/21/24 21:22 07/22/24 05:39 07/22/24 08:54 Temperature 97.7 F 97.8 F Pulse Rate 77 78 74 Respiratory Rate 14 16 Blood Pressure 116/58 L 113/61 Pulse Oximetry 99 98 Oxygen Delivery Intake/Output Intake/Output: Intake & Output 07/19/24 07/20/24 07/21/24 07/22/24 23:59 23:59 23:59 23:59 Intake Total 2560 2660 2950 1230 Output Total 700 Balance 2560 2660 2250 1230 Meds/Results Medications: Active Medications Generic Name Dose Route Start Last Admin Trade Name Freq PRN Reason Stop Dose Admin Acetaminophen 650 mg 07/16/24 22:55 Acetaminophen 325 Mg Tablet PO Q4H PRN Mild Pain (1-3) or Fever Apixaban 5 mg 07/18/24 09:00 07/22/24 08:53 Apixaban 5 Mg Tablet PO 5 mg Q12HR CHRISTOPHER Administration Atorvastatin Calcium 40 mg 07/18/24 09:00 07/22/24 08:54 Atorvastatin 40 Mg Tablet PO 40 mg DAILY CHRISTOPHER Administration Carvedilol 3.125 mg 07/17/24 17:00 07/22/24 08:54 Carvedilol 3.125 Mg Tablet PO 3.125 mg BID CHRISTOPHER Administration Clopidogrel Bisulfate 75 mg 07/18/24 09:00 07/22/24 08:54 Clopidogrel Bisulfate 75 Mg Tablet PO 75 mg DAILY CHRISTOPHER Administration Dextrose 12.5 gm 07/16/24 22:36 Dextrose 50% 25 Gm/50 Ml Syringe IV PUSH PRN PRN Hypoglycemia Protocol Docusate Sodium 100 mg 07/18/24 10:17 07/20/24 09:23 Docusate Sodium 100 Mg Capsule PO 100 mg Q12H PRN Administration Constipation Glucose 15 gm 07/16/24 22:36 Glucose Oral Gel 15 Gm Of Glucse In 37.5 Gm Tube PO PRN PRN Hypoglycemia Protocol Metronidazole 500 mg in 100 mls @ 100 mls/hr 07/17/24 06:00 07/22/24 05:35 Flagyl 500 Mg/Iso Soln 100 Ml IVPB 100 mls/hr Q8HR CHRISTOPHER Administration Dextrose 1,000 mls @ 100 mls/hr 07/16/24 22:36 Dextrose 5% 1,000 Ml IVPB PRN PRN Hypoglycemia Protocol Cefepime HCl 2 gm in 50 mls @ 100 mls/hr 07/17/24 09:00 07/22/24 08:55 Maxipime 2 Gm/Ns 50 Ml IVPB 100 mls/hr Q12HR CHRISTOPHER Administration Vancomycin HCl 1,750 mg in 500 mls @ 250 mls/hr 07/20/24 23:00 07/22/24 00:47 Vancomycin 1,750 Mg/Ns 500 Ml IVPB Infused Q12H CHRISTOPHER Infusion Insulin Aspart 2 - 5 units 07/17/24 08:00 07/22/24 08:55 Insulin Aspart (*Bkc) 100 Units/Ml SUB-Q Not Given TIDWM [facility] Protocol Insulin Aspart 1 - 2 units 07/17/24 21:00 07/21/24 21:05 Insulin Aspart (*Bkc) 100 Units/Ml SUB-Q Not Given HS [facility] Protocol Insulin Aspart 8 units 07/19/24 17:00 07/22/24 08:48 Insulin Aspart (*Bkc) 100 Units/Ml SUB-Q 8 units TIDWM CHRISTOPHER Administration Insulin Glargine 38 units 07/19/24 21:00 07/21/24 21:05 Insulin Glargine (*Bkc) 100 Units/Ml SUB-Q Not Given HS [facility] Nicotine 1 patch 07/17/24 12:00 07/22/24 08:54 Nicotine (*Pbkc) 7 Mg Patch TRANSDERM 1 patch DAILY CHRISTOPHER Administration Ondansetron HCl 4 mg 07/16/24 22:55 Ondansetron Inj 4 Mg/2 Ml Vial IV PUSH Q4H PRN Nausea Oxycodone HCl 5 mg 07/17/24 15:49 07/22/24 08:53 Oxycodone Hcl (*Crx) 5 Mg Tab Ir PO 5 mg Q4H PRN Administration Pain Rated 7-10 Polyethylene Glycol 17 gm 07/18/24 10:20 07/22/24 08:55 Polyethylene Glycol 3350 17 Gm Powd.Pack PO Not Given QAM CHRISTOPHER Senna 8.6 mg 07/20/24 11:05 07/22/24 08:54 Sennosides 8.6 Mg Tablet PO 8.6 mg Q12HR CHRISTOPHER Administration Sodium Chloride 10 ml 07/20/24 14:00 07/22/24 05:39 Central Line Flush IV PUSH 10 ml Q8HR CHRISTOPHER Administration Sodium Chloride 10 ml 07/20/24 07:07 Central Line Flush IV PUSH PRN PRN with TPN bag changes Sodium Chloride 20 ml 07/20/24 07:07 07/22/24 05:39 Central Line Flush IV PUSH 20 ml PRN PRN Administration after blood draws Spironolactone 50 mg 07/17/24 15:00 07/22/24 08:54 Spironolactone 50 Mg Tablet PO 50 mg DAILY CHRISTOPHER Administration Tramadol HCl 25 mg 07/17/24 12:02 07/17/24 12:16 Tramadol Hcl (*Crx) 25 Mg Tablet PO 25 mg Q4H PRN Administration Pain Rated 4-6 Radiology Results: ITS Impressions Foot X-Ray 07/16/24 20:31 IMPRESSION: Moderate periosteal reaction along the medial margin of the mid shaft of the fifth metatarsal at the site of prior amputation with significant soft tissue swelling of the right forefoot. Lower Extremity CT 07/16/24 21:10 IMPRESSION: Soft tissue swelling without abscess formation Chest X-Ray 07/19/24 20:07 IMPRESSION: Right PICC line with the tip overlying the superior vena cava. Left basilar atelectasis versus pneumonia. Cardiomegaly with congestive riki and interstitial thickening which may indicate pulmonary edema versus pneumonitis versus fibrotic changes. Labs Labs: Laboratory Results - last 24 hr 07/21/24 07/21/24 07/21/24 11:44 16:48 21:05 WBC RBC Hgb Hct MCV MCH MCHC RDW Plt Count MPV Immature Gran % (Auto) Neut % (Auto) Lymph % (Auto) [place] % (Auto) Eos % (Auto) Baso % (Auto) Lymph # (Auto) [place] # (Auto) Eos # (Auto) Baso # (Auto) Abs Immat Gran (auto) Absolute Neuts (auto) Absolute Nucleated RBC Nucleated RBC % Sodium Potassium Chloride Carbon Dioxide Anion Gap BUN Creatinine Estim Creat Clear Calc Estimated GFR Glucose POC Capillary Glucose 146 H 133 H 106 H Calcium Magnesium Total Bilirubin AST ALT Alkaline Phosphatase Total Protein Albumin Vancomycin Trough 07/21/24 07/22/24 07/22/24 21:31 05:35 07:29 WBC 11.6 H RBC 2.91 L Hgb 7.6 L Hct 24.2 L MCV 83.2 MCH 26.1 MCHC 31.4 L RDW 16.4 H Plt Count 236 MPV 10.2 Immature Gran % (Auto) 1.0 H Neut % (Auto) 77.8 H Lymph % (Auto) 12.4 L [place] % (Auto) 6.9 Eos % (Auto) 1.6 Baso % (Auto) 0.3 Lymph # (Auto) 1.44 [place] # (Auto) 0.8 H Eos # (Auto) 0.2 Baso # (Auto) 0.0 Abs Immat Gran (auto) 0.11 H Absolute Neuts (auto) 9.0 H Absolute Nucleated RBC 0.000 Nucleated RBC % 0.0 Sodium 136 L Potassium 3.8 Chloride 102 Carbon Dioxide 29 Anion Gap 5 BUN 9 Creatinine 0.78 Estim Creat Clear Calc 75 Estimated GFR > 60 Glucose 146 H POC Capillary Glucose 125 H Calcium 8.2 L Magnesium 1.6 Total Bilirubin 0.1 L AST 20 ALT 10 Alkaline Phosphatase 157 H Total Protein 6.0 L Albumin 2.6 L Vancomycin Trough 15.9 Quality VTE Prophylaxis VTE prophylaxis: mechanical ordered and pharmacologic ordered
[2024-07-22 11:25] LABS: Glucose Point of Care 143 mg/dl (65-105)
[2024-07-22] MEDS: VANCOMYCIN 1,750 MG/NS 500 ML 1,750 MG/500 ML BAG 250 MG IVPB ×2 (11:42→22:31)
--- NOTE | 2024-07-22 13:57 | P.PNGS_ITS ---
Progress Note: A&P Assessment and Plan (1) Diabetic foot ulcer: Code(s): E11.621 - Type 2 diabetes mellitus with foot ulcer; L97.509 - Non-pressure chronic ulcer of other part of unspecified foot with unspecified severity Status: Acute Assessment and Plan: * There is extension of the plantar foot callus with deeper tunneling towards the medial foot ulcer and worsening localized erythema around the 1st MTP elbert int and extending now to the plantar foot. Will order MRI of the right foot to further evaluate for involvement of deeper structures in the foot. * Continue IV antibiotics for now * Will switch to Santyl dressing changes. 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 Chapin. Subjective Subjective Date/Time Seen: 07/22/24 13:57 Patient reports: afebrile Interval history: Patient denies any acute changes over the weekend. No pain in her right foot. She reports she has not had any pain since the blister popped on the first day. White blood cell count remains around [phone] over the weekend. Exam Narrative: Right foot ulcer on the medial aspect over the 1st MTP joint with scant yellow slough and exudate in the wound bed, no necrotic tissue or purulent drainage. The callus on the plantar foot has a necrotic center, no purulent drainage, but does probe in deeper and is tunneling towards the medial ulcer, it goes in about 1cm. The erythema extending on the dorsal foot has improved, but there is more redness along the medial foot and now on the plantar foot near the 1st MTP joint. Still mild diffuse edema of the right foot. Objective Data Vital Signs Vital Signs: Vital Signs - 24 hr 07/21/24 14:00 07/21/24 17:39 07/21/24 20:00 Temperature 97.9 F Pulse Rate 81 84 Respiratory Rate 16 Blood Pressure 129/62 Pulse Oximetry 100 Oxygen Delivery Room Air 07/21/24 21:22 07/22/24 05:39 07/22/24 08:40 Temperature 97.7 F 97.8 F Pulse Rate 77 78 Respiratory Rate 14 16 Blood Pressure 116/58 L 113/61 Pulse Oximetry 99 98 Oxygen Delivery Room Air 07/22/24 08:54 Temperature Pulse Rate 74 Respiratory Rate Blood Pressure Pulse Oximetry Oxygen Delivery Intake/Output Intake/Output: Intake & Output 07/19/24 07/20/24 07/21/24 07/22/24 23:59 23:59 23:59 23:59 Intake Total 2560 2660 2950 1350 Output Total 700 Balance 2560 2660 2250 1350 Meds/Results Medications: Active Medications Generic Name Dose Route Start Last Admin Trade Name Freq PRN Reason Stop Dose Admin Acetaminophen 650 mg 07/16/24 22:55 Acetaminophen 325 Mg Tablet PO Q4H PRN Mild Pain (1-3) or Fever Apixaban 5 mg 07/18/24 09:00 07/22/24 08:53 Apixaban 5 Mg Tablet PO 5 mg Q12HR CHRISTOPHER Administration Atorvastatin Calcium 40 mg 07/18/24 09:00 07/22/24 08:54 Atorvastatin 40 Mg Tablet PO 40 mg DAILY CHRISTOPHER Administration Carvedilol 3.125 mg 07/17/24 17:00 07/22/24 08:54 Carvedilol 3.125 Mg Tablet PO 3.125 mg BID CHRISTOPHER Administration Clopidogrel Bisulfate 75 mg 07/18/24 09:00 07/22/24 08:54 Clopidogrel Bisulfate 75 Mg Tablet PO 75 mg DAILY CHRISTOPHER Administration Dextrose 12.5 gm 07/16/24 22:36 Dextrose 50% 25 Gm/50 Ml Syringe IV PUSH PRN PRN Hypoglycemia Protocol Docusate Sodium 100 mg 07/18/24 10:17 07/20/24 09:23 Docusate Sodium 100 Mg Capsule PO 100 mg Q12H PRN Administration Constipation Glucose 15 gm 07/16/24 22:36 Glucose Oral Gel 15 Gm Of Glucse In 37.5 Gm Tube PO PRN PRN Hypoglycemia Protocol Metronidazole 500 mg in 100 mls @ 100 mls/hr 07/17/24 06:00 07/22/24 05:35 Flagyl 500 Mg/Iso Soln 100 Ml IVPB 100 mls/hr Q8HR CHRISTOPHER Administration Dextrose 1,000 mls @ 100 mls/hr 07/16/24 22:36 Dextrose 5% 1,000 Ml IVPB PRN PRN Hypoglycemia Protocol Cefepime HCl 2 gm in 50 mls @ 100 mls/hr 07/17/24 09:00 07/22/24 08:55 Maxipime 2 Gm/Ns 50 Ml IVPB 100 mls/hr Q12HR CHRISTOPHER Administration Vancomycin HCl 1,750 mg in 500 mls @ 250 mls/hr 07/20/24 23:00 07/22/24 11:42 Vancomycin 1,750 Mg/Ns 500 Ml IVPB 250 mls/hr Q12H CHRISTOPHER Administration Insulin Aspart 2 - 5 units 07/17/24 08:00 07/22/24 12:34 Insulin Aspart (*Bkc) 100 Units/Ml SUB-Q Not Given [facility] Protocol Insulin Aspart 1 - 2 units 07/17/24 21:00 07/21/24 21:05 Insulin Aspart (*Bkc) 100 Units/Ml SUB-Q Not Given [facility] Protocol Insulin Aspart 8 units 07/19/24 17:00 07/22/24 12:34 Insulin Aspart (*Bkc) 100 Units/Ml SUB-Q 8 units [facility] Administration Insulin Glargine 38 units 07/19/24 21:00 07/21/24 21:05 Insulin Glargine (*Bkc) 100 Units/Ml SUB-Q Not Given [facility] Nicotine 1 patch 07/17/24 12:00 07/22/24 08:54 Nicotine (*Pbkc) 7 Mg Patch TRANSDERM 1 patch DAILY CHRISTOPHER Administration Ondansetron HCl 4 mg 07/16/24 22:55 Ondansetron Inj 4 Mg/2 Ml Vial IV PUSH Q4H PRN Nausea Oxycodone HCl 5 mg 07/17/24 15:49 07/22/24 08:53 Oxycodone Hcl (*Crx) 5 Mg Tab Ir PO 5 mg Q4H PRN Administration Pain Rated 7-10 Polyethylene Glycol 17 gm 07/18/24 10:20 07/22/24 08:55 Polyethylene Glycol 3350 17 Gm Powd.Pack PO Not Given QAM CHRISTOPHER Senna 8.6 mg 07/20/24 11:05 07/22/24 08:54 Sennosides 8.6 Mg Tablet PO 8.6 mg Q12HR CHRISTOPHER Administration Sodium Chloride 10 ml 07/20/24 14:00 07/22/24 05:39 Central Line Flush IV PUSH 10 ml Q8HR CHRISTOPHER Administration Sodium Chloride 10 ml 07/20/24 07:07 Central Line Flush IV PUSH PRN PRN with TPN bag changes Sodium Chloride 20 ml 07/20/24 07:07 07/22/24 05:39 Central Line Flush IV PUSH 20 ml PRN PRN Administration after blood draws Spironolactone 50 mg 07/17/24 15:00 07/22/24 08:54 Spironolactone 50 Mg Tablet PO 50 mg DAILY CHRISTOPHER Administration Tramadol HCl 25 mg 07/17/24 12:02 07/17/24 12:16 Tramadol Hcl (*Crx) 25 Mg Tablet PO 25 mg Q4H PRN Administration Pain Rated 4-6 Radiology Results: ITS Impressions Foot X-Ray 07/16/24 20:31 IMPRESSION: Moderate periosteal reaction along the medial margin of the mid shaft of the fifth metatarsal at the site of prior amputation with significant soft tissue swelling of the right forefoot. Lower Extremity CT 07/16/24 21:10 IMPRESSION: Soft tissue swelling without abscess formation Chest X-Ray 07/19/24 20:07 IMPRESSION: Right PICC line with the tip overlying the superior vena cava. Left basilar atelectasis versus pneumonia. Cardiomegaly with congestive riki and interstitial thickening which may indicate pulmonary edema versus pneumonitis versus fibrotic changes. Labs Labs: Laboratory Results - last 24 hr 07/21/24 07/21/24 07/21/24 16:48 21:05 21:31 WBC RBC Hgb Hct MCV MCH MCHC RDW Plt Count MPV Immature Gran % (Auto) Neut % (Auto) Lymph % (Auto) [place] % (Auto) Eos % (Auto) Baso % (Auto) Lymph # (Auto) [place] # (Auto) Eos # (Auto) Baso # (Auto) Abs Immat Gran (auto) Absolute Neuts (auto) Absolute Nucleated RBC Nucleated RBC % Sodium Potassium Chloride Carbon Dioxide Anion Gap BUN Creatinine Estim Creat Clear Calc Estimated GFR Glucose POC Capillary Glucose 133 H 106 H Calcium Magnesium Total Bilirubin AST ALT Alkaline Phosphatase Total Protein Albumin Vancomycin Trough 15.9 07/22/24 07/22/24 07/22/24 05:35 07:29 11:15 WBC 11.6 H RBC 2.91 L Hgb 7.6 L Hct 24.2 L MCV 83.2 MCH 26.1 MCHC 31.4 L RDW 16.4 H Plt Count 236 MPV 10.2 Immature Gran % (Auto) 1.0 H Neut % (Auto) 77.8 H Lymph % (Auto) 12.4 L [place] % (Auto) 6.9 Eos % (Auto) 1.6 Baso % (Auto) 0.3 Lymph # (Auto) 1.44 [place] # (Auto) 0.8 H Eos # (Auto) 0.2 Baso # (Auto) 0.0 Abs Immat Gran (auto) 0.11 H Absolute Neuts (auto) 9.0 H Absolute Nucleated RBC 0.000 Nucleated RBC % 0.0 Sodium 136 L Potassium 3.8 Chloride 102 Carbon Dioxide 29 Anion Gap 5 BUN 9 Creatinine 0.78 Estim Creat Clear Calc 75 Estimated GFR > 60 Glucose 146 H POC Capillary Glucose 125 H 143 H Calcium 8.2 L Magnesium 1.6 Total Bilirubin 0.1 L AST 20 ALT 10 Alkaline Phosphatase 157 H Total Protein 6.0 L Albumin 2.6 L Vancomycin Trough
[2024-07-22 14:00] VITALS: BP 118/62; PULSE 77; RESP 20; TEMP 36.5; O2SAT 99
[2024-07-22] MEDS: COLLAGENASE OINT 30 GM TUBE 1 APPLIC TOPICAL ×2 (14:21→21:22)
[2024-07-22 16:17] LABS: Glucose Point of Care 114 mg/dl (65-105)
[2024-07-22 17:14] VITALS: PULSE 74
[2024-07-22 20:40] VITALS: PULSE 75; RESP 20; O2SAT 92
[2024-07-22 21:15] VITALS: BP 105/57; PULSE 60; RESP 16; TEMP 36.7; O2SAT 97
[2024-07-22 21:49] LABS: Glucose Point of Care 131 mg/dl (65-105)
[2024-07-23] VITALS (7 sets, daily range): BP systolic 102–109; BP diastolic 52–63; PULSE 71–80; RESP 16–20; TEMP 36.5–36.7; O2SAT 93–100
[2024-07-23] MEDS: metroNIDAZOLE 500 MG/ISO 100ML 500 MG/100 ML BAG 100 MG IVPB ×3 (05:46→21:45)
[2024-07-23] MEDS: CENTRAL LINE FLUSH 10 ML IV PUSH ×3 (05:46→21:46)
[2024-07-23 06:07] LABS: Basophils Percent Auto 0.3 % (0.2-1.2); Eosinophils Absolute Auto 0.1 K/mm3 (0-0.3); Eosinophils Percent Auto 1.3 % (0-4.4); Hematocrit 24.3 % (37.0-47.0); Hemoglobin 7.3 g/dL (12.0-15.0); Immature Granulocyte Absolute 0.12 K/mm3 (0.00-0.031); Immature Granulocyte Percent A 1.2 % (0-0.5); Lymphocytes Absolute Auto 1.28 K/mm3 (0.9-3.2); Lymphocytes Percent Auto 12.4 % (18.3-44.2); Mean Corpuscular Volume 86.5 fl (80-100); Mean Platelet Volume 9.7 fl (7.4-10.4); Monocytes Absolute Auto 0.7 K/mm3 (0.1-0.6); Monocytes Percent Auto 6.3 % (2.6-8.5); Neutrophils Absolute Auto 8.1 K/mm3 (1.3-6.7); Neutrophils Percent Auto 78.5 % (45.5-73.1); Platelet Count Result 244 k/mm3 (150-375); Red Blood Count 2.81 M/mm3 (4.2-5.4); Red Cell Distribution Width 16.5 % (11.5-14.5); White Blood Count 10.3 K/mm3 (4.5-10.0)
[2024-07-23 06:22] LABS: Alanine Aminotransferase 9 U/L (6-35); Albumin Level 2.5 g/dL (3.5-5.1); Alkaline Phosphatase 183 U/L (38-126); Anion Gap 9 mmol/L (4-12); Aspartate Amino Transferase 17 U/L (14-36); Bilirubin,Total < 0.1 mg/dL (0.2-1.3); Blood Urea Nitrogen 8 mg/dL (7-17); Calcium 7.4 mg/dL (8.4-10.2); Carbon Dioxide 22 mmol/L (22-30); Chloride 105 mmol/L (98-107); Estimated CRCL calculation 84 ml/min; Estimated Glomerular Filt Rate > 60; Glucose 92 mg/dL (65-110); Magnesium 1.5 mg/dL (1.6-2.3); Potassium 3.5 mmol/L (3.4-5.0); Sodium 136 mmol/L (137-145)
[2024-07-23] MEDS: CENTRAL LINE FLUSH 20 ML IV PUSH (06:25)
[2024-07-23 06:52] LABS: Vancomycin Trough 21.3 ug/mL (10.0-20.0)
[2024-07-23 07:49] LABS: Glucose Point of Care 102 mg/dl (65-105)
[2024-07-23] MEDS: ATORVASTATIN 40 MG TABLET PO (08:35)
[2024-07-23] MEDS: CLOPIDOGREL BISULFATE 75 MG TABLET PO (08:36)
[2024-07-23] MEDS: APIXABAN 5 MG TABLET PO ×2 (08:36→21:44)
[2024-07-23] MEDS: NICOTINE (*PBKC) 7 MG PATCH 1 PATCH TRANSDERM (08:36)
[2024-07-23] MEDS: carvediloL 3.125 MG TABLET PO ×2 (08:36→17:19)
[2024-07-23] MEDS: SPIRONOLACTONE 50 MG TABLET PO (08:36)
[2024-07-23] MEDS: oxyCODONE HCL (*CRX) 5 MG TAB IR PO ×2 (08:40→21:54)
[2024-07-23] MEDS: CEFEPIME 2 GM/NS 50 ML 2 GM/50 ML BAG IVPB ×2 (08:41→21:45)
[2024-07-23] MEDS: MAGNESIUM SULF 2 GM/WATER 50ML 2 GM/50 ML BAG IVPB (08:44)
[2024-07-23] MEDS: INSULIN ASPART (*BKC) 100 UNITS/ML 8 UNITS SUB-Q ×3 (08:47→17:21)
--- NOTE | 2024-07-23 10:20 | P.PNIM_ITS ---
Progress Note: A&P Assessment and Plan (1) DM type 2 (diabetes mellitus, type 2): Code(s): E11.9 - Type 2 diabetes mellitus without complications Status: Acute Assessment and Plan: * Accuchecks, SSI, and hypoglycemic protocol. * HgbA1C 6.4%. * Seen by simulation educator on 07/19/24. * 07/19 Lantus decreased to 38 units subq HS ad Novolog decreased to 8 units with meals. * Blood sugars running 102-130 today. 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 * Surgery consulted, appreciate recommendations. * 07/18/24: Surgery did a bedside excisional debridement of the right foot wound to unroof the blister and further evaluate the tissue beneath and collected wound cultures this morning. * 07/22/24 Right foot with erythema and warm to touch, with moderate amount of light yellow to serous drainage. * Discussed with Zaira in Surgery. * MRI of right foot with contrast ordered and continue same antibiotics. * MRI showed: FINDINGS: Bandage material overlying the medial aspect of the first MTP joint with a superficial soft tissue defect. Diffuse subcutaneous edema in the forefoot. Status post partial fifth metatarsal amputation. No T1 hypointensity to suggest osteomyelitis. Mild marrow T2 signal involving the first through third toes and the fourth distal phalanx, probably secondary to failed fat suppression given the lack of corresponding enhancement or T1 hypointensity. Large area of nonenhancing subcutaneous fat over the plantar surface of the ball of the foot and proximal toes, without evidence of a walled off fluid collection. Fluid signal and enhancement in the midportion of the longus/brevis plantar flexor tendons. 6 mm fluid collection with peripheral enhancement involving the midportion of the plantar flexor digitorum longus and brevis tendons of the second digit at the mid metatarsal level (coronal T2 FSE FS and postcontrast T1 images ). Punctate hypointensities in the lateral soft tissues overlying indication from prior surgery. Small first through third MCP joint effusions, with synovial enhancement. IMPRESSION: No definite MR evidence of osteomyelitis. Large area of nonenhancing subcutaneous fat over the plantar surface of the proximal toes and ball of the foot, may represent phlegmon or fat necrosis. Plantar flexor tenosynovitis and likely small tendon sheath abscess. Small first through fourth MTP joint effusions with synovitis. Septic arthritis is not excluded. Forefoot edema/cellulitis. * Pain control. * Monitor site. (3) Cellulitis of foot, right: Code(s): L03.115 - Cellulitis of right lower limb Status: Acute Assessment and Plan: * Receiving Cefepime, Metronidazole, and Vancomycin. PICC line placed on 07/19/24 due to patient having difficulty keeping IV access and need for IV abx's. * 07/22/24 Right foot with erythema and warm to touch, with moderate amount of light yellow to serous drainage. * Discussed with Zaira in Surgery. * MRI of right foot with contrast ordered and continue same antibiotics. * MRI showed: FINDINGS: Bandage material overlying the medial aspect of the first MTP joint with a superficial soft tissue defect. Diffuse subcutaneous edema in the forefoot. Status post partial fifth metatarsal amputation. No T1 hypointensity to suggest osteomyelitis. Mild marrow T2 signal involving the first through third toes and the fourth distal phalanx, probably secondary to failed fat suppression given the lack of corresponding enhancement or T1 hypointensity. Large area of nonenhancing subcutaneous fat over the plantar surface of the ball of the foot and proximal toes, without evidence of a walled off fluid collection. Fluid signal and enhancement in the midportion of the longus/brevis plantar flexor tendons. 6 mm fluid collection with peripheral enhancement involving the midportion of the plantar flexor digitorum longus and brevis tendons of the second digit at the mid metatarsal level (coronal T2 FSE FS and postcontrast T1 images ). Punctate hypointensities in the lateral soft tissues overlying indication from prior surgery. Small first through third MCP joint effusions, with synovial enhancement. IMPRESSION: No definite MR evidence of osteomyelitis. Large area of nonenhancing subcutaneous fat over the plantar surface of the proximal toes and ball of the foot, may represent phlegmon or fat necrosis. Plantar flexor tenosynovitis and likely small tendon sheath abscess. Small first through fourth MTP joint effusions with synovitis. Septic arthritis is not excluded. Forefoot edema/cellulitis. * Elevate RLE while at rest. * WBC 10.3. * Preliminary right foot culture results Group B Streptococcus isolated. * Awaiting surgery to review MRI and decide next steps. (4) CAD (coronary artery disease): Code(s): I25.10 - Atherosclerotic heart disease of [place] coronary artery without angina pectoris Status: Acute Assessment and Plan: * On Plavix and Eliquis. (5) Chronic anticoagulation: Code(s): Z79.01 - [facility] (current) use of anticoagulants Status: Acute Assessment and Plan: * On Plavix and Eliquis. (6) Constipation: Code(s): K59.00 - Constipation, unspecified Status: Acute Assessment and Plan: * Miralax 17 gram oral daily, Docusate 100 mg PO q 12 PRN, and Senna 8.6 mg PO q 12. (7) Headache: Code(s): R51.9 - Headache, unspecified Status: Acute Assessment and Plan: * Acetaminophen 650 PO q 4 PRN and Oxycodone IR 5 mg PO q 4 PRN. Subjective Date/time seen: 07/23/24 10:20 Interval history: Patient lying in bed. Patient denies chest pain, palpitations, headache, dizziness, nausea, or vomiting. Review of Systems Review of Systems: All systems reviewed & are unremarkable except as noted in HPI and below Exam Const: General: comfortable and no acute distress Resp: Effort & Inspection: normal respiratory effort Auscultation: clear to auscultation bilaterally Cardio: Rate: regular rate Rhythm: regular rhythm GI: GI Palp: Yes Soft to palpation Auscultation: normal bowel sounds Neuro: Speech: normal speech Extrem: General: pedal edema on the right (trace edema) Psych: Mental Status: mental status grossly normal Affect: normal affect Objective Data Vital Signs Vital Signs: Vital Signs - 24 hr 07/22/24 14:00 07/22/24 17:14 07/22/24 20:40 Temperature 97.7 F Pulse Rate 77 74 75 Respiratory Rate 20 20 Blood Pressure 118/62 Pulse Oximetry 99 92 Oxygen Delivery Room Air Fraction of Inspired Oxygen 21 07/22/24 21:00 07/22/24 21:15 07/23/24 05:51 Temperature 98.0 F 97.7 F Pulse Rate 60 80 Respiratory Rate 16 16 Blood Pressure 105/57 L 107/63 Pulse Oximetry 97 99 Oxygen Delivery Room Air Fraction of Inspired Oxygen 07/23/24 08:36 Temperature Pulse Rate 80 Respiratory Rate Blood Pressure Pulse Oximetry Oxygen Delivery Fraction of Inspired Oxygen Intake/Output Intake/Output: Intake & Output 07/20/24 07/21/24 07/22/24 07/23/24 23:59 23:59 23:59 23:59 Intake Total 2660 2950 3280 1140 Output Total 700 Balance 2660 2250 3280 1140 Meds/Results Medications: Active Medications Generic Name Dose Route Start Last Admin Trade Name Freq PRN Reason Stop Dose Admin Acetaminophen 650 mg 07/16/24 22:55 Acetaminophen 325 Mg Tablet PO Q4H PRN Mild Pain (1-3) or Fever Apixaban 5 mg 07/18/24 09:00 07/23/24 08:36 Apixaban 5 Mg Tablet PO 5 mg Q12HR CHRISTOPHER Administration Atorvastatin Calcium 40 mg 07/18/24 09:00 07/23/24 08:35 Atorvastatin 40 Mg Tablet PO 40 mg DAILY CHRISTOPHER Administration Carvedilol 3.125 mg 07/17/24 17:00 07/23/24 08:36 Carvedilol 3.125 Mg Tablet PO 3.125 mg BID CHRISTOPHER Administration Clopidogrel Bisulfate 75 mg 07/18/24 09:00 07/23/24 08:36 Clopidogrel Bisulfate 75 Mg Tablet PO 75 mg DAILY CHRISTOPHER Administration Collagenase 1 applic 07/22/24 14:05 07/22/24 21:22 Collagenase Oint 30 Gm Tube TOPICAL 1 applic Q12HR CHRISTOPHER Administration Dextrose 12.5 gm 07/16/24 22:36 Dextrose 50% 25 Gm/50 Ml Syringe IV PUSH PRN PRN Hypoglycemia Protocol Docusate Sodium 100 mg 07/18/24 10:17 07/20/24 09:23 Docusate Sodium 100 Mg Capsule PO 100 mg Q12H PRN Administration Constipation Glucose 15 gm 07/16/24 22:36 Glucose Oral Gel 15 Gm Of Glucse In 37.5 Gm Tube PO PRN PRN Hypoglycemia Protocol Metronidazole 500 mg in 100 mls @ 100 mls/hr 07/17/24 06:00 07/23/24 06:50 Flagyl 500 Mg/Iso Soln 100 Ml IVPB Infused Q8HR CHRISTOPHER Infusion Dextrose 1,000 mls @ 100 mls/hr 07/16/24 22:36 Dextrose 5% 1,000 Ml IVPB PRN PRN Hypoglycemia Protocol Cefepime HCl 2 gm in 50 mls @ 100 mls/hr 07/17/24 09:00 07/23/24 08:41 Maxipime 2 Gm/Ns 50 Ml IVPB 100 mls/hr Q12HR CHRISTOPHER Administration Vancomycin HCl 1,750 mg in 500 mls @ 250 mls/hr 07/20/24 23:00 07/23/24 00:31 Vancomycin 1,750 Mg/Ns 500 Ml IVPB Infused Q12H [facility] Infusion Magnesium Sulfate 2 gm in 50 mls @ 25 mls/hr 07/23/24 08:30 07/23/24 08:44 Magnesium Sulf 2 Gm/Water 50ml IVPB 07/23/24 10:29 25 mls/hr ONCE ONE Administration Insulin Aspart 2 - 5 units 07/17/24 08:00 07/23/24 08:32 Insulin Aspart (*Bkc) 100 Units/Ml SUB-Q Not Given TIDWM [facility] Protocol Insulin Aspart 1 - 2 units 07/17/24 21:00 07/22/24 21:15 Insulin Aspart (*Bkc) 100 Units/Ml SUB-Q Not Given [facility] Protocol Insulin Aspart 8 units 07/19/24 17:00 07/23/24 08:47 Insulin Aspart (*Bkc) 100 Units/Ml SUB-Q 8 units TIDWM [facility] Administration Insulin Glargine 38 units 07/19/24 21:00 07/22/24 21:14 Insulin Glargine (*Bkc) 100 Units/Ml SUB-Q Not Given [facility] Nicotine 1 patch 07/17/24 12:00 07/23/24 08:36 Nicotine (*Pbkc) 7 Mg Patch TRANSDERM 1 patch DAILY [facility] Administration Ondansetron HCl 4 mg 07/16/24 22:55 Ondansetron Inj 4 Mg/2 Ml Vial IV PUSH Q4H PRN Nausea Oxycodone HCl 5 mg 07/17/24 15:49 07/23/24 08:40 Oxycodone Hcl (*Crx) 5 Mg Tab Ir PO 5 mg Q4H PRN Administration Pain Rated 7-10 Polyethylene Glycol 17 gm 07/18/24 10:20 07/23/24 08:37 Polyethylene Glycol 3350 17 Gm Powd.Pack PO Not Given QAM CHRISTOPHER Senna 8.6 mg 07/20/24 11:05 07/23/24 08:37 Sennosides 8.6 Mg Tablet PO Not Given Q12HR CHRISTOPHER Sodium Chloride 10 ml 07/20/24 14:00 07/23/24 05:46 Central Line Flush IV PUSH 10 ml Q8HR CHRISTOPHER Administration Sodium Chloride 10 ml 07/20/24 07:07 Central Line Flush IV PUSH PRN PRN with TPN bag changes Sodium Chloride 20 ml 07/20/24 07:07 07/23/24 06:25 Central Line Flush IV PUSH 20 ml PRN PRN Administration after blood draws Spironolactone 50 mg 07/17/24 15:00 07/23/24 08:36 Spironolactone 50 Mg Tablet PO 50 mg DAILY CHRISTOPHER Administration Tramadol HCl 25 mg 07/17/24 12:02 07/17/24 12:16 Tramadol Hcl (*Crx) 25 Mg Tablet PO 25 mg Q4H PRN Administration Pain Rated 4-6 Radiology Results: ITS Impressions Foot X-Ray 07/16/24 20:31 IMPRESSION: Moderate periosteal reaction along the medial margin of the mid shaft of the fifth metatarsal at the site of prior amputation with significant soft tissue swelling of the right forefoot. Lower Extremity CT 07/16/24 21:10 IMPRESSION: Soft tissue swelling without abscess formation Chest X-Ray 07/19/24 20:07 IMPRESSION: Right PICC line with the tip overlying the superior vena cava. Left basilar atelectasis versus pneumonia. Cardiomegaly with congestive riki and interstitial thickening which may indicate pulmonary edema versus pneumonitis versus fibrotic changes. Foot MRI 07/22/24 20:16 IMPRESSION: No definite MR evidence of osteomyelitis. Large area of nonenhancing subcutaneous fat over the plantar surface of the proximal toes and ball of the foot, may represent phlegmon or fat necrosis. Plantar flexor tenosynovitis and likely small tendon sheath abscess. Small first through fourth MTP joint effusions with synovitis. Septic arthritis is not excluded. Forefoot edema/cellulitis. Labs Labs: Laboratory Results - last 24 hr 07/22/24 07/22/24 07/22/24 11:15 16:06 21:12 WBC RBC Hgb Hct MCV MCH MCHC RDW Plt Count MPV Immature Gran % (Auto) Neut % (Auto) Lymph % (Auto) [place] % (Auto) Eos % (Auto) Baso % (Auto) Lymph # (Auto) [place] # (Auto) Eos # (Auto) Baso # (Auto) Abs Immat Gran (auto) Absolute Neuts (auto) Absolute Nucleated RBC Nucleated RBC % Sodium Potassium Chloride Carbon Dioxide Anion Gap BUN Creatinine Estim Creat Clear Calc Estimated GFR Glucose POC Capillary Glucose 143 H 114 H 131 H Calcium Magnesium Total Bilirubin AST ALT Alkaline Phosphatase Total Protein Albumin Vancomycin Trough 07/23/24 07/23/24 07/23/24 06:00 06:21 07:45 WBC 10.3 H RBC 2.81 L Hgb 7.3 L Hct 24.3 L MCV 86.5 MCH 26.0 MCHC 30.0 L RDW 16.5 H Plt Count 244 MPV 9.7 Immature Gran % (Auto) 1.2 H Neut % (Auto) 78.5 H Lymph % (Auto) 12.4 L [place] % (Auto) 6.3 Eos % (Auto) 1.3 Baso % (Auto) 0.3 Lymph # (Auto) 1.28 [place] # (Auto) 0.7 H Eos # (Auto) 0.1 Baso # (Auto) 0.0 Abs Immat Gran (auto) 0.12 H Absolute Neuts (auto) 8.1 H Absolute Nucleated RBC 0.000 Nucleated RBC % 0.0 Sodium 136 L Potassium 3.5 Chloride 105 Carbon Dioxide 22 Anion Gap 9 BUN 8 Creatinine 0.69 L Estim Creat Clear Calc 84 Estimated GFR > 60 Glucose 92 POC Capillary Glucose 102 Calcium 7.4 L Magnesium 1.5 L Total Bilirubin < 0.1 L AST 17 ALT 9 Alkaline Phosphatase 183 H Total Protein 6.0 L Albumin 2.5 L Vancomycin Trough 21.3 H Quality VTE Prophylaxis VTE prophylaxis: mechanical ordered and pharmacologic ordered
--- NOTE | 2024-07-23 11:00 | PCNFU ---
Nutrition Follow-Up Complete: Increased protein energy needs related to wound healing as evidenced by diabetic wounds to foot Goal: Adequate PO intake to support wound healing, at least 75% meals and supplements Patient is meeting goal. No new goal. Pt current nutrition is DBCC with Glucerna shakes BID Last recorded weight is 90.6 kg Bowel Motility: +BM reported 07/23 Labs Reviewed: Cr 0.69, Na 136, Alb 2.5 Meds Noted: NovoLog, Miralax, Lantus, Vancomycin Skin: Deep Tissue- right foot Additional Notes: Patient remains on a DBCC diet with Glucerna shakes BID. Oral Intake > 75% of meals. Agree with diet orders. Monitoring intakes, weights, labs, wounds, supplement tolerance, plan of care Follow up in 7 days
[2024-07-23 11:50] LABS: Glucose Point of Care 130 mg/dl (65-105)
[2024-07-23] MEDS: COLLAGENASE OINT 30 GM TUBE 1 APPLIC TOPICAL ×2 (12:24→21:36)
[2024-07-23] MEDS: VANCOMYCIN 1,500 MG/NS 500 ML 1,500 MG/500 ML BAG 250 MG IVPB ×2 (13:22→23:08)
--- NOTE | 2024-07-23 16:34 | PM.PNGS ---
Progress Note: A&P Assessment and Plan (1) Diabetic foot ulcer: Code(s): E11.621 - Type 2 diabetes mellitus with foot ulcer; L97.509 - Non-pressure chronic ulcer of other part of unspecified foot with unspecified severity Status: Acute Assessment and Plan: Foot MRI showed no evidence of osteomyelitis, but there is plantar flexor tenosynovitis and likely a small tendon sheath abscess, as well as joint effusions of the first through fourth MTP joint with synovitis and possible septic arthritis. Discussed MRI results with Dr. Chapin and discussed this with the patient in detail as well. We would recommend proceeding with surgical debridement in the OR tomorrow of the right diabetic foot ulcer. Description of the procedure, risks, benefits, alternatives, and expected recovery were discussed. She agrees to proceed. Will make her NPO after midnight. 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 Chapin. Subjective Subjective Date/Time Seen: 07/23/24 16:34 Patient reports: no new complaints Interval history: No acute changes. Denies any pain or any new complaints. Exam Narrative: Right foot dressing dry and intact. Changed by nursing earlier today. Objective Data Vital Signs Vital Signs: Vital Signs - 24 hr 07/22/24 17:14 07/22/24 20:40 07/22/24 21:00 Temperature Pulse Rate 74 75 Respiratory Rate 20 Blood Pressure Pulse Oximetry 92 Oxygen Delivery Room Air Room Air Fraction of Inspired Oxygen 21 07/22/24 21:15 07/23/24 05:51 07/23/24 08:36 Temperature 98.0 F 97.7 F Pulse Rate 60 80 80 Respiratory Rate 16 16 Blood Pressure 105/57 L 107/63 Pulse Oximetry 97 99 Oxygen Delivery Fraction of Inspired Oxygen 07/23/24 08:45 07/23/24 14:00 Temperature 97.8 F Pulse Rate 71 Respiratory Rate 18 Blood Pressure 102/52 L Pulse Oximetry 97 100 Oxygen Delivery Room Air Fraction of Inspired Oxygen Intake/Output Intake/Output: Intake & Output 07/20/24 07/21/24 07/22/24 07/23/24 23:59 23:59 23:59 23:59 Intake Total 2660 2950 3280 1979 Output Total 700 Balance 2660 2250 3280 1979 Meds/Results Medications: Active Medications Generic Name Dose Route Start Last Admin Trade Name Freq PRN Reason Stop Dose Admin Acetaminophen 650 mg 07/16/24 22:55 Acetaminophen 325 Mg Tablet PO Q4H PRN Mild Pain (1-3) or Fever Apixaban 5 mg 07/18/24 09:00 07/23/24 08:36 Apixaban 5 Mg Tablet PO 5 mg Q12HR CHRISTOPHER Administration Atorvastatin Calcium 40 mg 07/18/24 09:00 07/23/24 08:35 Atorvastatin 40 Mg Tablet PO 40 mg DAILY CHRISTOPHER Administration Carvedilol 3.125 mg 07/17/24 17:00 07/23/24 08:36 Carvedilol 3.125 Mg Tablet PO 3.125 mg BID CHRISTOPHER Administration Clopidogrel Bisulfate 75 mg 07/18/24 09:00 07/23/24 08:36 Clopidogrel Bisulfate 75 Mg Tablet PO 75 mg DAILY CHRISTOPHER Administration Collagenase 1 applic 07/22/24 14:05 07/23/24 12:24 Collagenase Oint 30 Gm Tube TOPICAL 1 applic Q12HR HCRISTOPHER Administration Dextrose 12.5 gm 07/16/24 22:36 Dextrose 50% 25 Gm/50 Ml Syringe IV PUSH PRN PRN Hypoglycemia Protocol Docusate Sodium 100 mg 07/18/24 10:17 07/20/24 09:23 Docusate Sodium 100 Mg Capsule PO 100 mg Q12H PRN Administration Constipation Glucose 15 gm 07/16/24 22:36 Glucose Oral Gel 15 Gm Of Glucse In 37.5 Gm Tube PO PRN PRN Hypoglycemia Protocol Metronidazole 500 mg in 100 mls @ 100 mls/hr 07/17/24 06:00 07/23/24 16:17 Flagyl 500 Mg/Iso Soln 100 Ml IVPB 100 mls/hr Q8HR CHRISTOPHER Administration Dextrose 1,000 mls @ 100 mls/hr 07/16/24 22:36 Dextrose 5% 1,000 Ml IVPB PRN PRN Hypoglycemia Protocol Cefepime HCl 2 gm in 50 mls @ 100 mls/hr 07/17/24 09:00 07/23/24 09:10 Maxipime 2 Gm/Ns 50 Ml IVPB Infused Q12HR CHRISTOPHER Infusion Vancomycin HCl 1,500 mg in 500 mls @ 250 mls/hr 07/23/24 12:00 07/23/24 15:25 Vancomycin 1,500 Mg/Ns 500 Ml IVPB Infused Q12H CHRISTOPHER Infusion Insulin Aspart 2 - 5 units 07/17/24 08:00 07/23/24 12:11 Insulin Aspart (*Bkc) 100 Units/Ml SUB-Q Not Given TIDWM [facility] Protocol Insulin Aspart 1 - 2 units 07/17/24 21:00 07/22/24 21:15 Insulin Aspart (*Bkc) 100 Units/Ml SUB-Q Not Given HS [facility] Protocol Insulin Aspart 8 units 07/19/24 17:00 07/23/24 12:25 Insulin Aspart (*Bkc) 100 Units/Ml SUB-Q 8 units TIDWM CHRISTOPHER Administration Insulin Glargine 38 units 07/19/24 21:00 07/22/24 21:14 Insulin Glargine (*Bkc) 100 Units/Ml SUB-Q Not Given HS [facility] Nicotine 1 patch 07/17/24 12:00 07/23/24 08:36 Nicotine (*Pbkc) 7 Mg Patch TRANSDERM 1 patch DAILY CHRISTOPHER Administration Ondansetron HCl 4 mg 07/16/24 22:55 Ondansetron Inj 4 Mg/2 Ml Vial IV PUSH Q4H PRN Nausea Oxycodone HCl 5 mg 07/17/24 15:49 07/23/24 08:40 Oxycodone Hcl (*Crx) 5 Mg Tab Ir PO 5 mg Q4H PRN Administration Pain Rated 7-10 Polyethylene Glycol 17 gm 07/18/24 10:20 07/23/24 08:37 Polyethylene Glycol 3350 17 Gm Powd.Pack PO Not Given QAM [facility] Senna 8.6 mg 07/20/24 11:05 07/23/24 08:37 Sennosides 8.6 Mg Tablet PO Not Given Q12HR CHRISTOPHER Sodium Chloride 10 ml 07/20/24 14:00 07/23/24 16:17 Central Line Flush IV PUSH 10 ml Q8HR CHRISTOPHER Administration Sodium Chloride 10 ml 07/20/24 07:07 Central Line Flush IV PUSH PRN PRN with TPN bag changes Sodium Chloride 20 ml 07/20/24 07:07 07/23/24 06:25 Central Line Flush IV PUSH 20 ml PRN PRN Administration after blood draws Spironolactone 50 mg 07/17/24 15:00 07/23/24 08:36 Spironolactone 50 Mg Tablet PO 50 mg DAILY CHRISTOPHER Administration Tramadol HCl 25 mg 07/17/24 12:02 07/17/24 12:16 Tramadol Hcl (*Crx) 25 Mg Tablet PO 25 mg Q4H PRN Administration Pain Rated 4-6 Radiology Results: ITS Impressions Foot X-Ray 07/16/24 20:31 IMPRESSION: Moderate periosteal reaction along the medial margin of the mid shaft of the fifth metatarsal at the site of prior amputation with significant soft tissue swelling of the right forefoot. Lower Extremity CT 07/16/24 21:10 IMPRESSION: Soft tissue swelling without abscess formation Chest X-Ray 07/19/24 20:07 IMPRESSION: Right PICC line with the tip overlying the superior vena cava. Left basilar atelectasis versus pneumonia. Cardiomegaly with congestive riki and interstitial thickening which may indicate pulmonary edema versus pneumonitis versus fibrotic changes. Foot MRI 07/22/24 20:16 IMPRESSION: No definite MR evidence of osteomyelitis. Large area of nonenhancing subcutaneous fat over the plantar surface of the proximal toes and ball of the foot, may represent phlegmon or fat necrosis. Plantar flexor tenosynovitis and likely small tendon sheath abscess. Small first through fourth MTP joint effusions with synovitis. Septic arthritis is not excluded. Forefoot edema/cellulitis. Labs Labs: Laboratory Results - last 24 hr 07/22/24 07/23/24 07/23/24 21:12 06:00 06:21 WBC 10.3 H RBC 2.81 L Hgb 7.3 L Hct 24.3 L MCV 86.5 MCH 26.0 MCHC 30.0 L RDW 16.5 H Plt Count 244 MPV 9.7 Immature Gran % (Auto) 1.2 H Neut % (Auto) 78.5 H Lymph % (Auto) 12.4 L [place] % (Auto) 6.3 Eos % (Auto) 1.3 Baso % (Auto) 0.3 Lymph # (Auto) 1.28 [place] # (Auto) 0.7 H Eos # (Auto) 0.1 Baso # (Auto) 0.0 Abs Immat Gran (auto) 0.12 H Absolute Neuts (auto) 8.1 H Absolute Nucleated RBC 0.000 Nucleated RBC % 0.0 Sodium 136 L Potassium 3.5 Chloride 105 Carbon Dioxide 22 Anion Gap 9 BUN 8 Creatinine 0.69 L Estim Creat Clear Calc 84 Estimated GFR > 60 Glucose 92 POC Capillary Glucose 131 H Calcium 7.4 L Magnesium 1.5 L Total Bilirubin < 0.1 L AST 17 ALT 9 Alkaline Phosphatase 183 H Total Protein 6.0 L Albumin 2.5 L Vancomycin Trough 21.3 H 07/23/24 07/23/24 07:45 11:35 WBC RBC Hgb Hct MCV MCH MCHC RDW Plt Count MPV Immature Gran % (Auto) Neut % (Auto) Lymph % (Auto) [place] % (Auto) Eos % (Auto) Baso % (Auto) Lymph # (Auto) [place] # (Auto) Eos # (Auto) Baso # (Auto) Abs Immat Gran (auto) Absolute Neuts (auto) Absolute Nucleated RBC Nucleated RBC % Sodium Potassium Chloride Carbon Dioxide Anion Gap BUN Creatinine Estim Creat Clear Calc Estimated GFR Glucose POC Capillary Glucose 102 130 H Calcium Magnesium Total Bilirubin AST ALT Alkaline Phosphatase Total Protein Albumin Vancomycin Trough
[2024-07-23 16:35] LABS: Glucose Point of Care 124 mg/dl (65-105)
[2024-07-23] MEDS: ALTEPLASE 2 MG VIAL (CATHFLO) IV PUSH ×3 (19:34→21:46)
[2024-07-23 20:50] LABS: Glucose Point of Care 153 mg/dl (65-105)
[2024-07-24] VITALS (11 sets, daily range): BP systolic 98–118; BP diastolic 49–67; PULSE 72–84; RESP 17–20; TEMP 36.3–36.8; O2SAT 94–100
[2024-07-24] MEDS: CENTRAL LINE FLUSH 10 ML IV PUSH ×2 (05:21→22:52)
[2024-07-24] MEDS: CENTRAL LINE FLUSH 20 ML IV PUSH ×2 (05:21→22:52)
[2024-07-24] MEDS: metroNIDAZOLE 500 MG/ISO 100ML 500 MG/100 ML BAG 100 MG IVPB ×3 (05:22→21:53)
[2024-07-24 05:31] LABS: Basophils Percent Auto 0.3 % (0.2-1.2); Eosinophils Absolute Auto 0.2 K/mm3 (0-0.3); Eosinophils Percent Auto 1.6 % (0-4.4); Hematocrit 25.7 % (37.0-47.0); Hemoglobin 7.7 g/dL (12.0-15.0); Immature Granulocyte Absolute 0.11 K/mm3 (0.00-0.031); Immature Granulocyte Percent A 1.2 % (0-0.5); Lymphocytes Absolute Auto 1.32 K/mm3 (0.9-3.2); Mean Corpuscular Hemoglobin 25.8 pg (26-34); Mean Corpuscular Volume 86.2 fl (80-100); Monocytes Absolute Auto 0.6 K/mm3 (0.1-0.6); Monocytes Percent Auto 6.5 % (2.6-8.5); Neutrophils Absolute Auto 7.2 K/mm3 (1.3-6.7); Neutrophils Percent Auto 76.4 % (45.5-73.1); Platelet Count Result 234 k/mm3 (150-375); Red Blood Count 2.98 M/mm3 (4.2-5.4); Red Cell Distribution Width 16.8 % (11.5-14.5); White Blood Count 9.4 K/mm3 (4.5-10.0)
[2024-07-24 05:46] LABS: Alanine Aminotransferase 10 U/L (6-35); Albumin Level 2.6 g/dL (3.5-5.1); Alkaline Phosphatase 220 U/L (38-126); Anion Gap 3 mmol/L (4-12); Aspartate Amino Transferase 15 U/L (14-36); Bilirubin,Total 0.1 mg/dL (0.2-1.3); Blood Urea Nitrogen 10 mg/dL (7-17); Calcium 7.8 mg/dL (8.4-10.2); Carbon Dioxide 28 mmol/L (22-30); Chloride 105 mmol/L (98-107); Estimated CRCL calculation 76 ml/min; Estimated Glomerular Filt Rate > 60; Glucose 111 mg/dL (65-110); Magnesium 1.9 mg/dL (1.6-2.3); Potassium 3.9 mmol/L (3.4-5.0); Sodium 136 mmol/L (137-145)
[2024-07-24 08:08] LABS: Glucose Point of Care 103 mg/dl (65-105)
[2024-07-24] MEDS: CEFEPIME 2 GM/NS 50 ML 2 GM/50 ML BAG IVPB ×2 (09:37→20:23)
[2024-07-24] MEDS: carvediloL 3.125 MG TABLET PO ×2 (11:02→18:30)
--- NOTE | 2024-07-24 11:10 | PC.NURSE ---
[employer] Wafer Inspector spoke with Cathleen VARELA in preop who reports okay for patient to have coreg before surgery
[2024-07-24 11:34] LABS: Iron 37 ug/dL (37-170)
[2024-07-24 11:43] LABS: Percent Iron Saturation 14 % (20-50)
[2024-07-24 12:04] LABS: Glucose Point of Care 139 mg/dl (65-105)
--- NOTE | 2024-07-24 12:22 | PM.IMPN ---
Progress Note: A&P Assessment and Plan (1) DM type 2 (diabetes mellitus, type 2): Code(s): E11.9 - Type 2 diabetes mellitus without complications Status: Acute Assessment and Plan: Accuchecks, SSI, and hypoglycemic protocol. HgbA1C 6.4%. Seen by staff development educator on 07/19/24. 07/19 Lantus decreased to 38 units subq HS ad Novolog decreased to 8 units with meals. Blood sugars running 102-130 today. (2) Diabetic ulcer of toe of right foot associated with type 2 diabetes mellitus: Code(s): E11.621 - Type 2 diabetes mellitus with foot ulcer; L97.519 - Non-pressure chronic ulcer of other part of right foot with unspecified severity Status: Acute Assessment and Plan: CT RLE showed Soft tissue swelling without abscess formation Right foot X-ray showed: Moderate periosteal reaction along the medial margin of the mid shaft of the fifth metatarsal at the site of prior amputation with significant soft tissue swelling of the right forefoot. Surgery consulted, appreciate recommendations. 07/18/24: Surgery did a bedside excisional debridement of the right foot wound to unroof the blister and further evaluate the tissue beneath and collected wound cultures this morning. 07/22/24 Right foot with erythema and warm to touch, with moderate amount of light yellow to serous drainage. Discussed with Zaira in Surgery. MRI no osteomyelitis but showed forefoot edema/cellulitis For Debridement today by Surgery Continue Abx (3) Cellulitis of foot, right: Code(s): L03.115 - Cellulitis of right lower limb Status: Acute Assessment and Plan: continue above care (4) CAD (coronary artery disease): Code(s): I25.10 - Atherosclerotic heart disease of [place] coronary artery without angina pectoris Status: Acute Assessment and Plan: On Plavix and Eliquis. 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 (6) Constipation: Code(s): K59.00 - Constipation, unspecified Status: Acute Assessment and Plan: Miralax 17 gram oral daily, Docusate 100 mg PO q 12 PRN, and Senna 8.6 mg PO q 12. (7) Headache: Code(s): R51.9 - Headache, unspecified Status: Acute Assessment and Plan: Acetaminophen 650 PO q 4 PRN and Oxycodone IR 5 mg PO q 4 PRN. Plan DVT prophylaxis on Eliquis Subjective Date/time seen: 07/24/24 12:22 Interval history: Patient lying in bed. Patient denies chest pain, palpitations, headache, dizziness, nausea, or vomiting. Review of Systems Review of Systems: All systems reviewed & are unremarkable except as noted in HPI and below Exam Const: General: comfortable, no acute distress and uncomfortable Eyes: Pupils: Equal, round and reactive pupils present Neck: Neck: supple Resp: Effort & Inspection: normal respiratory effort Auscultation: clear to auscultation bilaterally Cardio: Rate: regular rate Rhythm: regular rhythm GI: Auscultation: normal bowel sounds : General: Yes bladder normal to palpation Bimanual exam- vagina & uterus: bladder normal to palpation Skin: Other: Right foot with erythema and warm to touch, with moderate amount of light yellow to serous drainage. Neuro: Cranial nerves: Yes Equal, round and reactive pupils present Speech: normal speech Motor exam (neuro): 5/5 motor strength present throughout Extrem: General: pedal edema on the right (trace edema) Other: Right great toe erythematous with large blister extending superior. Ulcer on base of right great toe with callus formation but no purulent drainage. No tenderness to palpation. Psych: Mental Status: mental status grossly normal Affect: normal affect Objective Data Vital Signs Vital Signs: Vital Signs - 24 hr 07/23/24 14:00 07/23/24 17:19 07/23/24 20:00 Temperature 97.8 F Pulse Rate 71 80 Respiratory Rate 18 Blood Pressure 102/52 L Pulse Oximetry 100 Oxygen Delivery Room Air Fraction of Inspired Oxygen 07/23/24 21:00 07/23/24 22:09 07/24/24 06:00 Temperature 98.1 F 98.0 F Pulse Rate 74 78 82 Respiratory Rate 20 20 18 Blood Pressure 109/57 L 118/62 Pulse Oximetry 98 93 98 Oxygen Delivery Room Air Fraction of Inspired Oxygen 07/24/24 11:02 Temperature Pulse Rate 75 Respiratory Rate Blood Pressure Pulse Oximetry Oxygen Delivery Fraction of Inspired Oxygen Intake/Output Intake/Output: Intake & Output 04/27/25 04/28/25 04/29/25 04/30/25 23:59 23:59 23:59 23:59 Intake Total 2950 3280 2710 700 Output Total 700 Balance 2250 3280 2710 700 Meds/Results Medications: Active Medications Generic Name Dose Route Start Last Admin Trade Name Freq PRN Reason Stop Dose Admin Acetaminophen 650 mg 07/16/24 22:55 Acetaminophen 325 Mg Tablet PO Q4H PRN Mild Pain (1-3) or Fever Alteplase, Recombinant 2 mg 07/23/24 19:07 07/23/24 21:46 Alteplase 2 Mg Vial (Cathflo) IV PUSH 2 mg ONCE PRN Administration Line Occlusion Alteplase, Recombinant 2 mg 07/23/24 19:07 07/23/24 19:35 Alteplase 2 Mg Vial (Cathflo) IV PUSH 2 mg ONCE PRN Administration Line Occlusion Apixaban 5 mg 07/18/24 09:00 07/24/24 12:18 Apixaban 5 Mg Tablet PO Not Given Q12HR CHRISTOPHER Atorvastatin Calcium 40 mg 07/18/24 09:00 07/24/24 12:18 Atorvastatin 40 Mg Tablet PO Not Given DAILY CHRISTOPHER Carvedilol 3.125 mg 07/17/24 17:00 07/24/24 11:02 Carvedilol 3.125 Mg Tablet PO 3.125 mg BID CHRISTOPHER Administration Clopidogrel Bisulfate 75 mg 07/18/24 09:00 07/24/24 12:19 Clopidogrel Bisulfate 75 Mg Tablet PO Not Given DAILY CHRISTOPHER Collagenase 1 applic 07/22/24 14:05 07/24/24 09:35 Collagenase Oint 30 Gm Tube TOPICAL Not Given Q12HR CHRISTOPHER Dextrose 12.5 gm 07/16/24 22:36 Dextrose 50% 25 Gm/50 Ml Syringe IV PUSH PRN PRN Hypoglycemia Protocol Docusate Sodium 100 mg 07/18/24 10:17 07/20/24 09:23 Docusate Sodium 100 Mg Capsule PO 100 mg Q12H PRN Administration Constipation Glucose 15 gm 07/16/24 22:36 Glucose Oral Gel 15 Gm Of Glucse In 37.5 Gm Tube PO PRN PRN Hypoglycemia Protocol Metronidazole 500 mg in 100 mls @ 100 mls/hr 07/17/24 06:00 07/24/24 06:17 Flagyl 500 Mg/Iso Soln 100 Ml IVPB Infused Q8HR CHRISTOPHER Infusion Dextrose 1,000 mls @ 100 mls/hr 07/16/24 22:36 Dextrose 5% 1,000 Ml IVPB PRN PRN Hypoglycemia Protocol Cefepime HCl 2 gm in 50 mls @ 100 mls/hr 07/17/24 09:00 07/24/24 09:37 Maxipime 2 Gm/Ns 50 Ml IVPB 100 mls/hr Q12HR CHRISTOPHER Administration Vancomycin HCl 1,500 mg in 500 mls @ 250 mls/hr 07/23/24 12:00 07/24/24 01:08 Vancomycin 1,500 Mg/Ns 500 Ml IVPB Infused Q12H [facility] Infusion Insulin Aspart 2 - 5 units 07/17/24 08:00 07/24/24 12:18 Insulin Aspart (*Bkc) 100 Units/Ml SUB-Q Not Given TIDWM [facility] Protocol Insulin Aspart 1 - 2 units 07/17/24 21:00 07/23/24 21:35 Insulin Aspart (*Bkc) 100 Units/Ml SUB-Q Not Given HS [facility] Protocol Insulin Aspart 8 units 07/19/24 17:00 07/24/24 12:19 Insulin Aspart (*Bkc) 100 Units/Ml SUB-Q Not Given TIDWM [facility] Insulin Glargine 38 units 07/19/24 21:00 07/22/24 21:14 Insulin Glargine (*Bkc) 100 Units/Ml SUB-Q Not Given HS [facility] Nicotine 1 patch 07/17/24 12:00 07/24/24 12:19 Nicotine (*Pbkc) 7 Mg Patch TRANSDERM Not Given DAILY [facility] Ondansetron HCl 4 mg 07/16/24 22:55 Ondansetron Inj 4 Mg/2 Ml Vial IV PUSH Q4H PRN Nausea Oxycodone HCl 5 mg 07/17/24 15:49 07/23/24 21:54 Oxycodone Hcl (*Crx) 5 Mg Tab Ir PO 5 mg Q4H PRN Administration Pain Rated 7-10 Polyethylene Glycol 17 gm 07/18/24 10:20 07/24/24 09:34 Polyethylene Glycol 3350 17 Gm Powd.Pack PO Not Given QAM [facility] Senna 8.6 mg 07/20/24 11:05 07/24/24 09:34 Sennosides 8.6 Mg Tablet PO Not Given Q12HR [facility] Sodium Chloride 10 ml 07/20/24 14:00 07/24/24 05:21 Central Line Flush IV PUSH 10 ml Q8HR CHRISTOPHER Administration Sodium Chloride 10 ml 07/20/24 07:07 Central Line Flush IV PUSH PRN PRN with TPN bag changes Sodium Chloride 20 ml 07/20/24 07:07 07/24/24 05:21 Central Line Flush IV PUSH 20 ml PRN PRN Administration after blood draws Spironolactone 50 mg 07/17/24 15:00 07/24/24 12:18 Spironolactone 50 Mg Tablet PO Not Given DAILY CHRISTOPHER Tramadol HCl 25 mg 07/17/24 12:02 07/17/24 12:16 Tramadol Hcl (*Crx) 25 Mg Tablet PO 25 mg Q4H PRN Administration Pain Rated 4-6 Radiology Results: ITS Impressions Foot X-Ray 07/16/24 20:31 IMPRESSION: Moderate periosteal reaction along the medial margin of the mid shaft of the fifth metatarsal at the site of prior amputation with significant soft tissue swelling of the right forefoot. Lower Extremity CT 07/16/24 21:10 IMPRESSION: Soft tissue swelling without abscess formation Chest X-Ray 07/19/24 20:07 IMPRESSION: Right PICC line with the tip overlying the superior vena cava. Left basilar atelectasis versus pneumonia. Cardiomegaly with congestive riki and interstitial thickening which may indicate pulmonary edema versus pneumonitis versus fibrotic changes. Foot MRI 07/22/24 20:16 IMPRESSION: No definite MR evidence of osteomyelitis. Large area of nonenhancing subcutaneous fat over the plantar surface of the proximal toes and ball of the foot, may represent phlegmon or fat necrosis. Plantar flexor tenosynovitis and likely small tendon sheath abscess. Small first through fourth MTP joint effusions with synovitis. Septic arthritis is not excluded. Forefoot edema/cellulitis. Labs Labs: Laboratory Results - last 24 hr 07/23/24 07/23/24 07/24/24 16:33 20:44 05:21 WBC 9.4 RBC 2.98 L Hgb 7.7 L Hct 25.7 L MCV 86.2 MCH 25.8 L MCHC 30.0 L RDW 16.8 H Plt Count 234 MPV 10.0 Immature Gran % (Auto) 1.2 H Neut % (Auto) 76.4 H Lymph % (Auto) 14.0 L [place] % (Auto) 6.5 Eos % (Auto) 1.6 Baso % (Auto) 0.3 Lymph # (Auto) 1.32 [place] # (Auto) 0.6 Eos # (Auto) 0.2 Baso # (Auto) 0.0 Abs Immat Gran (auto) 0.11 H Absolute Neuts (auto) 7.2 H Absolute Nucleated RBC 0.000 Nucleated RBC % 0.0 Sodium 136 L Potassium 3.9 Chloride 105 Carbon Dioxide 28 Anion Gap 3 L BUN 10 Creatinine 0.77 Estim Creat Clear Calc 76 Estimated GFR > 60 Glucose 111 H POC Capillary Glucose 124 H 153 H Calcium 7.8 L Magnesium 1.9 Iron TIBC % Saturation Ferritin Total Bilirubin 0.1 L AST 15 ALT 10 Alkaline Phosphatase 220 H Total Protein 6.0 L Albumin 2.6 L 07/24/24 07/24/24 07/24/24 08:01 11:08 11:58 WBC RBC Hgb Hct MCV MCH MCHC RDW Plt Count MPV Immature Gran % (Auto) Neut % (Auto) Lymph % (Auto) [place] % (Auto) Eos % (Auto) Baso % (Auto) Lymph # (Auto) [place] # (Auto) Eos # (Auto) Baso # (Auto) Abs Immat Gran (auto) Absolute Neuts (auto) Absolute Nucleated RBC Nucleated RBC % Sodium Potassium Chloride Carbon Dioxide Anion Gap BUN Creatinine Estim Creat Clear Calc Estimated GFR Glucose POC Capillary Glucose 103 139 H Calcium Magnesium Iron 37 TIBC 257 L % Saturation 14 L Ferritin 40.80 Total Bilirubin AST ALT Alkaline Phosphatase Total Protein Albumin Quality VTE Prophylaxis VTE prophylaxis: mechanical ordered and pharmacologic ordered
[2024-07-24] MEDS: VANCOMYCIN 1,500 MG/NS 500 ML 1,500 MG/500 ML BAG 250 MG IVPB ×2 (12:26→23:56)
[2024-07-24] MEDS: LACTATED RINGERS 1,000 ML 30 ML IV CONT ×2 (14:05→17:12)
--- NOTE | 2024-07-24 14:55 | PC.NURSE ---
To OR per bed IV LFA Report given to [ ].
--- NOTE | 2024-07-24 14:56 | PC.NURSE ---
To OR per bed, IV LFA. Report given to Mignon.
--- NOTE | 2024-07-24 15:38 | P.PNAN_ITS ---
Anes - Initial Pre Proc Eval Procedure: Operation Date: 07/24/24 15:00 Proposed Procedures p Debridement Right Foot Ulcer - Diogenes Chapin DO Date/Time: 07/24/24 15:38 Surgeon: Maryjane Camejo MD Pre Op Diagnosis: right foot diabetic ulcer/cellulitis Patient Data Age: 49 Gender: F Height: 1.52 m Weight: 90.6 kg Last Vital Signs Temp 98.0 F 07/24/24 06:00 Pulse 75 07/24/24 11:02 Resp 18 07/24/24 06:00 BP 118/62 07/24/24 06:00 Pulse Ox 98 07/24/24 06:00 O2 Del Method Room Air 07/23/24 22:09 FiO2 21 07/23/24 22:09 Allergies Allergy/AdvReac Type Severity Reaction Status Date / Time aspirin Allergy Unknown Urticaria Verified 07/16/24 19:22 morphine AdvReac Nausea and Verified 07/16/24 19:22 Vomiting Home Medications ?Medication ?Instructions ?Recorded ?Confirmed ?Type apixaban 5 mg tablet (Eliquis) 5 mg PO BID 04/17/23 07/17/24 History carvedilol 3.125 mg tablet 3.125 mg PO BID 04/17/23 07/17/24 History clopidogrel 75 mg tablet 75 mg PO DAILY 04/17/23 07/17/24 History insulin glargine 100 unit/mL 48 unit subcut HS 04/17/23 07/17/24 History subcutaneous solution (Lantus U-100 Insulin) spironolactone 50 mg tablet 50 mg PO DAILY 04/17/23 07/17/24 History atorvastatin 40 mg tablet 40 mg PO DAILY #90 tabs 04/22/23 07/17/24 Rx insulin lispro 100 unit/mL 10 unit subcut .with meals 07/17/24 07/17/24 History subcutaneous pen (Humalog KwikPen (U-100) Insulin) Laboratory Tests 07/23/24 07/23/24 07/24/24 16:33 20:44 05:21 WBC 9.4 K/mm3 (4.5-10.0) RBC 2.98 L M/mm3 (4.2-5.4) Hgb 7.7 L g/dL (12.0-15.0) Hct 25.7 L % (37.0-47.0) MCV 86.2 fl (80-100) MCH 25.8 L pg (26-34) MCHC 30.0 L g/dl (32-36) RDW 16.8 H % (11.5-14.5) Plt Count 234 k/mm3 (150-375) MPV 10.0 fl (7.4-10.4) Immature Gran % (Auto) 1.2 H % (0-0.5) Neut % (Auto) 76.4 H % (45.5-73.1) Lymph % (Auto) 14.0 L % (18.3-44.2) [place] % (Auto) 6.5 % (2.6-8.5) Eos % (Auto) 1.6 % (0-4.4) Baso % (Auto) 0.3 % (0.2-1.2) Lymph # (Auto) 1.32 K/mm3 (0.9-3.2) [place] # (Auto) 0.6 K/mm3 (0.1-0.6) Eos # (Auto) 0.2 K/mm3 (0-0.3) Baso # (Auto) 0.0 K/mm3 (0.0-0.1) Abs Immat Gran (auto) 0.11 H K/mm3 (0.00-0.031) Absolute Neuts (auto) 7.2 H K/mm3 (1.3-6.7) Absolute Nucleated RBC 0.000 K/mm3 (0.0-0.012) Nucleated RBC % 0.0 % (0.0-0.2) Sodium 136 L mmol/L (137-145) Potassium 3.9 mmol/L (3.4-5.0) Chloride 105 mmol/L (98-107) Carbon Dioxide 28 mmol/L (22-30) Anion Gap 3 L mmol/L (4-12) BUN 10 mg/dL (7-17) Creatinine 0.77 mg/dL (0.7-1.0) Estim Creat Clear Calc 76 ml/min Estimated GFR > 60 (59 - ) Glucose 111 H mg/dL (65-110) POC Capillary Glucose 124 H mg/dl 153 H mg/dl (65-105) (65-105) Calcium 7.8 L mg/dL (8.4-10.2) Magnesium 1.9 mg/dL (1.6-2.3) Iron TIBC % Saturation Ferritin Total Bilirubin 0.1 L mg/dL (0.2-1.3) AST 15 U/L (14-36) ALT 10 U/L (6-35) Alkaline Phosphatase 220 H U/L (38-126) Total Protein 6.0 L g/dL (6.3-8.2) Albumin 2.6 L g/dL (3.5-5.1) 07/24/24 07/24/24 07/24/24 08:01 11:08 11:58 WBC RBC Hgb Hct MCV MCH MCHC RDW Plt Count MPV Immature Gran % (Auto) Neut % (Auto) Lymph % (Auto) [place] % (Auto) Eos % (Auto) Baso % (Auto) Lymph # (Auto) [place] # (Auto) Eos # (Auto) Baso # (Auto) Abs Immat Gran (auto) Absolute Neuts (auto) Absolute Nucleated RBC Nucleated RBC % Sodium Potassium Chloride Carbon Dioxide Anion Gap BUN Creatinine Estim Creat Clear Calc Estimated GFR Glucose POC Capillary Glucose 103 mg/dl 139 H mg/dl (65-105) (65-105) Calcium Magnesium Iron 37 ug/dL (37-170) TIBC 257 L ug/dL (261-462) % Saturation 14 L % (20-50) Ferritin 40.80 ng/mL (11.1-264) Total Bilirubin AST ALT Alkaline Phosphatase Total Protein Albumin Patient hx anesthesia problems: none Family hx anesthesia problems: none Results Review: All pre-operative results and documents have been reviewed as part of the pre-operative evaluation. 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 Patient denies any significant findings. This was also performed at [facility] History of five vessel coronary artery bypass (~08/2022) Complicated by 3 episodes of cardiac arrest 1 intraoperatively and 2 additional episodes weeks following surgery. She reports she was hospitalized for 1 month. She was hospitalized at [facility] History of dental surgery Teeth removal 2013 History of incision and drainage Rt foot- Dr. Perez 10/07/2021 History of section Amputation toe s/p 5th ray amputation right [place] [address] Perez Family History Family History Father Diabetes mellitus Neuropathy Non-Hodgkin lymphoma Mother Diabetes mellitus Neuropathy Social History Social History Social History: Patient reports that she lives with her of 7 years and her 2 biological children and 6 step children. Her children ranged between ages of 13 in 28. She has been on disability for her over life due to schizophrenia. She denies any significant alcohol or drug use. She has smoked as many as 2 packs of cigarettes per day since she was a teenager. But she cut back to 1 pack of cigarettes per day proximally 2018. Code status: Full code Surrogate decision maker: Smoking packs per day: 1 Smoking cigarettes per day: 20.0 Years smoked: 37 Smoking pack-years: 37.00 Smoking status: Current every day smoker Tobacco type: cigarettes Second hand tobacco smoke exposure: Yes Alcohol intake: never Substance use: never Substance use type: does not use Do You Feel Safe in your Home?: Yes Lack of Transportation: YES Lack of Food: Never True Current Housing: I Have Housing Concerned About Future Housing: No Difficulty Paying Gas/Electric Bills: No Difficulty Paying for Meds: No Currently Unemployed: No Education: Grade School Difficulty w/ Childcare or Family Care: No Gender identity (if verbalized by the patient): Female Sexual Orientation (if Verbalized by the Patient): Straight or Heterosexual Spiritual care concerns: No Agree to blood products: No Anes - Eval Final PreProcedure Day of Procedure 07/24/24 15:38 Patient weight: morbidly obese Lungs: normal air movement Airway: Mallampati scale class II and special considerations (Edentulous. ) Neurological: alert and oriented Last oral intake: >/= 8 hours ASA classification: IV Emergent: no Anesthetic plan: proceed Anesthesia type and monitoring: general LMA and standard monitoring Results Review: All pre-operative results and documents have been reviewed as part of the pre- operative evaluation. Chronically ill pt w CAD, s/p CABG x 5 in 2022, on eliquis, cirrhosis, CKD DM (fsbs 139). Pt reports she can still walk without assistive devices short distances, without cp or sob. Informed Consent: The patient's anesthetic plan and its attendant risks and benefits were discussed with the patient/family/POA. Questions were solicited and answers provided to the satisfaction of the patient/family/POA.
--- NOTE | 2024-07-24 16:24 | WPDHPUPDATE1 ---
History and Physical Update Update Date/Time: 07/24/24 16:24 History and Physical has been reviewed, including an updated exam of the patient. There are NO changes in the patient's condition. Risks, benefits, and alternatives have been discussed and questions answered. Patient agrees to proceed with procedure.
[2024-07-24] MEDS: BUPIVACAINE/EPINEPHRINE 0.5% 50 ML VIAL 30 ML INFILTRATE (16:53)
--- NOTE | 2024-07-24 17:17 | W.PM.PROC2 ---
Procedure Note - Detailed Date of Procedure 07/24/24 Pre-op Diagnosis right foot diabetic ulcer/cellulitis Post-op Diagnosis Same Procedure Performed Sharp excisional debridement right foot diabetic ulcer including skin, subcutaneous fat, and fascia measuring 4 cm x 3 cm Surgeon Diogenes Chapin, DO Anesthesia MAC and Local (0.5% bupivacaine with epinephrine) Indications Worsening right foot diabetic ulcer Findings 4 cm x 3 cm right foot diabetic ulcer along medial and plantar side of 1st metatarsal head. Skin, subcutaneous fat, and fascia was sharply a excised with 15 blade scalpel and curette. There was an area tunneling from the small plantar ulcer to the medial ulcer the tunneling site was opened up to adequately drain and debride this area. Description of Procedure Procedure as well as risks, benefits, and alternatives were discussed with the patient. Written consent was obtained and placed in chart prior to procedure. Patient was brought back to surgical suite. She was placed supine on operating table. Time-out was done to confirm patient and procedure. IV sedation was administered by the anesthesia department. Right foot was prepped and draped in sterile fashion using Betadine prep. 0.5% bupivacaine with epinephrine was infiltrated locally around the open wounds. The medial ulcer was sharply debrided using a 15 blade scalpel and curette. This was debrided down to healthy appearing bleeding tissue and included skin, subcutaneous fat, and fascia. There did not appear to be any involvement of the bone. I then was carefully peeling off some of the callus around the plantar ulcer. The plantar ulcer appeared to tunnel to the medial ulcer. The bridge of skin between the 2 ulcers was then opened using a 15 blade scalpel. The necrotic tissue was debrided further using sharp dissection with the 15 blade scalpel. The total width and length of the open wound and debridement was about 4 cm x 3 cm. The area was then irrigated with sterile saline. Hemostasis was achieved with electrocautery. The wound was then packed with half-inch iodoform gauze. 4 x 4 gauze and Kerlix wrap were then applied. The patient was then awakened from anesthesia and transferred to recovery. Estimated Blood Loss 5 Urine Output 700 Packing Yes (Half-inch iodoform gauze) Complications No immediate complications Condition Stable Disposition Floor [facility] Billing Surgery - Charge Forward: Surgery Billing
[2024-07-24 17:37] LABS: Glucose Point of Care 115 mg/dl (65-105)
--- NOTE | 2024-07-24 18:20 | PC.NURSE ---
Returned from OR per Bed. Report received from Mee VARELA.
[2024-07-24] MEDS: INSULIN ASPART (*BKC) 100 UNITS/ML 8 UNITS SUB-Q (18:31)
[2024-07-24 18:40] LABS: Glucose Point of Care 110 mg/dl (65-105)
[2024-07-24] MEDS: oxyCODONE HCL (*CRX) 5 MG TAB IR PO (20:19)
[2024-07-24 20:20] LABS: Glucose Point of Care 100 mg/dl (65-105)
[2024-07-24] MEDS: SENNOSIDES 8.6 MG TABLET PO (20:20)
[2024-07-24] MEDS: APIXABAN 5 MG TABLET PO (21:53)
[2024-07-24 23:34] LABS: Vancomycin Trough 18.8 ug/mL (10.0-20.0)
[2024-07-25 03:51] VITALS: BP 105/56; PULSE 81; RESP 17; TEMP 36.7; O2SAT 98
[2024-07-25] MEDS: metroNIDAZOLE 500 MG/ISO 100ML 500 MG/100 ML BAG 100 MG IVPB (05:35)
[2024-07-25] MEDS: CENTRAL LINE FLUSH 20 ML IV PUSH (05:36)
[2024-07-25] MEDS: CENTRAL LINE FLUSH 10 ML IV PUSH (05:37)
[2024-07-25 05:52] LABS: Basophils Percent Auto 0.4 % (0.2-1.2); Eosinophils Absolute Auto 0.1 K/mm3 (0-0.3); Eosinophils Percent Auto 1.4 % (0-4.4); Hematocrit 25.8 % (37.0-47.0); Hemoglobin 7.7 g/dL (12.0-15.0); Immature Granulocyte Absolute 0.09 K/mm3 (0.00-0.031); Immature Granulocyte Percent A 1.1 % (0-0.5); Lymphocytes Absolute Auto 1.22 K/mm3 (0.9-3.2); Mean Corpuscular HGB Conc 29.8 g/dl (32-36); Mean Corpuscular Hemoglobin 25.6 pg (26-34); Mean Corpuscular Volume 85.7 fl (80-100); Mean Platelet Volume 9.8 fl (7.4-10.4); Monocytes Absolute Auto 0.6 K/mm3 (0.1-0.6); Monocytes Percent Auto 7.5 % (2.6-8.5); Neutrophils Absolute Auto 6.1 K/mm3 (1.3-6.7); Neutrophils Percent Auto 74.6 % (45.5-73.1); Platelet Count Result 242 k/mm3 (150-375); Red Blood Count 3.01 M/mm3 (4.2-5.4); Red Cell Distribution Width 17.2 % (11.5-14.5); White Blood Count 8.1 K/mm3 (4.5-10.0)
[2024-07-25 06:04] LABS: Alanine Aminotransferase 11 U/L (6-35); Albumin Level 2.7 g/dL (3.5-5.1); Alkaline Phosphatase 250 U/L (38-126); Anion Gap 6 mmol/L (4-12); Aspartate Amino Transferase 19 U/L (14-36); Bilirubin,Total < 0.1 mg/dL (0.2-1.3); Blood Urea Nitrogen 11 mg/dL (7-17); Calcium 7.7 mg/dL (8.4-10.2); Carbon Dioxide 29 mmol/L (22-30); Chloride 103 mmol/L (98-107); Estimated CRCL calculation 74 ml/min; Estimated Glomerular Filt Rate > 60; Glucose 200 mg/dL (65-110); Magnesium 1.9 mg/dL (1.6-2.3); Potassium 4.2 mmol/L (3.4-5.0); Sodium 138 mmol/L (137-145)
[2024-07-25 06:27] LABS: Hypochromasia 1+; Platelet Estimate Adequate (Adequate); Schistocytes None Seen
[2024-07-25 07:56] VITALS: BP 94/55; PULSE 70; RESP 18; TEMP 36.9; O2SAT 95
[2024-07-25 07:56] LABS: Glucose Point of Care 153 mg/dl (65-105)
[2024-07-25] MEDS: ATORVASTATIN 40 MG TABLET PO (08:36)
[2024-07-25] MEDS: CLOPIDOGREL BISULFATE 75 MG TABLET PO (08:36)
[2024-07-25 08:37] VITALS: PULSE 70
[2024-07-25] MEDS: SPIRONOLACTONE 50 MG TABLET PO (08:37)
[2024-07-25] MEDS: SENNOSIDES 8.6 MG TABLET PO (08:37)
[2024-07-25] MEDS: carvediloL 3.125 MG TABLET PO (08:37)
[2024-07-25] MEDS: oxyCODONE HCL (*CRX) 5 MG TAB IR PO (08:37)
[2024-07-25] MEDS: APIXABAN 5 MG TABLET PO (08:37)
[2024-07-25] MEDS: NICOTINE (*PBKC) 7 MG PATCH 1 PATCH TRANSDERM (08:38)
[2024-07-25] MEDS: CEFEPIME 2 GM/NS 50 ML 2 GM/50 ML BAG IVPB (08:38)
[2024-07-25] MEDS: INSULIN ASPART (*BKC) 100 UNITS/ML 8 UNITS SUB-Q (08:41)
[2024-07-25] MEDS: DOXYCYCLINE HYCLATE 100 MG TABLET PO (10:06)
[2024-07-25 11:44] LABS: Glucose Point of Care 160 mg/dl (65-105)
[2024-07-25 11:46] VITALS: BP 114/49; PULSE 76; RESP 18; TEMP 36.9; O2SAT 100
--- NOTE | 2024-07-25 12:10 | P.DS_ITS ---
DS: Admitting Diagnosis Discharge Date 07/25/24 Admitting Diagnosis Foot ulcer DS: Discharge Diagnosis Discharge Diagnosis (1) Ulcer of right foot due to type 2 diabetes mellitus: Code(s): E11.621 - Type 2 diabetes mellitus with foot ulcer; L97.519 - Non-pressure chronic ulcer of other part of right foot with unspecified severity Status: Acute DS: Summary Hospital Course Hospital Course: 49-year-old female with history of insulin-dependent diabetes mellitus and history of toe amputation presents with wound on her right foot. Denies pain or purulent discharge but redness streaking up of of the wound. Patient was placed on Cefepime and Vancomycin, Gen surgery was consulted and patient underwent I and D x2, wound culture positive for GBS. patient will continue Home health with wound care and will follow up with Gen surgery. MRI foot negative for Osteomyelitis. Discharged on 10 more days of Augmentin and Doxycycline. Continue other home meds. F/u with PCP in 3-5 days, Gen surgery as instructed Time Spent with Patient Time attestation: Total time spent providing and/or coordinating discharge services: DS: Data Data Completed and Pending Labs on day of discharge: Labs from last 24 hours 07/25/24 07/25/24 07/25/24 11:39 07:26 05:42 WBC 8.1 RBC 3.01 L Hgb 7.7 L Hct 25.8 L MCV 85.7 MCH 25.6 L MCHC 29.8 L RDW 17.2 H Plt Count 242 MPV 9.8 Immature Gran % (Auto) 1.1 H Neut % (Auto) 74.6 H Lymph % (Auto) 15.0 L [place] % (Auto) 7.5 Eos % (Auto) 1.4 Baso % (Auto) 0.4 Lymph # (Auto) 1.22 [place] # (Auto) 0.6 Eos # (Auto) 0.1 Baso # (Auto) 0.0 Abs Immat Gran (auto) 0.09 H Absolute Neuts (auto) 6.1 Absolute Nucleated RBC 0.000 Band Neutrophils % TNP Nucleated RBC % 0.0 Platelet Estimate Adequate Hypochromasia 1+ Schistocytes None seen Sodium 138 Potassium 4.2 Chloride 103 Carbon Dioxide 29 Anion Gap 6 BUN 11 Creatinine 0.79 Estim Creat Clear Calc 74 Estimated GFR > 60 Glucose 200 H POC Capillary Glucose 160 H 153 H Calcium 7.7 L Magnesium 1.9 Ferritin Total Bilirubin < 0.1 L AST 19 ALT 11 Alkaline Phosphatase 250 H Total Protein 6.0 L Albumin 2.7 L Vancomycin Trough 07/24/24 07/24/24 07/24/24 22:50 19:53 18:28 WBC RBC Hgb Hct MCV MCH MCHC RDW Plt Count MPV Immature Gran % (Auto) Neut % (Auto) Lymph % (Auto) [place] % (Auto) Eos % (Auto) Baso % (Auto) Lymph # (Auto) [place] # (Auto) Eos # (Auto) Baso # (Auto) Abs Immat Gran (auto) Absolute Neuts (auto) Absolute Nucleated RBC Band Neutrophils % Nucleated RBC % Platelet Estimate Hypochromasia Schistocytes Sodium Potassium Chloride Carbon Dioxide Anion Gap BUN Creatinine Estim Creat Clear Calc Estimated GFR Glucose POC Capillary Glucose 100 110 H Calcium Magnesium Ferritin Total Bilirubin AST ALT Alkaline Phosphatase Total Protein Albumin Vancomycin Trough 18.8 07/24/24 07/24/24 17:18 11:08 WBC RBC Hgb Hct MCV MCH MCHC RDW Plt Count MPV Immature Gran % (Auto) Neut % (Auto) Lymph % (Auto) [place] % (Auto) Eos % (Auto) Baso % (Auto) Lymph # (Auto) [place] # (Auto) Eos # (Auto) Baso # (Auto) Abs Immat Gran (auto) Absolute Neuts (auto) Absolute Nucleated RBC Band Neutrophils % Nucleated RBC % Platelet Estimate Hypochromasia Schistocytes Sodium Potassium Chloride Carbon Dioxide Anion Gap BUN Creatinine Estim Creat Clear Calc Estimated GFR Glucose POC Capillary Glucose 115 H Calcium Magnesium Ferritin 40.80 Total Bilirubin AST ALT Alkaline Phosphatase Total Protein Albumin Vancomycin Trough Discharge Plan Discharge Attending physician on discharge: Linda Keene Consulting providers: Diogenes Chapin Discharging Clinician: Linda Keene Anticipated Discharge Date/Time: 07/25/24 11:58 Patient Disposition: Home with Home Health Service Activity: as tolerated Diet: as tolerated and diabetic Discharge Instructions: Per Care Coordination, patient to discharge with [facility] ( [facility] for nursing home services and wound care. Please fax discharge instructions and medication sheets to . Patient Instructions: Antibiotic Form, Apixaban (By mouth), Pain Management (DC) Patient Language: Italian Stand Alone Forms: General Discharge Information Follow-up/Referrals: Wilder,JOAQUIN Jacinto [Primary Care Provider] - (F/u with PCP in 3-5 days ) Diogenes Chapin DO [Physician] - (F/u with Gen surgery as instructed ) Discharge Medications: New doxycycline hyclate 100 mg Tablet 100 mg PO Q12HR 10 Days Qty: 20 0RF oxycodone 5 mg Tablet 5 mg PO Q4H PRN (Reason: Pain Rated 7-10) 7 Days Qty: 8 0RF amoxicillin-pot clavulanate 875-125 mg tablet 1 tablet PO Q12H 10 Days Qty: 20 0RF Continued insulin glargine [Lantus U-100 Insulin] 100 unit/mL solution 48 unit SUBCUT HS clopidogrel 75 mg tablet 75 mg PO DAILY carvedilol 3.125 mg tablet 3.125 mg PO BID spironolactone 50 mg tablet 50 mg PO DAILY Eliquis 5 mg tablet 5 mg PO BID atorvastatin 40 mg Tablet 40 mg PO DAILY Qty: 90 1RF insulin lispro [Humalog KwikPen Insulin] 100 unit/mL insulin pen 10 unit subcut .with meals Date of admission: 07/20/24 16:46 Primary Care Provider: ScoobyJazmine Admitting Provider: Maryjane Camejo Attending physician on admission: Maryjane Camejo Condition: Stable
--- NOTE | 2024-07-25 12:30 | PM.PNGS ---
Progress Note: A&P Assessment and Plan (1) Diabetic foot ulcer: Code(s): E11.621 - Type 2 diabetes mellitus with foot ulcer; L97.509 - Non-pressure chronic ulcer of other part of unspecified foot with unspecified severity Status: Acute Assessment and Plan: Doing well after surgical debridement 07/24/2024. Continue local wound care. Okay to discharge from surgical standpoint. Follow up in office 2 weeks. (2) Cellulitis of foot, right: Code(s): L03.115 - Cellulitis of right lower limb Status: Acute (3) DM type 2 (diabetes mellitus, type 2): Code(s): E11.9 - Type 2 diabetes mellitus without complications Status: Acute (4) Anticoagulated by anticoagulation treatment: Code(s): Z79.01 - assisted (current) use of anticoagulants Status: Acute Subjective Subjective Date/Time Seen: 07/25/24 12:30 Interval history: Doing well on postop day 1. Had mild bleeding yesterday after procedure, but no further signs of bleeding. Exam Extrem: Other: Right foot wound over 1st metatarsal head on plantar surface and medial surface. Wound appears healthy with pink viable tissue. No significant necrotic tissue remaining. No purulence drainage. No surrounding cellulitis. Objective Data Vital Signs Vital Signs: Vital Signs - 24 hr 07/24/24 17:24 07/24/24 17:40 07/24/24 17:55 Temperature 97.9 F Pulse Rate 78 72 73 Respiratory Rate 17 18 18 Blood Pressure 101/55 L 100/52 L 98/49 L Pulse Oximetry 100 94 95 Oxygen Delivery Simple Face Mask Room Air Room Air Oxygen Flow Rate 8 07/24/24 18:10 07/24/24 18:28 07/24/24 18:30 Temperature 97.3 F L Pulse Rate 72 73 73 Respiratory Rate 20 18 Blood Pressure 98/60 L 116/67 Pulse Oximetry 96 97 Oxygen Delivery Room Air Oxygen Flow Rate 07/24/24 18:55 07/24/24 19:54 07/24/24 23:56 Temperature 97.6 F 98.3 F Pulse Rate 75 77 84 Respiratory Rate 18 17 17 Blood Pressure 109/62 99/53 L 115/67 Pulse Oximetry 98 99 99 Oxygen Delivery Oxygen Flow Rate 07/25/24 03:51 07/25/24 07:56 07/25/24 08:37 Temperature 98.1 F 98.4 F Pulse Rate 81 70 70 Respiratory Rate 17 18 Blood Pressure 105/56 L 94/55 L Pulse Oximetry 98 95 Oxygen Delivery Oxygen Flow Rate 07/25/24 08:40 07/25/24 11:46 Temperature 98.5 F Pulse Rate 76 Respiratory Rate 18 Blood Pressure 114/49 L Pulse Oximetry 100 Oxygen Delivery Room Air Oxygen Flow Rate Intake/Output Intake/Output: Intake & Output 07/22/24 07/23/24 07/24/24 07/25/24 23:59 23:59 23:59 23:59 Intake Total 3280 2710 2300 1350 Output Total 700 Balance 3280 2710 1600 1350 Meds/Results Medications: Active Medications Generic Name Dose Route Start Last Admin Trade Name Freq PRN Reason Stop Dose Admin Acetaminophen 650 mg 07/16/24 22:55 Acetaminophen 325 Mg Tablet PO Q4H PRN Mild Pain (1-3) or Fever Alteplase, Recombinant 2 mg 07/23/24 19:07 07/23/24 21:46 Alteplase 2 Mg Vial (Cathflo) IV PUSH 2 mg ONCE PRN Administration Line Occlusion Alteplase, Recombinant 2 mg 07/23/24 19:07 07/23/24 19:35 Alteplase 2 Mg Vial (Cathflo) IV PUSH 2 mg ONCE PRN Administration Line Occlusion Amoxicillin/Clavulanate Potassium 1 tablet 07/25/24 21:00 Amoxicillin/Clavulanate K 875-125 Mg Tab PO 08/07/24 21:01 Q12HR CHRISTOPHER Apixaban 5 mg 07/18/24 09:00 07/25/24 08:37 Apixaban 5 Mg Tablet PO 5 mg Q12HR CHRISTOPHER Administration Atorvastatin Calcium 40 mg 07/18/24 09:00 07/25/24 08:36 Atorvastatin 40 Mg Tablet PO 40 mg DAILY CHRISTOPHER Administration Carvedilol 3.125 mg 07/17/24 17:00 07/25/24 08:37 Carvedilol 3.125 Mg Tablet PO 3.125 mg BID CHRISTOPHER Administration Clopidogrel Bisulfate 75 mg 07/18/24 09:00 07/25/24 08:36 Clopidogrel Bisulfate 75 Mg Tablet PO 75 mg DAILY CHRISTOPHER Administration Dextrose 12.5 gm 07/16/24 22:36 Dextrose 50% 25 Gm/50 Ml Syringe IV PUSH PRN PRN Hypoglycemia Protocol Docusate Sodium 100 mg 07/18/24 10:17 07/20/24 09:23 Docusate Sodium 100 Mg Capsule PO 100 mg Q12H PRN Administration Constipation Doxycycline Hyclate 100 mg 07/25/24 10:30 07/25/24 10:06 Doxycycline Hyclate 100 Mg Tablet PO 08/07/24 21:01 100 mg Q12HR CHRISTOPHER Administration Glucose 15 gm 07/16/24 22:36 Glucose Oral Gel 15 Gm Of Glucse In 37.5 Gm Tube PO PRN PRN Hypoglycemia Protocol Dextrose 1,000 mls @ 100 mls/hr 07/16/24 22:36 Dextrose 5% 1,000 Ml IVPB PRN PRN Hypoglycemia Protocol Insulin Aspart 2 - 5 units 07/17/24 08:00 07/25/24 11:45 Insulin Aspart (*Bkc) 100 Units/Ml SUB-Q Not Given TIDWM [facility] Protocol Insulin Aspart 1 - 2 units 07/17/24 21:00 07/24/24 20:23 Insulin Aspart (*Bkc) 100 Units/Ml SUB-Q Not Given HS [facility] Protocol Insulin Aspart 8 units 07/19/24 17:00 07/25/24 08:41 Insulin Aspart (*Bkc) 100 Units/Ml SUB-Q 8 units TIDWM [facility] Administration Insulin Glargine 38 units 07/19/24 21:00 07/22/24 21:14 Insulin Glargine (*Bkc) 100 Units/Ml SUB-Q Not Given HS [facility] Nicotine 1 patch 07/17/24 12:00 07/25/24 08:38 Nicotine (*Pbkc) 7 Mg Patch TRANSDERM 1 patch DAILY CHRISTOPHER Administration Ondansetron HCl 4 mg 07/16/24 22:55 Ondansetron Inj 4 Mg/2 Ml Vial IV PUSH Q4H PRN Nausea Oxycodone HCl 5 mg 07/17/24 15:49 07/25/24 08:37 Oxycodone Hcl (*Crx) 5 Mg Tab Ir PO 5 mg Q4H PRN Administration Pain Rated 7-10 Polyethylene Glycol 17 gm 07/18/24 10:20 07/25/24 08:38 Polyethylene Glycol 3350 17 Gm Powd.Pack [facility] [place] Senna 8.6 mg 07/20/24 11:05 07/25/24 08:37 Sennosides 8.6 Mg Tablet PO 8.6 mg Q12HR CHRISTOPHER Administration Sodium Chloride 10 ml 07/20/24 14:00 07/25/24 05:37 Central Line Flush IV PUSH 10 ml Q8HR CHRISTOPHER Administration Sodium Chloride 10 ml 07/20/24 07:07 Central Line Flush IV PUSH PRN PRN with TPN bag changes Sodium Chloride 20 ml 07/20/24 07:07 07/25/24 05:36 Central Line Flush IV PUSH 20 ml PRN PRN Administration after blood draws Spironolactone 50 mg 07/17/24 15:00 07/25/24 08:37 Spironolactone 50 Mg Tablet PO 50 mg DAILY CHRISTOPHER Administration Tramadol HCl 25 mg 07/17/24 12:02 07/17/24 12:16 Tramadol Hcl (*Crx) 25 Mg Tablet PO 25 mg Q4H PRN Administration Pain Rated 4-6 Radiology Results: ITS Impressions Foot X-Ray 07/16/24 20:31 IMPRESSION: Moderate periosteal reaction along the medial margin of the mid shaft of the fifth metatarsal at the site of prior amputation with significant soft tissue swelling of the right forefoot. Lower Extremity CT 07/16/24 21:10 IMPRESSION: Soft tissue swelling without abscess formation Chest X-Ray 07/19/24 20:07 IMPRESSION: Right PICC line with the tip overlying the superior vena cava. Left basilar atelectasis versus pneumonia. Cardiomegaly with congestive riki and interstitial thickening which may indicate pulmonary edema versus pneumonitis versus fibrotic changes. Foot MRI 07/22/24 20:16 IMPRESSION: No definite MR evidence of osteomyelitis. Large area of nonenhancing subcutaneous fat over the plantar surface of the proximal toes and ball of the foot, may represent phlegmon or fat necrosis. Plantar flexor tenosynovitis and likely small tendon sheath abscess. Small first through fourth MTP joint effusions with synovitis. Septic arthritis is not excluded. Forefoot edema/cellulitis. Labs Labs: Laboratory Results - last 24 hr 07/24/24 07/24/24 07/24/24 17:18 18:28 19:53 WBC RBC Hgb Hct MCV MCH MCHC RDW Plt Count MPV Immature Gran % (Auto) Neut % (Auto) Lymph % (Auto) Pratt % (Auto) Eos % (Auto) Baso % (Auto) Lymph # (Auto) Pratt # (Auto) Eos # (Auto) Baso # (Auto) Abs Immat Gran (auto) Absolute Neuts (auto) Absolute Nucleated RBC Band Neutrophils % Nucleated RBC % Platelet Estimate Hypochromasia Schistocytes Sodium Potassium Chloride Carbon Dioxide Anion Gap BUN Creatinine Estim Creat Clear Calc Estimated GFR Glucose POC Capillary Glucose 115 H 110 H 100 Calcium Magnesium Total Bilirubin AST ALT Alkaline Phosphatase Total Protein Albumin Vancomycin Trough 07/24/24 07/25/24 07/25/24 22:50 05:42 07:26 WBC 8.1 RBC 3.01 L Hgb 7.7 L Hct 25.8 L MCV 85.7 MCH 25.6 L MCHC 29.8 L RDW 17.2 H Plt Count 242 MPV 9.8 Immature Gran % (Auto) 1.1 H Neut % (Auto) 74.6 H Lymph % (Auto) 15.0 L Pratt % (Auto) 7.5 Eos % (Auto) 1.4 Baso % (Auto) 0.4 Lymph # (Auto) 1.22 Pratt # (Auto) 0.6 Eos # (Auto) 0.1 Baso # (Auto) 0.0 Abs Immat Gran (auto) 0.09 H Absolute Neuts (auto) 6.1 Absolute Nucleated RBC 0.000 Band Neutrophils % TNP Nucleated RBC % 0.0 Platelet Estimate Adequate Hypochromasia 1+ Schistocytes None seen Sodium 138 Potassium 4.2 Chloride 103 Carbon Dioxide 29 Anion Gap 6 BUN 11 Creatinine 0.79 Estim Creat Clear Calc 74 Estimated GFR > 60 Glucose 200 H POC Capillary Glucose 153 H Calcium 7.7 L Magnesium 1.9 Total Bilirubin < 0.1 L AST 19 ALT 11 Alkaline Phosphatase 250 H Total Protein 6.0 L Albumin 2.7 L Vancomycin Trough 18.8 07/25/24 11:39 WBC RBC Hgb Hct MCV MCH MCHC RDW Plt Count MPV Immature Gran % (Auto) Neut % (Auto) Lymph % (Auto) Pratt % (Auto) Eos % (Auto) Baso % (Auto) Lymph # (Auto) Pratt # (Auto) Eos # (Auto) Baso # (Auto) Abs Immat Gran (auto) Absolute Neuts (auto) Absolute Nucleated RBC Band Neutrophils % Nucleated RBC % Platelet Estimate Hypochromasia Schistocytes Sodium Potassium Chloride Carbon Dioxide Anion Gap BUN Creatinine Estim Creat Clear Calc Estimated GFR Glucose POC Capillary Glucose 160 H Calcium Magnesium Total Bilirubin AST ALT Alkaline Phosphatase Total Protein Albumin Vancomycin Trough
[2024-07-25] MEDS: NEOMYCIN/POLYMYXIN/BACITRACIN OINTMENT PACKET 1 PACKET (12:56)
--- NOTE | 2024-07-29 12:23 | PCCDE ---
07/29/24 states this am fasting glu: 105 Post Discharge DM Educator couresy call. Pt reports my sugars have been really good . Denies questions, concerns related to DM Has PCP appt 08/07/24, aware procedure for OP DSMT/MNT referral if desired. DEB
== END 2024-07-25 13:00 | disposition home health service (06) | DRG 380 ==
LOC: ANHED 22:54 → ANH2MED 23:21
PROVIDERS: Nurse Practitioner Family; Surgery; Admitting Provider General Practice; Emergency Provider Emergency Medicine; PCP Physician Assistant; Visit Provider Internal Medicine
PROC: 0JBQ0ZZ Excision of Right Foot Subcutaneous Tissue and Fascia, Open Approach (ICD-10-PCS; principal; 2024-07-24 15:00)
DX: E11.621 Type 2 diabetes mellitus with foot ulcer (principal); L97.519 Non-pressure chronic ulcer of other part of right foot with unspecified severity; B95.1 Streptococcus, group B, as the cause of diseases classified elsewhere; E66.9 Obesity, unspecified; E11.319 Type 2 diabetes mellitus with unspecified diabetic retinopathy without macular edema; E11.42 Type 2 diabetes mellitus with diabetic polyneuropathy; F17.210 Nicotine dependence, cigarettes, uncomplicated; F20.9 Schizophrenia, unspecified; L03.115 Cellulitis of right lower limb; I25.10 Atherosclerotic heart disease of native coronary artery without angina pectoris; K59.00 Constipation, unspecified; R51.9 Headache, unspecified; Z89.421 Acquired absence of other right toe(s); Z89.412 Acquired absence of left great toe; Z68.39 Body mass index [BMI] 39.0-39.9, adult; Z95.1 Presence of aortocoronary bypass graft; Z79.4 Long term (current) use of insulin; Z79.01 Long term (current) use of anticoagulants; Z79.02 Long term (current) use of antithrombotics/antiplatelets
CPT/HCPCS: 36415; 36569; 71045; 73630; 73701; 73720; 80048; 80053; 80202; 81001; 81025; 82565; 82728; 82948; 83036; 83540; 83550; 83605; 83735; 84145; 85025; 85055; 85610; 85652; 85730; 86140; 87040; 87070; 87086; 87205; 93005; 96365; 96366; 96367; 96368; 96375; 96376; 99212; 99285; A9270; A9579; C1751; G0378; G0379; G0463; J0692; J1171; J1815; J1836; J2371; J2405; J2704; J2997; J3370; J3475; J7030; J7120; Q9967